=== PATIENT | male | born 1965 | race Caucasian/White ===

== ENCOUNTER → 2022-02-27 | Outpatient (CLI) | payer OTHER, SELFPAY ==
--- NOTE | 2022-02-27 14:25 | ECHOCS_ITS ---
Reason For Study: SOB/Obesity/HTN Procedure This was a 2D Doppler, Color Flow transthoracic echocardiogram. Contrast injection was performed. Exam performed in department. Left Ventricle Normal LV size. Left ventricular systolic function is normal. The estimated ejection fraction is 60 %. No regional wall motion abnormalities noted. Right Ventricle Normal RV size. Normal systolic function. Atria Normal left atrium. Normal right atrium. Mitral Valve Mitral valve not well visualized. Tricuspid Valve Normal tricuspid valve. Aortic Valve Normal aortic valve. Pulmonic Valve Normal pulmonic valve. Great Vessels Normal aortic root. The pulmonary artery is normal size. Normal inferior vena cava. Pericardium/Pleural No pericardial effusion. Medication Diluted definity 2ml given slow IV push to enhance endocardial definition. MMode/2D Measurements & Calculations LVIDd: 4.6 cm IVSd: 1.2 cm Ao root diam: 2.9 cm LVIDs: 2.9 cm LVPWd: 1.2 cm RVDd: 3.0 cm FS: 36.7 % LAV(MOD-bp): 35.4 ml LA A4 area: 14.6 cm2 LA dimension(2D): 3.8 cm LAV(MOD-bp) Indexed: 15.4 ml/m2 LAV(MOD-sp2): 36.5 ml LAV(MOD-sp4): 32.7 ml RA A4 area: 14.5 cm2 Doppler Measurements & Calculations MV E max jamaal: 60.7 cm/sec Lat Peak E' Jamaal: 8.6 cm/sec Med Peak E' Jamaal: 8.2 cm/sec MV A max jamaal: 70.1 cm/sec E/E' lat: 7.0 E/E' med: 7.4 MV E/A: 0.87 Ao V2 max: 160.7 cm/sec LV V1 max: 135.2 cm/sec PA V2 max: 105.6 cm/sec Ao max P.3 mmHg LV V1 max P.3 mmHg Ao V2 mean: 101.8 cm/sec Ao mean P.8 mmHg Ao V2 VTI: 25.9 cm ECHO/Echo Complete W/ Contrast Interpretation Summary Normal LV size. Left ventricular systolic function is normal. The estimated ejection fraction is 60 %. Contrast injection was performed. Ordering Physician: Savana Argueta Referring Physician: Savana Argueta Performed By: Umm Ibrahim, JENCS, RVT
== END | disposition home or self-care (01) ==
LOC: CVS 14:22
PROVIDERS: PCP Nurse Practitioner Family; Referring Provider Nurse Practitioner Family; Visit Provider Nurse Practitioner Family
DX: R06.02 Shortness of breath (principal); I10 Essential (primary) hypertension; E66.9 Obesity, unspecified
CPT/HCPCS: 93306; Q9957; A4216; C8929

== ENCOUNTER → 2022-04-01 | Outpatient (CLI) | payer OTHER, SELFPAY ==
--- NOTE | 2022-04-01 10:38 | RAD_ITS ---
INDICATION: Shortness of breath. EXAMINATION/TECHNIQUE: X-RAY - XR Chest 2 Views COMPARISON: None. FINDINGS: LINES/DEVICES: None. LUNGS: No consolidation, edema or effusion. No pneumothorax. MEDIASTINUM AND CARDIOVASCULAR STRUCTURES: Cardiac silhouette not enlarged. Central airways and mediastinal contour are unremarkable. BONES AND SOFT TISSUES: Unremarkable. RAD/Chest PA and Lateral IMPRESSION: No radiographic evidence of acute cardiopulmonary disease. Electronically Signed: Emmanuel Blanchard DO at 21:47 EDT ,
--- NOTE | 2022-04-02 10:02 | PFT ---
INTRODUCTION: The patient is a 56-year-old male that presents for pulmonary function studies secondary to a diagnosis of dyspnea. Respiratory therapy reported good patient effort. Bronchodilators were used during testing. INTERPRETATION: Forced expiration spirometry demonstrates the presence of a severe large airways obstructive ventilatory defect. There was a significant response to aerosolized bronchodilators. Spirograms are of good quality but do not plateau indicating slow emptying of the lungs. Body plethysmography was performed and demonstrated an elevated RV to 197% of predicted, indicative of underlying air trapping. Diffusing capacity by single breath CO was reduced to 65% of predicted. IMPRESSION: Partially reversible severe large airways obstructive ventilatory defect with associated air trapping and mild reduction in diffusing capacity.
== END | disposition home or self-care (01) ==
PROVIDERS: PCP Nurse Practitioner Family; Referring Provider Internal Medicine Critical Care Medicine; Visit Provider Internal Medicine Critical Care Medicine
DX: R06.02 Shortness of breath (principal)
CPT/HCPCS: 71046; 94060; 94726; 94729

== ENCOUNTER → 2022-04-02 | Outpatient (CLI) | payer OTHER, SELFPAY ==
[2022-04-02 11:55] VITALS: PULSE 101; PULSE 105; PULSE 108; PULSE 75; PULSE 83; PULSE 88; PULSE 90; PULSE 99; O2SAT 89; O2SAT 90; O2SAT 91; O2SAT 92; O2SAT 94; O2SAT 95; O2SAT 97
--- NOTE | 2022-04-02 12:34 | CPS ---
At 4 min into test pt stopped to catch his breath. Pulse ox was 89% but came up to 90-91% in just a few seconds. Pulse ox continued to rise to 97%. Walk was restarted after approximately 1 minute break time total.
--- NOTE | 2022-04-05 10:08 | PCM.PSN.6M ---
PSN 6 Minute Walk Test 6 Minute Walk Test 6 Minute Walk Test: 6 Minute Walk Test PSN:6-Minute Walk Test Start: 04/02/22 12:30 Freq: Status: Active Protocol: RESP.6MINW Document 04/02/22 11:55 [facility] (Rec: 04/02/22 12:39 [facility] [id number]) 6 Minute Walk Test Date Performed 04/02/22 Time Performed 11:55 Height 5 ft 7 in Weight: 275 lb Weight in Pounds 275.[address]: Kervin Pa Assistive device used: None Pre-test Oxygen Delivery Method Room Air Pulse Ox (%) 95 Pulse Rate (60-100 beats/min) 75 Dyspnea Jannette Scale (0-10) 0.5 Exertion Jannette Scale (6-20) 6 1st minute Pulse Ox (%) 92 Pulse Rate (60-100 beats/min) 101 H 2nd minute Oxygen Delivery Method Room Air Pulse Ox (%) 91 Pulse Rate (60-100 beats/min) 108 H 3rd minute Oxygen Delivery Method Bi-pap Pulse Ox (%) 90 Pulse Rate (60-100 beats/min) 105 H 4th minute Oxygen Delivery Method Room Air Pulse Ox (%) 89 Pulse Rate (60-100 beats/min) 99 Number of Rests Taken 1 Reported Symptoms Increased Work of Breathing 5th minute Oxygen Delivery Method Room Air Pulse Ox (%) 94 Pulse Rate (60-100 beats/min) 90 6th minute Oxygen Delivery Method Room Air Pulse Ox (%) 91 Pulse Rate (60-100 beats/min) 83 Post-test Oxygen Delivery Method Room Air Pulse Ox (%) 97 Pulse Rate (60-100 beats/min) 88 Full Laps Walked 16 Partial Lap, Number of Tiles Walked 35 Total Distance Walked (ft) 979 04/02/22 12:34 Cardiopulmonary Services by Kayla Baker At 4 min into test pt stopped to catch his breath. Pulse ox was 89% but came up to 90-91% in just a few seconds. Pulse ox continued to rise to 97%. Walk was restarted after approximately 1 minute break time total. Initialized on 04/02/22 12:34 - END OF NOTE Interpretation Interpretation: The patient ambulated 979 feet over the course of 6 minutes beginning on room air without assistive devices. Pretesting oxygen saturation was noted to be 95% on room air. With ambulation, the caprice oxygen saturation was 89%. This represents a significant exertional oxygen desaturation, consistent with a pulmonary limitation to exercise tolerance. Recommendations Recommendations: There is no indication for the use of supplemental oxygen at this time. However, close interval follow-up is recommended, given the degree of oxygen desaturation noted during this study.
== END | disposition home or self-care (01) ==
LOC: PSN 11:51
PROVIDERS: PCP Nurse Practitioner Family; Referring Provider Internal Medicine Critical Care Medicine; Visit Provider Internal Medicine Critical Care Medicine
DX: R06.00 Dyspnea, unspecified (principal)
CPT/HCPCS: 94618

== ENCOUNTER 2022-08-30 15:00 | Outpatient (RCR) | payer OTHER, SELFPAY ==
[2022-08-22 10:13] VITALS: BP 145/73; PULSE 86; TEMP 36.2; BMI 44.6
--- NOTE | 2022-08-22 11:10 | PCM.WC.HP ---
History of Present Illness Date of Service: 08/22/22 Chief Complaint: Left lower extremity wound x3 History of Wound: Patient is a 57-year-old male with history of COPD, chronic tobacco abuse, obesity, swelling of bilateral lower extremities with recent opening of 3 ulcerations to the left lower extremity. 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 He states that he does not elevate his legs and does not wear compression stockings. Also states that he recently quit smoking. Reports seeing his PCP who prescribed Lasix to aid in fluid reduction of the lower extremities. He also reports being prescribed oral antibiotic, Bactrim DS and is currently taking this. States he was referred to the wound care center for continued care of his left lower extremity ulcerations. [facility] Medical History Bronchitis Environmental allergies Hyperlipidemia Hypoxemia Home Medications albuterol sulfate 90 mcg/actuation aerosol inhaler (ProAir HFA) 2 puff inhalation Q6H PRN 03/27/22 [History Last Taken Unknown] atorvastatin 10 mg tablet 10 mg PO DAILY 03/27/22 [History Last Taken Unknown] losartan 100 mg-hydrochlorothiazide 25 mg tablet 1 tab PO DAILY 03/27/22 [History Last Taken Unknown] fluticasone fur. 200 mcg-umeclid 62.5 mcg-vilant 25 mcg inhalat.powder (Trelegy Ellipta) 1 inh inhalation DAILY #60 ea 05/07/22 [Rx Last Taken Unknown] Allergy/AdvReac Type Severity Reaction Status Date / Time No Known Allergies Allergy Verified 05/07/22 08:55 Surgical History History of repair of rotator cuff Social History Smoking Status: Current some day smoker tobacco type: cigarettes ROS Constitutional Constitutional: Denies chills, fatigue or fever(s) Eyes Eyes: Denies blurry vision, change in vision or double vision ENT HEENT: Denies dysphagia, nasal congestion or sore throat Cardiovascular Cardiovascular: Denies chest pain, claudication or palpitations Respiratory/Chest Respiratory/Chest: Denies cough, productive cough or shortness of breath at rest Gastrointestinal Gastrointestinal: Denies abdominal pain, constipation, diarrhea, hematochezia, nausea or vomiting Genitourinary Genitourinary: Denies dysuria, hematuria, urinary frequency, urinary hesitancy, urinary incontinence or urinary urgency Musculoskeletal Musculoskeletal: Denies joint pain, joint stiffness or joint swelling Integumentary Integumentary: Denies lesions, pruritus or rash Neurologic Neurologic: Denies dizziness, numbness or seizures Endocrine Endocrinology: Denies cold intolerance or heat intolerance Hematologic/Lymphatic Hematologic/Lymphatic: Denies easy bleeding or easy bruising Vital Signs Vital Signs Vital Signs: 08/22/22 10:13 Temperature 97.1 F L Temperature Source Temporal Pulse Rate 86 Blood Pressure 145/73 H Blood Pressure Mean 97 Blood Pressure Source Monitor Weight Weight: 129.274 kg Body Mass Index (BMI) 44.6 Physical Exam Const alert, oriented x3, no apparent distress and well nourished General Appearance: cooperative HEENT normocephalic Eyes General Eye: normal appearance of both eyes Neck General: normal visual inspection Lymph Lymphatic: no lymphadenopathy noted and no lymphedema noted Resp normal respiratory effort Cardio regular rate and regular rhythm Extremity normal capillary refill, no joint enlargement and no calf tenderness Extremity Narrative: DP and PT pulses palpable bilateral. Capillary fill time is brisk to the digits. Normal temperature gradient. Hair growth to the digits is diminished. There is some mild nonpitting lower extremity edema bilateral from mid calf to the distal forefoot. Musculoskeletal: Muscle strength 5 out of 5 and age-appropriate. Negative Homans' sign. Negative Lester sign. Skin no rashes or lesions noted, skin turgor normal and no jaundice Wound Narrative: Left lower extremity: 3 ulcerations noted to the left lower extremity. #1 anterior leg; #2 Superior lateral leg; #3 distal lateral leg. Ulcerative sites demonstrate moist fibrotic tissue in the wound bed with scant serous drainage. No purulent drainage, no erythema, no malodor, no palpable fluctuance/bogginess, no visible abscess, no lymphangitic streaking. Neuro moves all extremities Debridement Note Debridement Note Wound debrided: Left lower extremity x3 Laterality: Left Wound Grade/Stage: Sheth stage I Type of Debridement: Excisional debridement Anesthesia Used: 5% Lidocaine Gel Depth: Down to and including healthy tissue and in the subcutaneous layer Percentage of wound debrided: 100 Instrument Used: 3mm curette Tissue Removed: Fibrous, devitalized subcutaneous, biofilm, slough Severity: Fat Layer Exposed Amount of bleeding with debridement: Mild Bleeding Controlled with: Compression and gauze Patient tolerated procedure: Patient tolerated procedure well Post-Debridement Measurements and Additional Note: Post-Debridement Measurements/Treatment - Nurse 1 - General Ulcer Assessment Start: 08/22/22 10:03 Freq: Status: Active Protocol: XIMENA Activity Type Activity Date Activity User E-sign Co-sign Detail Recorded Client Recorded Date Recorded By Document 08/22/22 10:13 NE [id number] 08/22/22 10:20 NE 08/22/22 10:13 WC - Today's Visit Information Type of service Initial Visit Arrival Mode Ambulatory Patient Identification Verified (Name & Yes ) Patient Requires Transmission-Based No Precautions Safety Precautions NA Height and Weight Height 5 ft 7 in Weight 129.274 kg Weight in Pounds 285.0 lbs Body Mass Index (BMI) 44.6 BMI Classification Obese BSA - Belinda 2.35 Vital Signs Temperature (97.8 F-99.1 F) 97.1 F L Temperature Source Temporal Pulse Rate (60-100) 86 Pulse Location Monitor Blood Pressure (90/60-120/80) 145/73 H Blood Pressure Mean 97 Source Monitor History Since Last Visit- (Skip if this is Patient's initial visit) Have you changed medications since your No last visit? Any new allergies or adverse reactions No Had a fall/change in ADL's that may No increase risk of falls Signs or symptoms of abuse and/or No neglect since last visit Have you been in the hospital since your No last visit? Has dressing in place as prescribed No Has compression in place as prescribed N/A Has offloadiing in place as prescribed N/A Experienced any changes in pain level or No management Left Footwear Regular Shoe Right Footwear Regular Shoe Pain Scale: 0-10 Numeric Is Patient Pain Free? Yes - Nurse 1 - General Ulcer Measurement Start: 08/22/22 10:03 Freq: Status: Active Protocol: Activity Type Activity Date Activity User E-sign Co-sign Detail Recorded Client Recorded Date Recorded By Document 08/22/22 10:13 TORREY [id number] 08/22/22 10:20 TORREY 08/22/22 10:13 Wound Center Nurse 1 #3 L lateral superior -Combined with other wound No -Current Size (cm) - Length 0.4 -Current Size (cm) - Width 1 -Current Size (cm) - Depth 0.1 -Total Square Cm 0.4 -Photo Taken Yes -Tunneling No -Undermining/Tunneling No -Circular Undermining No -Change in Wound Grade/Stage No -Exudate Amt Large -Exudate Type Serosanguineous -Wound Margin Distinct, Outline Attached -Granulation Amt None Present (0 %) -Slough/Fibrin Yes -Necrosis Amt Large (67-100%) -Necrotic Tissue Type Adherent Slough -Structure Exposed N/A -Texture (Myriam-wound Skin Appearance) No Abnormality, Assessed -Moisture (Myriam-wound Skin Appearance) No Abnormality, Assessed -Color (Myriam-wound Skin Appearance) No Abnormality, Assessed -Temperature (Myriam-wound Skin No Abnormality Appearance) (Pt Warm) -Tenderness on Palpation (Myriam-wound No Skin Appearance) -Ulcer Cleansing Soap and Water -Foul Odor after Cleansing No -Anesthetic Used 5% Lidocaine Gel # 2 L lateral -Combined with other wound No -Current Size (cm) - Length 0.5 -Current Size (cm) - Width 0.5 -Current Size (cm) - Depth 0.1 -Total Square Cm 0.25 -Photo Taken Yes -Tunneling No -Undermining/Tunneling No -Circular Undermining No -Change in Wound Grade/Stage No -Exudate Amt Medium -Exudate Type Serosanguineous -Wound Margin Distinct, Outline Attached -Granulation Amt None Present (0 %) -Granulation Quality N/A -Slough/Fibrin Yes -Necrosis Amt Large (67-100%) -Necrotic Tissue Type Adherent Slough -Structure Exposed N/A -Texture (Myriam-wound Skin Appearance) No Abnormality, Assessed -Moisture (Myriam-wound Skin Appearance) No Abnormality, Assessed -Color (Myriam-wound Skin Appearance) No Abnormality, Assessed -Temperature (Myriam-wound Skin No Abnormality Appearance) (Pt Warm) -Tenderness on Palpation (Myriam-wound No Skin Appearance) -Ulcer Cleansing Soap and Water -Foul Odor after Cleansing No -Anesthetic Used 5% Lidocaine Gel #1 L salmeron -Combined with other wound No -Current Size (cm) - Length 1.2 -Current Size (cm) - Width 0.7 -Current Size (cm) - Depth 0.1 -Total Square Cm 0.84 -Photo Taken Yes -Tunneling No -Undermining/Tunneling No -Circular Undermining No -Change in Wound Grade/Stage No -Exudate Amt None Present -Exudate Type Serosanguineous -Wound Margin Distinct, Outline Attached -Granulation Amt None Present (0 %) -Granulation Quality N/A -Slough/Fibrin Yes -Necrosis Amt Large (67-100%) -Necrotic Tissue Type Adherent Slough -Structure Exposed N/A -Texture (Myriam-wound Skin Appearance) No Abnormality, Assessed -Moisture (Myriam-wound Skin Appearance) No Abnormality, Assessed -Color (Myriam-wound Skin Appearance) No Abnormality, Assessed -Temperature (Myriam-wound Skin No Abnormality Appearance) (Pt Warm) -Tenderness on Palpation (Myriam-wound No Skin Appearance) -Ulcer Cleansing Soap and Water -Foul Odor after Cleansing No -Anesthetic Used 5% Lidocaine Gel Lower Limb Edema Present No Right Calf (cm) 48 Right Ankle (cm) 29 Left Calf (cm) 49 Left Ankle (cm) 31 - Nurse 2 - General Ulcer CM Notes Start: 08/22/22 10:03 Freq: Status: Active Protocol: Activity Type Activity Date Activity User E-sign Co-sign Detail Recorded Client Recorded Date Recorded By Document 08/22/22 10:35 MARK [id number] 08/22/22 10:46 MARK 08/22/22 10:35 Wound Center Nurse 2 #3 L lateral superior -Correct Patient Yes -Correct Side, Site, Position Yes -Correct Procedure Yes -Procedure Performed Yes -Type of Procedure Debridement -Clinical Debridement Subcutaneous -Tissue Removed Subcutaneous -Post Debridement (cm) - Length 0.3 -Post Debridement (cm) - Width 1.0 -Post Debridement (cm) - Depth 0.1 -Total Square (Post) (cm) 0.30 -Area of Debridement (cm) - Length 0.3 -Area of Debridement (cm) - Width 1.0 -Total Square (Area) (cm) 0.30 -Tunneling No -Undermining/Tunneling No -Circular Undermining No -Wound/Ulcer Outcome Not Healed -Ulcer Cleansing Rinsed/ Irrigated with Saline -Foul Odor after Cleansing No -Bioengineered Tissue No -Bleeding Controlled with Pressure -Treatment Response Procedure Tolerated Well -Offloading No -Debridement - Subq, 1st 20sq cm Yes # 2 L lateral -Time 10:40 -Correct Patient Yes -Correct Side, Site, Position Yes -Correct Procedure Yes -Procedure Performed Yes -Type of Procedure Debridement -Clinical Debridement Subcutaneous -Tissue Removed Subcutaneous -Post Debridement (cm) - Length 0.5 -Post Debridement (cm) - Width 0.6 -Post Debridement (cm) - Depth 0.1 -Total Square (Post) (cm) 0.30 -Area of Debridement (cm) - Length 0.5 -Area of Debridement (cm) - Width 0.6 -Total Square (Area) (cm) 0.30 -Tunneling No -Undermining/Tunneling No -Circular Undermining No -Wound/Ulcer Outcome Not Healed -Ulcer Cleansing Rinsed/ Irrigated with Saline -Foul Odor after Cleansing No -Bioengineered Tissue No -Bleeding Controlled with Pressure -Treatment Response Procedure Tolerated Well -Offloading No -Debridement - Subq, 20sq cm No #1 L salmeron -Time 10:45 -Correct Patient Yes -Correct Side, Site, Position Yes -Correct Procedure Yes -Procedure Performed No -Type of Procedure Debridement -Clinical Debridement Subcutaneous -Tissue Removed Subcutaneous -Post Debridement (cm) - Length 0.5 -Post Debridement (cm) - Width 0.6 -Post Debridement (cm) - Depth 0.1 -Total Square (Post) (cm) 0.30 -Area of Debridement (cm) - Length 0.5 -Area of Debridement (cm) - Width 0.6 -Total Square (Area) (cm) 0.30 -Tunneling No -Undermining/Tunneling No -Circular Undermining No -Wound/Ulcer Outcome Not Healed -Ulcer Cleansing Rinsed/ Irrigated with Saline -Foul Odor after Cleansing No -Bioengineered Tissue No -Bleeding Controlled with Pressure -Treatment Response Procedure Tolerated Well -Offloading No -Debridement - Subq, 1st 20sq cm No Pain Scale: 0-10 Numeric Is Patient Pain Free? Yes Assessment/Plan Assessment/Plan (1) BMI 40.0-44.9, adult: CODE(S): Z68.41 - Body mass index [BMI] 40.0-44.9, adult (2) Stage 3 severe COPD by GOLD classification: CODE(S): J44.9 - Chronic obstructive pulmonary disease, unspecified (3) Tobacco abuse: CODE(S): Z72.0 - Tobacco use (4) Venous insufficiency (chronic) (peripheral): CODE(S): I87.2 - Venous insufficiency (chronic) (peripheral) (5) Non-pressure chronic ulcer of left calf with fat layer exposed: CODE(S): L97.222 - Non-pressure chronic ulcer of left calf with fat layer exposed (6) Bilateral edema of lower extremity: CODE(S): R60.0 - Localized edema PLAN: Plan Patient seen and evaluated Discussed the swelling in the bilateral lower extremities with his ulcerations secondary to aggressive scratching with a back scratching device. Discouraged continued use of this device as this has likely led to his ulcerations. Encouraged continued elevation of lower extremities for control of edema. Patient is noted to be on Lasix to assist in fluid control. Instructed him to continue use of Lasix. Discussed compression stocking for continued assistance in his control of edema. He voices understanding that he does need to wear the compression stockings. He has stopped smoking recently. I did discuss the risks and detriment smoking has on wound healing and overall health, again smoking was discouraged. Encouraged his continued smoking cessation. Ordered LEAS and venous studies of bilateral lower extremities, awaiting results. Encouraged him to finish out his oral antibiotic, Bactrim DS. Ulcerations to the left lower extremity x3 were debrided as noted in the clinical panel above. Left anterior leg lower extremity measures 1.2 cm x 0.9 cm x 0.1 cm; left superior lateral measures 0.3 cm x 1 cm x 0.1 cm; left distal lateral measures 0.5 cm x 0.6 cm x 0.1 cm. No signs of infection. Following debridement ulcerative sites dressed with Taya and Unna boot applied to bilateral lower extremity. He was instructed to keep the Unna boots clean, dry, and intact. He will return on Friday for change of the Unna boot. Encouraged adequate protein intake to continue to aid in wound healing. The following work up and care recommendations were made: Dressing: Taya and Unna boot to bilateral lower extremity Wash: Keep dressings clean, dry, and intact Tissue growth optimization: Taya Offload: Unna boot compression and elevation of legs Vascular: DP and PT pulses palpable with adequate capillary fill bilateral. Edema: Unna boot compression and elevation of legs Infection: No signs of infection. Patient currently on Bactrim DS, encouraged to finish to completion. Pain: May take [id number] Tylenol for discomfort Host factors: Suspected venous insufficiency, pruritus and self excoriation. I answered all the patient's questions. To return to the wound healing center in 1 week or call sooner if the patient has any questions or concerns.
[2022-08-27 08:16] VITALS: BP 142/84; PULSE 74; BMI 44.6
--- NOTE | 2022-08-29 11:00 | PCM.WC.PN ---
History of Present Illness Date of Service: 08/29/22 Chief Complaint: Left lower extremity wound x3 History of Wound: Patient is a 57-year-old male with history of COPD, chronic tobacco abuse, obesity, swelling of bilateral lower extremities with recent opening of 3 ulcerations to the left lower extremity. 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 He states that he does not elevate his legs and does not wear compression stockings. Also states that he recently quit smoking. Reports seeing his PCP who prescribed Lasix to aid in fluid reduction of the lower extremities. He also reports being prescribed oral antibiotic, Bactrim DS and is currently taking this. States he was referred to the wound care center for continued care of his left lower extremity ulcerations. Subjective Subjective Patient is a 57-year-old male who presents to the wound care center today for follow-up of left lower extremity ulceration x3. He kept his Unna boot compression dressing clean, dry, and intact and did return to the wound center for change of the dressing earlier this week. He denies any constitutional symptoms today. Denies any further complaints today. Objective Data Objective Data Vital Signs: Vital Signs Temp Pulse BP 97.1 F L 74 142/84 H 08/22/22 10:13 08/27/22 08:16 08/27/22 08:16 Weight: 129.274 kg Body Mass Index (BMI) 44.6 Physical Exam Const alert, oriented x3, no apparent distress and well nourished General Appearance: cooperative HEENT normocephalic Eyes General Eye: normal appearance of both eyes Neck General: normal visual inspection Lymph Lymphatic: no lymphadenopathy noted and no lymphedema noted Resp normal respiratory effort Cardio regular rate and regular rhythm Extremity normal capillary refill, no joint enlargement and no calf tenderness Extremity Narrative: DP and PT pulses palpable bilateral. Capillary fill time is brisk to the digits. Normal temperature gradient. Hair growth to the digits is diminished. There is some mild nonpitting lower extremity edema bilateral from mid calf to the distal forefoot. Musculoskeletal: Muscle strength 5 out of 5 and age-appropriate. Negative Homans' sign. Negative Lester sign. Skin no rashes or lesions noted, skin turgor normal and no jaundice Wound Narrative: Left lower extremity: 3 ulcerations noted to the left lower extremity. #1 anterior leg; #2 Superior lateral leg; #3 distal lateral leg. Ulcerative sites demonstrate moist fibrotic tissue in the wound bed with scant serous drainage. No purulent drainage, no erythema, no malodor, no palpable fluctuance/bogginess, no visible abscess, no lymphangitic streaking. Neuro moves all extremities Debridement Note Debridement Note Wound debrided: Left lower extremity x3 Laterality: Left Wound Grade/Stage: Sheth stage I Type of Debridement: Excisional debridement Anesthesia Used: 5% Lidocaine Gel Depth: Down to and including healthy tissue and in the subcutaneous layer Percentage of wound debrided: 100 Instrument Used: 3mm curette and - (1 mm curette) Tissue Removed: Fibrous, devitalized subcutaneous, biofilm, slough Severity: Fat Layer Exposed Amount of bleeding with debridement: Mild Bleeding Controlled with: Compression and gauze Patient tolerated procedure: Patient tolerated procedure well Post-Debridement Measurements and Additional Note: Post-Debridement Measurements/Treatment WC - Nurse 1 - General Ulcer Assessment Start: 08/22/22 10:03 Freq: Status: Active Protocol: XIMENA Activity Type Activity Date Activity User E-sign Co-sign Detail Recorded Client Recorded Date Recorded By Document 08/22/22 10:13 AK [id number] 08/22/22 10:20 AK Document 08/27/22 08:16 DL [id number] 08/27/22 08:31 DL 08/22/22 08/27/22 10:13 08:16 WC - Today's Visit Information Type of service Initial Visit Nurse-only Visit Arrival Mode Ambulatory Ambulatory Patient Identification Verified (Name & Yes Yes ) Patient Requires Transmission-Based No No Precautions Safety Precautions NA NA Height and Weight Height 5 ft 7 in Weight 129.274 kg Weight in Pounds 285.0 lbs Body Mass Index (BMI) 44.6 44.6 BMI Classification Obese Obese BSA - Belinda 2.35 Vital Signs Temperature (97.8 F-99.1 F) 97.1 F L Temperature Source Temporal Pulse Rate (60-100) 86 74 Pulse Location Monitor Monitor Blood Pressure (90/60-120/80) 145/73 H 142/84 H Blood Pressure Mean (mm Hg) 97 103 Source Monitor Monitor History Since Last Visit- (Skip if this is Patient's initial visit) Have you changed medications since your No No last visit? Any new allergies or adverse reactions No No Had a fall/change in ADL's that may No No increase risk of falls Signs or symptoms of abuse and/or No No neglect since last visit Have you been in the hospital since your No No last visit? Has dressing in place as prescribed No Yes Has compression in place as prescribed N/A Yes Has offloadiing in place as prescribed N/A N/A Experienced any changes in pain level or No No management Left Footwear Regular Shoe Regular Shoe Right Footwear Regular Shoe Regular Shoe Pain Scale: 0-10 Numeric Is Patient Pain Free? Yes Yes WC - Nurse 1 - General Ulcer Measurement Start: 08/22/22 10:03 Freq: Status: Active Protocol: Activity Type Activity Date Activity User E-sign Co-sign Detail Recorded Client Recorded Date Recorded By Document 08/22/22 10:13 AK [id number] 08/22/22 10:20 AK Document 08/27/22 08:16 DL [id number] 08/27/22 08:31 DL 08/22/22 08/27/22 10:13 08:16 Wound Center Nurse 1 #3 L lateral superior -Combined with other wound No No -Current Size (cm) - Length 0.4 -Current Size (cm) - Width 1 -Current Size (cm) - Depth 0.1 -Total Square Cm 0.4 -Photo Taken Yes -Tunneling No -Undermining/Tunneling No -Circular Undermining No -Change in Wound Grade/Stage No -Exudate Amt Large -Exudate Type Serosanguineous -Wound Margin Distinct, Outline Attached -Granulation Amt None Present (0 %) -Slough/Fibrin Yes -Necrosis Amt Large (67-100%) -Necrotic Tissue Type Adherent Slough -Structure Exposed N/A -Texture (Myriam-wound Skin Appearance) No Abnormality, Assessed -Moisture (Myriam-wound Skin Appearance) No Abnormality, Assessed -Color (Myriam-wound Skin Appearance) No Abnormality, Assessed -Temperature (Myriam-wound Skin No Abnormality Appearance) (Pt Warm) -Tenderness on Palpation (Myriam-wound No Skin Appearance) -Ulcer Cleansing Soap and Water -Foul Odor after Cleansing No -Anesthetic Used 5% Lidocaine Gel # 2 L lateral -Combined with other wound No -Current Size (cm) - Length 0.5 -Current Size (cm) - Width 0.5 -Current Size (cm) - Depth 0.1 -Total Square Cm 0.25 -Photo Taken Yes -Tunneling No -Undermining/Tunneling No -Circular Undermining No -Change in Wound Grade/Stage No -Exudate Amt Medium -Exudate Type Serosanguineous -Wound Margin Distinct, Outline Attached -Granulation Amt None Present (0 %) -Granulation Quality N/A -Slough/Fibrin Yes -Necrosis Amt Large (67-100%) -Necrotic Tissue Type Adherent Slough -Structure Exposed N/A -Texture (Myriam-wound Skin Appearance) No Abnormality, Assessed -Moisture (Myriam-wound Skin Appearance) No Abnormality, Assessed -Color (Myriam-wound Skin Appearance) No Abnormality, Assessed -Temperature (Myriam-wound Skin No Abnormality Appearance) (Pt Warm) -Tenderness on Palpation (Myriam-wound No Skin Appearance) -Ulcer Cleansing Soap and Water -Foul Odor after Cleansing No -Anesthetic Used 5% Lidocaine Gel #1 L salmeron -Combined with other wound No -Current Size (cm) - Length 1.2 -Current Size (cm) - Width 0.7 -Current Size (cm) - Depth 0.1 -Total Square Cm 0.84 -Photo Taken Yes -Tunneling No -Undermining/Tunneling No -Circular Undermining No -Change in Wound Grade/Stage No -Exudate Amt None Present -Exudate Type Serosanguineous -Wound Margin Distinct, Outline Attached -Granulation Amt None Present (0 %) -Granulation Quality N/A -Slough/Fibrin Yes -Necrosis Amt Large (67-100%) -Necrotic Tissue Type Adherent Slough -Structure Exposed N/A -Texture (Myriam-wound Skin Appearance) No Abnormality, Assessed -Moisture (Myriam-wound Skin Appearance) No Abnormality, Assessed -Color (Myriam-wound Skin Appearance) No Abnormality, Assessed -Temperature (Myriam-wound Skin No Abnormality Appearance) (Pt Warm) -Tenderness on Palpation (Myriam-wound No Skin Appearance) -Ulcer Cleansing Soap and Water -Foul Odor after Cleansing No -Anesthetic Used 5% Lidocaine Gel Lower Limb Edema Present No Right Calf (cm) 48 50 Right Ankle (cm) 29 27.5 Left Calf (cm) 49 47.5 Left Ankle (cm) 31 30.2 WC - Nurse 2 - General Ulcer CM Notes Start: 08/22/22 10:03 Freq: Status: Active Protocol: Activity Type Activity Date Activity User E-sign Co-sign Detail Recorded Client Recorded Date Recorded By Document 08/22/22 10:35 MARK [id number] 08/22/22 10:46 MARK 08/22/22 10:35 Wound Center Nurse 2 #3 L lateral superior -Correct Patient Yes -Correct Side, Site, Position Yes -Correct Procedure Yes -Procedure Performed Yes -Type of Procedure Debridement -Clinical Debridement Subcutaneous -Tissue Removed Subcutaneous -Post Debridement (cm) - Length 0.3 -Post Debridement (cm) - Width 1.0 -Post Debridement (cm) - Depth 0.1 -Total Square (Post) (cm) 0.30 -Area of Debridement (cm) - Length 0.3 -Area of Debridement (cm) - Width 1.0 -Total Square (Area) (cm) 0.30 -Tunneling No -Undermining/Tunneling No -Circular Undermining No -Wound/Ulcer Outcome Not Healed -Ulcer Cleansing Rinsed/ Irrigated with Saline -Foul Odor after Cleansing No -Bioengineered Tissue No -Bleeding Controlled with Pressure -Treatment Response Procedure Tolerated Well -Offloading No -Debridement - Subq, 1st 20sq cm Yes # 2 L lateral -Time 10:40 -Correct Patient Yes -Correct Side, Site, Position Yes -Correct Procedure Yes -Procedure Performed Yes -Type of Procedure Debridement -Clinical Debridement Subcutaneous -Tissue Removed Subcutaneous -Post Debridement (cm) - Length 0.5 -Post Debridement (cm) - Width 0.6 -Post Debridement (cm) - Depth 0.1 -Total Square (Post) (cm) 0.30 -Area of Debridement (cm) - Length 0.5 -Area of Debridement (cm) - Width 0.6 -Total Square (Area) (cm) 0.30 -Tunneling No -Undermining/Tunneling No -Circular Undermining No -Wound/Ulcer Outcome Not Healed -Ulcer Cleansing Rinsed/ Irrigated with Saline -Foul Odor after Cleansing No -Bioengineered Tissue No -Bleeding Controlled with Pressure -Treatment Response Procedure Tolerated Well -Offloading No -Debridement - Subq, 1st 20sq cm No #1 L salmeron -Time 10:45 -Correct Patient Yes -Correct Side, Site, Position Yes -Correct Procedure Yes -Procedure Performed No -Type of Procedure Debridement -Clinical Debridement Subcutaneous -Tissue Removed Subcutaneous -Post Debridement (cm) - Length 0.5 -Post Debridement (cm) - Width 0.6 -Post Debridement (cm) - Depth 0.1 -Total Square (Post) (cm) 0.30 -Area of Debridement (cm) - Length 0.5 -Area of Debridement (cm) - Width 0.6 -Total Square (Area) (cm) 0.30 -Tunneling No -Undermining/Tunneling No -Circular Undermining No -Wound/Ulcer Outcome Not Healed -Ulcer Cleansing Rinsed/ Irrigated with Saline -Foul Odor after Cleansing No -Bioengineered Tissue No -Bleeding Controlled with Pressure -Treatment Response Procedure Tolerated Well -Offloading No -Debridement - Subq, 1st 20sq cm No Pain Scale: 0-10 Numeric Is Patient Pain Free? Yes WC - Nurse 3 - General Ulcer D/C NN Start: 08/22/22 10:03 Freq: Status: Active Protocol: Activity Type Activity Date Activity User E-sign Co-sign Detail Recorded Client Recorded Date Recorded By Document 08/22/22 11:50 AK [id number] 08/22/22 11:51 AK Document 08/27/22 08:16 DL [id number] 08/27/22 08:31 DL Edit Result 08/27/22 08:16 DL (1) [id number] 08/28/22 07:04 PL (1) [place] - Multi-Layered Wrap Application => Unna Boot - => Bilateral ($) - Unna Boots (Bilat) ($) => 2 08/22/22 08/27/22 11:50 08:16 Wound Care Center Nurse 3 #3 L lateral superior -Ulcer Cleansing Rinsed/ Irrigated with Saline -Foul Odor after Cleansing No -Negative Pressure Wound Therapy N/A -Primary Dressing Applied Promogran Thomas Matter -Promogran Thomas Matter 1 # 2 L lateral -Ulcer Cleansing Rinsed/ Irrigated with Saline -Foul Odor after Cleansing No -Negative Pressure Wound Therapy N/A -Other Dressing thomas #1 L salmeron -Ulcer Cleansing Rinsed/ Irrigated with Saline -Foul Odor after Cleansing No -Negative Pressure Wound Therapy N/A -Other Dressing thomas [place] -Multi-Layered Wrap Application Unna Boot - Unna Boot - Bilateral ($) Bilateral ($) -Unna Boots (Bilat) ($) 2 2 Vital Signs Pulse Rate (60-100) 74 Pulse Location Monitor Blood Pressure (90/60-120/80) 142/84 H Blood Pressure Mean (mm Hg) 103 Source Monitor Pain Scale: 0-10 Numeric Is Patient Pain Free? Yes Yes WC - Visit Discharge Discharge Condition Stable Stable Ambulatory Status Ambulatory Ambulatory Transportation Private Auto Private Auto Medication Reconcilliation completed & Yes Yes provided to patient/care provider Clinical Summary of Care Provided Yes Yes Assessment/Plan Assessment/Plan (1) BMI 40.0-44.9, adult: CODE(S): Z68.41 - Body mass index [BMI] 40.0-44.9, adult (2) Stage 3 severe COPD by GOLD classification: CODE(S): J44.9 - Chronic obstructive pulmonary disease, unspecified (3) Tobacco abuse: CODE(S): Z72.0 - Tobacco use (4) Venous insufficiency (chronic) (peripheral): CODE(S): I87.2 - Venous insufficiency (chronic) (peripheral) (5) Non-pressure chronic ulcer of left calf with fat layer exposed: CODE(S): L97.222 - Non-pressure chronic ulcer of left calf with fat layer exposed (6) Bilateral edema of lower extremity: CODE(S): R60.0 - Localized edema PLAN: Plan Patient seen and evaluated Discussed the swelling in the bilateral lower extremities with his ulcerations secondary to aggressive scratching with a back scratching device. Discouraged continued use of this device as this has likely led to his ulcerations. Encouraged continued elevation of lower extremities for control of edema. Patient is noted to be on Lasix to assist in fluid control. Instructed him to continue use of Lasix. Discussed compression stocking for continued assistance in his control of edema. He voices understanding that he does need to wear the compression stockings. He has stopped smoking recently. I did discuss the risks and detriment smoking has on wound healing and overall health, again smoking was discouraged. Encouraged his continued smoking cessation. Ordered LEAS and venous studies of bilateral lower extremities, awaiting results. Encouraged him to finish out his oral antibiotic, Bactrim DS. Ulcerations to the left lower extremity x3 were debrided as noted in the clinical panel above. Left anterior leg lower extremity measures 0.9 cm x 0.7 cm x 0.1 cm; left superior lateral measures 0.3 cm x 0.8 cm x 0.1 cm; left distal lateral measures 0.4 cm x 0.4 cm x 0.1 cm. No signs of infection. Following debridement ulcerative sites dressed with Thomas and Unna boot applied to bilateral lower extremity. He was instructed to keep the Unna boots clean, dry, and intact. He will return on Friday for change of the Unna boot. Ulcerations are decreasing in size versus previous visit. Encouraged adequate protein intake to continue to aid in wound healing. The following work up and care recommendations were made: Dressing: Thomas and Unna boot to bilateral lower extremity Wash: Keep dressings clean, dry, and intact Tissue growth optimization: Thomas Offload: Unna boot compression and elevation of legs Vascular: DP and PT pulses palpable with adequate capillary fill bilateral. Edema: Unna boot compression and elevation of legs Infection: No signs of infection. Patient currently on Bactrim DS, encouraged to finish to completion. Pain: May take [id number] Tylenol for discomfort Host factors: Suspected venous insufficiency, pruritus and self excoriation. I answered all the patient's questions. To return to the wound healing center in 1 week or call sooner if the patient has any questions or concerns.
[2022-08-29 11:26] VITALS: BP 136/74; PULSE 87; RESP 16; TEMP 35.9; BMI 44.6
[2022-08-30 15:04] VITALS: BP 139/76; PULSE 70; RESP 18; TEMP 35.7; BMI 44.6
== END 2022-08-30 23:59 | disposition home or self-care (01) ==
LOC: WC 15:00
PROVIDERS: PCP Nurse Practitioner Family; Referring Provider Nurse Practitioner Family; Visit Provider Student in an Organized Health Care Education/Training Program
DX: I87.2 Venous insufficiency (chronic) (peripheral) (principal); L97.222 Non-pressure chronic ulcer of left calf with fat layer exposed; J44.9 Chronic obstructive pulmonary disease, unspecified; R60.0 Localized edema; E78.5 Hyperlipidemia, unspecified; F17.210 Nicotine dependence, cigarettes, uncomplicated; Z79.899 Other long term (current) drug therapy
CPT/HCPCS: 11042; 29580; 99214; G0463

== ENCOUNTER → 2022-08-30 | Outpatient (CLI) | payer OTHER, SELFPAY ==
--- NOTE | 2022-08-30 13:10 | VDLE_ITS ---
Reason For Study: Edema RIGHT LEFT CFV is compressible, spontaneous, phasic, CFV is compressible, spontaneous, phasic, competent and demonstrates normal competent, and demonstrates normal augmentation. augmentation. FV is compressible, spontaneous, phasic, FV is compressible, spontaneous, phasic, competent and demonstrates normal competent and demonstrates normal augmentation. augmentation. POP V is compressible, spontaneous, phasic, POP V is compressible, spontaneous, phasic, competent and demonstrates normal competent and demonstrates normal augmentation. augmentation. T/P Trunk is compressible. T/P Trunk is compressible. PTV is compressible. PTV is compressible. RT PerV is compressible. LT PerV is compressible. SFJ is competent and measures 0.84 x 0.88 cm. SFJ is competent and measures 0.92 x 0.96 cm. GSV proximal thigh measures 0.50 x 0.51 cm. GSV proximal thigh measures 0.52 x 0.52 cm. GSV above knee is competent. GSV at knee measures 0.44 x 0.49 cm. GSV at knee measures 0.38 x 0.40 cm. GSV is competent throughout. GSV below knee is INCOMPETENT for greater ASV proximal thigh is INCOMPETENT for greater than 0.5 seconds. than 0.5 seconds and measures 0.45 x 0.47 cm. ASV proximal calf is INCOMPETENT for greater ASV proximal calf is INCOMPETENT for greater than 0.5 seconds and measures 0.35 x 0.36 cm. than 0.5 seconds and measures 0.34 x 0.39 cm. INCOMPETENT policy service coordinator noted 17 cm above SSV proximal calf is competent and measures medial malleolus. 0.33 x 0.37 cm. SSV proximal calf is competent and measures 0.27 x 0.28 cm. Procedure This is a venous duplex using B-mode, color flow and spectral Doppler. Exam performed in department. Patient was scanned in reverse Trendelenburg position during reflux assessment. A preliminary report was called and/or faxed to . VL/Venous Duplex US - Mitch Extrem Interpretation Summary Deep veins of the lower extremities are bilaterally patent and compressible seg mentally. There is no evidence of deep vein thrombosis on either side. Valvular competence appears in tact within the proximal deep venous systems bilaterally. The great saphenous veins appear bila terally patent and compressible segmentally. Sapheno-femoral junctions are bilaterally competent . The right great saphenous vein appears competent above the knee. The right great saphenous vein appears incompetent below the knee. The left great saphenous vein appears segmentally competent. Sm all saphenous veins are patent and competent bilaterally. The accessory saphenous vein in the right proximal calf is incompetent. Accessory saphenous veins in the left proximal thigh and proximal calf are incompetent. An incompetent policy service coordinator vein is noted in the right calf, located 17 centimete rs proximal to the right medial malleolus. Ordering Physician: Felipe Whitt Referring Physician: Savana Argueta Performed By: Aliyah Melchor RVT
--- NOTE | 2022-08-30 13:11 | ART_ITS ---
Reason For Study: Ulcers Procedure A bilateral lower extremity continuous wave Doppler with analog waveform analysis,segmental pressures,and ankle brachial indexes without exercise. Left Segmental Pressures Left brachial= 134mmHg. Left posterior tibial artery = 179mmHg. Left dorsalis pedis artery = 169mmHg. Left digit = 97 mmHg. The left dorsalis pedis waveforms are triphasic. The left posterior tibial artery waveforms are triphasic. Right Segmental Pressures Right brachial= 127mmHg. Right posterior tibial artery = 182mmHg. Right dorsalis pedis artery = 174mmHg. Right digit = 132 mmHg. The right dorsalis pedis waveforms are triphasic. The right posterior tibial artery waveforms are triphasic. Indices The right ankle brachial index by the dorsalis pedis is 1.30. The right ankle brachial index by the posterior tibial artery is 1.36. The right digital-brachial index is 0.99. The left ankle brachial index by the dorsalis pedis is 1.26. The left ankle brachial index by the posterior tibial artery is 1.39. The left digital-brachial index is 0.72. VL/Lower Ext Art Exam w/o Exercis Interpretation Summary Triphasic Doppler waveforms are noted at ankle level bilaterally. Pulse-volume recordings appear normal at all levels bilaterally. Resting ankle-brachial indices are normal simon aterally. Digital- brachial indices are normal bilaterally. There is no evidence of significant arterial occlusive disease in the lower ext remities bilaterally. Ordering Physician: Felipe Whitt Referring Physician: Savana Argueta Performed By: Aliyah Melchor RVT
== END | disposition home or self-care (01) ==
PROVIDERS: PCP Nurse Practitioner Family; Referring Provider Student in an Organized Health Care Education/Training Program; Visit Provider Student in an Organized Health Care Education/Training Program
DX: L97.929 Non-pressure chronic ulcer of unspecified part of left lower leg with unspecified severity (principal); M79.89 Other specified soft tissue disorders
CPT/HCPCS: 93923; 93970

== ENCOUNTER 2022-09-24 11:30 | Outpatient (RCR) | payer OTHER, SELFPAY ==
[2022-08-31 02:21] VITALS: BP 139/76; PULSE 70; RESP 18; TEMP 35.7; BMI 44.6
[2022-09-03 13:16] VITALS: BP 175/91; PULSE 85; RESP 20; TEMP 36.2; BMI 44.6
[2022-09-05 10:33] VITALS: BP 150/87; PULSE 66; RESP 18; TEMP 36; BMI 44.6
--- NOTE | 2022-09-05 10:33 | PN.PCM_ITS ---
History of Present Illness Date of Service: 09/05/22 Chief Complaint: Left lower extremity wound x3 History of Wound: Patient is a 57-year-old male with history of COPD, chronic tobacco abuse, obesity, swelling of bilateral lower extremities with recent opening of 3 ulcerations to the left lower extremity. 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 He states that he does not elevate his legs and does not wear compression stockings. Also states that he recently quit smoking. Reports seeing his PCP who prescribed Lasix to aid in fluid reduction of the lower extremities. He also reports being prescribed oral antibiotic, Bactrim DS and is currently taking this. States he was referred to the wound care center for continued care of his left lower extremity ulcerations. Subjective Subjective Patient is a 57-year-old male who presents to the wound care center today for follow-up of left lower extremity ulceration x3.? He kept his Unna boot compression dressing clean, dry, and intact and did return to the wound center for change of the dressing earlier this week.? He states he did get his vascular studies done. He denies any constitutional symptoms today.? Denies any further complaints today. Objective Data Objective Data Vital Signs: Vital Signs Temp Pulse Resp BP 97.1 F L 85 20 H 175/91 H 09/03/22 13:16 09/03/22 13:16 09/03/22 13:16 09/03/22 13:16 Weight: 129.274 kg Body Mass Index (BMI) 44.6 Physical Exam Const alert, oriented x3, no apparent distress and well nourished General Appearance: cooperative HEENT normocephalic Eyes General Eye: normal appearance of both eyes Neck General: normal visual inspection Lymph Lymphatic: no lymphadenopathy noted and no lymphedema noted Resp normal respiratory effort Cardio regular rate and regular rhythm Extremity normal capillary refill, no joint enlargement, no calf tenderness and no pedal edema Extremity Narrative: DP and PT pulses palpable bilateral.? Capillary fill time is brisk to the digits.? Normal temperature gradient.? Hair growth to the digits is diminished.? There is some mild nonpitting lower extremity edema bilateral from mid calf to the distal forefoot. Musculoskeletal: Muscle strength 5 out of 5 and age-appropriate.? Negative Homans' sign.? Negative Lester sign. Skin no rashes or lesions noted, skin turgor normal and no jaundice Wound Narrative: Left lower extremity: 3 ulcerations noted to the left lower extremity.? #1 anterior leg; #2 Superior lateral leg; #3 distal lateral leg.? Ulcerative sites demonstrate moist fibrotic tissue in the wound bed with scant serous drainage.? No purulent drainage, no erythema, no malodor, no palpable fluctuance/bogginess, no visible abscess, no lymphangitic streaking. Neuro moves all extremities Debridement Note Debridement Note Wound debrided: Left lower extremity x3 Laterality: Left Wound Grade/Stage: Sheth stage I Type of Debridement: Excisional debridement Anesthesia Used: 5% Lidocaine Gel Depth: Down to and including healthy tissue and in the subcutaneous layer Percentage of wound debrided: 100 Instrument Used: 3mm curette Tissue Removed: Fibrous, devitalized subcutaneous, biofilm, slough Severity: Fat Layer Exposed Amount of bleeding with debridement: Mild Bleeding Controlled with: Compression and gauze Patient tolerated procedure: Patient tolerated procedure well Post-Debridement Measurements and Additional Note: Post-Debridement Measurements/Treatment - Nurse 1 - General Ulcer Assessment Start: 09/03/22 13:16 Freq: Status: Active Protocol: [email or web address] Activity Type Activity Date Activity User E-sign Co-sign Detail Recorded Client Recorded Date Recorded By Document 09/03/22 13:16 DL [id number] 09/03/22 13:37 DL 09/03/22 13:16 - Today's Visit Information Type of service Follow-up Visit (Physician/BICYCLE RACER ) Arrival Mode Ambulatory Transfer Assistance None Patient Identification Verified (Name & Yes ) Patient Requires Transmission-Based No Precautions Safety Precautions NA Height and Weight Body Mass Index (BMI) 44.6 BMI Classification Obese Vital Signs Temperature (97.8 F-99.1 F) 97.1 F L Temperature Source Temporal Pulse Rate (60-100) 85 Pulse Location Monitor Respiratory Rate (12-18) 20 H Respiratory rate source Observation Blood Pressure (90/60-120/80) 175/91 H Blood Pressure Mean (mm Hg) 119 Source Monitor History Since Last Visit- (Skip if this is Patient's initial visit) Have you changed medications since your No last visit? Any new allergies or adverse reactions No Had a fall/change in ADL's that may No increase risk of falls Signs or symptoms of abuse and/or No neglect since last visit Have you been in the hospital since your No last visit? Has dressing in place as prescribed Yes Has compression in place as prescribed Yes Has offloadiing in place as prescribed N/A Experienced any changes in pain level or No management Pain Scale: 0-10 Numeric Is Patient Pain Free? Yes WC - Nurse 1 - General Ulcer Measurement Start: 09/03/22 13:16 Freq: Status: Active Protocol: Activity Type Activity Date Activity User E-sign Co-sign Detail Recorded Client Recorded Date Recorded By Document 09/03/22 13:16 DL [id number] 09/03/22 13:37 DL 09/03/22 13:16 Wound Center Nurse 1 #3 L lateral superior -Exudate Amt Small -Wound Margin Distinct, Outline Attached -Granulation Amt Medium (34-66%) -Necrosis Amt Medium (34-66%) -Necrotic Tissue Type Adherent Slough -Structure Exposed N/A -Texture (Myriam-wound Skin Appearance) Scarring -Moisture (Myriam-wound Skin Appearance) No Abnormality -Color (Myriam-wound Skin Appearance) Hemosiderin Staining -Temperature (Myriam-wound Skin No Abnormality Appearance) (Pt Warm) -Tenderness on Palpation (Myriam-wound No Skin Appearance) -Ulcer Cleansing Soap and Water -Foul Odor after Cleansing No # 2 L lateral -Exudate Amt Small -Wound Margin Distinct, Outline Attached -Granulation Amt Medium (34-66%) -Granulation Quality [place] -Necrosis Amt Medium (34-66%) -Necrotic Tissue Type Adherent Slough -Structure Exposed N/A -Texture (Myriam-wound Skin Appearance) Localized Edema -Moisture (Myriam-wound Skin Appearance) No Abnormality -Color (Myriam-wound Skin Appearance) Hemosiderin Staining -Temperature (Myriam-wound Skin No Abnormality Appearance) (Pt Warm) -Tenderness on Palpation (Myriam-wound No Skin Appearance) -Ulcer Cleansing Soap and Water -Foul Odor after Cleansing No #1 L salmeron -Exudate Amt Small -Exudate Type Serosanguineous -Wound Margin Distinct, Outline Attached -Granulation Amt Medium (34-66%) -Granulation Quality Red -Necrosis Amt Medium (34-66%) -Necrotic Tissue Type Adherent Slough -Structure Exposed N/A -Texture (Myriam-wound Skin Appearance) Scarring -Moisture (Myriam-wound Skin Appearance) No Abnormality -Color (Myriam-wound Skin Appearance) Hemosiderin Staining -Temperature (Myriam-wound Skin No Abnormality Appearance) (Pt Warm) -Ulcer Cleansing Soap and Water -Foul Odor after Cleansing No Right Calf (cm) 50.4 Right Ankle (cm) 29.3 Left Calf (cm) 48.5 Left Ankle (cm) 31.2 WC - Nurse 3 - General Ulcer D/C NN Start: 09/03/22 13:16 Freq: Status: Active Protocol: Activity Type Activity Date Activity User E-sign Co-sign Detail Recorded Client Recorded Date Recorded By Document 09/03/22 13:37 DL [id number] 09/03/22 13:39 DL Edit Result 09/03/22 13:37 DL (1) [id number] 09/04/22 07:17 PL (1) Bilateral - Multi-Layered Wrap Application => Unna Boot - => Bilateral ($) - Unna Boots (Bilat) ($) => 2 09/03/22 13:37 Wound Care Center Nurse 3 #3 L lateral superior -Ulcer Cleansing Soap and Water -Foul Odor after Cleansing No -Primary Dressing Applied Promogran Thomas Matter -Promogran Thomas Matter 1 # 2 L lateral -Ulcer Cleansing Soap and Water -Foul Odor after Cleansing No -Other Dressing thomas #1 L salmeron -Ulcer Cleansing Soap and Water -Foul Odor after Cleansing No -Other Dressing thomas Bilateral -Multi-Layered Wrap Application Unna Boot - Bilateral ($) -Unna Boots (Bilat) ($) 2 Treatment Response Procedure Tolerated Well Pain Scale: 0-10 Numeric Is Patient Pain Free? Yes WC - Visit Discharge Discharge Condition Stable Ambulatory Status Ambulatory Transportation Private Auto Assessment/Plan Assessment/Plan (1) Bilateral edema of lower extremity: CODE(S): R60.0 - Localized edema (2) Non-pressure chronic ulcer of left calf with fat layer exposed: CODE(S): L97.222 - Non-pressure chronic ulcer of left calf with fat layer exposed (3) Venous insufficiency (chronic) (peripheral): CODE(S): I87.2 - Venous insufficiency (chronic) (peripheral) (4) BMI 40.0-44.9, adult: CODE(S): Z68.41 - Body mass index [BMI] 40.0-44.9, adult (5) Stage 3 severe COPD by GOLD classification: CODE(S): J44.9 - Chronic obstructive pulmonary disease, unspecified (6) Dyspnea: CODE(S): R06.00 - Dyspnea, unspecified (7) Tobacco abuse: CODE(S): Z72.0 - Tobacco use PLAN: Plan Patient seen and evaluated Discussed the swelling in the bilateral lower extremities with his ulcerations secondary to aggressive scratching with a back scratching device.? Discouraged continued use of this device as this has likely led to his ulcerations.? Encouraged continued elevation of lower extremities for control of edema.? Patient is noted to be on Lasix to assist in fluid control.? Instructed him to continue use of Lasix.? Discussed compression stocking for continued assistance in his control of edema.? He voices understanding that he does need to wear the compression stockings. He has stopped smoking recently.? I did discuss the risks and detriment smoking has on wound healing and overall health, again smoking was discouraged.? Encouraged his continued smoking cessation. Ordered LEAS and venous studies of bilateral lower extremities, performed 08/30/2022. Venous studies: No evidence of acute DVT. 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 Accessory saphenous vein in the left proximal thigh and proximal calf are incompetent. LEAS: Triphasic Doppler waveforms noted at the ankle level bilaterally. PVRs appear normal at all levels bilaterally. Indices: Right: QUETA by DP 1.3, QUETA by PT 1.36, digital brachial index 0.99. Left: QUETA by DP 1.26, QUETA by PT 1.39, digital brachial index 0.72. No evidence of significant arterial occlusive disease in the lower extremity bilaterally. Ulcerations to the left lower extremity x3 were debrided as noted in the clinical panel above.? Left anterior leg lower extremity measures 1.0 cm x 0.8 cm x 0.1 cm; left superior lateral measures 0.3 cm x 0.9 cm x 0.1 cm; left distal lateral measures 0.4 cm x 0.3 cm x 0.1 cm.? No signs of infection.? Following debridement ulcerative sites dressed with Thomas and Unna boot applied to bilateral lower extremity.? He was instructed to keep the Unna boots clean, dry, and intact.? He will return on Friday for change of the Unna boot. Ulcerations are decreasing in size versus previous visit. Encouraged adequate protein intake to continue to aid in wound healing. Encouraged to clean up his diet of fast food and lower sodium intake. The following work up and care recommendations were made: Dressing: Thomas and Unna boot to bilateral lower extremity Wash: Keep dressings clean, dry, and intact Tissue growth optimization: Thoams Offload: Unna boot compression and elevation of legs Vascular: DP and PT pulses palpable with adequate capillary fill bilateral. Edema: Unna boot compression and elevation of legs Infection: No signs of infection.? Patient currently on Bactrim DS, encouraged to finish to completion. Pain: May take [id number] Tylenol for discomfort Host factors: Suspected venous insufficiency, pruritus and self excoriation. ? I answered all the patient's questions.? To return to the wound healing center in 1 week or call sooner if the patient has any questions or concerns.
[2022-09-10 13:52] VITALS: BP 132/73; PULSE 85; RESP 20; TEMP 35.3; BMI 44.6
[2022-09-12 11:03] VITALS: BP 163/80; PULSE 81; RESP 18; TEMP 36.1; BMI 44.6
--- NOTE | 2022-09-12 11:10 | PN.PCM_ITS ---
History of Present Illness Date of Service: 09/12/22 Chief Complaint: Left lower extremity wound x3 History of Wound: Patient is a 57-year-old male with history of COPD, chronic tobacco abuse, obesity, swelling of bilateral lower extremities with recent opening of 3 ulcerations to the left lower extremity. 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 He states that he does not elevate his legs and does not wear compression stockings. Also states that he recently quit smoking. Reports seeing his PCP who prescribed Lasix to aid in fluid reduction of the lower extremities. He also reports being prescribed oral antibiotic, Bactrim DS and is currently taking this. States he was referred to the wound care center for continued care of his left lower extremity ulcerations. Subjective Subjective Patient is a 57-year-old male who presents to the wound care center today for follow-up of left lower extremity ulceration x3.? He kept his 3M compression dressing clean, dry, and intact.?He denies any constitutional symptoms today.? Denies any further complaints today. Objective Data Objective Data Vital Signs: Vital Signs Temp Pulse Resp BP 95.5 F L 85 20 H 132/73 H 09/10/22 13:52 09/10/22 13:52 09/10/22 13:52 09/10/22 13:52 Weight: 129.274 kg Body Mass Index (BMI) 44.6 Physical Exam Const alert, oriented x3, no apparent distress and well nourished General Appearance: cooperative HEENT normocephalic Eyes General Eye: normal appearance of both eyes Neck General: normal visual inspection Lymph Lymphatic: no lymphadenopathy noted and no lymphedema noted Resp normal respiratory effort Cardio regular rate and regular rhythm Extremity normal capillary refill, no joint enlargement, no calf tenderness and no pedal edema Extremity Narrative: DP and PT pulses palpable bilateral.? Capillary fill time is brisk to the digits.? Normal temperature gradient.? Hair growth to the digits is diminished.? There is some mild nonpitting lower extremity edema bilateral from mid calf to the distal forefoot. Musculoskeletal: Muscle strength 5 out of 5 and age-appropriate.? Negative Homans' sign.? Negative Lester sign. Skin no rashes or lesions noted, skin turgor normal and no jaundice Wound Narrative: Left lower extremity: 3 ulcerations noted to the left lower extremity.? #1 anterior leg; #2 Superior lateral leg; #3 distal lateral leg.? Ulcerative sites demonstrate moist fibrotic tissue in the wound bed with scant serous drainage.? No purulent drainage, no erythema, no malodor, no palpable fluctuance/bogginess, no visible abscess, no lymphangitic streaking. Neuro moves all extremities Debridement Note Debridement Note Wound debrided: Left lower extremity x3 Laterality: Left Wound Grade/Stage: Sheth stage I Type of Debridement: Excisional debridement Anesthesia Used: 5% Lidocaine Gel Depth: Down to and including healthy tissue and in the subcutaneous layer Percentage of wound debrided: 100 Instrument Used: 3mm curette Tissue Removed: Fibrous, devitalized subcutaneous, biofilm, slough Severity: Fat Layer Exposed Amount of bleeding with debridement: Mild Bleeding Controlled with: Compression and gauze Patient tolerated procedure: Patient tolerated procedure well Post-Debridement Measurements and Additional Note: Post-Debridement Measurements/Treatment - Nurse 1 - General Ulcer Assessment Start: 09/03/22 13:16 Freq: Status: Active Protocol: XIMENA Activity Type Activity Date Activity User E-sign Co-sign Detail Recorded Client Recorded Date Recorded By Document 09/03/22 13:16 DL [id number] 09/03/22 13:37 DL Document 09/05/22 10:33 [id number] 09/05/22 10:36 Document 09/10/22 13:52 DL [id number] 09/10/22 13:59 DL 09/03/22 09/05/22 09/10/22 13:16 10:33 13:52 - Today's Visit Information Type of service Follow-up Visit Follow-up Visit Nurse-only (Physician/ELECTRONIC GLUER (Physician/ELECTRONIC GLUER Visit ) ) Arrival Mode Ambulatory Ambulatory Ambulatory Transfer Assistance None Patient Identification Verified (Name & Yes Yes ) Patient Requires Transmission-Based No No No Precautions Safety Precautions NA Height and Weight Body Mass Index (BMI) 44.6 44.6 44.6 BMI Classification Obese Obese Obese Vital Signs Temperature (97.8 F-99.1 F) 97.1 F L 96.8 F L 95.5 F L Temperature Source Temporal Temporal Temporal Pulse Rate (60-100) 85 66 85 Pulse Location Monitor Monitor Monitor Respiratory Rate (12-18) 20 H 18 20 H Respiratory rate source Observation Observation Observation Blood Pressure (90/60-120/80) 175/91 H 150/87 H 132/73 H Blood Pressure Mean (mm Hg) 119 108 92 Source Monitor Monitor Monitor Position Semi-Fowlers Blood Pressure Location Right Forearm History Since Last Visit- (Skip if this is Patient's initial visit) Have you changed medications since your No No No last visit? Any new allergies or adverse reactions No No No Had a fall/change in ADL's that may No No No increase risk of falls Signs or symptoms of abuse and/or No No No neglect since last visit Have you been in the hospital since your No No No last visit? Has dressing in place as prescribed Yes Yes Yes Has compression in place as prescribed Yes Yes Yes Has offloadiing in place as prescribed N/A N/A N/A Experienced any changes in pain level or No No No management Left Footwear Regular Shoe Right Footwear Regular Shoe Pain Scale: 0-10 Numeric Is Patient Pain Free? Yes Yes Yes - Nurse 1 - General Ulcer Measurement Start: 09/03/22 13:16 Freq: Status: Active Protocol: Activity Type Activity Date Activity User E-sign Co-sign Detail Recorded Client Recorded Date Recorded By Document 09/03/22 13:16 [id number] 09/03/22 13:37 DL Document 09/05/22 10:33 [id number] 09/05/22 10:36 Document 09/10/22 13:52 DL [id number] 09/10/22 13:59 DL 09/03/22 09/05/22 09/10/22 13:16 10:33 13:52 Wound Center Nurse 1 #3 L lateral superior -Combined with other wound No -Current Size (cm) - Length 0.5 -Current Size (cm) - Width 1.2 -Current Size (cm) - Depth 0.2 -Total Square Cm 0.60 -Photo Taken Yes -Epithelialization Small 1-33% -Tunneling No -Undermining/Tunneling No -Circular Undermining No -Exudate Amt Small Small -Exudate Type Serosanguineous -Wound Margin Distinct, Flat & Intact Outline Attached -Granulation Amt Medium (34-66%) Large (67-100%) -Granulation Quality Red -Slough/Fibrin Yes -Necrosis Amt Medium (34-66%) Small (1-33%) -Necrotic Tissue Type Adherent Slough Adherent Slough -Structure Exposed N/A N/A -Texture (Myriam-wound Skin Appearance) Scarring Assessed, Localized Edema -Moisture (Myriam-wound Skin Appearance) No Abnormality Assessed,Dry/ Scaly -Color (Myriam-wound Skin Appearance) Hemosiderin Staining -Temperature (Myriam-wound Skin No Abnormality No Abnormality Appearance) (Pt Warm) (Pt Warm) -Tenderness on Palpation (Myriam-wound No No Skin Appearance) -Ulcer Cleansing Soap and Water Wound Cleanser -Foul Odor after Cleansing No No -Anesthetic Used 5% Lidocaine Gel # 2 L lateral -Combined with other wound No -Current Size (cm) - Length 0.3 -Current Size (cm) - Width 0.3 -Current Size (cm) - Depth 0.1 -Total Square Cm 0.09 -Photo Taken Yes -Epithelialization Small 1-33% -Tunneling No -Undermining/Tunneling No -Circular Undermining No -Exudate Amt Small Small -Exudate Type Serosanguineous -Wound Margin Distinct, Flat & Intact Outline Attached -Granulation Amt Medium (34-66%) Medium (34-66%) -Granulation Quality [place] Red -Slough/Fibrin Yes -Necrosis Amt Medium (34-66%) Small (1-33%) -Necrotic Tissue Type Adherent Slough Adherent Slough -Structure Exposed N/A N/A -Texture (Myriam-wound Skin Appearance) Localized Edema Assessed, Localized Edema -Moisture (Myriam-wound Skin Appearance) No Abnormality Assessed,Dry/ No Abnormality Scaly -Color (Myriam-wound Skin Appearance) Hemosiderin Assessed No Abnormality Staining -Temperature (Myriam-wound Skin No Abnormality No Abnormality No Abnormality Appearance) (Pt Warm) (Pt Warm) (Pt Warm) -Tenderness on Palpation (Myriam-wound No No Skin Appearance) -Ulcer Cleansing Soap and Water Wound Cleanser Soap and Water -Foul Odor after Cleansing No No No -Anesthetic Used 5% Lidocaine Gel #1 L salmeron -Combined with other wound No -Current Size (cm) - Length 1.0 -Current Size (cm) - Width 1.0 -Current Size (cm) - Depth 0.1 -Total Square Cm 1.00 -Photo Taken Yes -Epithelialization Large 67-100% -Tunneling No -Undermining/Tunneling No -Circular Undermining No -Exudate Amt Small Medium -Exudate Type Serosanguineous Serosanguineous -Wound Margin Distinct, Flat & Intact Outline Attached -Granulation Amt Medium (34-66%) Large (67-100%) -Granulation Quality Red Red -Slough/Fibrin Yes -Necrosis Amt Medium (34-66%) Small (1-33%) -Necrotic Tissue Type Adherent Slough Adherent Slough -Structure Exposed N/A N/A -Texture (Myriam-wound Skin Appearance) Scarring Assessed, No Abnormality Localized Edema -Moisture (Myriam-wound Skin Appearance) No Abnormality Assessed,Dry/ No Abnormality Scaly -Color (Myriam-wound Skin Appearance) Hemosiderin Assessed No Abnormality Staining -Temperature (Myriam-wound Skin No Abnormality No Abnormality No Abnormality Appearance) (Pt Warm) (Pt Warm) (Pt Warm) -Tenderness on Palpation (Myriam-wound No No Skin Appearance) -Ulcer Cleansing Soap and Water Wound Cleanser Soap and Water -Foul Odor after Cleansing No No No -Anesthetic Used 5% Lidocaine Gel Lower Limb Edema Present Yes Right Calf (cm) 50.4 48 47 Right Ankle (cm) 29.3 28.5 27.4 Left Calf (cm) 48.5 48 48.5 Left Ankle (cm) 31.2 29.4 28.5 WC - Nurse 2 - General Ulcer CM Notes Start: 09/03/22 13:16 Freq: Status: Active Protocol: Activity Type Activity Date Activity User E-sign Co-sign Detail Recorded Client Recorded Date Recorded By Document 09/05/22 10:53 GERMAINE [id number] 09/05/22 10:59 PL 09/05/22 10:53 Wound Center Nurse 2 #3 L lateral superior -Time 10:50 -Correct Patient Yes -Correct Side, Site, Position Yes -Correct Procedure Yes -Procedure Performed Yes -Type of Procedure Debridement -Clinical Debridement Subcutaneous -Tissue Removed Subcutaneous -Post Debridement (cm) - Length 0.3 -Post Debridement (cm) - Width 0.9 -Post Debridement (cm) - Depth 0.1 -Total Square (Post) (cm) 0.27 -Area of Debridement (cm) - Length 0.3 -Area of Debridement (cm) - Width 0.9 -Total Square (Area) (cm) 0.27 -Tunneling No -Undermining/Tunneling No -Circular Undermining No -Wound/Ulcer Outcome Not Healed -Ulcer Cleansing Rinsed/ Irrigated with Saline -Foul Odor after Cleansing No -Bioengineered Tissue No -Bleeding Controlled with Pressure -Treatment Response Procedure Tolerated Well -Debridement - Subq, 1st 20sq cm No # 2 L lateral -Time 10:50 -Correct Patient Yes -Correct Side, Site, Position Yes -Correct Procedure Yes -Procedure Performed Yes -Type of Procedure Debridement -Clinical Debridement Subcutaneous -Tissue Removed Subcutaneous -Post Debridement (cm) - Length 0.4 -Post Debridement (cm) - Width 0.3 -Post Debridement (cm) - Depth 0.1 -Total Square (Post) (cm) 0.12 -Area of Debridement (cm) - Length 0.4 -Area of Debridement (cm) - Width 0.3 -Total Square (Area) (cm) 0.12 -Tunneling No -Undermining/Tunneling No -Circular Undermining No -Wound/Ulcer Outcome Not Healed -Debridement - Subq, 1st 20sq cm No #1 L salmeron -Time 10:50 -Correct Patient Yes -Correct Side, Site, Position Yes -Correct Procedure Yes -Procedure Performed Yes -Type of Procedure Debridement -Clinical Debridement Subcutaneous -Tissue Removed Subcutaneous -Post Debridement (cm) - Length 1.0 -Post Debridement (cm) - Width 0.8 -Post Debridement (cm) - Depth 0.1 -Total Square (Post) (cm) 0.80 -Area of Debridement (cm) - Length 1.0 -Area of Debridement (cm) - Width 0.8 -Total Square (Area) (cm) 0.80 -Tunneling No -Undermining/Tunneling No -Circular Undermining No -Wound/Ulcer Outcome Not Healed -Ulcer Cleansing Rinsed/ Irrigated with Saline -Foul Odor after Cleansing No -Bioengineered Tissue No -Bleeding Controlled with Pressure -Treatment Response Procedure Tolerated Well -Debridement - Subq, 1st 20sq cm Yes Pain Scale: 0-10 Numeric Is Patient Pain Free? Yes WC - Nurse 3 - General Ulcer D/C NN Start: 09/03/22 13:16 Freq: Status: Active Protocol: Activity Type Activity Date Activity User E-sign Co-sign Detail Recorded Client Recorded Date Recorded By Document 09/03/22 13:37 DL [id number] 09/03/22 13:39 DL Edit Result 09/03/22 13:37 DL (1) [id number] 09/04/22 07:17 PL Document 09/05/22 11:55 JF [id number] 09/05/22 11:56 JF Document 09/10/22 13:52 DL [id number] 09/10/22 13:59 DL (1) Bilateral - Multi-Layered Wrap Application => Unna Boot - => Bilateral ($) - Unna Boots (Bilat) ($) => 2 09/03/22 09/05/22 09/10/22 13:37 11:55 13:52 Wound Care Center Nurse 3 #3 L lateral superior -Ulcer Cleansing Soap and Water Rinsed/ Soap and Water Irrigated with Saline -Foul Odor after Cleansing No No No -Primary Dressing Applied Promogran Promogran Promogran Thomas Matter Thomas Matter Thomas Matter -Primary Dressing Covered/Secured with Dry Gauze Dry Gauze -Promogran Thomas Matter 1 1 1 # 2 L lateral -Ulcer Cleansing Soap and Water Rinsed/ Rinsed/ Irrigated with Irrigated with Saline Saline -Foul Odor after Cleansing No No No -Primary Dressing Applied Promogran Thomas Matter -Other Dressing thomas thomas -Primary Dressing Covered/Secured with Dry Gauze -Promogran Thomas Matter 0 #1 L salmeron -Ulcer Cleansing Soap and Water Rinsed/ Rinsed/ Irrigated with Irrigated with Saline Saline -Foul Odor after Cleansing No No No -Primary Dressing Applied Promogran Thomas Matter -Other Dressing thomas thomas -Primary Dressing Covered/Secured with Dry Gauze -Promogran Thomas Matter 0 Bilateral -Lotion applied to leg before Yes compression wrap -Multi-Layered Wrap Application Unna Boot - Multi-Layer Multi-Layer Bilateral ($) Comp - Bilat ($ Comp - Bilat ($ ) ) -Unna Boots (Bilat) ($) 2 Treatment Response Procedure Procedure Tolerated Well Tolerated Well Vital Signs Temperature (97.8 F-99.1 F) 95.5 F L Temperature Source Temporal Pulse Rate (60-100) 85 Pulse Location Monitor Respiratory Rate (12-18) 20 H Respiratory rate source Observation Blood Pressure (90/60-120/80) 132/73 H Blood Pressure Mean (mm Hg) 92 Source Monitor Pain Scale: 0-10 Numeric Is Patient Pain Free? Yes Yes Yes WC - Visit Discharge Discharge Condition Stable Stable Stable Ambulatory Status Ambulatory Ambulatory Ambulatory Transportation Private Auto Private Auto Private Auto Medication Reconcilliation completed & Yes provided to patient/care provider Clinical Summary of Care Provided Yes Assessment/Plan Assessment/Plan (1) Bilateral edema of lower extremity: CODE(S): R60.0 - Localized edema (2) Non-pressure chronic ulcer of left calf with fat layer exposed: CODE(S): L97.222 - Non-pressure chronic ulcer of left calf with fat layer exposed (3) Venous insufficiency (chronic) (peripheral): CODE(S): I87.2 - Venous insufficiency (chronic) (peripheral) (4) BMI 40.0-44.9, adult: CODE(S): Z68.41 - Body mass index [BMI] 40.0-44.9, adult (5) Stage 3 severe COPD by GOLD classification: CODE(S): J44.9 - Chronic obstructive pulmonary disease, unspecified (6) Dyspnea: CODE(S): R06.00 - Dyspnea, unspecified (7) Tobacco abuse: CODE(S): Z72.0 - Tobacco use PLAN: Plan Patient seen and evaluated Discussed the swelling in the bilateral lower extremities with his ulcerations secondary to aggressive scratching with a back scratching device.? Discouraged continued use of this device as this has likely led to his ulcerations.? En couraged continued elevation of lower extremities for control of edema.? Patient is noted to be on Lasix to assist in fluid control.? Instructed him to continue use of Lasix.? Discussed compression stocking for continued assistance in his control of edema.? He voices understanding that he does need to wear the compression stockings. He has stopped smoking.? I did discuss the risks and detriment smoking has on wound healing and overall health, again smoking was discouraged.? Encouraged his continued smoking cessation. Ordered LEAS and venous studies of bilateral lower extremities, performed . Venous studies: No evidence of acute DVT. 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 Accessory saphenous vein in the left proximal thigh and proximal calf are incompetent. LEAS: Triphasic Doppler waveforms noted at the ankle level bilaterally. PVRs appear normal at all levels bilaterally. Indices: Right: QUETA by DP 1.3, QUTEA by PT 1.36, digital brachial index 0.99. Left: QUETA by DP 1.26, QUETA by PT 1.39, digital brachial index 0.72. No evidence of significant arterial occlusive disease in the lower extremity bilaterally. Ulcerations to the left lower extremity x3 were debrided as noted in the clinical panel above.? Left anterior leg lower extremity measures 1.3 cm x 0.7 cm x 0.1 cm; left superior lateral measures 0.3 cm x 0.3 cm x 0.1 cm; left distal lateral measures 0.4 cm x 0.7 cm x 0.1 cm.? No signs of infection.? Following debridement ulcerative sites dressed with Thomas and 3M compression dressing applied to bilateral lower extremity.? He was instructed to keep the 3M compression dressing clean, dry, and intact.? He will return on Friday for change of the 3M compression dressing. Ulcerations are decreasing in size versus previous visit. Encouraged adequate protein intake to continue to aid in wound healing. Encouraged to clean up his diet of fast food and lower sodium intake. The following work up and care recommendations were made: Dressing: Thomas and Unna boot to bilateral lower extremity Wash: Keep dressings clean, dry, and intact Tissue growth optimization: Thomas Offload: Unna boot compression and elevation of legs Vascular: DP and PT pulses palpable with adequate capillary fill bilateral. Edema: Unna boot compression and elevation of legs Infection: No signs of infection.? Patient currently on Bactrim DS, encouraged to finish to completion. Pain: May take [id number] Tylenol for discomfort Host factors: Suspected venous insufficiency, pruritus and self excoriation. ? I answered all the patient's questions.? To return to the wound healing center in 2 weeks or call sooner if the patient has any questions or concerns.
[2022-09-17 11:28] VITALS: BP 128/83; PULSE 91; RESP 16; TEMP 36.3; BMI 44.6
--- NOTE | 2022-09-17 15:36 | WC ---
09/05/22 L Sup Lat LE
[2022-09-19 10:27] VITALS: RESP 18; BMI 44.6
--- NOTE | 2022-09-19 10:52 | PCM.WC.PN ---
History of Present Illness Date of Service: 09/19/22 Chief Complaint: Left lower extremity wound x3 History of Wound: Patient is a 57-year-old male with history of COPD, chronic tobacco abuse, obesity, swelling of bilateral lower extremities with recent opening of 3 ulcerations to the left lower extremity. 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 He states that he does not elevate his legs and does not wear compression stockings. Also states that he recently quit smoking. Reports seeing his PCP who prescribed Lasix to aid in fluid reduction of the lower extremities. He also reports being prescribed oral antibiotic, Bactrim DS and is currently taking this. States he was referred to the wound care center for continued care of his left lower extremity ulcerations. Subjective Subjective Patient is a 57-year-old male who presents to the wound care center today for follow-up of left lower extremity ulceration x3.? He kept his 3M compression dressing clean, dry, and intact.? He was stated to come back in 2 weeks however during last dressing change was concerned over his compression and wanted to be seen today. He denies any constitutional symptoms today.? Denies any further complaints today. Objective Data Objective Data Vital Signs: Vital Signs Temp Pulse Resp BP O2 Del Method 97.4 F L 91 18 128/83 H Room Air 09/17/22 11:28 09/17/22 11:28 09/19/22 10:27 09/17/22 11:28 09/17/22 11:28 Oxygen Delivery Method Room Air Weight: 129.274 kg Body Mass Index (BMI) 44.6 Physical Exam Const alert, oriented x3, no apparent distress and well nourished General Appearance: cooperative HEENT normocephalic Eyes General Eye: normal appearance of both eyes Neck General: normal visual inspection Lymph Lymphatic: no lymphadenopathy noted and no lymphedema noted Resp normal respiratory effort Cardio regular rate and regular rhythm Extremity normal capillary refill, no joint enlargement, no calf tenderness and no pedal edema Extremity Narrative: DP and PT pulses palpable bilateral.? Capillary fill time is brisk to the digits.? Normal temperature gradient.? Hair growth to the digits is diminished.? There is some mild nonpitting lower extremity edema bilateral from mid calf to the distal forefoot. Musculoskeletal: Muscle strength 5 out of 5 and age-appropriate.? Negative Homans' sign.? Negative Lester sign. Skin no rashes or lesions noted, skin turgor normal and no jaundice Wound Narrative: Left lower extremity: 3 ulcerations noted to the left lower extremity.? #1 anterior leg; #2 Superior lateral leg; #3 distal lateral leg.? Ulcerative sites demonstrate moist fibrotic tissue in the wound bed with scant serous drainage.? No purulent drainage, no erythema, no malodor, no palpable fluctuance/bogginess, no visible abscess, no lymphangitic streaking. Neuro moves all extremities Debridement Note Debridement Note Wound debrided: Left lower extremity x3 Laterality: Left Wound Grade/Stage: Sheth stage I Type of Debridement: Excisional debridement Anesthesia Used: 5% Lidocaine Gel Depth: Down to and including healthy tissue and in the subcutaneous layer Percentage of wound debrided: 100 Instrument Used: 5mm curette Tissue Removed: Fibrous, devitalized subcutaneous, biofilm, slough Severity: Fat Layer Exposed Amount of bleeding with debridement: Mild Bleeding Controlled with: Compression and gauze Patient tolerated procedure: Patient tolerated procedure well Post-Debridement Measurements and Additional Note: Post-Debridement Measurements/Treatment - Nurse 1 - General Ulcer Assessment Start: 09/03/22 13:16 Freq: Status: Active Protocol: XIMENA Activity Type Activity Date Activity User E-sign Co-sign Detail Recorded Client Recorded Date Recorded By Document 09/03/22 13:16 DL [id number] 09/03/22 13:37 DL Document 09/05/22 10:33 [id number] 09/05/22 10:36 Document 09/10/22 13:52 DL [id number] 09/10/22 13:59 DL Document 09/12/22 11:03 RB [id number] 09/12/22 11:13 RB Document 09/17/22 11:28 DL [id number] 09/17/22 11:34 DL Document 09/19/22 10:27 RB Desktop 09/19/22 10:44 RB 09/03/22 09/05/22 09/10/22 13:16 10:33 13:52 - Today's Visit Information Type of service Follow-up Visit Follow-up Visit Nurse-only (Physician/[employer] SALES REPRESENTATIVE (Physician/[employer] SALES REPRESENTATIVE Visit ) ) Arrival Mode Ambulatory Ambulatory Ambulatory Transfer Assistance None Accompanied by Patient Identification Verified (Name & Yes Yes ) Patient Requires Transmission-Based No No No Precautions Safety Precautions NA Height and Weight Body Mass Index (BMI) 44.6 44.6 44.6 BMI Classification Obese Obese Obese Vital Signs Temperature (97.8 F-99.1 F) 97.1 F L 96.8 F L 95.5 F L Temperature Source Temporal Temporal Temporal Pulse Rate (60-100) 85 66 85 Pulse Location Monitor Monitor Monitor Respiratory Rate (12-18) 20 H 18 20 H Respiratory rate source Observation Observation Observation Oxygen Delivery Method Blood Pressure (90/60-120/80) 175/91 H 150/87 H 132/73 H Blood Pressure Mean (mm Hg) 119 108 92 Source Monitor Monitor Monitor Position Semi-Fowlers Blood Pressure Location Right Forearm History Since Last Visit- (Skip if this is Patient's initial visit) Have you changed medications since your No No No last visit? Any new allergies or adverse reactions No No No Had a fall/change in ADL's that may No No No increase risk of falls Signs or symptoms of abuse and/or No No No neglect since last visit Have you been in the hospital since your No No No last visit? Has dressing in place as prescribed Yes Yes Yes Has compression in place as prescribed Yes Yes Yes Has offloadiing in place as prescribed N/A N/A N/A Experienced any changes in pain level or No No No management Left Footwear Regular Shoe Right Footwear Regular Shoe Pain Scale: 0-10 Numeric Is Patient Pain Free? Yes Yes Yes 09/12/22 09/17/22 09/19/22 11:03 11:28 10:27 - Today's Visit Information Type of service Follow-up Visit Nurse-only Follow-up Visit (Physician/[employer] SALES REPRESENTATIVE Visit (Physician/[employer] SALES REPRESENTATIVE ) ) Arrival Mode Ambulatory Ambulatory Ambulatory Transfer Assistance None None None Accompanied by self Patient Identification Verified (Name & Yes Yes Yes ) Patient Requires Transmission-Based No No No Precautions Safety Precautions NA Height and Weight Body Mass Index (BMI) 44.6 44.6 44.6 BMI Classification Obese Obese Obese Vital Signs Temperature (97.8 F-99.1 F) 97 F L 97.4 F L Temperature Source Temporal Temporal Temporal Pulse Rate (60-100) 81 91 Pulse Location Monitor Monitor Monitor Respiratory Rate (12-18) 18 16 18 Respiratory rate source Observation Observation Observation Oxygen Delivery Method Room Air Blood Pressure (90/60-120/80) 163/80 H 128/83 H Blood Pressure Mean (mm Hg) 107 98 Source Monitor Monitor Monitor Position Semi-Fowlers Sitting Semi-Fowlers Blood Pressure Location Left Arm Left Arm Left Arm History Since Last Visit- (Skip if this is Patient's initial visit) Have you changed medications since your No No No last visit? Any new allergies or adverse reactions No No No Had a fall/change in ADL's that may No No No increase risk of falls Signs or symptoms of abuse and/or No No No neglect since last visit Have you been in the hospital since your No No No last visit? Has dressing in place as prescribed Yes No Yes Has compression in place as prescribed Yes No Yes Has offloadiing in place as prescribed No N/A No Experienced any changes in pain level or No No No management Left Footwear Regular Shoe Right Footwear Regular Shoe Pain Scale: 0-10 Numeric Is Patient Pain Free? Yes Yes Yes WC - Nurse 1 - General Ulcer Measurement Start: 09/03/22 13:16 Freq: Status: Active Protocol: Activity Type Activity Date Activity User E-sign Co-sign Detail Recorded Client Recorded Date Recorded By Document 09/03/22 13:16 DL [id number] 09/03/22 13:37 DL Document 09/05/22 10:33 JF [id number] 09/05/22 10:36 JF Document 09/10/22 13:52 DL [id number] 09/10/22 13:59 DL Document 09/12/22 11:03 RB [id number] 09/12/22 11:13 RB Document 09/17/22 11:28 DL [id number] 09/17/22 11:34 DL Document 09/19/22 10:27 RB Desktop 09/19/22 10:44 RB 09/03/22 09/05/22 09/10/22 13:16 10:33 13:52 Wound Center Nurse 1 #3 L lateral superior -Combined with other wound No -Current Size (cm) - Length 0.5 -Current Size (cm) - Width 1.2 -Current Size (cm) - Depth 0.2 -Total Square Cm 0.60 -Photo Taken Yes -Epithelialization Small 1-33% -Tunneling No -Undermining/Tunneling No -Circular Undermining No -Exudate Amt Small Small -Exudate Type Serosanguineous -Wound Margin Distinct, Flat & Intact Outline Attached -Granulation Amt Medium (34-66%) Large (67-100%) -Granulation Quality Red -Slough/Fibrin Yes -Necrosis Amt Medium (34-66%) Small (1-33%) -Necrotic Tissue Type Adherent Slough Adherent Slough -Structure Exposed N/A N/A -Texture (Myriam-wound Skin Appearance) Scarring Assessed, Localized Edema -Moisture (Myriam-wound Skin Appearance) No Abnormality Assessed,Dry/ Scaly -Color (Myriam-wound Skin Appearance) Hemosiderin Staining -Temperature (Myriam-wound Skin No Abnormality No Abnormality Appearance) (Pt Warm) (Pt Warm) -Tenderness on Palpation (Myriam-wound No No Skin Appearance) -Ulcer Cleansing Soap and Water Wound Cleanser -Foul Odor after Cleansing No No -Anesthetic Used 5% Lidocaine Gel # 2 L lateral -Combined with other wound No -Current Size (cm) - Length 0.3 -Current Size (cm) - Width 0.3 -Current Size (cm) - Depth 0.1 -Total Square Cm 0.09 -Photo Taken Yes -Epithelialization Small 1-33% -Tunneling No -Undermining/Tunneling No -Circular Undermining No -Exudate Amt Small Small -Exudate Type Serosanguineous -Wound Margin Distinct, Flat & Intact Outline Attached -Granulation Amt Medium (34-66%) Medium (34-66%) -Granulation Quality [place] Red -Slough/Fibrin Yes -Necrosis Amt Medium (34-66%) Small (1-33%) -Necrotic Tissue Type Adherent Slough Adherent Slough -Structure Exposed N/A N/A -Texture (Myriam-wound Skin Appearance) Localized Edema Assessed, Localized Edema -Moisture (Myriam-wound Skin Appearance) No Abnormality Assessed,Dry/ No Abnormality Scaly -Color (Myriam-wound Skin Appearance) Hemosiderin Assessed No Abnormality Staining -Temperature (Myraim-wound Skin No Abnormality No Abnormality No Abnormality Appearance) (Pt Warm) (Pt Warm) (Pt Warm) -Tenderness on Palpation (Myriam-wound No No Skin Appearance) -Ulcer Cleansing Soap and Water Wound Cleanser Soap and Water -Foul Odor after Cleansing No No No -Anesthetic Used 5% Lidocaine Gel #1 L salmeron -Combined with other wound No -Current Size (cm) - Length 1.0 -Current Size (cm) - Width 1.0 -Current Size (cm) - Depth 0.1 -Total Square Cm 1.00 -Photo Taken Yes -Epithelialization Large 67-100% -Tunneling No -Undermining/Tunneling No -Circular Undermining No -Exudate Amt Small Medium -Exudate Type Serosanguineous Serosanguineous -Wound Margin Distinct, Flat & Intact Outline Attached -Granulation Amt Medium (34-66%) Large (67-100%) -Granulation Quality Red Red -Slough/Fibrin Yes -Necrosis Amt Medium (34-66%) Small (1-33%) -Necrotic Tissue Type Adherent Slough Adherent Slough -Structure Exposed N/A N/A -Texture (Myriam-wound Skin Appearance) Scarring Assessed, No Abnormality Localized Edema -Moisture (Myriam-wound Skin Appearance) No Abnormality Assessed,Dry/ No Abnormality Scaly -Color (Myriam-wound Skin Appearance) Hemosiderin Assessed No Abnormality Staining -Temperature (Myriam-wound Skin No Abnormality No Abnormality No Abnormality Appearance) (Pt Warm) (Pt Warm) (Pt Warm) -Tenderness on Palpation (Myriam-wound No No Skin Appearance) -Ulcer Cleansing Soap and Water Wound Cleanser Soap and Water -Foul Odor after Cleansing No No No -Anesthetic Used 5% Lidocaine Gel Lower Limb Edema Present Yes Right Calf (cm) 50.4 48 47 Right Ankle (cm) 29.3 28.5 27.4 Left Calf (cm) 48.5 48 48.5 Left Ankle (cm) 31.2 29.4 28.5 09/12/22 09/17/22 09/19/22 11:03 11:28 10:27 Wound Center Nurse 1 #3 L lateral superior -Combined with other wound No No -Current Size (cm) - Length 0.6 0.6 -Current Size (cm) - Width 0.9 1.2 -Current Size (cm) - Depth 0.1 0.1 -Total Square Cm 0.54 0.72 -Photo Taken Yes Yes -Epithelialization -Tunneling No No -Undermining/Tunneling No No -Circular Undermining No No -Exudate Amt Medium -Exudate Type Serosanguineous -Wound Margin Distinct, Outline Attached -Granulation Amt Medium (34-66%) Medium (34-66%) -Granulation Quality [place] -Slough/Fibrin Yes Yes -Necrosis Amt Medium (34-66%) Medium (34-66%) -Necrotic Tissue Type Adherent Slough Adherent Slough -Structure Exposed N/A N/A -Texture (Myriam-wound Skin Appearance) Assessed Assessed -Moisture (Myriam-wound Skin Appearance) Assessed Assessed -Color (Myriam-wound Skin Appearance) Hemosiderin Assessed, Staining Hemosiderin Staining -Temperature (Myriam-wound Skin No Abnormality No Abnormality Appearance) (Pt Warm) (Pt Warm) -Tenderness on Palpation (Myriam-wound No No Skin Appearance) -Ulcer Cleansing Rinsed/ Wound Cleanser Irrigated with Saline -Foul Odor after Cleansing No No -Anesthetic Used 5% Lidocaine 5% Lidocaine Gel Gel # 2 L lateral -Combined with other wound No No -Current Size (cm) - Length 0.6 1 -Current Size (cm) - Width 0.6 0.6 -Current Size (cm) - Depth 0.1 0.2 -Total Square Cm 0.36 0.6 -Photo Taken Yes Yes -Epithelialization -Tunneling No No -Undermining/Tunneling No No -Circular Undermining No No -Exudate Amt Medium Medium -Exudate Type Serosanguineous Serosanguineous -Wound Margin Distinct, Distinct, Outline Outline Attached Attached -Granulation Amt Medium (34-66%) Medium (34-66%) -Granulation Quality [place] -Slough/Fibrin Yes Yes -Necrosis Amt Medium (34-66%) Medium (34-66%) -Necrotic Tissue Type Adherent Slough Adherent Slough -Structure Exposed N/A N/A -Texture (Myriam-wound Skin Appearance) Assessed Assessed -Moisture (Myriam-wound Skin Appearance) Assessed -Color (Myriam-wound Skin Appearance) Hemosiderin Hemosiderin Staining Staining -Temperature (Myriam-wound Skin No Abnormality No Abnormality Appearance) (Pt Warm) (Pt Warm) -Tenderness on Palpation (Myriam-wound No No Skin Appearance) -Ulcer Cleansing Wound Cleanser Wound Cleanser -Foul Odor after Cleansing No No -Anesthetic Used 5% Lidocaine 5% Lidocaine Gel Gel #1 L salmeron -Combined with other wound No No -Current Size (cm) - Length 1.2 1.4 -Current Size (cm) - Width 0.7 0.6 -Current Size (cm) - Depth 0.1 0.1 -Total Square Cm 0.84 0.84 -Photo Taken Yes Yes -Epithelialization -Tunneling No No -Undermining/Tunneling No No -Circular Undermining No No -Exudate Amt Medium Medium -Exudate Type Serosanguineous Serosanguineous -Wound Margin Distinct, Distinct, Outline Outline Attached Attached -Granulation Amt Medium (34-66%) Medium (34-66%) -Granulation Quality [place] -Slough/Fibrin Yes Yes -Necrosis Amt Medium (34-66%) Medium (34-66%) -Necrotic Tissue Type Adherent Slough Adherent Slough -Structure Exposed N/A N/A -Texture (Myriam-wound Skin Appearance) Assessed Assessed -Moisture (Myriam-wound Skin Appearance) Assessed Assessed -Color (Myriam-wound Skin Appearance) Assessed, Hemosiderin Hemosiderin Staining Staining -Temperature (Myriam-wound Skin No Abnormality No Abnormality Appearance) (Pt Warm) (Pt Warm) -Tenderness on Palpation (Myriam-wound No No Skin Appearance) -Ulcer Cleansing Wound Cleanser Wound Cleanser -Foul Odor after Cleansing No No -Anesthetic Used 5% Lidocaine 5% Lidocaine Gel Gel Lower Limb Edema Present Yes Yes Right Calf (cm) 46 46.5 45.5 Right Ankle (cm) 27 27.0 27 Left Calf (cm) 45 48.0 45.5 Left Ankle (cm) 29.7 26.4 29.5 WC - Nurse 2 - General Ulcer CM Notes Start: 09/03/22 13:16 Freq: Status: Active Protocol: Activity Type Activity Date Activity User E-sign Co-sign Detail Recorded Client Recorded Date Recorded By Document 09/05/22 10:53 PL [id number] 09/05/22 10:59 PL Document 09/12/22 13:40 PL [id number] 09/12/22 13:42 PL 09/05/22 09/12/22 10:53 13:40 Wound Center Nurse 2 #3 L lateral superior -Time 10:50 11:15 -Correct Patient Yes Yes -Correct Side, Site, Position Yes Yes -Correct Procedure Yes Yes -Procedure Performed Yes Yes -Type of Procedure Debridement Debridement -Clinical Debridement Subcutaneous Subcutaneous -Tissue Removed Subcutaneous Subcutaneous -Post Debridement (cm) - Length 0.3 0.3 -Post Debridement (cm) - Width 0.9 0.8 -Post Debridement (cm) - Depth 0.1 0.1 -Total Square (Post) (cm) 0.27 0.24 -Area of Debridement (cm) - Length 0.3 0.3 -Area of Debridement (cm) - Width 0.9 0.8 -Total Square (Area) (cm) 0.27 0.24 -Tunneling No No -Undermining/Tunneling No No -Circular Undermining No No -Wound/Ulcer Outcome Not Healed Not Healed -Ulcer Cleansing Rinsed/ Rinsed/ Irrigated with Irrigated with Saline Saline -Foul Odor after Cleansing No No -Bioengineered Tissue No No -Bleeding Controlled with Pressure Pressure -Treatment Response Procedure Procedure Tolerated Well Tolerated Well -Debridement - Subq, 1st 20sq cm No No # 2 L lateral -Time 10:50 11:15 -Correct Patient Yes Yes -Correct Side, Site, Position Yes Yes -Correct Procedure Yes Yes -Procedure Performed Yes Yes -Type of Procedure Debridement Debridement -Clinical Debridement Subcutaneous Subcutaneous -Tissue Removed Subcutaneous Subcutaneous -Post Debridement (cm) - Length 0.4 0.4 -Post Debridement (cm) - Width 0.3 0.5 -Post Debridement (cm) - Depth 0.1 0.1 -Total Square (Post) (cm) 0.12 0.20 -Area of Debridement (cm) - Length 0.4 0.4 -Area of Debridement (cm) - Width 0.3 0.5 -Total Square (Area) (cm) 0.12 0.20 -Tunneling No No -Undermining/Tunneling No No -Circular Undermining No No -Wound/Ulcer Outcome Not Healed Not Healed -Ulcer Cleansing Rinsed/ Irrigated with Saline -Foul Odor after Cleansing No -Bioengineered Tissue No -Bleeding Controlled with Pressure -Treatment Response Procedure Tolerated Well -Debridement - Subq, 1st 20sq cm No No #1 L salmeron -Time 10:50 11:15 -Correct Patient Yes Yes -Correct Side, Site, Position Yes Yes -Correct Procedure Yes Yes -Procedure Performed Yes Yes -Type of Procedure Debridement Debridement -Clinical Debridement Subcutaneous Subcutaneous -Tissue Removed Subcutaneous Subcutaneous -Post Debridement (cm) - Length 1.0 1.3 -Post Debridement (cm) - Width 0.8 0.7 -Post Debridement (cm) - Depth 0.1 0.1 -Total Square (Post) (cm) 0.80 0.91 -Area of Debridement (cm) - Length 1.0 1.3 -Area of Debridement (cm) - Width 0.8 0.7 -Total Square (Area) (cm) 0.80 0.91 -Tunneling No No -Undermining/Tunneling No No -Circular Undermining No No -Wound/Ulcer Outcome Not Healed Not Healed -Ulcer Cleansing Rinsed/ Rinsed/ Irrigated with Irrigated with Saline Saline -Foul Odor after Cleansing No No -Bioengineered Tissue No No -Bleeding Controlled with Pressure NA -Treatment Response Procedure Procedure Tolerated Well Tolerated Well -Debridement - Subq, 1st 20sq cm Yes Yes Pain Scale: 0-10 Numeric Is Patient Pain Free? Yes Yes WC - Nurse 3 - General Ulcer D/C NN Start: 09/03/22 13:16 Freq: Status: Active Protocol: Activity Type Activity Date Activity User E-sign Co-sign Detail Recorded Client Recorded Date Recorded By Document 09/03/22 13:37 DL [id number] 09/03/22 13:39 DL Edit Result 09/03/22 13:37 DL (1) [id number] 09/04/22 07:17 PL Document 09/05/22 11:55 [id number] 09/05/22 11:56 Document 09/10/22 13:52 DL [id number] 09/10/22 13:59 DL Document 09/12/22 11:33 [id number] 09/12/22 11:34 Document 09/17/22 11:28 DL [id number] 09/17/22 11:34 DL (1) Bilateral - Multi-Layered Wrap Application => Unna Boot - => Bilateral ($) - Unna Boots (Bilat) ($) => 2 09/03/22 09/05/22 09/10/22 13:37 11:55 13:52 Wound Care Center Nurse 3 #3 L lateral superior -Ulcer Cleansing Soap and Water Rinsed/ Soap and Water Irrigated with Saline -Foul Odor after Cleansing No No No -Primary Dressing Applied Promogran Promogran Promogran Thomas Matter Thomas Matter Thomas Matter -Other Dressing -Primary Dressing Covered/Secured with Dry Gauze Dry Gauze -Other Covering -Promogran Thomas Matter 1 1 1 # 2 L lateral -Ulcer Cleansing Soap and Water Rinsed/ Rinsed/ Irrigated with Irrigated with Saline Saline -Foul Odor after Cleansing No No No -Primary Dressing Applied Promogran Thomas Matter -Other Dressing thomas thomas -Primary Dressing Covered/Secured with Dry Gauze -Promogran Thomas Matter 0 #1 L salmeron -Ulcer Cleansing Soap and Water Rinsed/ Rinsed/ Irrigated with Irrigated with Saline Saline -Foul Odor after Cleansing No No No -Primary Dressing Applied Promogran Thomas Matter -Other Dressing thomas thomas -Primary Dressing Covered/Secured with Dry Gauze -Promogran Thomas Matter 0 Bilateral -Lotion applied to leg before Yes compression wrap -Multi-Layered Wrap Application Unna Boot - Multi-Layer Multi-Layer Bilateral ($) Comp - Bilat ($ Comp - Bilat ($ ) ) -Unna Boots (Bilat) ($) 2 Treatment Response Procedure Procedure Tolerated Well Tolerated Well Vital Signs Temperature (97.8 F-99.1 F) 95.5 F L Temperature Source Temporal Pulse Rate (60-100) 85 Pulse Location Monitor Respiratory Rate (12-18) 20 H Respiratory rate source Observation Oxygen Delivery Method Blood Pressure (90/60-120/80) 132/73 H Blood Pressure Mean (mm Hg) 92 Source Monitor Position Blood Pressure Location Pain Scale: 0-10 Numeric Is Patient Pain Free? Yes Yes Yes WC - Visit Discharge Discharge Condition Stable Stable Stable Ambulatory Status Ambulatory Ambulatory Ambulatory Transportation Private Auto Private Auto Private Auto Accompanied by Medication Reconcilliation completed & Yes provided to patient/care provider Clinical Summary of Care Provided Yes 09/12/22 09/17/22 11:33 11:28 Wound Care Center Nurse 3 #3 L lateral superior -Ulcer Cleansing Rinsed/ Soap and Water Irrigated with Saline -Foul Odor after Cleansing No No -Primary Dressing Applied C Hydrogel ($), Collagen Powder Collagen Powder ($) ($) -Other Dressing foam c.hydrogel -Primary Dressing Covered/Secured with Dry Gauze -Other Covering powder and gel and AMD foam applied to all 3 ulcers -Promogran Thomas Matter # 2 L lateral -Ulcer Cleansing Rinsed/ Soap and Water Irrigated with Saline -Foul Odor after Cleansing No -Primary Dressing Applied -Other Dressing amd foam collagen powder , c.hydrogel -Primary Dressing Covered/Secured with Dry Gauze -Promogran Thomas Matter #1 L salmeron -Ulcer Cleansing Rinsed/ Soap and Water Irrigated with Saline -Foul Odor after Cleansing No -Primary Dressing Applied -Other Dressing amd foam collagen powder , c.hydrogel -Primary Dressing Covered/Secured with Dry Gauze -Promogran Thomas Matter Bilateral -Lotion applied to leg before No compression wrap -Multi-Layered Wrap Application Multi-Layer Multi-Layer Comp - Bilat ($ Comp - Bilat ($ ) ) -Unna Boots (Bilat) ($) Treatment Response Procedure Tolerated Well Vital Signs Temperature (97.8 F-99.1 F) 97.4 F L Temperature Source Temporal Pulse Rate (60-100) 91 Pulse Location Monitor Respiratory Rate (12-18) 16 Respiratory rate source Observation Oxygen Delivery Method Room Air Blood Pressure (90/60-120/80) 128/83 H Blood Pressure Mean (mm Hg) 98 Source Monitor Position Sitting Blood Pressure Location Left Arm Pain Scale: 0-10 Numeric Is Patient Pain Free? Yes Yes WC - Visit Discharge Discharge Condition Stable Stable Ambulatory Status Ambulatory Ambulatory Transportation Private Auto Private Auto Accompanied by self Medication Reconcilliation completed & Yes No provided to patient/care provider Clinical Summary of Care Provided Yes Yes Assessment/Plan Assessment/Plan (1) Bilateral edema of lower extremity: CODE(S): R60.0 - Localized edema (2) Non-pressure chronic ulcer of left calf with fat layer exposed: CODE(S): L97.222 - Non-pressure chronic ulcer of left calf with fat layer exposed (3) Venous insufficiency (chronic) (peripheral): CODE(S): I87.2 - Venous insufficiency (chronic) (peripheral) (4) BMI 40.0-44.9, adult: CODE(S): Z68.41 - Body mass index [BMI] 40.0-44.9, adult (5) Stage 3 severe COPD by GOLD classification: CODE(S): J44.9 - Chronic obstructive pulmonary disease, unspecified (6) Dyspnea: CODE(S): R06.00 - Dyspnea, unspecified (7) Tobacco abuse: CODE(S): Z72.0 - Tobacco use PLAN: Plan Patient seen and evaluated Discussed the swelling in the bilateral lower extremities with his ulcerations secondary to aggressive scratching with a back scratching device.? Discouraged continued use of this device as this has likely led to his ulcerations. Per our discussion he has stopped utilizing this device to aid in scratching. Encouraged continued elevation of lower extremities for control of edema.? Patient is noted to be on Lasix to assist in fluid control.? Instructed him to continue use of Lasix.? Discussed compression stocking for continued assistance in his control of edema.? He voices understanding that he does need to wear the compression stockings. He has stopped smoking.? I did discuss the risks and detriment smoking has on wound healing and overall health, again smoking was discouraged.? Encouraged his continued smoking cessation. Ordered LEAS and venous studies of bilateral lower extremities, performed 08/30/2022. Venous studies: No evidence of acute DVT. 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 Accessory saphenous vein in the left proximal thigh and proximal calf are incompetent. LEAS: Triphasic Doppler waveforms noted at the ankle level bilaterally. PVRs appear normal at all levels bilaterally. Indices: Right: QUETA by DP 1.3, QUETA by PT 1.36, digital brachial index 0.99. Left: QUETA by DP 1.26, QUETA by PT 1.39, digital brachial index 0.72. No evidence of significant arterial occlusive disease in the lower extremity bilaterally. Ulcerations to the left lower extremity x3 were debrided as noted in the clinical panel above.? Left anterior leg lower extremity measures 1.3 cm x 0.7 cm x 0.1 cm; left superior lateral measures 0.3 cm x 0.3 cm x 0.1 cm; left distal lateral measures 0.4 cm x 0.7 cm x 0.1 cm.? No signs of infection.? Following debridement ulcerative sites dressed with Thomas and 3M compression dressing applied to bilateral lower extremity.? He was instructed to keep the 3M compression dressing clean, dry, and intact. Ulcerations demonstrate no change in size versus previous visit. We will consider collagen powder and hydrogel application at next visit. Encouraged adequate protein intake to continue to aid in wound healing. Encouraged to clean up his diet of fast food and lower sodium intake. The following work up and care recommendations were made: Dressing: Thomas and Unna boot to bilateral lower extremity Wash: Keep dressings clean, dry, and intact Tissue growth optimization: Thomas Offload: Unna boot compression and elevation of legs Vascular: DP and PT pulses palpable with adequate capillary fill bilateral. Edema: Unna boot compression and elevation of legs Infection: No signs of infection.? Patient currently on Bactrim DS, encouraged to finish to completion. Pain: May take [id number] Tylenol for discomfort Host factors: Suspected venous insufficiency, pruritus and self excoriation. ? I answered all the patient's questions.? To return to the wound healing center in 2 weeks or call sooner if the patient has any questions or concerns.
== END 2022-09-29 23:59 | disposition home or self-care (01) ==
LOC: WC 11:30
PROVIDERS: PCP Nurse Practitioner Family; Referring Provider Nurse Practitioner Family; Visit Provider Student in an Organized Health Care Education/Training Program
DX: I87.2 Venous insufficiency (chronic) (peripheral) (principal); L97.222 Non-pressure chronic ulcer of left calf with fat layer exposed; J44.9 Chronic obstructive pulmonary disease, unspecified; Z87.891 Personal history of nicotine dependence; R60.0 Localized edema; R06.00 Dyspnea, unspecified
CPT/HCPCS: 11042; 29580; 29581

== ENCOUNTER 2022-10-17 11:15 | Outpatient (RCR) | payer OTHER, SELFPAY ==
[2022-09-30 00:45] VITALS: BP 128/83; PULSE 91; RESP 18; TEMP 36.3; BMI 44.6
[2022-10-03 11:28] VITALS: BP 151/84; PULSE 87; RESP 16; TEMP 35.7; BMI 44.6
--- NOTE | 2022-10-03 12:05 | PCM.WC.PN ---
History of Present Illness Date of Service: 10/03/22 Chief Complaint: Left lower extremity wound x3 History of Wound: Patient is a 57-year-old male with history of COPD, chronic tobacco abuse, obesity, swelling of bilateral lower extremities with recent opening of 3 ulcerations to the left lower extremity. Patient states that when sitting at the computer he sometimes uses a back efficiency manager to aggressively scratch his legs and believes this led to opening of the 3 wounds on the left lower extremity. He states that he does not elevate his legs and does not wear compression stockings. Also states that he recently quit smoking. Reports seeing his PCP who prescribed Lasix to aid in fluid reduction of the lower extremities. He also reports being prescribed oral antibiotic, Bactrim DS and is currently taking this. States he was referred to the wound care center for continued care of his left lower extremity ulcerations. Subjective Subjective Patient is a 57-year-old male who presents to the wound care center today for follow-up of left lower extremity ulceration x3.? He kept his 3M compression dressing clean, dry, and intact.? He was stated to come back in 2 weeks however during last dressing change was concerned over his compression and wanted to be seen today.? He denies any constitutional symptoms today.? Denies any further complaints today. Objective Data Objective Data Vital Signs: Vital Signs Temp Pulse Resp BP 96.2 F L 87 16 151/84 H 10/03/22 11:28 10/03/22 11:28 10/03/22 11:28 10/03/22 11:28 Weight: 129.274 kg Body Mass Index (BMI) 44.6 Physical Exam Const alert, oriented x3, no apparent distress and well nourished General Appearance: cooperative HEENT normocephalic Eyes General Eye: normal appearance of both eyes Neck General: normal visual inspection Lymph Lymphatic: no lymphadenopathy noted and no lymphedema noted Resp normal respiratory effort Cardio regular rate and regular rhythm Extremity normal capillary refill, no joint enlargement, no calf tenderness and no pedal edema Extremity Narrative: DP and PT pulses palpable bilateral.? Capillary fill time is brisk to the digits.? Normal temperature gradient.? Hair growth to the digits is diminished.? There is some mild nonpitting lower extremity edema bilateral from mid calf to the distal forefoot. Musculoskeletal: Muscle strength 5 out of 5 and age-appropriate.? Negative Homans' sign.? Negative Lester sign. Skin no rashes or lesions noted, skin turgor normal and no jaundice Wound Narrative: Left lower extremity: 3 ulcerations noted to the left lower extremity.? #1 anterior leg proximal; #2 Superior lateral leg; #3 distal lateral leg; #4 & #5 anterior leg distal.? Ulcerative sites demonstrate moist fibrotic tissue in the wound bed with scant serous drainage.? No purulent drainage, no erythema, no malodor, no palpable fluctuance/bogginess, no visible abscess, no lymphangitic streaking. Neuro moves all extremities Debridement Note Debridement Note Wound debrided: Left lower extremity x5 Laterality: Left Wound Grade/Stage: Sheth stage I Type of Debridement: Excisional debridement Anesthesia Used: 5% Lidocaine Gel Depth: Down to and including healthy tissue and in the subcutaneous layer Percentage of wound debrided: 100 Instrument Used: 3mm curette Tissue Removed: Fibrous, devitalized subcutaneous, biofilm, slough Severity: Fat Layer Exposed Amount of bleeding with debridement: Mild Bleeding Controlled with: Compression and gauze Patient tolerated procedure: Patient tolerated procedure well Post-Debridement Measurements and Additional Note: Post-Debridement Measurements/Treatment - Nurse 1 - General Ulcer Assessment Start: 10/03/22 11:28 Freq: Status: Active Protocol: XIMENA Activity Type Activity Date Activity User E-sign Co-sign Detail Recorded Client Recorded Date Recorded By Document 10/03/22 11:28 MARK [id number] 10/03/22 11:30 MARK 10/03/22 11:28 - Today's Visit Information Type of service Follow-up Visit (Physician/PROFESSOR OF LITERACY ) Arrival Mode Ambulatory Height and Weight Body Mass Index (BMI) 44.6 BMI Classification Obese Vital Signs Temperature (97.8 F-99.1 F) 96.2 F L Temperature Source Temporal Pulse Rate (60-100) 87 Pulse Location Monitor Respiratory Rate (12-18) 16 Respiratory rate source Observation Blood Pressure (90/60-120/80) 151/84 H Blood Pressure Mean (mm Hg) 106 Source Monitor Position Semi-Fowlers Blood Pressure Location Left Forearm History Since Last Visit- (Skip if this is Patient's initial visit) Have you changed medications since your No last visit? Any new allergies or adverse reactions No Had a fall/change in ADL's that may No increase risk of falls Signs or symptoms of abuse and/or No neglect since last visit Have you been in the hospital since your No last visit? Has dressing in place as prescribed Yes Has compression in place as prescribed Yes Has offloadiing in place as prescribed N/A Experienced any changes in pain level or No management Left Footwear Regular Shoe Right Footwear Regular Shoe Pain Scale: 0-10 Numeric Is Patient Pain Free? Yes LEONIDES - Nurse 1 - General Ulcer Measurement Start: 10/03/22 11:28 Freq: Status: Active Protocol: Activity Type Activity Date Activity User E-sign Co-sign Detail Recorded Client Recorded Date Recorded By Document 10/03/22 11:28 MARK [id number] 10/03/22 11:30 MARK 10/03/22 11:28 Wound Center Nurse 1 #1 L salmeron -Combined with other wound No -Current Size (cm) - Length 6.0 -Current Size (cm) - Width 4.8 -Current Size (cm) - Depth 0.1 -Total Square Cm 28.80 -Photo Taken No -Epithelialization Medium 34-66% -Tunneling No -Undermining/Tunneling No -Circular Undermining No -Exudate Amt Small -Exudate Type Serosanguineous -Wound Margin Flat & Intact -Granulation Amt Large (67-100%) -Granulation Quality Red -Slough/Fibrin Yes -Necrosis Amt Small (1-33%) -Necrotic Tissue Type Adherent Slough -Structure Exposed N/A -Texture (Myriam-wound Skin Appearance) Assessed, Localized Edema -Moisture (Myriam-wound Skin Appearance) Assessed,Dry/ Scaly -Color (Myriam-wound Skin Appearance) Assessed -Temperature (Myriam-wound Skin No Abnormality Appearance) (Pt Warm) -Tenderness on Palpation (Myriam-wound No Skin Appearance) -Ulcer Cleansing Rinsed/ Irrigated with Saline -Foul Odor after Cleansing No -Anesthetic Used 5% Lidocaine Gel Lower Limb Edema Present Yes Left Calf (cm) 47.3 Left Ankle (cm) 29.2 WC - Nurse 2 - General Ulcer CM Notes Start: 10/03/22 11:28 Freq: Status: Active Protocol: Activity Type Activity Date Activity User E-sign Co-sign Detail Recorded Client Recorded Date Recorded By Document 10/03/22 11:42 JF [id number] 10/03/22 11:44 MARK 10/03/22 11:42 Wound Center Nurse 2 #3 L lateral superior -Correct Patient No -Correct Side, Site, Position No -Correct Procedure No -Procedure Performed No -Wound/Ulcer Outcome Not Healed # 2 L lateral -Correct Patient No -Correct Side, Site, Position No -Correct Procedure No -Procedure Performed No -Wound/Ulcer Outcome Not Healed #1 L salmeron -Correct Patient No -Correct Side, Site, Position No -Correct Procedure No -Procedure Performed No -Wound/Ulcer Outcome Not Healed Pain Scale: 0-10 Numeric Is Patient Pain Free? Yes Assessment/Plan Assessment/Plan (1) Bilateral edema of lower extremity: CODE(S): R60.0 - Localized edema (2) Non-pressure chronic ulcer of left calf with fat layer exposed: CODE(S): L97.222 - Non-pressure chronic ulcer of left calf with fat layer exposed (3) Venous insufficiency (chronic) (peripheral): CODE(S): I87.2 - Venous insufficiency (chronic) (peripheral) (4) BMI 40.0-44.9, adult: CODE(S): Z68.41 - Body mass index [BMI] 40.0-44.9, adult (5) Stage 3 severe COPD by GOLD classification: CODE(S): J44.9 - Chronic obstructive pulmonary disease, unspecified (6) Dyspnea: CODE(S): R06.00 - Dyspnea, unspecified (7) Tobacco abuse: CODE(S): Z72.0 - Tobacco use PLAN: Plan Patient seen and evaluated Discussed the swelling in the bilateral lower extremities with his ulcerations secondary to aggressive scratching with a back scratching device.? Discouraged continued use of this device as this has likely led to his ulcerations.? Per our discussion he has stopped utilizing this device to aid in scratching.? Encouraged continued elevation of lower extremities for control of edema.? Patient is noted to be on Lasix to assist in fluid control.? Instructed him to continue use of Lasix.? Discussed compression stocking for continued assistance in his control of edema.? He voices understanding that he does need to wear the compression stockings. He has stopped smoking.? I did discuss the risks and detriment smoking has on wound healing and overall health, again smoking was discouraged.? Encouraged his continued smoking cessation. Ordered LEAS and venous studies of bilateral lower extremities, performed 08/30/2022.? Venous studies: No evidence of acute DVT.? 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 Accessory saphenous vein in the left proximal thigh and proximal calf are incompetent. LEAS: Triphasic Doppler waveforms noted at the ankle level bilaterally.? PVRs appear normal at all levels bilaterally.? Indices: Right: QUETA by DP 1.3, QUETA by PT 1.36, digital brachial index 0.99.? Left: QUETA by DP 1.26, QUETA by PT 1.39, digital brachial index 0.72.? No evidence of significant arterial occlusive disease in the lower extremity bilaterally. Ulcerations to the left lower extremity x5 were debrided as noted in the clinical panel above.? Wounds are related in close proximity and cluster measures 6.0 cm by 4.8 cm x 0.1 cm. No signs of infection.? Following debridement ulcerative sites dressed with Adaptic, Taya and double Tubigrip applied to bilateral lower extremity. He was instructed to change dressings daily. Encouraged adequate protein intake to continue to aid in wound healing.? Encouraged to clean up his diet of fast food and lower sodium intake. The following work up and care recommendations were made: Dressing: Adaptic, Taya and double Tubigrip to bilateral lower extremity Wash: Keep dressings clean, dry, and intact Tissue growth optimization: Taya Offload: Double Tubigrip and elevation of legs Vascular: DP and PT pulses palpable with adequate capillary fill bilateral. Edema: Double Tubigrip and elevation of legs Infection: No signs of infection.? Pain: May take [id number] Tylenol for discomfort Host factors: Suspected venous insufficiency, pruritus and self excoriation. ? I answered all the patient's questions.? To return to the wound healing center in 2 weeks or call sooner if the patient has any questions or concerns.
--- NOTE | 2022-10-17 10:30 | PCM.WC.PN ---
History of Present Illness Date of Service: 10/17/22 Chief Complaint: Left lower extremity wound x3 History of Wound: Patient is a 57-year-old male with history of COPD, chronic tobacco abuse, obesity, swelling of bilateral lower extremities with recent opening of 3 ulcerations to the left lower extremity. Patient states that when sitting at the computer he sometimes uses a back office services specialist to aggressively scratch his legs and believes this led to opening of the 3 wounds on the left lower extremity. He states that he does not elevate his legs and does not wear compression stockings. Also states that he recently quit smoking. Reports seeing his PCP who prescribed Lasix to aid in fluid reduction of the lower extremities. He also reports being prescribed oral antibiotic, Bactrim DS and is currently taking this. States he was referred to the wound care center for continued care of his left lower extremity ulcerations. Subjective Subjective Patient is a 57-year-old male who presents to the wound care center today for follow-up of left lower extremity ulceration x3.? He is continuing to wear his Tubigrip compression. ?He denies any constitutional symptoms today.? Denies any further complaints today. Objective Data Objective Data Vital Signs: Vital Signs Temp Pulse Resp BP 96.2 F L 87 16 151/84 H 10/03/22 11:28 10/03/22 11:28 10/03/22 11:28 10/03/22 11:28 Weight: 129.274 kg Body Mass Index (BMI) 44.6 Physical Exam Const alert, oriented x3, no apparent distress and well nourished General Appearance: cooperative HEENT normocephalic Eyes General Eye: normal appearance of both eyes Neck General: normal visual inspection Lymph Lymphatic: no lymphadenopathy noted and no lymphedema noted Resp normal respiratory effort Cardio regular rate and regular rhythm Extremity normal capillary refill, no joint enlargement, no calf tenderness and no pedal edema Extremity Narrative: DP and PT pulses palpable bilateral.? Capillary fill time is brisk to the digits.? Normal temperature gradient.? Hair growth to the digits is diminished.? There is some mild nonpitting lower extremity edema bilateral from mid calf to the distal forefoot. Musculoskeletal: Muscle strength 5 out of 5 and age-appropriate.? Negative Homans' sign.? Negative Lester sign. Skin no rashes or lesions noted, skin turgor normal and no jaundice Wound Narrative: Left lower extremity: 3 ulcerations noted to the left lower extremity.? #1 anterior leg proximal; #2 Superior lateral leg -healed; #3 distal lateral leg -healed; #4 & #5 anterior leg distal-healed.? Ulcerative sites demonstrate moist fibrotic tissue in the wound bed with scant serous drainage.? No purulent drainage, no erythema, no malodor, no palpable fluctuance/bogginess, no visible abscess, no lymphangitic streaking. Neuro moves all extremities Debridement Note Debridement Note Wound debrided: Left anterior leg Laterality: Left Wound Grade/Stage: Sheth stage I Type of Debridement: Excisional debridement Anesthesia Used: 5% Lidocaine Gel Depth: Down to and including healthy tissue and in the subcutaneous layer Percentage of wound debrided: 100 Instrument Used: 3mm curette Tissue Removed: Fibrous, devitalized subcutaneous, biofilm, slough Severity: Fat Layer Exposed Amount of bleeding with debridement: Mild Bleeding Controlled with: Compression and gauze Patient tolerated procedure: Patient tolerated procedure well Post-Debridement Measurements and Additional Note: Post-Debridement Measurements/Treatment - Nurse 1 - General Ulcer Assessment Start: 10/03/22 11:28 Freq: Status: Active Protocol: [email or web address].MANDY Activity Type Activity Date Activity User E-sign Co-sign Detail Recorded Client Recorded Date Recorded By Document 10/03/22 11:28 MARK [id number] 10/03/22 11:30 MARK 10/03/22 11:28 - Today's Visit Information Type of service Follow-up Visit (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 Any new allergies or adverse reactions No Had a fall/change in ADL's that may No increase risk of falls Signs or symptoms of abuse and/or No neglect since last visit Have you been in the hospital since your No last visit? Has dressing in place as prescribed Yes Has compression in place as prescribed Yes Has offloadiing in place as prescribed N/A Experienced any changes in pain level or No management Left Footwear Regular Shoe Right Footwear Regular Shoe Pain Scale: 0-10 Numeric Is Patient Pain Free? Yes WC - Nurse 1 - General Ulcer Measurement Start: 10/03/22 11:28 Freq: Status: Active Protocol: Activity Type Activity Date Activity User E-sign Co-sign Detail Recorded Client Recorded Date Recorded By Document 10/03/22 11:28 MARK [id number] 10/03/22 11:30 10/03/22 11:28 Wound Center Nurse 1 #1 L salmeron -Combined with other wound No -Current Size (cm) - Length 6.0 -Current Size (cm) - Width 4.8 -Current Size (cm) - Depth 0.1 -Total Square Cm 28.80 -Photo Taken No -Epithelialization Medium 34-66% -Tunneling No -Undermining/Tunneling No -Circular Undermining No -Exudate Amt Small -Exudate Type Serosanguineous -Wound Margin Flat & Intact -Granulation Amt Large (67-100%) -Granulation Quality Red -Slough/Fibrin Yes -Necrosis Amt Small (1-33%) -Necrotic Tissue Type Adherent Slough -Structure Exposed N/A -Texture (Myriam-wound Skin Appearance) Assessed, Localized Edema -Moisture (Myriam-wound Skin Appearance) Assessed,Dry/ Scaly -Color (Myriam-wound Skin Appearance) Assessed -Temperature (Myriam-wound Skin No Abnormality Appearance) (Pt Warm) -Tenderness on Palpation (Myriam-wound No Skin Appearance) -Ulcer Cleansing Rinsed/ Irrigated with Saline -Foul Odor after Cleansing No -Anesthetic Used 5% Lidocaine Gel Lower Limb Edema Present Yes Left Calf (cm) 47.3 Left Ankle (cm) 29.2 WC - Nurse 2 - General Ulcer CM Notes Start: 10/03/22 11:28 Freq: Status: Active Protocol: Activity Type Activity Date Activity User E-sign Co-sign Detail Recorded Client Recorded Date Recorded By Document 10/03/22 11:42 MARK [id number] 10/03/22 11:44 Document 10/03/22 11:44 MARK [id number] 10/04/22 08:46 JF 10/03/22 10/03/22 11:42 11:44 Wound Center Nurse 2 #3 L lateral superior -Time 08:44 -Correct Patient No No -Correct Side, Site, Position No No -Correct Procedure No No -Procedure Performed No No -Wound/Ulcer Outcome Not Healed Converted # 2 L lateral -Correct Patient No No -Correct Side, Site, Position No No -Correct Procedure No No -Procedure Performed No No -Wound/Ulcer Outcome Not Healed Converted #1 L salmeron -Time 08:45 -Correct Patient No Yes -Correct Side, Site, Position No Yes -Correct Procedure No Yes -Procedure Performed No Yes -Type of Procedure Debridement -Clinical Debridement Subcutaneous -Tissue Removed Subcutaneous -Post Debridement (cm) - Length 6.0 -Post Debridement (cm) - Width 4.9 -Post Debridement (cm) - Depth 0.1 -Total Square (Post) (cm) 29.40 -Area of Debridement (cm) - Length 6.0 -Area of Debridement (cm) - Width 4.9 -Total Square (Area) (cm) 29.40 -Tunneling No -Undermining/Tunneling No -Circular Undermining No -Wound/Ulcer Outcome Not Healed Not Healed -Ulcer Cleansing Rinsed/ Irrigated with Saline -Foul Odor after Cleansing No -Bioengineered Tissue No -Bleeding Controlled with Pressure -Treatment Response Procedure Tolerated Well -Offloading No -Debridement - Subq, 1st 20sq cm Yes -Debridement, SubQ, ea addt'l 20sq cm 1 or part thereof Pain Scale: 0-10 Numeric Is Patient Pain Free? Yes Yes WC - Nurse 3 - General Ulcer D/C NN Start: 10/03/22 11:28 Freq: Status: Active Protocol: Activity Type Activity Date Activity User E-sign Co-sign Detail Recorded Client Recorded Date Recorded By Document 10/03/22 06:47 PL [id number] 10/04/22 06:49 PL 10/03/22 06:47 Wound Care Center Nurse 3 #3 L lateral superior -Ulcer Cleansing Rinsed/ Irrigated with Saline -Primary Dressing Applied Collagen Powder ($) -Primary Dressing Covered/Secured with Dry Gauze & Roll Gauze, Secured with Tape # 2 L lateral -Other Dressing Collagen powder -Primary Dressing Covered/Secured with Dry Gauze & Roll Gauze, Secured with Tape #1 L salmeron -Other Dressing collagen powder -Primary Dressing Covered/Secured with Dry Gauze & Roll Gauze, Secured with Tape Bilateral -Tubular Bandage Double Layer -Size of Tubigrip Used Size E -Size E ($) 8 Pain Scale: 0-10 Numeric Is Patient Pain Free? Yes WC - Visit Discharge Discharge Condition Stable Ambulatory Status Ambulatory Assessment/Plan Assessment/Plan (1) Bilateral edema of lower extremity: CODE(S): R60.0 - Localized edema (2) Non-pressure chronic ulcer of left calf with fat layer exposed: CODE(S): L97.222 - Non-pressure chronic ulcer of left calf with fat layer exposed (3) Venous insufficiency (chronic) (peripheral): CODE(S): I87.2 - Venous insufficiency (chronic) (peripheral) (4) BMI 40.0-44.9, adult: CODE(S): Z68.41 - Body mass index [BMI] 40.0-44.9, adult (5) Stage 3 severe COPD by GOLD classification: CODE(S): J44.9 - Chronic obstructive pulmonary disease, unspecified (6) Dyspnea: CODE(S): R06.00 - Dyspnea, unspecified (7) Tobacco abuse: CODE(S): Z72.0 - Tobacco use PLAN: Plan Patient seen and evaluated Discussed the swelling in the bilateral lower extremities with his ulcerations secondary to aggressive scratching with a back scratching device.? Discouraged continued use of this device as this has likely led to his ulcerations.? Per our discussion he has stopped utilizing this device to aid in scratching.? Encouraged continued elevation of lower extremities for control of edema.? Patient is noted to be on Lasix to assist in fluid control.? Instructed him to continue use of Lasix.? Discussed compression stocking for continued assistance in his control of edema.? He voices understanding that he does need to wear the compression stockings. He has stopped smoking.? I did discuss the risks and detriment smoking has on wound healing and overall health, again smoking was discouraged.? Encouraged his continued smoking cessation. Ordered LEAS and venous studies of bilateral lower extremities, performed 08/30/2022.? Venous studies: No evidence of acute DVT.? 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 Accessory saphenous vein in the left proximal thigh and proximal calf are incompetent. LEAS: Triphasic Doppler waveforms noted at the ankle level bilaterally.? PVRs appear normal at all levels bilaterally.? Indices: Right: QUETA by DP 1.3, QUETA by PT 1.36, digital brachial index 0.99.? Left: QUETA by DP 1.26, QUETA by PT 1.39, digital brachial index 0.72.? No evidence of significant arterial occlusive disease in the lower extremity bilaterally. Ulceration to the left lower extremity were debrided as noted in the clinical panel above.? He is healed for of these wounds today. Left anterior leg ulceration remains measuring 1.1 cm x 0.7 cm x 0.2 cm. No signs of infection.? Following debridement ulcerative sites dressed with Adaptic, Taya and double Tubigrip applied to bilateral lower extremity. He was instructed to change dressings daily. Encouraged adequate protein intake to continue to aid in wound healing.? Encouraged to continue clean up his diet of fast food and lower sodium intake. The following work up and care recommendations were made: Dressing: Adaptic, Taya and double Tubigrip to bilateral lower extremity Wash: Keep dressings clean, dry, and intact Tissue growth optimization: Taya Offload: Double Tubigrip and elevation of legs Vascular: DP and PT pulses palpable with adequate capillary fill bilateral. Edema: Double Tubigrip and elevation of legs Infection: No signs of infection.? Pain: May take [id number] Tylenol for discomfort Host factors: Suspected venous insufficiency, pruritus and self excoriation. ? I answered all the patient's questions.? To return to the wound healing center in 2 weeks or call sooner if the patient has any questions or concerns.
[2022-10-17 10:35] VITALS: BP 140/63; PULSE 78; RESP 20; TEMP 35.8; BMI 44.6
== END 2022-10-30 23:59 | disposition home or self-care (01) ==
LOC: WC 11:15
PROVIDERS: PCP Nurse Practitioner Family; Referring Provider Nurse Practitioner Family; Visit Provider Student in an Organized Health Care Education/Training Program
DX: I87.2 Venous insufficiency (chronic) (peripheral) (principal); L97.222 Non-pressure chronic ulcer of left calf with fat layer exposed; J44.9 Chronic obstructive pulmonary disease, unspecified; R60.0 Localized edema; Z72.0 Tobacco use; R06.00 Dyspnea, unspecified
CPT/HCPCS: 11042; 11045

== ENCOUNTER 2022-11-28 11:00 | Outpatient (RCR) | payer OTHER, SELFPAY ==
[2022-10-31 00:37] VITALS: BP 140/63; PULSE 78; RESP 20; TEMP 35.8; BMI 44.6
[2022-10-31 10:27] VITALS: BP 149/79; PULSE 80; RESP 16; TEMP 35.9; BMI 44.6
--- NOTE | 2022-10-31 10:54 | PCM.WC.PN ---
History of Present Illness Date of Service: 10/31/22 Chief Complaint: Left lower extremity wound x3 History of Wound: Patient is a 57-year-old male with history of COPD, chronic tobacco abuse, obesity, swelling of bilateral lower extremities with recent opening of 3 ulcerations to the left lower extremity. Patient states that when sitting at the computer he sometimes uses a back calker to aggressively scratch his legs and believes this led to opening of the 3 wounds on the left lower extremity. He states that he does not elevate his legs and does not wear compression stockings. Also states that he recently quit smoking. Reports seeing his PCP who prescribed Lasix to aid in fluid reduction of the lower extremities. He also reports being prescribed oral antibiotic, Bactrim DS and is currently taking this. States he was referred to the wound care center for continued care of his left lower extremity ulcerations. Subjective Subjective Patient is a 57-year-old male who presents to the wound care center today for follow-up of left lower extremity ulceration x3.? He is continuing to wear his Tubigrip compression. ?He denies any constitutional symptoms today.? Denies any further complaints today. Objective Data Objective Data Vital Signs: Vital Signs Temp Pulse Resp BP 96.6 F L 80 16 149/79 H 10/31/22 10:27 10/31/22 10:27 10/31/22 10:27 10/31/22 10:27 Weight: 129.274 kg Body Mass Index (BMI) 44.6 Physical Exam Const alert, oriented x3 and no apparent distress General Appearance: cooperative HEENT normocephalic Eyes General Eye: normal appearance of both eyes Neck General: normal visual inspection Lymph Lymphatic: no lymphadenopathy noted and no lymphedema noted Resp normal respiratory effort Cardio regular rate and regular rhythm Extremity normal capillary refill, no joint enlargement, no calf tenderness and no pedal edema Extremity Narrative: DP and PT pulses palpable bilateral.? Capillary fill time is brisk to the digits.? Normal temperature gradient.? Hair growth to the digits is diminished.? There is some mild nonpitting lower extremity edema bilateral from mid calf to the distal forefoot. Musculoskeletal: Muscle strength 5 out of 5 and age-appropriate.? Negative Homans' sign.? Negative Lester sign. Skin no rashes or lesions noted, skin turgor normal and no jaundice Wound Narrative: Left lower extremity: 3 ulcerations noted to the left lower extremity.? #1 anterior leg proximal; #2 Superior lateral leg -healed; #3 distal lateral leg -healed; #4 & #5 anterior leg distal-healed.? Ulcerative sites demonstrate moist fibrotic tissue in the wound bed with scant serous drainage.? No purulent drainage, no erythema, no malodor, no palpable fluctuance/bogginess, no visible abscess, no lymphangitic streaking. Neuro moves all extremities Debridement Note Debridement Note Wound debrided: Left lower extremity x2 Laterality: Left Wound Grade/Stage: Sheth stage I Type of Debridement: Excisional debridement Anesthesia Used: 5% Lidocaine Gel Depth: Down to and including healthy tissue and in the subcutaneous layer Percentage of wound debrided: 100 Instrument Used: 5mm curette Tissue Removed: Fibrous, devitalized subcutaneous, biofilm, slough Severity: Fat Layer Exposed Amount of bleeding with debridement: Mild Bleeding Controlled with: Compression and gauze Patient tolerated procedure: Patient tolerated procedure well Post-Debridement Measurements and Additional Note: Post-Debridement Measurements/Treatment - Nurse 1 - General Ulcer Assessment Start: 10/31/22 10:26 Freq: Status: Active Protocol: XIMENA Activity Type Activity Date Activity User E-sign Co-sign Detail Recorded Client Recorded Date Recorded By Document 10/31/22 10:27 [id number] 10/31/22 10:33 MARK 10/31/22 10:27 - Today's Visit Information Type of service Follow-up Visit (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/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 ) Arrival Mode Ambulatory Patient Identification Verified (Name & Yes ) Patient Requires Transmission-Based No Precautions Height and Weight Body Mass Index (BMI) 44.6 BMI Classification Obese Vital Signs Temperature (97.8 F-99.1 F) 96.6 F L Temperature Source Temporal Pulse Rate (60-100) 80 Pulse Location Monitor Respiratory Rate (12-18) 16 Respiratory rate source Observation Blood Pressure (90/60-120/80) 149/79 H Blood Pressure Mean (mm Hg) 102 Source Monitor Position Sitting Blood Pressure Location Left Arm History Since Last Visit- (Skip if this is Patient's initial visit) Have you changed medications since your No last visit? Any new allergies or adverse reactions No Had a fall/change in ADL's that may No increase risk of falls Signs or symptoms of abuse and/or No neglect since last visit Have you been in the hospital since your No last visit? Has dressing in place as prescribed Yes Has compression in place as prescribed No Has offloadiing in place as prescribed N/A Left Footwear Regular Shoe Right Footwear Regular Shoe Pain Scale: 0-10 Numeric Is Patient Pain Free? Yes - Nurse 1 - General Ulcer Measurement Start: 10/31/22 10:26 Freq: Status: Active Protocol: Activity Type Activity Date Activity User E-sign Co-sign Detail Recorded Client Recorded Date Recorded By Document 10/31/22 10:27 [id number] 10/31/22 10:33 10/31/22 10:27 Wound Center Nurse 1 #1 L salmeron -Combined with other wound No -Current Size (cm) - Length 5.5 -Current Size (cm) - Width 1.4 -Current Size (cm) - Depth 0.1 -Total Square Cm 7.70 -Photo Taken Yes -Epithelialization Small 1-33% -Tunneling No -Undermining/Tunneling No -Circular Undermining No -Exudate Amt Small -Exudate Type Serosanguineous -Wound Margin Flat & Intact -Granulation Amt Large (67-100%) -Granulation Quality Red -Slough/Fibrin Yes -Necrosis Amt Small (1-33%) -Necrotic Tissue Type Adherent Slough -Structure Exposed N/A -Texture (Myriam-wound Skin Appearance) Assessed, Localized Edema -Moisture (Myriam-wound Skin Appearance) Assessed,Dry/ Scaly -Color (Myriam-wound Skin Appearance) Assessed -Temperature (Myriam-wound Skin No Abnormality Appearance) (Pt Warm) -Tenderness on Palpation (Myriam-wound No Skin Appearance) -Ulcer Cleansing Wound Cleanser -Foul Odor after Cleansing No -Anesthetic Used 5% Lidocaine Gel Lower Limb Edema Present Yes Left Calf (cm) 45.6 Left Ankle (cm) 30.0 Assessment/Plan Assessment/Plan (1) Bilateral edema of lower extremity: CODE(S): R60.0 - Localized edema (2) Non-pressure chronic ulcer of left calf with fat layer exposed: CODE(S): L97.222 - Non-pressure chronic ulcer of left calf with fat layer exposed (3) Venous insufficiency (chronic) (peripheral): CODE(S): I87.2 - Venous insufficiency (chronic) (peripheral) (4) BMI 40.0-44.9, adult: CODE(S): Z68.41 - Body mass index [BMI] 40.0-44.9, adult (5) Stage 3 severe COPD by GOLD classification: CODE(S): J44.9 - Chronic obstructive pulmonary disease, unspecified (6) Tobacco abuse: CODE(S): Z72.0 - Tobacco use PLAN: Plan Patient seen and evaluated Discussed the swelling in the bilateral lower extremities with his ulcerations secondary to aggressive scratching with a back scratching device.? Discouraged continued use of this device as this has likely led to his ulcerations.? Per our discussion he has stopped utilizing this device to aid in scratching.? Encouraged continued elevation of lower extremities for control of edema.? Patient is noted to be on Lasix to assist in fluid control.? Instructed him to continue use of Lasix.? Discussed compression stocking for continued assistance in his control of edema.? He voices understanding that he does need to wear the compression stockings. He has stopped smoking.? I did discuss the risks and detriment smoking has on wound healing and overall health, again smoking was discouraged.? Encouraged his continued smoking cessation. Ordered LEAS and venous studies of bilateral lower extremities, performed 08/30/2022.? Venous studies: No evidence of acute DVT.? 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 Accessory saphenous vein in the left proximal thigh and proximal calf are incompetent. LEAS: Triphasic Doppler waveforms noted at the ankle level bilaterally.? PVRs appear normal at all levels bilaterally.? Indices: Right: QUETA by DP 1.3, QUETA by PT 1.36, digital brachial index 0.99.? Left: QUETA by DP 1.26, QUETA by PT 1.39, digital brachial index 0.72.? No evidence of significant arterial occlusive disease in the lower extremity bilaterally. Ulceration to the left lower extremity were debrided as noted in the clinical panel above.? He is healed four of these wounds as of 10/17/22.? Left anterior leg ulceration measures 3.3 cm x 1.1 cm x 0.1 cm and left distal anterior ulceration measures 0.7cm x 0.5cm x 0.1cm.?No signs of infection.? Following debridement ulcerative sites dressed with Adaptic, Taya and double Tubigrip applied to bilateral lower extremity.? He was instructed to change dressings daily. We will look to apply for advanced wound care product for application at next visit. Encouraged adequate protein intake to continue to aid in wound healing.? Encouraged to continue clean up his diet of fast food and lower sodium intake. The following work up and care recommendations were made: Dressing: Adaptic, Taya and double Tubigrip to bilateral lower extremity Wash: Keep dressings clean, dry, and intact Tissue growth optimization: Taya Offload: Double Tubigrip and elevation of legs Vascular: DP and PT pulses palpable with adequate capillary fill bilateral. Edema: Double Tubigrip and elevation of legs Infection: No signs of infection.? Pain: May take [id number] Tylenol for discomfort Host factors: Suspected venous insufficiency, pruritus and self excoriation. ? I answered all the patient's questions.? To return to the wound healing center in 2 weeks or call sooner if the patient has any questions or concerns.
[2022-11-07 11:21] VITALS: BP 156/95; TEMP 36.3; BMI 44.6
--- NOTE | 2022-11-07 11:28 | PN.PCM_ITS ---
History of Present Illness Date of Service: 11/07/22 Chief Complaint: Left lower extremity wound x3 History of Wound: Patient is a 57-year-old male with history of COPD, chronic tobacco abuse, obesity, swelling of bilateral lower extremities with recent opening of 3 ulcerations to the left lower extremity. Patient states that when sitting at the computer he sometimes uses a back tennis court attendant to aggressively scratch his legs and believes this led to opening of the 3 wounds on the left lower extremity. He states that he does not elevate his legs and does not wear compression stockings. Also states that he recently quit smoking. Reports seeing his PCP who prescribed Lasix to aid in fluid reduction of the lower extremities. He also reports being prescribed oral antibiotic, Bactrim DS and is currently taking this. States he was referred to the wound care center for continued care of his left lower extremity ulcerations. Subjective Subjective Patient is a 57-year-old male who presents to the wound care center today for follow-up of left lower extremity ulceration.? He is continuing to wear his Tubigrip compression. He has been changing dressings daily with collagen powder.?He denies any constitutional symptoms today.? Denies any further complaints today. Objective Data Objective Data Vital Signs: Vital Signs Temp Pulse Resp BP 97.3 F L 80 16 156/95 H 11/07/22 11:21 10/31/22 10:27 10/31/22 10:27 11/07/22 11:21 Weight: 129.274 kg Body Mass Index (BMI) 44.6 Physical Exam Const alert, oriented x3 and no apparent distress General Appearance: cooperative HEENT normocephalic Eyes General Eye: normal appearance of both eyes Neck General: normal visual inspection Lymph Lymphatic: no lymphadenopathy noted and no lymphedema noted Resp normal respiratory effort Cardio regular rate and regular rhythm Extremity normal capillary refill, no joint enlargement, no calf tenderness and no pedal edema Extremity Narrative: DP and PT pulses palpable bilateral.? Capillary fill time is brisk to the digits.? Normal temperature gradient.? Hair growth to the digits is diminished.? There is some mild nonpitting lower extremity edema bilateral from mid calf to the distal forefoot. Musculoskeletal: Muscle strength 5 out of 5 and age-appropriate.? Negative Homans' sign.? Negative Lester sign. Skin no rashes or lesions noted, skin turgor normal and no jaundice Wound Narrative: Left lower extremity: 3 ulcerations noted to the left lower extremity.? #1 anterior leg proximal; #2 Superior lateral leg -healed; #3 distal lateral leg - healed; #4 & #5 anterior leg distal-healed.? Ulcerative sites demonstrate moist fibrotic tissue in the wound bed with scant serous drainage.? No purulent drainage, no erythema, no malodor, no palpable fluctuance/bogginess, no visible abscess, no lymphangitic streaking. Neuro moves all extremities Debridement Note Debridement Note Wound debrided: Left lower extremity Laterality: Left Wound Grade/Stage: Sheth stage I Type of Debridement: Excisional debridement Anesthesia Used: 5% Lidocaine Gel Depth: Down to and including healthy tissue and in the subcutaneous layer Percentage of wound debrided: 100 Instrument Used: 3mm curette Tissue Removed: Fibrous, devitalized subcutaneous, biofilm, slough Severity: Fat Layer Exposed Amount of bleeding with debridement: Mild Bleeding Controlled with: Compression and gauze Patient tolerated procedure: Patient tolerated procedure well Post-Debridement Measurements and Additional Note: Post-Debridement Measurements/Treatment - Nurse 1 - General Ulcer Assessment Start: 10/31/22 10:26 Freq: Status: Active Protocol: .MANDY Activity Type Activity Date Activity User E-sign Co-sign Detail Recorded Client Recorded Date Recorded By Document 10/31/22 10:27 [id number] 10/31/22 10:33 Document 11/07/22 11:21 [id number] 11/07/22 11:25 10/31/22 11/07/22 10:27 11:21 - Today's Visit Information Type of service Follow-up Visit Follow-up Visit (Physician/TRANSACTION ADVISORY SERVICES MANAGER (Physician/TRANSACTION ADVISORY SERVICES MANAGER ) ) Arrival Mode Ambulatory Ambulatory Patient Identification Verified (Name & Yes Yes ) Patient Requires Transmission-Based No No Precautions Height and Weight Body Mass Index (BMI) 44.6 44.6 BMI Classification Obese Obese Vital Signs Temperature (97.8 F-99.1 F) 96.6 F L 97.3 F L Temperature Source Temporal Temporal Pulse Rate (60-100) 80 Pulse Location Monitor Respiratory Rate (12-18) 16 Respiratory rate source Observation Blood Pressure (90/60-120/80) 149/79 H 156/95 H Blood Pressure Mean (mm Hg) 102 115 Source Monitor Monitor Position Sitting Blood Pressure Location Left Arm History Since Last Visit- (Skip if this is Patient's initial visit) Have you changed medications since your No No last visit? Any new allergies or adverse reactions No No Had a fall/change in ADL's that may No No increase risk of falls Signs or symptoms of abuse and/or No No neglect since last visit Have you been in the hospital since your No No last visit? Has dressing in place as prescribed Yes Yes Has compression in place as prescribed No Yes Has offloadiing in place as prescribed N/A N/A Experienced any changes in pain level or No management Left Footwear Regular Shoe Regular Shoe Right Footwear Regular Shoe Regular Shoe Pain Scale: 0-10 Numeric Is Patient Pain Free? Yes Yes - Nurse 1 - General Ulcer Measurement Start: 10/31/22 10:26 Freq: Status: Active Protocol: Activity Type Activity Date Activity User E-sign Co-sign Detail Recorded Client Recorded Date Recorded By Document 10/31/22 10:27 [id number] 10/31/22 10:33 Document 11/07/22 11:21 [id number] 11/07/22 11:25 10/31/22 11/07/22 10:27 11:21 Wound Center Nurse 1 #1 L salmeron -Combined with other wound No No -Current Size (cm) - Length 5.5 2.1 -Current Size (cm) - Width 1.4 1.2 -Current Size (cm) - Depth 0.1 0.1 -Total Square Cm 7.70 2.52 -Photo Taken Yes Yes -Epithelialization Small 1-33% None Present -Tunneling No No -Undermining/Tunneling No No -Circular Undermining No No -Change in Wound Grade/Stage No -Exudate Amt Small Medium -Exudate Type Serosanguineous Serosanguineous -Wound Margin Flat & Intact Distinct, Outline Attached -Granulation Amt Large (67-100%) Large (67-100%) -Granulation Quality Red Blue Ball -Slough/Fibrin Yes -Necrosis Amt Small (1-33%) Small (1-33%) -Necrotic Tissue Type Adherent Slough Adherent Slough -Structure Exposed N/A N/A -Texture (Myriam-wound Skin Appearance) Assessed, Assessed, Localized Edema Scarring -Moisture (Myriam-wound Skin Appearance) Assessed,Dry/ No Abnormality, Scaly Assessed -Color (Myriam-wound Skin Appearance) Assessed No Abnormality, Assessed -Temperature (Myriam-wound Skin No Abnormality No Abnormality Appearance) (Pt Warm) (Pt Warm) -Tenderness on Palpation (Myriam-wound No No Skin Appearance) -Ulcer Cleansing Wound Cleanser Rinsed/ Irrigated with Saline -Foul Odor after Cleansing No No -Anesthetic Used 5% Lidocaine 5% Lidocaine Gel Gel Lower Limb Edema Present Yes Left Calf (cm) 45.6 47 Left Ankle (cm) 30.0 28.8 WC - Nurse 2 - General Ulcer CM Notes Start: 10/31/22 10:26 Freq: Status: Active Protocol: Activity Type Activity Date Activity User E-sign Co-sign Detail Recorded Client Recorded Date Recorded By Document 10/31/22 12:24 GERMAINE [id number] 10/31/22 12:25 PL 10/31/22 12:24 Wound Center Nurse 2 #1 L salmeron -Time 10:38 -Correct Patient Yes -Correct Side, Site, Position Yes -Correct Procedure Yes -Procedure Performed Yes -Type of Procedure Debridement -Clinical Debridement Subcutaneous -Tissue Removed Subcutaneous -Post Debridement (cm) - Length 3.3 -Post Debridement (cm) - Width 1.1 -Post Debridement (cm) - Depth 0.1 -Total Square (Post) (cm) 3.63 -Area of Debridement (cm) - Length 3.3 -Area of Debridement (cm) - Width 1.1 -Total Square (Area) (cm) 3.63 -Tunneling No -Undermining/Tunneling No -Circular Undermining No -Wound/Ulcer Outcome Not Healed -Ulcer Cleansing Rinsed/ Irrigated with Saline -Foul Odor after Cleansing No -Bioengineered Tissue No -Bleeding Controlled with Pressure -Treatment Response Procedure Tolerated Well -Debridement - Subq, 1st 20sq cm Yes Pain Scale: 0-10 Numeric Is Patient Pain Free? Yes LEONIDES - Nurse 3 - General Ulcer D/C NN Start: 10/31/22 10:26 Freq: Status: Active Protocol: Activity Type Activity Date Activity User E-sign Co-sign Detail Recorded Client Recorded Date Recorded By Document 10/31/22 11:18 MARK [id number] 10/31/22 11:18 MARK 10/31/22 11:18 Wound Care Center Nurse 3 #1 L salmeron -Ulcer Cleansing Rinsed/ Irrigated with Saline -Foul Odor after Cleansing No -Primary Dressing Applied Promogran Taya Matter -Primary Dressing Covered/Secured with Dry Gauze -Promogran Taya Matter 1 Left -Compression Wrap [place] Wrap Pain Scale: 0-10 Numeric Is Patient Pain Free? Yes WC - Visit Discharge Discharge Condition Stable Ambulatory Status Ambulatory Transportation Private Auto Medication Reconcilliation completed & Yes provided to patient/care provider Clinical Summary of Care Provided Yes Assessment/Plan Assessment/Plan (1) Bilateral edema of lower extremity: CODE(S): R60.0 - Localized edema (2) Non-pressure chronic ulcer of left calf with fat layer exposed: CODE(S): L97.222 - Non-pressure chronic ulcer of left calf with fat layer exposed (3) Venous insufficiency (chronic) (peripheral): CODE(S): I87.2 - Venous insufficiency (chronic) (peripheral) (4) BMI 40.0-44.9, adult: CODE(S): Z68.41 - Body mass index [BMI] 40.0-44.9, adult (5) Stage 3 severe COPD by GOLD classification: CODE(S): J44.9 - Chronic obstructive pulmonary disease, unspecified (6) Tobacco abuse: CODE(S): Z72.0 - Tobacco use PLAN: Plan Patient seen and evaluated Discussed the swelling in the bilateral lower extremities with his ulcerations secondary to aggressive scratching with a back scratching device.? Discouraged continued use of this device as this has likely led to his ulcerations.? Per our discussion he has stopped utilizing this device to aid in scratching.? Encouraged continued elevation of lower extremities for control of edema.? Patient is noted to be on Lasix to assist in fluid control.? Instructed him to continue use of Lasix.? Discussed compression stocking for continued assistance in his control of edema.? He voices understanding that he does need to wear the compression stockings. He has stopped smoking.? I did discuss the risks and detriment smoking has on wound healing and overall health, again smoking was discouraged.? Encouraged his continued smoking cessation. Ordered LEAS and venous studies of bilateral lower extremities, performed 08/30/2022.? Venous studies: No evidence of acute DVT.? 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 Accessory saphenous vein in the left proximal thigh and proximal calf are incompetent. LEAS: Triphasic Doppler waveforms noted at the ankle level bilaterally.? PVRs appear normal at all levels bilaterally.? Indices: Right: QEUTA by DP 1.3, QUETA by PT 1.36, digital brachial index 0.99.? Left: QUETA by DP 1.26, QUETA by PT 1.39, digital brachial index 0.72.? No evidence of significant arterial occlusive disease in the lower extremity bilaterally. Ulceration to the left lower extremity were debrided as noted in the clinical panel above.? He is healed four of these wounds as of 10/17/22.? Left anterior leg ulceration measures 1.0 cm x 1.0 cm x 0.1 cm and left distal anterior ulceration is healed.?No signs of infection.? Following debridement ulcerative sites dressed with collagen powder, dry sterile dressing, and double Tubigrip applied to bilateral lower extremity.? He was instructed to change dressings daily. Ulcer site demonstrates decrease in size from previous visit. His insurance has denied advanced wound care product. Encouraged adequate protein intake to continue to aid in wound healing.? Encouraged to continue clean up his diet of fast food and lower sodium intake. The following work up and care recommendations were made: Dressing: Collagen powder, DSD, and double Tubigrip to bilateral lower extremity Wash: Keep dressings clean, dry, and intact Tissue growth optimization: Collagen powder Offload: Double Tubigrip and elevation of legs Vascular: DP and PT pulses palpable with adequate capillary fill bilateral. Edema: Double Tubigrip and elevation of legs Infection: No signs of infection.? Pain: May take [id number] Tylenol for discomfort Host factors: Suspected venous insufficiency, pruritus and self excoriation. ? I answered all the patient's questions.? To return to the wound healing center in 2 weeks or call sooner if the patient has any questions or concerns.
[2022-11-14 10:32] VITALS: BP 127/67; PULSE 78; RESP 16; TEMP 36.1; BMI 44.6
--- NOTE | 2022-11-14 10:33 | PN.PCM_ITS ---
History of Present Illness Date of Service: 11/14/22 Chief Complaint: Left lower extremity wound x3 History of Wound: Patient is a 57-year-old male with history of COPD, chronic tobacco abuse, obesity, swelling of bilateral lower extremities with recent opening of 3 ulcerations to the left lower extremity. Patient states that when sitting at the computer he sometimes uses a back clinical research management associate to aggressively scratch his legs and believes this led to opening of the 3 wounds on the left lower extremity. He states that he does not elevate his legs and does not wear compression stockings. Also states that he recently quit smoking. Reports seeing his PCP who prescribed Lasix to aid in fluid reduction of the lower extremities. He also reports being prescribed oral antibiotic, Bactrim DS and is currently taking this. States he was referred to the wound care center for continued care of his left lower extremity ulcerations. Subjective Subjective Patient is a 57-year-old male who presents to the wound care center today for follow-up of left lower extremity ulceration.? He is continuing to wear his Tubigrip compression. He has been changing dressings daily with collagen powder.?He states he feels he is making more progress with the wound closing up. He denies any constitutional symptoms today.? Denies any further complaints today. Objective Data Objective Data Vital Signs: Vital Signs Temp Pulse Resp BP 97.3 F L 80 16 156/95 H 11/07/22 11:21 10/31/22 10:27 10/31/22 10:27 11/07/22 11:21 Weight: 129.274 kg Body Mass Index (BMI) 44.6 Physical Exam Const alert, oriented x3 and no apparent distress General Appearance: cooperative HEENT normocephalic Eyes General Eye: normal appearance of both eyes Neck General: normal visual inspection Lymph Lymphatic: no lymphadenopathy noted and no lymphedema noted Resp normal respiratory effort Cardio regular rate and regular rhythm Extremity normal capillary refill, no joint enlargement, no calf tenderness and no pedal edema Extremity Narrative: DP and PT pulses palpable bilateral.? Capillary fill time is brisk to the digits.? Normal temperature gradient.? Hair growth to the digits is diminished.? There is some mild nonpitting lower extremity edema bilateral from mid calf to the distal forefoot. Musculoskeletal: Muscle strength 5 out of 5 and age-appropriate.? Negative Homans' sign.? Negative Lester sign. Skin no rashes or lesions noted, skin turgor normal and no jaundice Wound Narrative: Left lower extremity: 3 ulcerations noted to the left lower extremity.? #1 anterior leg proximal; #2 Superior lateral leg -healed; #3 distal lateral leg - healed; #4 & #5 anterior leg distal-healed.? Ulcerative sites demonstrate moist fibrotic tissue in the wound bed with scant serous drainage.? No purulent drainage, no erythema, no malodor, no palpable fluctuance/bogginess, no visible abscess, no lymphangitic streaking. Neuro moves all extremities Debridement Note Debridement Note Wound debrided: Left anterior lower extremity Laterality: Left Wound Grade/Stage: Sheth stage I Type of Debridement: Excisional debridement Anesthesia Used: 5% Lidocaine Gel Depth: Down to and including healthy tissue and in the subcutaneous layer Percentage of wound debrided: 100 Instrument Used: 3mm curette Tissue Removed: Fibrous, devitalized subcutaneous, biofilm, slough Severity: Fat Layer Exposed Amount of bleeding with debridement: Mild Bleeding Controlled with: Compression and gauze Patient tolerated procedure: Patient tolerated procedure well Post-Debridement Measurements and Additional Note: Post-Debridement Measurements/Treatment - Nurse 1 - General Ulcer Assessment Start: 10/31/22 10:26 Freq: Status: Active Protocol: LEONIDES.MANDY Activity Type Activity Date Activity User E-sign Co-sign Detail Recorded Client Recorded Date Recorded By Document 10/31/22 10:27 [id number] 10/31/22 10:33 Document 11/07/22 11:21 [id number] 11/07/22 11:25 10/31/22 11/07/22 10:27 11:21 - Today's Visit Information Type of service Follow-up Visit Follow-up Visit (Physician/MOLDER PUNCH (Physician/MOLDER PUNCH ) ) Arrival Mode Ambulatory Ambulatory Patient Identification Verified (Name & Yes Yes ) Patient Requires Transmission-Based No No Precautions Height and Weight Body Mass Index (BMI) 44.6 44.6 BMI Classification Obese Obese Vital Signs Temperature (97.8 F-99.1 F) 96.6 F L 97.3 F L Temperature Source Temporal Temporal Pulse Rate (60-100) 80 Pulse Location Monitor Respiratory Rate (12-18) 16 Respiratory rate source Observation Blood Pressure (90/60-120/80) 149/79 H 156/95 H Blood Pressure Mean (mm Hg) 102 115 Source Monitor Monitor Position Sitting Blood Pressure Location Left Arm History Since Last Visit- (Skip if this is Patient's initial visit) Have you changed medications since your No No last visit? Any new allergies or adverse reactions No No Had a fall/change in ADL's that may No No increase risk of falls Signs or symptoms of abuse and/or No No neglect since last visit Have you been in the hospital since your No No last visit? Has dressing in place as prescribed Yes Yes Has compression in place as prescribed No Yes Has offloadiing in place as prescribed N/A N/A Experienced any changes in pain level or No management Left Footwear Regular Shoe Regular Shoe Right Footwear Regular Shoe Regular Shoe Pain Scale: 0-10 Numeric Is Patient Pain Free? Yes Yes - Nurse 1 - General Ulcer Measurement Start: 10/31/22 10:26 Freq: Status: Active Protocol: Activity Type Activity Date Activity User E-sign Co-sign Detail Recorded Client Recorded Date Recorded By Document 10/31/22 10:27 [id number] 10/31/22 10:33 Document 11/07/22 11:21 [id number] 11/07/22 11:25 10/31/22 11/07/22 10:27 11:21 Wound Center Nurse 1 #1 L salmeron -Combined with other wound No No -Current Size (cm) - Length 5.5 2.1 -Current Size (cm) - Width 1.4 1.2 -Current Size (cm) - Depth 0.1 0.1 -Total Square Cm 7.70 2.52 -Photo Taken Yes Yes -Epithelialization Small 1-33% None Present -Tunneling No No -Undermining/Tunneling No No -Circular Undermining No No -Change in Wound Grade/Stage No -Exudate Amt Small Medium -Exudate Type Serosanguineous Serosanguineous -Wound Margin Flat & Intact Distinct, Outline Attached -Granulation Amt Large (67-100%) Large (67-100%) -Granulation Quality [place] -Slough/Fibrin Yes -Necrosis Amt Small (1-33%) Small (1-33%) -Necrotic Tissue Type Adherent Slough Adherent Slough -Structure Exposed N/A N/A -Texture (Myriam-wound Skin Appearance) Assessed, Assessed, Localized Edema Scarring -Moisture (Myriam-wound Skin Appearance) Assessed,Dry/ No Abnormality, Scaly Assessed -Color (Myriam-wound Skin Appearance) Assessed No Abnormality, Assessed -Temperature (Myriam-wound Skin No Abnormality No Abnormality Appearance) (Pt Warm) (Pt Warm) -Tenderness on Palpation (Myriam-wound No No Skin Appearance) -Ulcer Cleansing Wound Cleanser Rinsed/ Irrigated with Saline -Foul Odor after Cleansing No No -Anesthetic Used 5% Lidocaine 5% Lidocaine Gel Gel Lower Limb Edema Present Yes Left Calf (cm) 45.6 47 Left Ankle (cm) 30.0 28.8 WC - Nurse 2 - General Ulcer CM Notes Start: 10/31/22 10:26 Freq: Status: Active Protocol: Activity Type Activity Date Activity User E-sign Co-sign Detail Recorded Client Recorded Date Recorded By Document 10/31/22 12:24 PL [id number] 10/31/22 12:25 PL Document 11/07/22 12:47 PL [id number] 11/07/22 12:48 PL 10/31/22 11/07/22 12:24 12:47 Wound Center Nurse 2 #1 L salmeron -Time 10:38 11:36 -Correct Patient Yes Yes -Correct Side, Site, Position Yes Yes -Correct Procedure Yes Yes -Procedure Performed Yes Yes -Type of Procedure Debridement Debridement -Clinical Debridement Subcutaneous Subcutaneous -Tissue Removed Subcutaneous Subcutaneous -Post Debridement (cm) - Length 3.3 1.0 -Post Debridement (cm) - Width 1.1 1.0 -Post Debridement (cm) - Depth 0.1 0.1 -Total Square (Post) (cm) 3.63 1.00 -Area of Debridement (cm) - Length 3.3 1.0 -Area of Debridement (cm) - Width 1.1 1.0 -Total Square (Area) (cm) 3.63 1.00 -Tunneling No No -Undermining/Tunneling No No -Circular Undermining No No -Wound/Ulcer Outcome Not Healed Not Healed -Ulcer Cleansing Rinsed/ Rinsed/ Irrigated with Irrigated with Saline Saline -Foul Odor after Cleansing No No -Bioengineered Tissue No No -Bleeding Controlled with Pressure Pressure -Treatment Response Procedure Procedure Tolerated Well Tolerated Well -Debridement - Subq, 1st 20sq cm Yes Yes Pain Scale: 0-10 Numeric Is Patient Pain Free? Yes Yes WC - Nurse 3 - General Ulcer D/C NN Start: 10/31/22 10:26 Freq: Status: Active Protocol: Activity Type Activity Date Activity User E-sign Co-sign Detail Recorded Client Recorded Date Recorded By Document 10/31/22 11:18 MARK [id number] 10/31/22 11:18 Document 11/07/22 12:00 AK [id number] 11/07/22 12:01 AK 10/31/22 11/07/22 11:18 12:00 Wound Care Center Nurse 3 #1 L salmeron -Ulcer Cleansing Rinsed/ Rinsed/ Irrigated with Irrigated with Saline Saline -Foul Odor after Cleansing No No -Negative Pressure Wound Therapy N/A -Primary Dressing Applied Promogran C Hydrogel ($), Taya Matter Collagen Powder ($) -Primary Dressing Covered/Secured with Dry Gauze Dry Gauze & Roll Gauze, Secured with Tape -Promogran Taya Matter 1 Left -Lotion applied to leg before No compression wrap -Compression Wrap [place] Wrap -Other own Pain Scale: 0-10 Numeric Is Patient Pain Free? Yes Yes WC - Visit Discharge Discharge Condition Stable Stable Ambulatory Status Ambulatory Ambulatory Transportation Private Auto Private Auto Medication Reconcilliation completed & Yes Yes provided to patient/care provider Clinical Summary of Care Provided Yes Yes Assessment/Plan Assessment/Plan (1) Bilateral edema of lower extremity: CODE(S): R60.0 - Localized edema (2) Non-pressure chronic ulcer of left calf with fat layer exposed: CODE(S): L97.222 - Non-pressure chronic ulcer of left calf with fat layer exposed (3) Venous insufficiency (chronic) (peripheral): CODE(S): I87.2 - Venous insufficiency (chronic) (peripheral) (4) BMI 40.0-44.9, adult: CODE(S): Z68.41 - Body mass index [BMI] 40.0-44.9, adult (5) Stage 3 severe COPD by GOLD classification: CODE(S): J44.9 - Chronic obstructive pulmonary disease, unspecified (6) Tobacco abuse: CODE(S): Z72.0 - Tobacco use PLAN: Plan Patient seen and evaluated Discussed the swelling in the bilateral lower extremities with his ulcerations secondary to aggressive scratching with a back scratching device.? Discouraged continued use of this device as this has likely led to his ulcerations.? Per our discussion he has stopped utilizing this device to aid in scratching.? Encouraged continued elevation of lower extremities for control of edema.? Patient is noted to be on Lasix to assist in fluid control.? Instructed him to continue use of Lasix.? Discussed compression stocking for continued assistance in his control of edema.? He voices understanding that he does need to wear the compression stockings. He has stopped smoking.? I did discuss the risks and detriment smoking has on wound healing and overall health, again smoking was discouraged.? Encouraged his continued smoking cessation. Ordered LEAS and venous studies of bilateral lower extremities, performed 08/30/2022.? Venous studies: No evidence of acute DVT.? 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 Accessory saphenous vein in the left proximal thigh and proximal calf are incompetent. LEAS: Triphasic Doppler waveforms noted at the ankle level bilaterally.? PVRs appear normal at all levels bilaterally.? Indices: Right: QUETA by DP 1.3, QUETA by PT 1.36, digital brachial index 0.99.? Left: QUETA by DP 1.26, QUETA by PT 1.39, digital brachial index 0.72.? No evidence of significant arterial occlusive disease in the lower extremity bilaterally. Ulceration to the left lower extremity were debrided as noted in the clinical panel above.? He is healed four of these wounds as of 10/17/22.? Left anterior leg ulceration measures 0.6 cm x 0.3 cm x 0.1 cm and left distal anterior ulceration is healed.?No signs of infection.? Following debridement ulcerative sites dressed with collagen powder, dry sterile dressing, and double Tubigrip applied to bilateral lower extremity.? He was instructed to change dressings daily. Ulcer site demonstrates continued decrease in size from previous visit. His insurance has denied advanced wound care product. Encouraged adequate protein intake to continue to aid in wound healing.? Encouraged to continue clean up his diet of fast food and lower sodium intake. The following work up and care recommendations were made: Dressing: Collagen powder, DSD, and double Tubigrip to bilateral lower extremity Wash: Keep dressings clean, dry, and intact Tissue growth optimization: Collagen powder Offload: Double Tubigrip and elevation of legs Vascular: DP and PT pulses palpable with adequate capillary fill bilateral. Edema: Double Tubigrip and elevation of legs Infection: No signs of infection.? Pain: May take [id number] Tylenol for discomfort Host factors: Suspected venous insufficiency, pruritus and self excoriation. ? I answered all the patient's questions.? To return to the wound healing center in 2 weeks or call sooner if the patient has any questions or concerns.
[2022-11-28 10:36] VITALS: BP 149/88; PULSE 87; RESP 20; TEMP 36.3; BMI 44.6
--- NOTE | 2022-11-28 11:55 | PCM.WC.PN ---
History of Present Illness Date of Service: 11/28/22 Chief Complaint: Left lower extremity wound x3 History of Wound: Patient is a 57-year-old male with history of COPD, chronic tobacco abuse, obesity, swelling of bilateral lower extremities with recent opening of 3 ulcerations to the left lower extremity. Patient states that when sitting at the computer he sometimes uses a back cissp to aggressively scratch his legs and believes this led to opening of the 3 wounds on the left lower extremity. He states that he does not elevate his legs and does not wear compression stockings. Also states that he recently quit smoking. Reports seeing his PCP who prescribed Lasix to aid in fluid reduction of the lower extremities. He also reports being prescribed oral antibiotic, Bactrim DS and is currently taking this. States he was referred to the wound care center for continued care of his left lower extremity ulcerations. Subjective Subjective Patient is a 57-year-old male who presents to the wound care center today for follow-up of left lower extremity ulceration.? He is continuing to wear his Tubigrip compression. He has been changing dressings daily with collagen powder.?He states the site is a bit raw today. He denies any constitutional symptoms today.? Denies any further complaints today. Objective Data Objective Data Vital Signs: Vital Signs Temp Pulse Resp BP O2 Del Method 97.3 F L 87 20 H 149/88 H Room Air 11/28/22 10:36 11/28/22 10:36 11/28/22 10:36 11/28/22 10:36 11/14/22 10:32 Oxygen Delivery Method Room Air Weight: 129.274 kg Body Mass Index (BMI) 44.6 Physical Exam Const alert, oriented x3 and no apparent distress General Appearance: cooperative HEENT normocephalic Eyes General Eye: normal appearance of both eyes Neck General: normal visual inspection Lymph Lymphatic: no lymphadenopathy noted and no lymphedema noted Resp normal respiratory effort Cardio regular rate and regular rhythm Extremity normal capillary refill, no joint enlargement, no calf tenderness and no pedal edema Extremity Narrative: DP and PT pulses palpable bilateral.? Capillary fill time is brisk to the digits.? Normal temperature gradient.? Hair growth to the digits is diminished.? There is some mild nonpitting lower extremity edema bilateral from mid calf to the distal forefoot. Musculoskeletal: Muscle strength 5 out of 5 and age-appropriate.? Negative Homans' sign.? Negative Lester sign. Skin no rashes or lesions noted, skin turgor normal and no jaundice Wound Narrative: Left lower extremity: 3 ulcerations noted to the left lower extremity.? #1 anterior leg proximal; #2 Superior lateral leg -healed; #3 distal lateral leg -healed; #4 & #5 anterior leg distal-healed.? Ulcerative sites demonstrate moist fibrotic tissue in the wound bed with scant serous drainage.? No purulent drainage, no erythema, no malodor, no palpable fluctuance/bogginess, no visible abscess, no lymphangitic streaking. Neuro moves all extremities Debridement Note Debridement Note Wound debrided: Left lower extremity Laterality: Left Wound Grade/Stage: Sheth stage I Type of Debridement: Excisional debridement Anesthesia Used: 5% Lidocaine Gel Depth: Down to and including healthy tissue and in the subcutaneous layer Percentage of wound debrided: 100 Instrument Used: 3mm curette Tissue Removed: Fibrous, devitalized subcutaneous, biofilm, slough Severity: Fat Layer Exposed Amount of bleeding with debridement: Mild Bleeding Controlled with: Compression and gauze Patient tolerated procedure: Patient tolerated procedure well Post-Debridement Measurements and Additional Note: Post-Debridement Measurements/Treatment - Nurse 1 - General Ulcer Assessment Start: 10/31/22 10:26 Freq: Status: Active Protocol: XIMENA Activity Type Activity Date Activity User E-sign Co-sign Detail Recorded Client Recorded Date Recorded By Document 10/31/22 10:27 [id number] 10/31/22 10:33 Document 11/07/22 11:21 JF [id number] 11/07/22 11:25 Document 11/14/22 10:32 KW [id number] 11/14/22 10:41 KW Document 11/28/22 10:36 DL [id number] 11/28/22 10:41 DL 10/31/22 11/07/22 11/14/22 10:27 11:21 10:32 - Today's Visit Information Type of service Follow-up Visit Follow-up Visit Follow-up Visit (Physician/DISPATCHER [employer] (Physician/DISPATCHER [employer] (Physician/DISPATCH[employer] ) ) ) Arrival Mode Ambulatory Ambulatory Ambulatory Transfer Assistance Patient Identification Verified (Name & Yes Yes Yes ) Patient Requires Transmission-Based No No Precautions Height and Weight Body Mass Index (BMI) 44.6 44.6 44.6 BMI Classification Obese Obese Obese Vital Signs Temperature (97.8 F-99.1 F) 96.6 F L 97.3 F L 96.9 F L Temperature Source Temporal Temporal Temporal Pulse Rate (60-100) 80 78 Pulse Location Monitor Monitor Respiratory Rate (12-18) 16 16 Respiratory rate source Observation Observation Oxygen Delivery Method Room Air Blood Pressure (90/60-120/80) 149/79 H 156/95 H 127/67 H Blood Pressure Mean (mm Hg) 102 115 87 Source Monitor Monitor Monitor Position Sitting Semi-Fowlers Blood Pressure Location Left Arm Right Arm History Since Last Visit- (Skip if this is Patient's initial visit) Have you changed medications since your No No No last visit? Any new allergies or adverse reactions No No No Had a fall/change in ADL's that may No No No increase risk of falls Signs or symptoms of abuse and/or No No No neglect since last visit Have you been in the hospital since your No No No last visit? Has dressing in place as prescribed Yes Yes Has compression in place as prescribed No Yes Has offloadiing in place as prescribed N/A N/A Experienced any changes in pain level or No management Left Footwear Regular Shoe Regular Shoe Regular Shoe Right Footwear Regular Shoe Regular Shoe Regular Shoe Pain Scale: 0-10 Numeric Is Patient Pain Free? Yes Yes Yes 11/28/22 10:36 WC - Today's Visit Information Type of service Follow-up Visit (Physician/DISPATCH[facility] [employer] ) Arrival Mode Ambulatory Transfer Assistance None Patient Identification Verified (Name & Yes ) Patient Requires Transmission-Based No Precautions Height and Weight Body Mass Index (BMI) 44.6 BMI Classification Obese Vital Signs Temperature (97.8 F-99.1 F) 97.3 F L Temperature Source Temporal Pulse Rate (60-100) 87 Pulse Location Monitor Respiratory Rate (12-18) 20 H Respiratory rate source Observation Oxygen Delivery Method Blood Pressure (90/60-120/80) 149/88 H Blood Pressure Mean (mm Hg) 108 Source Monitor Position Blood Pressure Location History Since Last Visit- (Skip if this is Patient's initial visit) Have you changed medications since your No last visit? Any new allergies or adverse reactions No Had a fall/change in ADL's that may No increase risk of falls Signs or symptoms of abuse and/or No neglect since last visit Have you been in the hospital since your No last visit? Has dressing in place as prescribed No Has compression in place as prescribed No Has offloadiing in place as prescribed N/A Experienced any changes in pain level or No management Left Footwear Right Footwear Pain Scale: 0-10 Numeric Is Patient Pain Free? Yes WC - Nurse 1 - General Ulcer Measurement Start: 10/31/22 10:26 Freq: Status: Active Protocol: Activity Type Activity Date Activity User E-sign Co-sign Detail Recorded Client Recorded Date Recorded By Document 10/31/22 10:27 JF [id number] 10/31/22 10:33 JF Document 11/07/22 11:21 JF [id number] 11/07/22 11:25 JF Document 11/14/22 10:32 KW [id number] 11/14/22 10:41 KW Document 11/28/22 10:36 DL [id number] 11/28/22 10:41 DL 10/31/22 11/07/22 11/14/22 10:27 11:21 10:32 Wound Center Nurse 1 #1 L salmeron -Combined with other wound No No -Current Size (cm) - Length 5.5 2.1 -Current Size (cm) - Width 1.4 1.2 -Current Size (cm) - Depth 0.1 0.1 -Total Square Cm 7.70 2.52 -Photo Taken Yes Yes No -Epithelialization Small 1-33% None Present Small 1-33% -Tunneling No No -Undermining/Tunneling No No -Circular Undermining No No -Change in Wound Grade/Stage No -Exudate Amt Small Medium -Exudate Type Serosanguineous Serosanguineous -Wound Margin Flat & Intact Distinct, Distinct, Outline Outline Attached Attached -Granulation Amt Large (67-100%) Large (67-100%) Large (67-100%) -Granulation Quality Red [place] Red -Slough/Fibrin Yes Yes -Necrosis Amt Small (1-33%) Small (1-33%) Small (1-33%) -Necrotic Tissue Type Adherent Slough Adherent Slough Adherent Slough -Structure Exposed N/A N/A -Texture (Myriam-wound Skin Appearance) Assessed, Assessed, Not Assessed, Localized Edema Scarring Localized Edema -Moisture (Myriam-wound Skin Appearance) Assessed,Dry/ No Abnormality, Assessed Scaly Assessed -Color (Myriam-wound Skin Appearance) Assessed No Abnormality, Assessed, Assessed Erythema -Temperature (Myriam-wound Skin No Abnormality No Abnormality No Abnormality Appearance) (Pt Warm) (Pt Warm) (Pt Warm) -Tenderness on Palpation (Myriam-wound No No No Skin Appearance) -Ulcer Cleansing Wound Cleanser Rinsed/ Rinsed/ Irrigated with Irrigated with Saline Saline -Foul Odor after Cleansing No No No -Anesthetic Used 5% Lidocaine 5% Lidocaine 5% Lidocaine Gel Gel Gel Lower Limb Edema Present Yes Left Calf (cm) 45.6 47 Left Ankle (cm) 30.0 28.8 11/28/22 10:36 Wound Center Nurse 1 #1 L salmeron -Combined with other wound -Current Size (cm) - Length 3 -Current Size (cm) - Width 0.6 -Current Size (cm) - Depth 0.1 -Total Square Cm 1.8 -Photo Taken -Epithelialization -Tunneling -Undermining/Tunneling -Circular Undermining -Change in Wound Grade/Stage -Exudate Amt None Present -Exudate Type -Wound Margin Indistinct, Non -Visible -Granulation Amt Large (67-100%) -Granulation Quality [place] -Slough/Fibrin -Necrosis Amt None Present (0 %) -Necrotic Tissue Type -Structure Exposed N/A -Texture (Myriam-wound Skin Appearance) Scarring -Moisture (Myriam-wound Skin Appearance) Weeping -Color (Myriam-wound Skin Appearance) Hemosiderin Staining -Temperature (Myriam-wound Skin No Abnormality Appearance) (Pt Warm) -Tenderness on Palpation (Myriam-wound No Skin Appearance) -Ulcer Cleansing Rinsed/ Irrigated with Saline -Foul Odor after Cleansing No -Anesthetic Used 5% Lidocaine Gel Lower Limb Edema Present Left Calf (cm) 49 Left Ankle (cm) 31 WC - Nurse 2 - General Ulcer CM Notes Start: 10/31/22 10:26 Freq: Status: Active Protocol: Activity Type Activity Date Activity User E-sign Co-sign Detail Recorded Client Recorded Date Recorded By Document 10/31/22 12:24 PL [id number] 10/31/22 12:25 PL Document 11/07/22 12:47 PL [id number] 11/07/22 12:48 PL Document 11/14/22 12:20 PL [id number] 11/14/22 12:22 PL 10/31/22 11/07/22 11/14/22 12:24 12:47 12:20 Wound Center Nurse 2 #1 L salmeron -Time 10:38 11:36 11:05 -Correct Patient Yes Yes Yes -Correct Side, Site, Position Yes Yes Yes -Correct Procedure Yes Yes Yes -Procedure Performed Yes Yes Yes -Type of Procedure Debridement Debridement Debridement -Clinical Debridement Subcutaneous Subcutaneous Subcutaneous -Tissue Removed Subcutaneous Subcutaneous Subcutaneous -Post Debridement (cm) - Length 3.3 1.0 0.6 -Post Debridement (cm) - Width 1.1 1.0 0.3 -Post Debridement (cm) - Depth 0.1 0.1 0.1 -Total Square (Post) (cm) 3.63 1.00 0.18 -Area of Debridement (cm) - Length 3.3 1.0 0.6 -Area of Debridement (cm) - Width 1.1 1.0 0.3 -Total Square (Area) (cm) 3.63 1.00 0.18 -Tunneling No No No -Undermining/Tunneling No No No -Circular Undermining No No No -Wound/Ulcer Outcome Not Healed Not Healed Not Healed -Ulcer Cleansing Rinsed/ Rinsed/ Rinsed/ Irrigated with Irrigated with Irrigated with Saline Saline Saline -Foul Odor after Cleansing No No No -Bioengineered Tissue No No No -Bleeding Controlled with Pressure Pressure Pressure -Treatment Response Procedure Procedure Procedure Tolerated Well Tolerated Well Tolerated Well -Debridement - Subq, 1st 20sq cm Yes Yes Yes Pain Scale: 0-10 Numeric Is Patient Pain Free? Yes Yes Yes - Nurse 3 - General Ulcer D/C NN Start: 10/31/22 10:26 Freq: Status: Active Protocol: Activity Type Activity Date Activity User E-sign Co-sign Detail Recorded Client Recorded Date Recorded By Document 10/31/22 11:18 MARK [id number] 10/31/22 11:18 MARK Document 11/07/22 12:00 AK [id number] 11/07/22 12:01 AK Document 11/14/22 11:40 KW [id number] 11/14/22 11:41 KW 10/31/22 11/07/2223 11:18 12:00 11:40 Wound Care Center Nurse 3 #1 L salmeron -Ulcer Cleansing Rinsed/ Rinsed/ Rinsed/ Irrigated with Irrigated with Irrigated with Saline Saline Saline -Foul Odor after Cleansing No No -Negative Pressure Wound Therapy N/A -Primary Dressing Applied Promogran C Hydrogel ($), Collagen Powder Taya Matter Collagen Powder ($) ($) -Primary Dressing Covered/Secured with Dry Gauze Dry Gauze & Dry Gauze & Roll Gauze, Roll Gauze, Secured with Secured with Tape Tape -Promogran Taya Matter 1 Left -Lotion applied to leg before No compression wrap -Compression Wrap [place] Wrap -Other own Pain Scale: 0-10 Numeric Is Patient Pain Free? Yes Yes Yes WC - Visit Discharge Discharge Condition Stable Stable Stable Ambulatory Status Ambulatory Ambulatory Ambulatory Transportation Private Auto Private Auto Private Auto Medication Reconcilliation completed & Yes Yes No provided to patient/care provider Clinical Summary of Care Provided Yes Yes No Assessment/Plan Assessment/Plan (1) Bilateral edema of lower extremity: CODE(S): R60.0 - Localized edema (2) Non-pressure chronic ulcer of left calf with fat layer exposed: CODE(S): L97.222 - Non-pressure chronic ulcer of left calf with fat layer exposed (3) Venous insufficiency (chronic) (peripheral): CODE(S): I87.2 - Venous insufficiency (chronic) (peripheral) (4) BMI 40.0-44.9, adult: CODE(S): Z68.41 - Body mass index [BMI] 40.0-44.9, adult (5) Stage 3 severe COPD by GOLD classification: CODE(S): J44.9 - Chronic obstructive pulmonary disease, unspecified (6) Tobacco abuse: CODE(S): Z72.0 - Tobacco use PLAN: Plan Patient seen and evaluated Discussed the swelling in the bilateral lower extremities with his ulcerations secondary to aggressive scratching with a back scratching device.? Discouraged continued use of this device as this has likely led to his ulcerations.? Per our discussion he has stopped utilizing this device to aid in scratching.? Encouraged continued elevation of lower extremities for control of edema.? Patient is noted to be on Lasix to assist in fluid control.? Instructed him to continue use of Lasix.? Discussed compression stocking for continued assistance in his control of edema.? He voices understanding that he does need to wear the compression stockings. He has stopped smoking.? I did discuss the risks and detriment smoking has on wound healing and overall health, again smoking was discouraged.? Encouraged his continued smoking cessation. Ordered LEAS and venous studies of bilateral lower extremities, performed 08/30/2022.? Venous studies: No evidence of acute DVT.? 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 Accessory saphenous vein in the left proximal thigh and proximal calf are incompetent. LEAS: Triphasic Doppler waveforms noted at the ankle level bilaterally.? PVRs appear normal at all levels bilaterally.? Indices: Right: QUETA by DP 1.3, QUETA by PT 1.36, digital brachial index 0.99.? Left: QUETA by DP 1.26, QUETA by PT 1.39, digital brachial index 0.72.? No evidence of significant arterial occlusive disease in the lower extremity bilaterally. Ulceration to the left lower extremity were debrided as noted in the clinical panel above.? He is healed four of these wounds as of 10/17/22.? Left anterior leg ulceration measures 0.3 cm x 0.4 cm x 0.1 cm and left distal anterior ulceration is healed.?No signs of infection.? Following debridement ulcerative sites dressed with collagen powder, dry sterile dressing, and double Tubigrip applied to bilateral lower extremity.? He was instructed to change dressings daily. Ulcer site demonstrates continued decrease in size from previous visit. His insurance has denied advanced wound care product. Encouraged adequate protein intake to continue to aid in wound healing.? Encouraged to continue clean up his diet of fast food and lower sodium intake. The following work up and care recommendations were made: Dressing: Collagen powder, DSD, and double Tubigrip to bilateral lower extremity Wash: Keep dressings clean, dry, and intact Tissue growth optimization: Collagen powder Offload: Double Tubigrip and elevation of legs Vascular: DP and PT pulses palpable with adequate capillary fill bilateral. Edema: Double Tubigrip and elevation of legs Infection: No signs of infection.? Pain: May take [id number] Tylenol for discomfort Host factors: Suspected venous insufficiency, pruritus and self excoriation. ? I answered all the patient's questions.? To return to the wound healing center in 3 weeks or call sooner if the patient has any questions or concerns.
== END 2022-11-29 23:59 | disposition home or self-care (01) ==
LOC: WC 11:00
PROVIDERS: PCP Nurse Practitioner Family; Referring Provider Nurse Practitioner Family; Visit Provider Student in an Organized Health Care Education/Training Program
DX: I87.2 Venous insufficiency (chronic) (peripheral) (principal); L97.222 Non-pressure chronic ulcer of left calf with fat layer exposed; J44.9 Chronic obstructive pulmonary disease, unspecified; R60.0 Localized edema; Z72.0 Tobacco use; R06.00 Dyspnea, unspecified; M79.89 Other specified soft tissue disorders
CPT/HCPCS: 11042

== ENCOUNTER 2022-12-26 11:00 | Outpatient (RCR) | payer OTHER, SELFPAY ==
[2022-11-30 01:22] VITALS: BP 149/88; PULSE 87; RESP 20; TEMP 36.3; BMI 44.6
[2022-12-05 11:02] VITALS: BP 138/81; PULSE 78; TEMP 35.8; BMI 44.6
--- NOTE | 2022-12-05 13:14 | PN.PCM_ITS ---
History of Present Illness Date of Service: 12/05/22 Chief Complaint: Left lower extremity wound x3 History of Wound: Patient is a 57-year-old male with history of COPD, chronic tobacco abuse, obesity, swelling of bilateral lower extremities with recent opening of 3 ulcerations to the left lower extremity. 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 He states that he does not elevate his legs and does not wear compression stockings. Also states that he recently quit smoking. Reports seeing his PCP who prescribed Lasix to aid in fluid reduction of the lower extremities. He also reports being prescribed oral antibiotic, Bactrim DS and is currently taking this. States he was referred to the wound care center for continued care of his left lower extremity ulcerations. Subjective Subjective Patient is a 57-year-old male who presents to the wound care center today for follow-up of left lower extremity ulceration.? He is continuing to wear his Tubigrip compression. He has been changing dressings daily with collagen powder and bandaid.?He denies any constitutional symptoms today.? Denies any further complaints today. Objective Data Objective Data Vital Signs: Vital Signs Temp Pulse Resp BP 96.5 F L 78 20 H 138/81 H 12/05/22 11:02 12/05/22 11:02 11/30/22 01:22 12/05/22 11:02 Weight: 129.274 kg Body Mass Index (BMI) 44.6 Physical Exam Const alert, oriented x3, no apparent distress and well nourished General Appearance: cooperative HEENT normocephalic Eyes General Eye: normal appearance of both eyes Neck General: normal visual inspection Lymph Lymphatic: no lymphadenopathy noted and no lymphedema noted Resp normal respiratory effort Cardio regular rate and regular rhythm Extremity normal capillary refill, no joint enlargement, no calf tenderness and no pedal edema Extremity Narrative: DP and PT pulses palpable bilateral.? Capillary fill time is brisk to the digits.? Normal temperature gradient.? Hair growth to the digits is diminished.? There is some mild nonpitting lower extremity edema bilateral from mid calf to the distal forefoot. Musculoskeletal: Muscle strength 5 out of 5 and age-appropriate.? Negative Homans' sign.? Negative Lester sign. Skin no rashes or lesions noted, skin turgor normal and no jaundice Wound Narrative: Left lower extremity: ulceration noted to the left lower extremity.? #1 anterior leg proximal; #2 Superior lateral leg -healed; #3 distal lateral leg -healed; #4 & #5 anterior leg distal-healed.? Ulcerative sites demonstrate moist fibrotic tissue in the wound bed with scant serous drainage.? No purulent drainage, no erythema, no malodor, no palpable fluctuance/bogginess, no visible abscess, no lymphangitic streaking. Neuro moves all extremities Debridement Note Debridement Note Wound debrided: Left anterior lower extremity Laterality: Left Wound Grade/Stage: Sheth stage I Type of Debridement: Excisional debridement Anesthesia Used: 5% Lidocaine Gel Depth: Down to and including healthy tissue and in the subcutaneous layer Percentage of wound debrided: 100 Instrument Used: 3mm curette Tissue Removed: Fibrous, devitalized subcutaneous, biofilm, slough Severity: Fat Layer Exposed Amount of bleeding with debridement: Mild Bleeding Controlled with: Compression and gauze Patient tolerated procedure: Patient tolerated procedure well Post-Debridement Measurements and Additional Note: Post-Debridement Measurements/Treatment - Nurse 1 - General Ulcer Assessment Start: 12/05/22 10:56 Freq: Status: Active Protocol: XIMENA Activity Type Activity Date Activity User E-sign Co-sign Detail Recorded Client Recorded Date Recorded By Document 12/05/22 11:02 TORREY [id number] 12/05/22 11:04 TROREY 12/05/22 11:02 - Today's Visit Information Type of service Follow-up Visit (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 Any new allergies or adverse reactions No Had a fall/change in ADL's that may No increase risk of falls Signs or symptoms of abuse and/or No neglect since last visit Have you been in the hospital since your No last visit? Has dressing in place as prescribed Yes Has compression in place as prescribed Yes Has offloadiing in place as prescribed N/A Experienced any changes in pain level or No management Left Footwear Regular Shoe Right Footwear Regular Shoe Pain Scale: 0-10 Numeric Is Patient Pain Free? Yes - Nurse 1 - General Ulcer Measurement Start: 12/05/22 10:56 Freq: Status: Active Protocol: Activity Type Activity Date Activity User E-sign Co-sign Detail Recorded Client Recorded Date Recorded By Document 12/05/22 11:02 [place] [id number] 12/05/22 11:04 [place] 12/05/22 11:02 Wound Center Nurse 1 #1 L salmeron -Combined with other wound No -Current Size (cm) - Length 6 -Current Size (cm) - Width 8 -Current Size (cm) - Depth 1 -Total Square Cm 48 -Date of Last Picture (Recall this 12/05/22 field) -Photo Taken Yes -Tunneling No -Undermining/Tunneling No -Circular Undermining No -Change in Wound Grade/Stage No -Exudate Amt Large -Exudate Type Serosanguineous -Wound Margin Distinct, Outline Attached -Granulation Amt Medium (34-66%) -Granulation Quality Gandy -Slough/Fibrin Yes -Necrosis Amt Medium (34-66%) -Necrotic Tissue Type Adherent Slough -Structure Exposed N/A -Texture (Myriam-wound Skin Appearance) No Abnormality, Assessed, Friable -Moisture (Myriam-wound Skin Appearance) Assessed, Maceration -Color (Myriam-wound Skin Appearance) No Abnormality, Assessed, Erythema,Palor -Temperature (Myriam-wound Skin No Abnormality Appearance) (Pt Warm) -Tenderness on Palpation (Myriam-wound No Skin Appearance) -Ulcer Cleansing Soap and Water -Foul Odor after Cleansing No -Anesthetic Used 5% Lidocaine Gel Left Calf (cm) 42 Left Ankle (cm) 30 - Nurse 2 - General Ulcer CM Notes Start: 12/05/22 10:56 Freq: Status: Active Protocol: Activity Type Activity Date Activity User E-sign Co-sign Detail Recorded Client Recorded Date Recorded By Document 12/05/22 12:12 PL [id number] 12/05/22 12:13 PL 12/05/22 12:12 Wound Center Nurse 2 #1 L salmeron -Time 11:36 -Correct Patient Yes -Correct Side, Site, Position Yes -Correct Procedure Yes -Procedure Performed Yes -Type of Procedure Debridement -Clinical Debridement Subcutaneous -Tissue Removed Subcutaneous -Post Debridement (cm) - Length 3.0 -Post Debridement (cm) - Width 1.5 -Post Debridement (cm) - Depth 0.1 -Total Square (Post) (cm) 4.50 -Area of Debridement (cm) - Length 3.0 -Area of Debridement (cm) - Width 1.5 -Total Square (Area) (cm) 4.50 -Tunneling No -Undermining/Tunneling No -Circular Undermining No -Wound/Ulcer Outcome Not Healed -Ulcer Cleansing Rinsed/ Irrigated with Saline -Foul Odor after Cleansing No -Bioengineered Tissue No -Bleeding Controlled with Pressure -Treatment Response Procedure Tolerated Well -Debridement - Subq, 1st 20sq cm Yes Pain Scale: 0-10 Numeric Is Patient Pain Free? Yes - Nurse 3 - General Ulcer D/C NN Start: 12/05/22 10:56 Freq: Status: Active Protocol: Activity Type Activity Date Activity User E-sign Co-sign Detail Recorded Client Recorded Date Recorded By Document 12/05/22 11:47 KW [id number] 12/05/22 11:48 KW 12/05/22 11:47 Wound Care Center Nurse 3 #1 L salmeron -Ulcer Cleansing Rinsed/ Irrigated with Saline -Primary Dressing Applied Aquacel Extra -Primary Dressing Covered/Secured with Dry Gauze & Roll Gauze, Secured with Tape -Aquacel Extra 1 LLE -Tubular Bandage Double Layer -Size of Tubigrip Used Size E -Size E ($) 2 Pain Scale: 0-10 Numeric Is Patient Pain Free? Yes - Visit Discharge Discharge Condition Stable Ambulatory Status Ambulatory Transportation Private Auto Medication Reconcilliation completed & No provided to patient/care provider Clinical Summary of Care Provided Yes Assessment/Plan Assessment/Plan (1) Bilateral edema of lower extremity: CODE(S): R60.0 - Localized edema (2) Non-pressure chronic ulcer of left calf with fat layer exposed: CODE(S): L97.222 - Non-pressure chronic ulcer of left calf with fat layer exposed (3) Venous insufficiency (chronic) (peripheral): CODE(S): I87.2 - Venous insufficiency (chronic) (peripheral) (4) BMI 40.0-44.9, adult: CODE(S): Z68.41 - Body mass index [BMI] 40.0-44.9, adult (5) Dyspnea: CODE(S): R06.00 - Dyspnea, unspecified (6) Tobacco abuse: CODE(S): Z72.0 - Tobacco use (7) Stage 3 severe COPD by GOLD classification: CODE(S): J44.9 - Chronic obstructive pulmonary disease, unspecified PLAN: Plan Patient seen and evaluated Discussed the swelling in the bilateral lower extremities with his ulcerations secondary to aggressive scratching with a back scratching device.? Discouraged continued use of this device as this has likely led to his ulcerations.? Per our discussion he has stopped utilizing this device to aid in scratching.? Encouraged continued elevation of lower extremities for control of edema.? Patient is noted to be on Lasix to assist in fluid control.? Instructed him to continue use of Lasix.? Discussed compression stocking for continued assistance in his control of edema.? He voices understanding that he does need to wear the compression stockings. He has stopped smoking.? I did discuss the risks and detriment smoking has on wound healing and overall health, again smoking was discouraged.? Encouraged his continued smoking cessation. Ordered LEAS and venous studies of bilateral lower extremities, performed 08/30/2022.? Venous studies: No evidence of acute DVT.? 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 Accessory saphenous vein in the left proximal thigh and proximal calf are incompetent. LEAS: Triphasic Doppler waveforms noted at the ankle level bilaterally.? PVRs appear normal at all levels bilaterally.? Indices: Right: QUETA by DP 1.3, QUETA by PT 1.36, digital brachial index 0.99.? Left: QUETA by DP 1.26, QUETA by PT 1.39, digital brachial index 0.72.? No evidence of significant arterial occlusive disease in the lower extremity bilaterally. Ulceration to the left lower extremity were debrided as noted in the clinical panel above.? He is healed four of these wounds as of 10/17/22.? Left anterior leg ulceration has healed today.?No signs of infection.? He does demonstrate irritation secondary to Band-Aid adhesive. Discussed dressing with dry gauze to the site daily and Tubigrip compression. Discussed returning for a final check in the next few weeks. His insurance has denied advanced wound care product. Encouraged adequate protein intake to continue to aid in wound healing.? Encouraged to continue clean up his diet of fast food and lower sodium intake. The following work up and care recommendations were made: Dressing: Dry gauze for the next 10 to 12 days Wash: Soap and water Tissue growth optimization: None Offload: Double Tubigrip and elevation of legs Vascular: DP and PT pulses palpable with adequate capillary fill bilateral. Edema: Double Tubigrip and elevation of legs Infection: No signs of infection.? Pain: May take [id number] Tylenol for discomfort Host factors: Suspected venous insufficiency, pruritus and self excoriation. ? I answered all the patient's questions.? To return to the wound healing center in 3 weeks or call sooner if the patient has any questions or concerns.
[2022-12-26 10:33] VITALS: BP 136/85; PULSE 76; RESP 16; TEMP 36; BMI 44.6
--- NOTE | 2022-12-26 10:48 | PCM.WC.PN ---
History of Present Illness Date of Service: 12/26/22 Chief Complaint: Left lower extremity wound x3 History of Wound: Patient is a 57-year-old male with history of COPD, chronic tobacco abuse, obesity, swelling of bilateral lower extremities with recent opening of 3 ulcerations to the left lower extremity. 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 He states that he does not elevate his legs and does not wear compression stockings. Also states that he recently quit smoking. Reports seeing his PCP who prescribed Lasix to aid in fluid reduction of the lower extremities. He also reports being prescribed oral antibiotic, Bactrim DS and is currently taking this. States he was referred to the wound care center for continued care of his left lower extremity ulcerations. Subjective Subjective Patient is a 57-year-old male who presents to the wound care center today for follow-up of left lower extremity ulceration.? He is continuing to wear his Tubigrip compression. He states he recently returned from vacation in [place] and was not wearing a dressing or covering over the site of the time. He reports the wound has healed and he denies any drainage from the left leg.?He denies any constitutional symptoms today.? Denies any further complaints today. Objective Data Objective Data Vital Signs: Vital Signs Temp Pulse Resp BP O2 Del Method 96.8 F L 76 16 136/85 H Room Air 12/26/22 10:33 12/26/22 10:33 12/26/22 10:33 12/26/22 10:33 12/26/22 10:33 Oxygen Delivery Method Room Air Weight: 129.274 kg Body Mass Index (BMI) 44.6 Physical Exam Const alert, oriented x3, no apparent distress and well nourished General Appearance: cooperative HEENT normocephalic Eyes General Eye: normal appearance of both eyes Neck General: normal visual inspection Lymph Lymphatic: no lymphadenopathy noted and no lymphedema noted Resp normal respiratory effort Cardio regular rate and regular rhythm Extremity normal capillary refill, no joint enlargement, no calf tenderness and no pedal edema Extremity Narrative: DP and PT pulses palpable bilateral.? Capillary fill time is brisk to the digits.? Normal temperature gradient.? Hair growth to the digits is diminished.? There is some mild nonpitting lower extremity edema bilateral from mid calf to the distal forefoot. Musculoskeletal: Muscle strength 5 out of 5 and age-appropriate.? Negative Homans' sign.? Negative Lester sign. Skin no rashes or lesions noted, skin turgor normal and no jaundice Wound Narrative: Left lower extremity: Ulceration left lower extremity has healed. There is darkened discoloration of the skin consistent with hemosiderin deposition. No signs of infection. Neuro moves all extremities Debridement Note Debridement Note No debridement was completed: No debridement was completed today Post-Debridement Measurements and Additional Note: Post-Debridement Measurements/Treatment - Nurse 1 - General Ulcer Assessment Start: 12/05/22 10:56 Freq: Status: Active Protocol: .Medxnote Activity Type Activity Date Activity User E-sign Co-sign Detail Recorded Client Recorded Date Recorded By Document 12/05/22 11:02 TORREY [id number] 12/05/22 11:04 [place] Document 12/26/22 10:33 KW Desktop 12/26/22 10:39 KW 12/05/22 12/26/22 11:02 10:33 - Today's Visit Information Type of service Follow-up Visit Follow-up Visit (Physician/SENIOR SECURITY ENGINEER (Physician/SENIOR SECURITY ENGINEER ) ) Arrival Mode Ambulatory Ambulatory Patient Identification Verified (Name & Yes ) Patient Requires Transmission-Based No Precautions Safety Precautions NA Height and Weight Body Mass Index (BMI) 44.6 44.6 BMI Classification Obese Obese Vital Signs Temperature (97.8 F-99.1 F) 96.5 F L 96.8 F L Temperature Source Temporal Temporal Pulse Rate (60-100) 78 76 Pulse Location Monitor Monitor Respiratory Rate (12-18) 16 Respiratory rate source Observation Oxygen Delivery Method Room Air Blood Pressure (90/60-120/80) 138/81 H 136/85 H Blood Pressure Mean (mm Hg) 100 102 Source Monitor Monitor Position Semi-Fowlers Blood Pressure Location Left Forearm History Since Last Visit- (Skip if this is Patient's initial visit) Have you changed medications since your No No last visit? Any new allergies or adverse reactions No No Had a fall/change in ADL's that may No No increase risk of falls Signs or symptoms of abuse and/or No No neglect since last visit Have you been in the hospital since your No Yes last visit? Has dressing in place as prescribed Yes No Has compression in place as prescribed Yes No Has offloadiing in place as prescribed N/A No Experienced any changes in pain level or No No management Left Footwear Regular Shoe Regular Shoe Right Footwear Regular Shoe Regular Shoe Pain Scale: 0-10 Numeric Is Patient Pain Free? Yes Yes WC - Nurse 1 - General Ulcer Measurement Start: 12/05/22 10:56 Freq: Status: Active Protocol: Activity Type Activity Date Activity User E-sign Co-sign Detail Recorded Client Recorded Date Recorded By Document 12/05/22 11:02 [place] [id number] 12/05/22 11:04 AK Document 12/26/22 10:33 KW Desktop 12/26/22 10:39 KW 12/05/22 12/26/22 11:02 10:33 Wound Center Nurse 1 #1 L salmeron -Combined with other wound No -Current Size (cm) - Length 6 0.1 -Current Size (cm) - Width 8 0.1 -Current Size (cm) - Depth 1 0.1 -Total Square Cm 48 0.01 -Date of Last Picture (Recall this 12/05/22 field) -Photo Taken Yes No -Tunneling No No -Undermining/Tunneling No No -Circular Undermining No No -Change in Wound Grade/Stage No -Exudate Amt Large Small -Exudate Type Serosanguineous Serous -Wound Margin Distinct, Distinct, Outline Outline Attached Attached -Granulation Amt Medium (34-66%) -Granulation Quality Canones -Slough/Fibrin Yes -Necrosis Amt Medium (34-66%) -Necrotic Tissue Type Adherent Slough -Structure Exposed N/A -Texture (Myriam-wound Skin Appearance) No Abnormality, Assessed Assessed, Friable -Moisture (Myriam-wound Skin Appearance) Assessed, Assessed Maceration -Color (Myriam-wound Skin Appearance) No Abnormality, Assessed Assessed, Erythema,Palor -Temperature (Myriam-wound Skin No Abnormality No Abnormality Appearance) (Pt Warm) (Pt Warm) -Tenderness on Palpation (Myriam-wound No Skin Appearance) -Ulcer Cleansing Soap and Water Rinsed/ Irrigated with Saline -Foul Odor after Cleansing No No -Anesthetic Used 5% Lidocaine 5% Lidocaine Gel Gel Left Calf (cm) 42 48.7 Left Ankle (cm) 30 38.5 WC - Nurse 2 - General Ulcer CM Notes Start: 12/05/22 10:56 Freq: Status: Active Protocol: Activity Type Activity Date Activity User E-sign Co-sign Detail Recorded Client Recorded Date Recorded By Document 12/05/22 12:12 PL [id number] 12/05/22 12:13 PL 12/05/22 12:12 Wound Center Nurse 2 #1 L salmeron -Time 11:36 -Correct Patient Yes -Correct Side, Site, Position Yes -Correct Procedure Yes -Procedure Performed Yes -Type of Procedure Debridement -Clinical Debridement Subcutaneous -Tissue Removed Subcutaneous -Post Debridement (cm) - Length 3.0 -Post Debridement (cm) - Width 1.5 -Post Debridement (cm) - Depth 0.1 -Total Square (Post) (cm) 4.50 -Area of Debridement (cm) - Length 3.0 -Area of Debridement (cm) - Width 1.5 -Total Square (Area) (cm) 4.50 -Tunneling No -Undermining/Tunneling No -Circular Undermining No -Wound/Ulcer Outcome Not Healed -Ulcer Cleansing Rinsed/ Irrigated with Saline -Foul Odor after Cleansing No -Bioengineered Tissue No -Bleeding Controlled with Pressure -Treatment Response Procedure Tolerated Well -Debridement - Subq, 1st 20sq cm Yes Pain Scale: 0-10 Numeric Is Patient Pain Free? Yes - Nurse 3 - General Ulcer D/C NN Start: 12/05/22 10:56 Freq: Status: Active Protocol: Activity Type Activity Date Activity User E-sign Co-sign Detail Recorded Client Recorded Date Recorded By Document 12/05/22 11:47 [id number] 12/05/22 11:48 12/05/22 11:47 Wound Care Center Nurse 3 #1 L salmeron -Ulcer Cleansing Rinsed/ Irrigated with Saline -Primary Dressing Applied Aquacel Extra -Primary Dressing Covered/Secured with Dry Gauze & Roll Gauze, Secured with Tape -Aquacel Extra 1 LLE -Tubular Bandage Double Layer -Size of Tubigrip Used Size E -Size E ($) 2 Pain Scale: 0-10 Numeric Is Patient Pain Free? Yes WC - Visit Discharge Discharge Condition Stable Ambulatory Status Ambulatory Transportation Private Auto Medication Reconcilliation completed & No provided to patient/care provider Clinical Summary of Care Provided Yes Assessment/Plan Assessment/Plan (1) Bilateral edema of lower extremity: CODE(S): R60.0 - Localized edema (2) Non-pressure chronic ulcer of left calf with fat layer exposed: CODE(S): L97.222 - Non-pressure chronic ulcer of left calf with fat layer exposed (3) Venous insufficiency (chronic) (peripheral): CODE(S): I87.2 - Venous insufficiency (chronic) (peripheral) (4) BMI 40.0-44.9, adult: CODE(S): Z68.41 - Body mass index [BMI] 40.0-44.9, adult (5) Dyspnea: CODE(S): R06.00 - Dyspnea, unspecified (6) Tobacco abuse: CODE(S): Z72.0 - Tobacco use (7) Stage 3 severe COPD by GOLD classification: CODE(S): J44.9 - Chronic obstructive pulmonary disease, unspecified PLAN: Plan Patient seen and evaluated Discussed the swelling in the bilateral lower extremities with his ulcerations secondary to aggressive scratching with a back scratching device.? Discouraged continued use of this device as this has likely led to his ulcerations.? Per our discussion he has stopped utilizing this device to aid in scratching.? Encouraged continued elevation of lower extremities for control of edema.? Patient is noted to be on Lasix to assist in fluid control.? Instructed him to continue use of Lasix.? Discussed compression stocking for continued assistance in his control of edema.? He voices understanding that he does need to wear the compression stockings. He has stopped smoking.? I did discuss the risks and detriment smoking has on wound healing and overall health, again smoking was discouraged.? Encouraged his continued smoking cessation. Ordered LEAS and venous studies of bilateral lower extremities, performed 08/30/2022.? Venous studies: No evidence of acute DVT.? 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 Accessory saphenous vein in the left proximal thigh and proximal calf are incompetent. LEAS: Triphasic Doppler waveforms noted at the ankle level bilaterally.? PVRs appear normal at all levels bilaterally.? Indices: Right: QUETA by DP 1.3, QUETA by PT 1.36, digital brachial index 0.99.? Left: QUETA by DP 1.26, QUETA by PT 1.39, digital brachial index 0.72.? No evidence of significant arterial occlusive disease in the lower extremity bilaterally. Ulceration to the left lower extremity remains healed. ?No signs of infection.? Discussed dressing with dry gauze to the site daily for next 7 to 10 days and Tubigrip compression. Encouraged to continue clean up his diet of fast food and lower sodium intake to aid in edema control. Recommended continued use of compression stockings. The following work up and care recommendations were made: Dressing: None Wash: Soap and water Tissue growth optimization: None Offload: Double Tubigrip and elevation of legs Vascular: DP and PT pulses palpable with adequate capillary fill bilateral. Edema: Double Tubigrip and elevation of legs Infection: No signs of infection.? Pain: May take [id number] Tylenol for discomfort Host factors: Suspected venous insufficiency, pruritus and self excoriation. Due to healed status he is being discharged from the wound care center today. ? I answered all the patient's questions.? To return to the wound healing center as needed or call sooner if the patient has any questions or concerns.
== END 2022-12-30 23:59 | disposition home or self-care (01) ==
LOC: WC 11:00
PROVIDERS: PCP Nurse Practitioner Family; Referring Provider Nurse Practitioner Family; Visit Provider Student in an Organized Health Care Education/Training Program
DX: Z09 Encounter for follow-up examination after completed treatment for conditions other than malignant neoplasm (principal); J44.9 Chronic obstructive pulmonary disease, unspecified; Z87.891 Personal history of nicotine dependence; I87.2 Venous insufficiency (chronic) (peripheral); R06.00 Dyspnea, unspecified; R60.0 Localized edema
CPT/HCPCS: 11042; 99213; G0463

== ENCOUNTER → 2022-12-27 | Outpatient (CLI) | payer OTHER, SELFPAY ==
--- NOTE | 2022-12-27 11:11 | PFT ---
INTRODUCTION: The patient is a 57-year-old male who presents for pulmonary function studies secondary to a diagnosis of COPD. Respiratory therapy reported good patient effort. Bronchodilators were used during testing. INTERPRETATION: Forced expiration spirometry demonstrates the presence of a moderately severe large airways obstructive ventilatory defect. There was no significant response to aerosolized bronchodilators. Spirograms are of good quality and plateau gradually indicating slow emptying of the lungs. Body plethysmography was performed and revealed lung volumes to be within normal limits. Diffusing capacity by single breath CO was reduced at 62% of predicted. IMPRESSION: Irreversible moderately severe large airways obstructive ventilatory defect with preserved lung volumes and symmetric reduction in diffusing capacity.
== END | disposition home or self-care (01) ==
LOC: PSN 06:40
PROVIDERS: PCP Nurse Practitioner Family; Referring Provider Internal Medicine Critical Care Medicine; Visit Provider Internal Medicine Critical Care Medicine
DX: J44.9 Chronic obstructive pulmonary disease, unspecified (principal)
CPT/HCPCS: 94060; 94726; 94729

== ENCOUNTER → 2023-01-10 | Outpatient (CLI) | payer OTHER, SELFPAY ==
--- NOTE | 2023-01-10 13:47 | CT_ITS ---
STUDY: LOW DOSE CT LUNG CANCER SCREENING REASON FOR EXAM: Male, 57 years old. smoking RADIATION DOSAGE (If Supplied By Facility): CTDIvol = ( 3.18 ) mGy, DLP = ( 114.37 ) mGycm TECHNIQUE: No contrast was administered. Low dose technique was utilized (average mAS-38 and kVp 120). 1.25 mm axial source images with a slice interval of 1.25-mm were reconstructed in lung windows. 2.5 mm coronal and sagittal reformats. COMPARISON: Chest radiograph April 01, 2022 NODULES: No suspicious pulmonary nodules. Parenchyma: No consolidation, effusion, or pneumothorax. Endobronchial lesion: No endobronchial lesion. Minimal bilateral peribronchial thickening. Aorta: Mild aortic atherosclerosis without ectasia. CORONARY ARTERIES: Minimal calcified coronary atherosclerosis. Heart: No cardiomegaly or pericardial effusion. Pulmonary artery: No main pulmonary arterial enlargement relative to aorta. Mediastinal nodes: No mediastinal adenopathy by size criteria. No bulky hilar adenopathy. Other chest and abdominal findings: Unremarkable thyroid. Unremarkable esophagus. CT/Low Dose CT Lung Screening IMPRESSION: No suspicious pulmonary nodules. Minimal peribronchial thickening which can be seen with mild acute or chronic bronchitis/bronchiolitis. Lung-RADS category 1 - Continue annual screening with LDCT in 12 months. IMPORTANT NOTES FOR USE: ACR Lung-RADS Version 1.1 Assessment Categories Release Date: 2018 Category: Coded 0-4 bases on nodule(s) with highest degree of suspicion. Negative screen is defined as categories 1 and 2; a positive screen is defined as categories 3 and 4. Category 3 and 4A nodules that are unchanged on interval CT should be coded as category 2, and individuals returned to screening in 12 months. Category 4X: Category 3 or 4 nodules with additional imaging findings that increase the suspicion of lung cancer, such as spiculation, GGN that doubles in size in 1 year, enlarged lymph notes, etc. Category Modifiers: S (significant finding unrelated to lung cancer) Electronically Signed: Chavo Glez MD at 8:37 EDT ,
== END | disposition home or self-care (01) ==
LOC: CT 13:47
PROVIDERS: PCP Nurse Practitioner Family; Referring Provider Nurse Practitioner Acute Care; Visit Provider Nurse Practitioner Acute Care
DX: Z12.2 Encounter for screening for malignant neoplasm of respiratory organs (principal); F17.210 Nicotine dependence, cigarettes, uncomplicated
CPT/HCPCS: 71271

== ENCOUNTER 2023-04-05 17:17 | Emergency (ER) | payer OTHER, SELFPAY ==
[2023-04-05 17:23] VITALS: BP 154/85; PULSE 87; RESP 18; TEMP 36.2; O2SAT 96; BMI 46.3
--- NOTE | 2023-04-05 17:31 | ED.RN ---
Consulted with Dr. Sharif while triage'ing pt d/t loss of vision in one eye that lasted approx 5 minutes at 16:15 today. This RN asked for guidance on need for stroke alert. Stroke alert declined by Dr. Sharif d/t pt now being asymptomatic.
--- NOTE | 2023-04-05 17:52 | EKG12_ITS ---
Test Reason : VISION CHANGE Blood Pressure : / mmHG Vent. Rate : 078 BPM Atrial Rate : 078 BPM P-R Int : 182 ms QRS Dur : 096 ms QT Int : 368 ms P-R-T Axes : -02 022 024 degrees QTc Int : 419 ms Normal sinus rhythm Normal ECG Confirmed by YVETTE BAKER, HUMBERTO ([id number]), manuscript editor ANJEL ROCHA ([id number]) on 04/14/2023 7:01:31 AM Referred By: AR Confirmed By:CLAUDIO CRAWFORD MD
--- NOTE | 2023-04-05 17:52 | CT_ITS ---
STUDY: CTA HEAD AND NECK WITH CONTRAST REASON FOR EXAM: Male, 57 years old. Vision loss RADIATION DOSAGE (If Supplied By Facility): CTDIvol = ( 25.44 ) mGy, DLP = ( 1577.71 ) mGycm TECHNIQUE: CT angiography was performed with a multi-detector CT scanner. Data acquisition was obtained from the skull base through the vertex following intravenous administration of ISOVUE 370 100 ML. MIP images were reconstructed from the axial data set. Post-processing of the angiographic images was performed, with multiplanar reformation and 3D reconstruction. Individualized dose optimization techniques were used for this CT. COMPARISON: No relevant priors. FINDINGS: Normal bilateral petrous carotid arteries. There is calcified plaque formation of the right cavernous carotid artery, without a cross-sectional luminal stenosis. Normal left cavernous carotid artery with a normal supraclinoid bifurcation. Normal right A1 segments of the anterior cerebral artery. There is hypoplastic development of the left A1 segment of the anterior cerebral arteries with an atretic but intact artery. Normal intact anterior communicating artery (ACOM). Normal bilateral A2 segments of the anterior cerebral arteries. Normal right M1 and M2 segments of the middle cerebral arteries, with a normal M1 bifurcation. Normal left M1 and M2 segments of the middle cerebral arteries, with a normal M1 bifurcation. Normal right posterior communicating artery (PCOM). Normal left posterior communicating artery (PCOM). Normal bilateral vertebral arteries. Normal basilar artery with a normal basilar bifurcation. The visualized bilateral superior cerebellar (SCA) arteries are normal. Normal bilateral P1, P2 and visualized P3 segments of the posterior cerebral arteries. There is no demonstrated aneurysm of the [place]. There is no demonstrated abnormality of the visualized brain. AORTIC ARCH: Normal visualized aortic arch. Normal origins of the brachiocephalic, left common carotid, and left subclavian arteries. RIGHT CAROTID ARTERIES: Normal right common carotid artery (CCA). There is mild atherosclerotic plaque formation with minimal narrowing of the right carotid bulb. Normal origin of the right internal carotid (ICA) artery without a hemodynamically significant stenosis. Normal visualized cervical portion of the right internal carotid artery. Normal origin of the right external carotid artery (ECA). LEFT CAROTID ARTERIES: Normal left common carotid artery (CCA). There is mild atherosclerotic plaque formation with minimal narrowing of the left carotid bulb. Normal origin of the left internal carotid (ICA) artery without a hemodynamically significant stenosis. Normal visualized cervical portion of the left internal carotid artery. Normal origin of the left external carotid artery (ECA). VERTEBRAL ARTERIES: Normal bilateral vertebral arteries. CT/CTA Head AND Neck W/ Contrast IMPRESSION: Normal CTA Head and neck with contrast. Electronically Signed: Kiran Keyes MD at 19:23 EDT ,
--- NOTE | 2023-04-05 18:08 | EX.ED.DYSGE1 ---
HPI <NEDRA Stark - Last Filed: 04/05/23 19:44> History of Present Illness Chief Complaint: Vision Prob Narrative Narrative: Patient is a 57-year-old male with history of hypertension, hyperlipidemia, obesity, COPD with no smoking history of 1 pack/day. Patient presents to the emergency department for a 5-minute episode of decreased vision to the right eye. Patient stated started as it was glossy over like he was tearing however there were no tears. He then lost certain vision hanna. Patient denies any upper or lower extremity weakness. He denies any facial droop. Denies any confusion. He spoke with his about it and he is here for evaluation. Patient states the symptoms lasted 5 minutes and have completely resolved. He is asymptomatic at this time PFS <NEDRA Stark - Last Filed: 04/05/23 19:44> [facility] Medical History (Reviewed 01/06/23 @ 14:07 by Fela Sterling BEVEL GEAR GENERATOR OPERATOR, BEVEL GEAR GENERATOR OPERATOR-C) Bronchitis Environmental allergies Hyperlipidemia Hypoxemia Home Medications albuterol sulfate 90 mcg/actuation aerosol inhaler (ProAir HFA) 2 puff inhalation Q6H PRN 03/27/22 [History Last Taken Unknown] atorvastatin 10 mg tablet 10 mg PO DAILY 03/27/22 [History Last Taken Unknown] losartan 100 mg-hydrochlorothiazide 25 mg tablet 1 tab PO DAILY 03/27/22 [History Last Taken Unknown] fluticasone fur. 200 mcg-umeclid 62.5 mcg-vilant 25 mcg inhalat.powder (Trelegy Ellipta) 1 inh inhalation DAILY #3 ea 01/06/23 [Rx Last Taken Unknown] Allergy/AdvReac Type Severity Reaction Status Date / Time No Known Allergies Allergy Verified 04/05/23 17:23 Surgical History (Reviewed 01/06/23 @ 14:07 by Fela Sterling BEVEL GEAR GENERATOR OPERATOR, BEVEL GEAR GENERATOR OPERATOR-C) History of repair of rotator cuff Social History (Reviewed 01/06/23 @ 14:07 by Fela Sterling BEVEL GEAR GENERATOR OPERATOR, BEVEL GEAR GENERATOR OPERATOR-C) Smoking Status: Current some day smoker tobacco type: cigarettes second hand exposure: Yes ROS <NEDRA Stark - Last Filed: 04/05/23 19:44> ROS ED ROS Narrative Constitutional: Negative for fever, chills, weight loss, weakness Eyes: Negative for vision change, double vision. Positive for right eye vision loss ENT: Negative for any sore throat, ear pain, congestion Cardiovascular: Negative for any chest pain, tightness, palpitations Respiratory: Negative for any cough, sputum production, hemoptysis, dyspnea, dyspnea on exertion, orthopnea Gastrointestinal: Negative for any abdominal pain, nausea, vomiting, diarrhea, constipation, blood in stool, blood in vomit : Negative for any urinary frequency, dysuria, retention, blood in urine Muscle skeletal: Negative for any muscle joint pain, stiffness, myalgias, arthralgias, neck pain, back pain Neurological: Negative for any headache, syncope, numbness or tingling, dizziness Skin: Negative for any rashes, lumps, itching, abrasions, lacerations Psychiatric: Negative for any depression, anxiety, stress, suicidal ideation, homicidal ideation Hematologic: Negative for any easy bruising, excessive bruising, easy bleeding Allergies: Negative for any eczema, hives, rash EXAM <NEDRA Stark - Last Filed: 04/05/23 19:44> Physical Exam Narrative Exam Narrative: Vital signs reviewed. HEET: Head normocephalic atraumatic, TMs clear bilaterally. Posterior pharynx is clear, moist mucous membranes. Nares clear bilaterally. Pupils are equal round reactive to light. EOMs are intact. Patient is asymptomatic, no vision field loss. There is no redness. Patient has no pain. Neck: Supple with no lymphadenopathy or tenderness. No signs of meningismus, negative jolt sign. Cardiac: Regular rate and rhythm no murmurs gallops or rubs, equal peripheral pulses bilaterally. Respiratory: Lungs clear to auscultation bilaterally. No chest tenderness. Abdomen: Soft, nontender, nondistended. No abdominal bruit or pulsatile masses. No hepatosplenomegaly Extremities: No peripheral edema, no signs of gross trauma or deformity. Active full range of motion of all extremities. Neuro: Cranial nerves II through XII intact, no focal neurological deficits. NIH stroke scale 0 Skin: Clean dry and intact with no rash, purpura, petechiae, vesicles or pustules. Backs/flank: No CVA tenderness, no midline spinal tenderness, no deformity. Psych: Normal mood and affect. No SI, HI or acute psychosis. Const Vital Signs: 04/05/23 17:23 04/05/23 19:48 Temperature 97.1 F L Temperature Source Temporal Pulse Rate 87 79 Respiratory Rate 18 18 Blood Pressure 154/85 H 148/74 H Blood Pressure Mean 108 98 Pulse Ox 96 99 Oxygen Delivery Method Room Air Positive well nourished, well developed and obese General Appearance ED: well developed Nutritional Appearance: obese <Hardik Sharif MD - Last Filed: 04/05/23 19:52> Physical Exam Const Vital Signs: 04/05/23 17:23 04/05/23 19:48 Temperature 97.1 F L Temperature Source Temporal Pulse Rate 87 79 Respiratory Rate 18 18 Blood Pressure 154/85 H 148/74 H Blood Pressure Mean 108 98 Pulse Ox 96 99 Oxygen Delivery Method Room Air MDM <NEDRA Stark - Last Filed: 04/05/23 19:44> MDM Lab Data Labs: Laboratory Results - last 24 hr 04/05/23 18:17 WBC 6.8 RBC 4.32 L Hgb 14.2 Hct 43.6 MCV 100.9 H MCH 32.9 H MCHC 32.6 RDW Std Deviation 52.4 H RDW Coeff of Lindsay 14.0 Plt Count 269 MPV 9.6 Immature Gran % (Auto) 0.300 Neut % (Auto) 55.9 Lymph % (Auto) 31.7 Cameron % (Auto) 9.0 Eos % (Auto) 2.5 Baso % (Auto) 0.6 Absolute Neuts (auto) 3.8 Absolute Lymphs (auto) 2.14 Nucleated RBC % 0 Sodium 142 Potassium 3.3 L Chloride 104 Carbon Dioxide 34.0 H Anion Gap 4 L BUN 13 Creatinine 1.28 Estim Creat Clear Calc 60.25 Est GFR (MDRD) Af Amer 75 Est GFR (MDRD) Non-Af 62 BUN/Creatinine Ratio 10.2 Glucose 150 H Calcium 9.2 Radiography Diagnostic Testing: Clinical Impression(s) from Imaging Studies Head/Neck CTA 04/05/23 17:52 IMPRESSION: Normal CTA Head and neck with contrast. Electronically Signed: Kiran Keyes MD at 19:23 EDT , Treatment and Re-Evaluation :: Patient appears to be in no obvious distress, vital signs are stable. Presenting to the emergency department with right eye vision loss, vision change for 5 minutes, patient is asymptomatic. Differential diagnosis includes retinal injury, TIA, CVA. Patient is currently asymptomatic, will receive basic laboratory values concerning for any electrolyte abnormality. CTA of the head and neck concern for any LVO or other intracranial process. Patient's laboratory values showed normal CBC, patient's chemistries were unremarkable calcium slight low at 3.3, CO2 is 34. Patient's blood glucose 150, patient did receive a CTA of the head and neck, this showed a normal CTA of the head and neck, no acute process. Patient remains asymptomatic. Patient is baseline. I did speak to ophthalmology Dr. Maya, he recommended the patient be seen this week at his eye clinic. He will be started on 81 mg aspirin. The patient as well as the patient's were instructed return for any worsening symptoms. I believe this is vascular, do not believe the patient is having an acute stroke. He is instructed return for any worsening symptoms <Hardik Sharif MD - Last Filed: 04/05/23 19:52> [facility] MDM Narrative Medical decision making narrative: EKG was obtained and interpreted by myself independently, Dr. Sharif, as normal sinus rhythm at 78 bpm without ectopy or acute ST changes. No STEMI. Dr. Sharif: I have personally performed a face to face assessment of the patient and have reviewed the ZEB Note. I performed a substantive portion of the visit including all aspects of the following. My rangel findings include: History is visual disturbance out of right eye only lasting 5 minutes. Patient saw dark spots after blurred/cloudy vision. Symptoms resolved spontaneously. Currently patient is asymptomatic. Exam is afebrile. Vital signs noted. Regular rate and rhythm. Lungs clear to auscultation bilaterally. Abdomen soft and nontender. PERRL, EOMI. Neurological examination nonfocal and nonlateralizing. Ambulatory to bathroom in the ED. Medical Decision Making: Suspicion is high for vascular disease of the retina. I have low suspicion for amaurosis fugax as his symptoms have completely resolved and was not curtainlike loss of vision. Check labs. Check CTA. Smoking cessation discussed. Discussed with ophthalmology. Start aspirin 81 mg daily and follow-up ophthalmology. Discharge. Other additions or changes: [None] History & Record Review Discussion w/independent historian: Patient Additional record(s) reviewed:: Prior ED visit Lab Data Attestation: I reviewed the patient's lab results. Labs: Laboratory Results - last 24 hr 04/05/23 18:17 WBC 6.8 RBC 4.32 L Hgb 14.2 Hct 43.6 MCV 100.9 H MCH 32.9 H MCHC 32.6 RDW Std Deviation 52.4 H RDW Coeff of Lindsay 14.0 Plt Count 269 MPV 9.6 Immature Gran % (Auto) 0.300 Neut % (Auto) 55.9 Lymph % (Auto) 31.7 Cameron % (Auto) 9.0 Eos % (Auto) 2.5 Baso % (Auto) 0.6 Absolute Neuts (auto) 3.8 Absolute Lymphs (auto) 2.14 Nucleated RBC % 0 Sodium 142 Potassium 3.3 L Chloride 104 Carbon Dioxide 34.0 H Anion Gap 4 L BUN 13 Creatinine 1.28 Estim Creat Clear Calc 60.25 Est GFR (MDRD) Af Amer 75 Est GFR (MDRD) Non-Af 62 BUN/Creatinine Ratio 10.2 Glucose 150 H Calcium 9.2 Radiography Diagnostic Testing: Clinical Impression(s) from Imaging Studies Head/Neck CTA 04/05/23 17:52 IMPRESSION: Normal CTA Head and neck with contrast. Electronically Signed: Kiran eKyes MD at 19:23 EDT , Discharge Plan Triage Chief Complaint: Vision Prob ED Midlevel Provider: Jordon Bui ED Provider: Hardik Sharif Dx/Rx/DC Orders Clinical Impression: Loss of vision, History of chronic hypertension, Tobacco use Instructions: Understanding Vision Problems, How the Eye Works Prescriptions: No Action atorvastatin 10 mg tablet 10 mg PO DAILY losartan-hydrochlorothiazide 100-25 mg tablet 1 tab PO DAILY albuterol sulfate [ProAir HFA] 90 mcg/actuation HFA aerosol inhaler 2 puff inhalation Q6H PRN Trelegy Ellipta 200-62.5-25 mcg blister with device 1 inh inhalation DAILY Qty: 3 3RF Primary Care Provider: Savana Argueta BEVEL GEAR GENERATOR OPERATOR Referrals: Sriram Maya MD [Med Staff - Active Staff] - Savana Argueta BEVEL GEAR GENERATOR OPERATOR, BEVEL GEAR GENERATOR OPERATOR-C [Primary Care Provider] - Activity Restrictions/Additional Instructions: You are to start an 81 mg aspirin. You need to follow-up with the eye clinic, you are provided the number. Call Friday to get a an appointment this week. Return for any worsening symptoms. Disposition Disposition: Home, Self Care Discharge Date/Time: 04/05/23 19:49
[2023-04-05 18:27] LABS: Absolute Lymphocyte Count 2.14 X10^3/uL (0.83-4.51); Absolute Neutrophil Count 3.8 X10^3/uL (2.0-7.7); Basophil# 0.04 X10^3/uL; Basophil% 0.6 % (0-1); Eosinophil# 0.17 X10^3/uL; Eosinophils% 2.5 % (0-5); Hematocrit 43.6 % (40-54); Hemoglobin 14.2 g/dL (13.0-16.5); Lymphocyte # 2.14 X10^3/ul (0.83-4.51); Lymphocyte % 31.7 % (19-41); Mean Corp Hgb Conc 32.6 g/dL (32-36); Mean Corpuscular Hgb 32.9 pg (27.0-32.0); Mean Corpuscular Volume 100.9 fL (80-94); Mean Platelet Vol. 9.6 fl (6.2-12.0); Monocyte# 0.61 X10^3/uL; NRBC Flagged by Analyzer 0 % (0-5); Neutrophil # 3.78 X10^3/uL (2.7-7.7); Neutrophil % 55.9 % (47-70); Platelet Count 269 K/mm3 (150-450); RBC Distribution Width SD 52.4 fl (35.1-43.9); Red Blood Count 4.32 M/mm3 (4.6-6.2); White Blood Count 6.8 K/mm3 (4.4-11.0)
[2023-04-05 18:46] LABS: Anion Gap 4 (5-15); BUN 13 mg/dL (7-18); BUN/Creat Ratio 10.2 RATIO (10-20); Calcium,Total 9.2 mg/dL (8.5-10.1); Chloride 104 mmol/L (98-107); Creatinine, Serum 1.28 mg/dL (0.70-1.30); EST Glomerular Filtration Rate 62 mL/min (>60); Est Glom Filt Rate - Afr Amer 75 mL/min (>60); Estimated Creatinine Clearance 60.25 ml/min; Glucose 150 mg/dL (74-106); Potassium 3.3 mmol/L (3.5-5.1); Sodium Level 142 mmol/L (136-145)
[2023-04-05] MEDS: Potassium Chloride Oral Tablet 20 MEQ 40 MEQ PO (19:21)
[2023-04-05 19:48] VITALS: BP 148/74; PULSE 79; RESP 18; O2SAT 99
== END 2023-04-05 19:49 | disposition home or self-care (01) ==
PROVIDERS: Nurse Practitioner; Emergency Provider Emergency Medicine; PCP Nurse Practitioner Family; Visit Provider Emergency Medicine
DX: H54.7 Unspecified visual loss (principal); I10 Essential (primary) hypertension; F17.210 Nicotine dependence, cigarettes, uncomplicated; E66.9 Obesity, unspecified
CPT/HCPCS: 70496; 70498; 80048; 85025; 93005; 99285; Q9967

== ENCOUNTER → 2023-04-11 | Outpatient (CLI) | payer OTHER, SELFPAY ==
--- NOTE | 2023-04-11 13:45 | CDU_ITS ---
Reason For Study: Amaurosis Fugax Rt. Velocities/BP Lt. Velocities/BP Prox CCA 100.1/23.3 cm/sec. Prox CCA 132.6/32.1 cm/sec. Mid CCA 124.2/29.9 cm/sec. Mid CCA 125.3/26.7 cm/sec. Dist CCA 134.6/35.8 cm/sec. Dist CCA 114.3/26.7 cm/sec. Prox ICA 109.7/33.5 cm/sec. Prox ICA 119.8/28.5 cm/sec. Mid ICA 64.1/23.4 cm/sec. Mid ICA 123.5/32.1 cm/sec. Dist ICA 60.8/27.9 cm/sec. Dist ICA 61.4/26.7 cm/sec. Rt. ICA/CCA = 0.9. Lt. ICA/CCA = 1.0. Prox ECA 135.7/20.6 cm/sec. Prox ECA 127.1/15.7 cm/sec. Rt. Vert. 39.3/9.1 cm/sec. Lt. Vert. 55.9/15.7 cm/sec. Right Extracranial There is intimal thickening but no significant atherosclerotic plaque noted in the right common carotid artery. There is heterogeneous, irregular atherosclerotic plaque noted in the right internal carotid artery. There is intimal thickening but no significant atherosclerotic plaque noted in the right external carotid artery. Antegrade flow is noted in the right vertebral artery. Left Extracranial There is homogeneous, smooth atherosclerotic plaque noted in the left common carotid artery. There is heterogeneous, irregular atherosclerotic plaque noted in the left internal carotid artery. There is intimal thickening but no significant atherosclerotic plaque noted in the left external carotid artery. Antegrade flow is noted in the left vertebral artery. Procedure Carotid Duplex [id number]. This is a Carotid Duplex examination using B-mode, color flow and specral Doppler. The study was technically difficult. Exam performed in department. VL/Carotid Duplex Ultrasound Interpretation Summary Mild (<50%) stenosis right extracranial internal carotid. Mild (<50%) stenosis left extracranial internal carotid. Patent and antegrade vertebrals bilaterally. Ordering Physician: Josue Hurt Referring Physician: Savana Argueta Performed By: Ambrocio Ayala RVT
== END | disposition home or self-care (01) ==
LOC: CVS 13:43
PROVIDERS: PCP Nurse Practitioner Family; Referring Provider Ophthalmology; Visit Provider Ophthalmology
DX: G45.3 Amaurosis fugax (principal)
CPT/HCPCS: 93880

== ENCOUNTER → 2024-01-15 | Outpatient (CLI) | payer OTHER, SELFPAY ==
--- NOTE | 2024-01-15 17:35 | CT_ITS ---
STUDY: LOW DOSE CT LUNG CANCER SCREENING REASON FOR EXAM: Male, 58 years old. Patient smoked 1 pack per day for 40 years. RADIATION DOSAGE (If Supplied By Facility): CTDIvol = ( 4.02 ) mGy, DLP = ( 144.46 ) mGycm TECHNIQUE: No contrast was administered. Low dose technique was utilized (average mAS-38 and kVp 120). 1.25 mm axial source images with a slice interval of 1.25-mm were reconstructed in lung windows. 2.5 mm axial source images with a slice interval of 2.5-mm were reconstructed in lung windows. 5.0 mm axial source images with a slice interval of 5.0-mm were reconstructed in soft tissue windows. COMPARISON: Comparison is made with prior study dated January 10, 2023. NODULES: No suspicious nodules are seen. Emphysema: Minimal hyperinflation and emphysematous changes. Endobronchial lesion: None Aorta: Minimal atherosclerotic calcific plaques. CORONARY ARTERIES: Coronary artery calcification minimal calcified coronary arteries. Heart: Unremarkable Pulmonary artery: Unremarkable Mediastinal nodes: Unremarkable Other chest and abdominal findings: CT/Low Dose CT Lung Screening IMPRESSION: Lung-RADS category 2 - Continue annual screening with LDCT in 12 months. IMPORTANT NOTES FOR USE: ACR Lung-RADS Version 1.1 Assessment Categories Release Date: 2018 Category: Coded 0-4 bases on nodule(s) with highest degree of suspicion. Negative screen is defined as categories 1 and 2; a positive screen is defined as categories 3 and 4. Category 3 and 4A nodules that are unchanged on interval CT should be coded as category 2, and individuals returned to screening in 12 months. Category 4X: Category 3 or 4 nodules with additional imaging findings that increase the suspicion of lung cancer, such as spiculation, GGN that doubles in size in 1 year, enlarged lymph notes, etc. Category Modifiers: S (significant finding unrelated to lung cancer) Electronically Signed: Cachorro Santoro MD at 12:55 EDT ,
== END | disposition home or self-care (01) ==
LOC: CT 17:33
PROVIDERS: PCP Nurse Practitioner Family; Referring Provider Nurse Practitioner Acute Care; Visit Provider Nurse Practitioner Acute Care
DX: Z12.2 Encounter for screening for malignant neoplasm of respiratory organs (principal); F17.210 Nicotine dependence, cigarettes, uncomplicated
CPT/HCPCS: 71271

== ENCOUNTER 2024-07-28 19:20 | Emergency (ER) | payer OTHER, SELFPAY ==
[2024-07-28] VITALS (8 sets, daily range): BP systolic 117–174; BP diastolic 74–90; PULSE 70–95; RESP 19–24; TEMP 36.3–36.6; O2SAT 92–94; BMI 45.3
--- NOTE | 2024-07-28 21:21 | RAD_ITS ---
PROCEDURE: CHEST PA AND LATERAL REASON FOR EXAM: Shortness of breath TECHNIQUE: Frontal and lateral views of the chest. COMPARISON: 04/01/2022. FINDINGS: The heart size is normal. The mediastinal contour is unremarkable. The lungs are clear. The bones are unremarkable. RAD/Chest PA and Lateral IMPRESSION: No radiographic evidence of acute cardiopulmonary disease Reading Location: [facility]
--- NOTE | 2024-07-28 21:21 | EKG12_ITS ---
Test Reason : DYSRHYTHMIA Blood Pressure : */* mmHG Vent. Rate : 98 BPM Atrial Rate : 98 BPM P-R Int : 158 ms QRS Dur : 82 ms QT Int : 332 ms P-R-T Axes : 33 6 39 degrees QTcB Int : 423 ms Normal sinus rhythm Normal ECG Confirmed by Felipe Ratliff ([id number]), book or script editor LOUISA LUIS ([id number]) on 07/29/2024 9:33:13 AM Referred By: Confirmed By: Felipe Ratliff
[2024-07-28] MEDS: Ipratropium/Albuterol Sulfate 3 ML AMPUL.NEB 9 ML INHALATION (21:45)
[2024-07-28] MEDS: MethylPREDNISolone 125 MG/2 ML Vial IV (21:56)
[2024-07-28 22:03] LABS: Absolute Lymphocyte Count 0.86 X10^3/uL (0.83-4.51); Absolute Neutrophil Count 5.6 X10^3/uL (2.0-7.7); Basophil# 0.05 X10^3/uL; Basophil% 0.7 % (0-1); Eosinophil# 0.08 X10^3/uL; Eosinophils% 1.1 % (0-5); Hematocrit 46.1 % (40-54); Hemoglobin 15.5 g/dL (13.0-16.5); Lymphocyte # 0.86 X10^3/ul (0.83-4.51); Lymphocyte % 11.3 % (19-41); Mean Corp Hgb Conc 33.6 g/dL (32-36); Mean Corpuscular Hgb 33.3 pg (27.0-32.0); Mean Corpuscular Volume 98.9 fL (80-94); Mean Platelet Vol. 9.4 fl (6.2-12.0); Monocyte# 1.02 X10^3/uL; Monocyte% 13.5 % (0-10); NRBC Flagged by Analyzer 0 % (0-5); Neutrophil # 5.55 X10^3/uL (2.7-7.7); Neutrophil % 73.1 % (47-70); Platelet Count 284 K/mm3 (150-450); RBC Distribution Width CV 13.4 % (11.6-14.6); RBC Distribution Width SD 49.1 fl (35.1-43.9); Red Blood Count 4.66 M/mm3 (4.6-6.2); White Blood Count 7.6 K/mm3 (4.4-11.0)
[2024-07-28 22:06] LABS: Blood Gas Specimen Type VEN; O2 Delivery Device Room Air; SITE Not entered; VBG BASE EXCESS 9 mmol/L (-1.0-3.5); VBG Bicarbonate 32 mmol/L (22-26); VBG PO2 33 mmHg (25-40); VBG SO2 69 % (50-70); VBG TCO2 33 mmol/L (23-33); VBG pCO2 41.7 mmHg (41-51); VBG pH 7.49 (7.32-7.42)
--- NOTE | 2024-07-28 22:23 | ED.VIS.DYS ---
HPI History of Present Illness Chief Complaint: Shortness of Breath Narrative Narrative: Chief complaint and HPI: Shortness of breath. 58-year-old male with past medical history of HTN, HLD, COPD on Trelegy presents for evaluation of cough, congestion, and shortness of breath. Onset of symptoms Friday night. Patient denies any fever, chills, chest pain, abdominal pain, nausea, vomiting, diarrhea. States that he had a telehealth visit today and they told him to present to the ED for further evaluation. Patient has been using his Trelegy and albuterol inhaler as needed. He has albuterol nebulizers but states he has not used these. Review of systems: See HPI Medications: As listed on the chart Allergies: As listed on the chart PFSH: Per chart Vital signs: As listed on the chart. Reviewed. Physical exam: Gen: A&O x3, NAD Head: Normocephalic, atraumatic Eyes: No sclera icterus, conjunctiva clear ENT: Moist mucous membranes, nasal congestion+ Neck: Trachea midline, No JVD CV: RRR, no murmurs, no peripheral edema Resp: Diffuse expiratory wheeze, dry cough GI: Abd soft, non-distended, non-tender, no r/r/g Musc: Full ROM, no deformity Skin: Warm, dry Neuro: Alert, oriented, grossly intact, sensation intact Psych: Cooperative, appropriate mood and affect [facility] Medical History Hypoxemia Hyperlipidemia Bronchitis Environmental allergies Home Medications ?Medication ?Instructions ?Recorded ?Last Taken ?Type atorvastatin 10 mg tablet 10 mg PO DAILY 03/27/22 Unknown History losartan 100 1 tab PO DAILY 03/27/22 Unknown History mg-hydrochlorothiazide 25 mg tablet albuterol sulfate 90 mcg/actuation 2 puff inhalation Q6H PRN 12/17/23 Unknown Rx aerosol inhaler shortness of breath or wheezing #8.5 grams fluticasone fur. 200 mcg-umeclid 1 inh inhalation DAILY #3 ea 12/17/23 Unknown Rx 62.5 mcg-vilant 25 mcg inhalat.powder (Trelegy Ellipta) aspirin 81 mg capsule 81 mg PO DAILY 07/28/24 Unknown History bupropion HCl 150 mg tablet,12 hr 150 mg PO BID 07/28/24 Unknown History sustained-release levofloxacin 500 mg tablet 500 mg PO DAILY 5 days #5 tabs 07/28/24 Unknown Rx prednisone 20 mg tablet 60 mg (3 x 20 mg) PO DAILY #15 07/28/24 Unknown Rx TABLETS Allergy/AdvReac Type Severity Reaction Status Date / Time No Known Allergies Allergy Verified 07/28/24 19:22 Surgical History History of repair of rotator cuff Social History Smoking Status: Current some day smoker tobacco type: cigarettes second hand exposure: Yes EXAM Physical Exam Const Vital Signs: 07/28/24 19:22 07/28/24 19:23 07/28/24 20:12 Temperature 97.4 F L 97.4 F L Temperature Source Temporal Temporal Pulse Rate 95 95 Respiratory Rate 22 H 22 H Respiratory Effort Short of Breath Respiratory Depth Shallow Respiratory Pattern Tachypnea Blood Pressure 174/82 H 174/82 H Blood Pressure Mean 112 112 Pulse Ox 94 94 Oxygen Delivery Method Room Air Room Air Room Air 07/28/24 20:27 07/28/24 21:00 07/28/24 21:23 Temperature 98 F 98 F Temperature Source Temporal Oral Pulse Rate 93 82 Respiratory Rate 19 H 24 H Respiratory Effort Respiratory Depth Respiratory Pattern Blood Pressure 157/78 H 135/90 H Blood Pressure Mean 104 105 Pulse Ox 92 92 92 Oxygen Delivery Method Room Air Room Air Room Air 07/28/24 21:45 07/28/24 23:13 Temperature 98 F Temperature Source Pulse Rate 86 70 Respiratory Rate 22 H 20 H Respiratory Effort Respiratory Depth Respiratory Pattern Tachypnea Blood Pressure 117/74 Blood Pressure Mean 88 Pulse Ox 92 Oxygen Delivery Method MDM MDM MDM Narrative Medical decision making narrative: 58-year-old male with past medical history of HTN, HLD, COPD on Trelegy presents for evaluation of cough, congestion, and shortness of breath. Differential diagnosis includes but is not limited to CHF exacerbation, viral illness, COVID-19, influenza, pneumonia. Solu-Medrol and DuoNebs x 3 ordered for symptoms. Respiratory workup ordered. CBC without leukocytosis or anemia. BMP relatively unremarkable. VBG without hypercapnia. Chest x-ray was personally reviewed and interpreted by me, ED physician. No pneumonia, effusion, cardiomegaly, pneumothorax. Patient positive for COVID-19. On reevaluation, patient's wheezing has improved. His shortness of breath has improved. Patient is not hypoxic on room air at rest or with ambulation. Patient was updated of all his results. Patient is comfortable with discharging home. He was educated that he needs to use his albuterol nebulizers. He confirmed understanding. Patient will be discharged on a 5-day course of prednisone as well as Levaquin to prevent conservative treatment failure. He confirmed understanding. Return precautions given. Work note ordered. Patient stable to discharge home. Impression: 1. COPD exacerbation 2. COVID-19 infection Lab Data Labs: Laboratory Results - last 24 hr 07/28/24 21:54 WBC 7.6 RBC 4.66 Hgb 15.5 Hct 46.1 MCV 98.9 H MCH 33.3 H MCHC 33.6 RDW Std Deviation 49.1 H RDW Coeff of Lindsay 13.4 Plt Count 284 MPV 9.4 Immature Gran % (Auto) 0.300 Neut % (Auto) 73.1 H Lymph % (Auto) 11.3 L Hettinger % (Auto) 13.5 H Eos % (Auto) 1.1 Baso % (Auto) 0.7 Absolute Neuts (auto) 5.6 Absolute Lymphs (auto) 0.86 Nucleated RBC % 0 Sodium 137 Potassium 3.9 Chloride Direct 100 Carbon Dioxide 28.4 Anion Gap 9 BUN 10 Creatinine 1.1 Estim Creat Clear Calc 96.64 Est GFR (MDRD) Non-Af 78 BUN/Creatinine Ratio 8.8 L Glucose 112 H Calcium 9.3 ABG Data ABG results: ABG 07/28/24 22:03 Specimen Type DORIE Sample Site Not entered VBG pH 7.49 H VBG pO2 33 VBG HCO3 32 H VBG Total CO2 33 VBG O2 Sat (Calc) 69 VBG Base Excess 9 H POC Mix VBG pCO2 Pt Tmp 41.7 O2 Delivery Device Room Air Radiography Diagnostic Testing: Clinical Impression(s) from Imaging Studies Chest X-Ray 07/28/24 21:21 IMPRESSION: No radiographic evidence of acute cardiopulmonary disease [facility] Triage Chief Complaint: Shortness of Breath ED Provider: Isaiah Wiseman Dx/Rx/DC Orders Clinical Impression: Acute exacerbation of chronic obstructive pulmonary disease Instructions: ED COPD Flare Prescriptions: New prednisone 20 mg tablet 60 mg PO DAILY Qty: 15 0RF levofloxacin 500 mg tablet 500 mg PO DAILY 5 Days Qty: 5 0RF No Action atorvastatin 10 mg tablet 10 mg PO DAILY losartan-hydrochlorothiazide 100-25 mg tablet 1 tab PO DAILY Trelegy Ellipta 200-62.5-25 mcg blister with device 1 inh inhalation DAILY Qty: 3 3RF albuterol sulfate 90 mcg/actuation HFA aerosol inhaler 2 puff inhalation Q6H PRN (Reason: shortness of breath or wheezing) Qty: 8.5 1RF aspirin 81 mg capsule 81 mg PO DAILY bupropion HCl 150 mg tablet sustained-release 12 hr 150 mg PO BID Stand Alone Forms: ED Work / School Excuse Primary Care Provider: Savana Argueta NP Referrals: Savana Argueta NP, EMERGENCY ROOM DOCTOR-C [Primary Care Provider] - Activity Restrictions/Additional Instructions: Continue your inhalers at home. Use your nebulizers. Return back to the ED if symptoms change or worsen. Follow-up with your primary care physician. Start your prednisone tomorrow as you received your first dose here in the emergency department Print Language: Montenegrin Disposition Disposition: Home, Self Care Discharge Date/Time: 07/28/24 23:14
[2024-07-28 22:25] LABS: Potassium 3.9 mmol/L (3.3-5.1); Sodium Level 137 mmol/L (133-145)
[2024-07-28 22:26] LABS: Anion Gap 9 (5-15); BUN 10 mg/dL (4-19); BUN/Creat Ratio 8.8 RATIO (10-20); Calcium 9.3 mg/dL (7.6-11.0); Carbon Dioxide 28.4 mmol/L (22.0-29.0); Chloride 100 mmol/L (96-108); Creatinine, Serum 1.1 mg/dL (0.8-1.3); EST Glomerular Filtration Rate 78 (>60); Estimated Creatinine Clearance 96.64 ml/min; Glucose 112 mg/dL (70-99)
--- NOTE | 2024-07-28 22:40 | CPS ---
[2145] x3 Raissa tx.'s given to pt. in ER
== END 2024-07-28 23:14 | disposition home or self-care (01) ==
PROVIDERS: Emergency Provider Surgery; PCP Nurse Practitioner Family; Visit Provider Surgery
DX: J44.1 Chronic obstructive pulmonary disease with (acute) exacerbation (principal); I11.0 Hypertensive heart disease with heart failure; I50.9 Heart failure, unspecified; U07.1 COVID-19; E78.5 Hyperlipidemia, unspecified; F17.210 Nicotine dependence, cigarettes, uncomplicated; Z79.82 Long term (current) use of aspirin; Z79.899 Other long term (current) drug therapy
CPT/HCPCS: 71046; 80048; 82803; 85025; 87631; 93005; 94640; 96374; 99284; A4216

== ENCOUNTER → 2025-01-14 | Outpatient (CLI) | payer OTHER, SELFPAY ==
--- NOTE | 2025-01-14 16:07 | CT_ITS ---
PROCEDURE: LOW DOSE CT LUNG SCREENING 01/14/2025 REASON FOR EXAM: SMOKING Long-time smoker. TECHNIQUE: LOW DOSE CT LUNG SCREENING Coronal and Sagittal reconstruction series were provided. One or more dose reduction techniques were used (e.g., Automated exposure control, adjustment of the mA and/or kV according to patient size, use of iterative reconstruction technique). REFERENCE LINK: [facility] Lung-RADS RADIATION DOSE SUMMARY: CTDlvol: 4.02 mGy DLP: 142.45 mGycm COMPARISON: Prior study dated January 15, 2024. FINDINGS: PULMONARY NODULES: (Only nodules >3mm are reported) Nodules described below are on series 1 unless otherwise specified. Pulmonary Nodules: No suspicious nodules are seen. Hardware:None Lymph Nodes:Small mediastinal and axillary lymph nodes. Heart and Vasculature:The heart is nonenlarged.Atherosclerotic calcification of the aortic arch. Coronary Artery Calcifications: Present Lungs and Airways: Mild emphysematous changes are present. No suspicious nodules are seen. Pleura:Unremarkable Upper Abdomen:Unremarkable Bones:Degenerative changes of the thoracic spine. CT/Low Dose CT Lung Screening IMPRESSION: No suspicious pulmonary nodule seen. Coronary artery calcification (CAC) is is present Lung-RADS Category: 2 BENIGN (BASED ON IMAGING FEATURES OR INDOLENT BEHAVIOR). RECOMMEND 12-MONTH SCREENING LDCT. Other Significant Findings: Reading Location: [id number]
== END | disposition home or self-care (01) ==
LOC: CT 16:06
PROVIDERS: PCP Nurse Practitioner Family; Referring Provider Nurse Practitioner Acute Care; Visit Provider Nurse Practitioner Acute Care
DX: Z12.2 Encounter for screening for malignant neoplasm of respiratory organs (principal); F17.210 Nicotine dependence, cigarettes, uncomplicated
CPT/HCPCS: 71271

== ENCOUNTER → 2025-02-25 | Outpatient (CLI) | payer OTHER, SELFPAY ==
--- OUTSIDE RECORDS SUMMARY | 2025-02-25 12:32 | XMS RPT_ITS | CCD ---
Author Organization [facility] Care Team Providers Care [employer] Name Role Phone Kendall DISTRIBUTION ESTIMATOR, DISTRIBUTION ESTIMATOR-C Yogesh Primary Care Provider Dr. Berhane Le Attending Provider Kendall DISTRIBUTION ESTIMATOR, DISTRIBUTION ESTIMATOR-C Yogesh Referring Provider Dr. Kervin Pa Attending Provider Kendall DISTRIBUTION ESTIMATOR, DISTRIBUTION ESTIMATOR-C Yogesh Other Provider Dr. Kervin Pa Referring Provider Dr. Kervin Pa Other Provider Dr. Boyd Hall Attending Provider Kendall DISTRIBUTION ESTIMATOR, DISTRIBUTION ESTIMATOR-C Yogesh Primary Care Provider Kendall DISTRIBUTION ESTIMATOR, DISTRIBUTION ESTIMATOR-C Yogesh Referring Provider Asher ALMARAZ, DISTRIBUTION ESTIMATOR-C Fela Attending Provider [phone] Kendall DISTRIBUTION ESTIMATOR, DISTRIBUTION ESTIMATOR-C Yogesh Primary Care Provider Kendall ALMARAZ, DISTRIBUTION ESTIMATOR-C Yogesh Referring Provider Dr. Kervin Pa Attending Provider Dr. Kervin Pa Referring Provider Dr. Kervin Pa Other Provider Dr. Boyd Hall Attending Provider Asher ALMARAZ, DISTRIBUTION ESTIMATOR-C Fela Attending Provider [phone] Kendall STAVE LOG RIPSAW OPERATOR, Yogesh K Primary Care Provider KENDALL, YOGESH K Primary Care [facility] ANGELICA, [phone] KAI Attending Unav ailable Kendall DISTRIBUTION ESTIMATOR, DISTRIBUTION ESTIMATOR-C Yogesh Primary Care Provider Kendall DISTRIBUTION ESTIMATOR, DISTRIBUTION ESTIMATOR-C Yogesh Referring Provider Unavailable Primary Care Provider Unavailsergey e Kendall DISTRIBUTION ESTIMATOR, DISTRIBUTION ESTIMATOR-C Yogesh Primary Care Provider Dr. Kervin Pa Referring Provider Dr. Kervin Pa Other Provider Dr. Boyd Hall Attending Provider [phone] Kendall DISTRIBUTION ESTIMATOR, DISTRIBUTION ESTIMATOR-C Yogesh Referring Provider Sterling DISTRIBUTION ESTIMATOR, DISTRIBUTION ESTIMATOR-C Fela Attending Provider Dr. Smuit Nation Attending Provider KENDALL, YOGESH Consulting Unavailable KENDALL, YOGESH Attending Unavailable KENDALL, YOGESH Admitting Unavailable KENDALL, YOGESH Primary Care Unavailable PROVIDER, UNKNOWN Consulting Unavailable KENDALL, YOGESH Consulting Unavailable KENDALL, YOGESH Attending Unavailable KENDALL, YOGESH Admitting Unavailable KENDALL, YOGESH Primary Care Unavailable PROVIDER, UNKNOWN Consulting Unavailable KENDALL, YOGESH Attending Unavailable KENDALL, YOGESH Admitting Unavailable KENDALL, YOGESH Primary Care Unavailable KENDALL, YOGESH Consulting Unavailable PROVIDER, UNKNOWN Consulting Unavailable Kendall DISTRIBUTION ESTIMATOR-C, Yogesh Primary Care Provider [phone] Sterling DISTRIBUTION ESTIMATOR-C, Fela Attending Provider Sterling DISTRIBUTION ESTIMATOR-C, Fela Referring Provider Kendall DISTRIBUTION ESTIMATOR-C, Yogesh Primary Care Physician [phone] Sterling DISTRIBUTION ESTIMATOR-C, Fela Attending Physician Kendall DISTRIBUTION ESTIMATOR-C, Yogesh Referring Provider Kendall DISTRIBUTION ESTIMATOR, Yogesh Primary Care Unavailable Isaiah Wiseman Attending Unavailabl e Asher DISTRIBUTION ESTIMATOR, Fela Attending Unavailable Kendall DISTRIBUTION ESTIMATOR, Yogesh Primary Care Unavailable Sterling DISTRIBUTION ESTIMATOR, Fela Referring Unavailable Sterling DISTRIBUTION ESTIMATOR, Fela Attending Unavailable Kendall DISTRIBUTION ESTIMATOR, Yogesh Primary Care Unavailable Sterling DISTRIBUTION ESTIMATOR, Fela Referring Unavailable Kendall DISTRIBUTION ESTIMATOR, Yogesh Referring Unavailable Kendall DISTRIBUTION ESTIMATOR, Yogesh Primary Care Unavailable Sterling DISTRIBUTION ESTIMATOR, Fela Attending Unavailable Kendall DISTRIBUTION ESTIMATOR, Yogesh Primary Care Unavailable Sterling DISTRIBUTION ESTIMATOR, Fela Referring Unavailable Sterling DISTRIBUTION ESTIMATOR, Fela Attending Unavailable Medications Current Medications Medication Drug Class(es) Dates Sig (Normalized) Sig (Original) [id number] 200 actuat albuterol 0.09 mg/actuat metered dose inhaler (19 sources) beta2-Adrenergic Agonist Start: 02-08-2023 End: 02-08-2023 Albuterol sulfate (PROVENTIL) inhalation solution 2.5 mg Start: 03-27-2022 End: 12-17-2023 Albuterol Sulfate 90 mcg/act uation HFA aerosol inhaler Active 2 NMA INHALATION EVERY 6 HOURS as needed for shortness of breath or wheezing 8.5 1 December 17, 2023 3:19pm Cough Cough, unspecified Complies with drug therapy Start: 03-27-2022 take 1 puff(s) by in halation every six hours Albuterol Sulfate (Proair Hfa) 90 mcg/actuation HFA aerosol inhaler Active 2 PUFF INHALATION EVERY 6 HOURS March 26, 2022 11:00pm Start: 04-17-2015 albuterol HFA (PROVENTIL HFA, VENTOLIN HFA) 90 mcg/actuation inhaler Indications: Acute bronchitis, unspecified organism Inhale 2 Puffs as instructed every 6 hours as needed for Wheezing/Shortness of Breath (may use every 4 to 6 hours). 1 Inhaler 2 04/17/2015 Active Comment on above: Inhale 2 Puffs as in structed every 6 hours as needed for Wheezing/Shortness of Breath (may use every 4 to 6 hours). aspirin 81 mg oral tablet (2 sources) Platelet Aggregation Inhibitor, Nonsteroidal Anti-inflammatory Drug Start: 025 take 1 capsule by mouth once daily Aspirin 81 mg capsule Active 81 mg PO DAILY July 28, 2024 1:00am Complies with drug therapy atorvastatin 10 mg oral tablet (15 sources) HMG-CoA Reductase Inhibitor Start: 022 take 1 tablet by mouth once daily Atorvastatin 10 mg tablet Active 10 mg PO DAILY March 27, 2022 12:00am Complies with drug therapy azithromycin 250 mg oral tablet (2 sources) Macrolide Antimicrobial Start: 023 End: 023 Azithromycin 250 MG tablet Take 1 tablet (250 mg) daily on Days 2-5 4 tablet 0 02/08/2023 02/11/2023 Active Start: 02-08-2023 End: 02-08-2023 Azithromycin (ZITHROMAX) tab let 500 mg Lrzzkamsply-Dhpipyolx-Zqxgsr er (20 sources) Start: 02-16-2025 Ancnwpfhioi-Zchayxbts-Abfrnh er (Trelegy Ellipta) 200-62.5-25 mcg blister with device Active 1 NMA INHALATION DAILY 3 3 February 16, 2025 2:50pm Cough Cough, unspecified Complies with drug therapy Start: 12-17-2023 End: 02-16-2025 Tirpwymsnik-Kovivngin-Ojssmq er (Trelegy Ellipta) 200-62.5-25 mcg blister with device Discontinued 1 NMA INHALATION DAILY 3 December 17, 2023 3:13pm February 16, 2025 2:51pm Cough Cough, unspecified Start: 12-17-2023 Fluticasone-Um eclidin-Vilanter (Trelegy Ellipta) 200-62.5-25 mcg blister with device Active 1 NMA INHALATION DAILY 3 December 17, 2023 3:13pm Cough Cough, unspecified Start: 01-06-2023 End: 12-17-2023 Urubjoznhks-Tvwlzmdyn-Rkrqhj er (Trelegy Ellipta) 200-62.5-25 mcg blister with device Discontinued 1 NMA INHALATION DAILY 3 January 06, 2023 2:18pm December 17, 2023 3:14pm Start: 01-06-2023 Fluticasone-Um eclidin-Vilanter (Trelegy Ellipta) 200-62.5-25 mcg blister with device Active 1 INH INHALATION DAILY January 06, 2023 1:18pm Start: 01-06-2023 Fluticasone-Um eclidin-Vilanter (Trelegy Ellipta) 200-62.5-25 mcg blister with device Active 1 INH INHALATION DAILY January 06, 2023 2:18pm Start: 05-07-2022 End: 01-06-2023 Yxexfrmmgbl-Rkhgkzkrw-Cidrkq er (Trelegy Ellipta) 200-62.5-25 mcg blister with device Discontinued 1 NMA INHALATION DAILY 60 May 07, 2022 1:00am January 06, 2023 2:18pm Start: 05-07-2022 End: 01-06-2023 Pxrdyaudtqu-Dnbuivuvf-Wpvtsx er (Trelegy Ellipta) 200-62.5-25 mcg blister with device Discontinued 1 INH INHALATION DAILY May 07, 2022 12:00am January 06, 2023 1:18pm Start: 05-07-2022 End: 01-06-2023 Kpofphemnoi-Lfedsfmfr-Agenwj er (Trelegy Ellipta) 200-62.5-25 mcg blister with device Discontinued 1 INH INHALATION DAILY May 07, 2022 1:00am January 06, 2023 2:18pm Start: 05-07-2022 Fluticasone-Um eclidin-Vilanter (Trelegy Ellipta) 200-62.5-25 mcg blister with device Active 1 INH INHALATION DAILY May 07, 2022 1:00am furosemide 20 mg oral tablet (2 sources) Loop Diuretic Start: 02-16-2025 take 1 tablet by mouth once daily in the morning Furosemide 20 mg tablet Active 20 mg PO EVERY MORNING February 16, 2025 12:00am Complies with drug therapy Start: 12-07-2022 take 1 tablet by boone th once daily in the morning furOSEmide 20 MG tablet Take 1 tablet by mouth daily every morning. 0 12/07/2022 Active hydroCHLOROthiazide 25 mg / losartan potassium 100 mg oral tablet (15 sources) Thiazide Diuretic, Angiotensin 2 Receptor Asaf Start: 03-27-2022 Losartan-Hydrochlorothiazide 100-25 mg tablet Active 1 {tbl} PO DAILY March 27, 2022 12:00am Complies with drug therapy Start: 03-27-2022 take 1 tablet by boone th once daily Losartan-Hydrochlorothiazide Active 1 TA BLET PO DAILY March 26, 2022 11:00pm levoFLOXacin 500 mg oral tablet (2 sources) Quinolone Antimicrobial Start: 07-28-2024 take 1 tablet by mouth once daily Levofloxacin 500 mg tablet Active 500 mg PO DAILY 5 5 0 July 28, 2024 1:00am Complies with drug therapy Trelegy Ellipta 200-62.5-25 MCG/ACT Aerosol Powder, breath activated (1 source) Start: 01-07-2023 take 1 puff(s) by inhalation once daily Trelegy Ellipta 200-62.5-25 MCG/ACT Aerosol Powder, breath activated Inhale 1 puff daily. 0 01/07/2023 Active Completed/Discontinued Medications Medication Drug Class(es) Dates Sig (Normalized) Sig (Original) amoxicillin 875 mg / clavulanate 125 mg oral tablet (15 sources) Penicillin-class Antibacterial Start: 06-22-2017 End: 03-27-2022 Amoxicillin/Potass ium Clav (Amox-Clav 875-125 Mg Tablet) 1 EACH tablet Discontinued 1 NMA PO TWICE A DAY June 22, 2017 1:00am March 27, 2022 12:01pm benzonatate 100 mg oral capsule (16 sources) Non-narcotic Antitussive Start: 06-19-2017 End: 03-27-2022 take 1 capsule by mouth three times daily as needed for cough Benzonatate (Tessalon Perle) 100 MG capsule Discontinued 100 mg PO THREE TIMES A DAY as needed for Cough June 22, 2017 1:00am March 27, 2022 12:01pm Comment on above: Take 1-2 capsules by mouth three times daily as needed. 12 hr buPROPion hydrochloride 150 mg extended release oral tablet (3 sources) Aminoketone Start: 07-28-2024 End: 02-16-2025 take 1 tablet by mouth twice daily Bupropion Hcl 150 mg tablet sustained-release 12 hr Discontinued 150 mg PO TWICE A DAY July 28, 2024 1:00am February 16, 2025 2:44pm Start: 12-04-2022 take 1 tablet by boone th twice daily buPROPion 150 MG tablet SR Take 1 tablet by mouth 2 times daily. 0 12/04/2022 Active codeine phosphate 2 mg/ml / guaiFENesin 20 mg/ml oral solution (1 source) Opioid Agonist Start: 04-17-2015 take 5-10 mL by mouth four times daily as needed for cough codeine-guaiFENesin (ROBITUSSIN AC) 10-100 mg/5 mL syrup Indications: Acute bronchitis, unspecified organism Take 5-10 mL by mouth four times daily as needed for Cough. May cause drowsiness. 120 mL 0 04/17/2015 Active Comment on above: Take 5-10 mL by mout h four times daily as needed for Cough. May cause drowsiness. 12 hr guaiFENesin 600 mg extended release oral tablet (15 sources) Start: 06-22-2017 End: 03-27-2022 take 1 tablet by mouth twice daily Guaifenesin (Mucinex) 600 MG tablet Discontinued 600 mg PO TWICE A DAY June 22, 2017 1:00am March 27, 2022 12:01pm hydroCHLOROthiazide 12.5 mg / lisinopril 20 mg oral tablet (15 sources) Thiazide Diuretic, Angiotensin Converting Enzyme Inhibitor Start: 06-22-2017 End: 03-27-2022 Lisinopril-Hydrochloro thiazide (Zestoretic 20-12.5 Mg Tablet) 1 EACH tablet Discontinued 1 NMA PO TWICE A DAY June 22, 2017 1:00am March 27, 2022 10:37am ipratropium bromide 0.2 mg/ml inhalation solution (1 source) Anticholinergic Start: 02-08-2023 End: 02-08-2023 Ipratropium (ATROVENT) 0.02 % inhalation solution 0.5 mg Lisinopril (1 source) Angiotensin Converting Enzyme Inhibitor LISINOPRIL ORAL Take by mouth. 0 Active Comment on above: Take by mouth. metoprolol tartrate 50 mg oral tablet (16 sources) beta-Adrenergic Asaf Start: 06-22-2017 End: 03-27-2022 take 1 tablet by mouth twice daily Metoprolol Tartrate 50 MG tablet Discontinued 50 mg PO TWICE A DAY June 22, 2017 1:00am March 27, 2022 12:01pm METOPROLOL SUCCI JASON ORAL Take by mouth. 0 Active Comment on above: Take by mouth. oseltamivir 75 mg oral capsule (15 sources) Neuraminidase Inhibitor Start: 06-22-19 End: 03-27-20 take 1 capsule by mouth twice daily Oseltamivir 75 MG capsule Discontinued 75 mg PO TWICE A DAY June 22, 2017 1:00am March 27, 2022 12:01pm predniSONE 20 mg oral tablet (19 sources) Start: 07-28-19 End: 02-17-20 take 3 tablets by mouth once daily Prednisone 20 mg tablet Discontinued 60 mg PO DAILY 15 July 28, 2024 1:00am February 16, 2025 2:45pm Start: 02-08-2023 End: 02-12-2023 take 3 tablets by mouth once daily predniSONE 20 MG tablet Take 3 tablets by mouth daily for 4 days. 12 tablet 0 02/08/2023 02/12/2023 Active Start: 02-08-2023 End: 02-08-2023 predniSONE (DELTASONE) table t 60 mg Start: 06-22-2017 End: 03-27-2022 take 1 tablet by mouth once daily Prednisone 20 MG tablet Discontinued 20 mg PO DAILY June 22, 2017 1:00am March 27, 2022 12:01pm 7 actuat umeclidinium 0.0625 mg/actuat / vilanterol 0.025 mg/actuat dry powder inhaler (12 sources) Anticholinergic, beta2-Adrenergic Agonist Start: 05-07-2022 End: 05-07-2022 Umeclidinium-Vilanterol (Anoro Ellipta) 62.5-25 mcg/actuation blister with device Discontinued 1 NMA INHALATION daily 60 3 May 07, 2022 1:00am May 07, 2022 10:29am Start: 05-07-2022 End: 05-07-2022 Umeclidinium-Vilanterol (Ano ro Ellipta) 62.5-25 mcg/actuation blister with device Discontinued 1 INH INHALATION daily 60 May 07, 2022 12:00am May 07, 2022 9:29am Problems Active Problems Problem Classification Problem Date Documented Date Episodic/Chronic Blindness and vision defects (4 sources) Visual impairment; Translations: [Unspecified visual loss] 04-05-2023 Chronic Chronic obstructive pulmonary disease and bronchiectasis (20 sources) Severe chronic obstructive pulmonary disease; Translations: [Chronic obstructive pulmonary disease, unspecified] Onset: 02-08-2023 05-07-2022 Chronic Chronic ulcer of skin (20 sources) Chronic non-pressure ulcer of calf extending to fat level; Translations: [Non-pressure chronic ulcer of left calf with fat layer exposed] 08-22-2022 Chronic Disorders of lipid metabolism (1 source) Hyperlipidemia, unspecified; Translations: [Hyperlipidemia, unspecified] Onset: 02-28-2024 Chronic Essential hypertension (4 sources) Essential (primary) hypertension; Translations: [Essential (primary) hypertension] Onset: 02-28-2024 Chronic Other circulatory disease (4 sources) H/O: hypertension; Translations: [Personal history of other diseases of the circulatory system] 04-05-2023 Episodic Other diseases of veins and lymphatics (12 sources) Peripheral venous insufficiency; Translations: [Venous insufficiency (chronic) (peripheral)] 08-22-2022 Episodic Other diseases of veins and lymphatics (20 sources) Venous insufficiency (chronic) (peripheral); Translations: [Venous (peripheral) insufficiency, unspecified] 08-30-2022 Episodic Other lower respiratory disease (14 sources) Dyspnea; Translations: [Dyspnea, unspecified] 03-27-2022 Episodic Other lower respiratory disease (19 sources) Dyspnea, unspecified; Translations: [Other respiratory abnormalities] Episodic Other lower respiratory disease (2 sources) Cough; Translations: [Cough] 12-17-2023 Episodic Other nutritional; endocrine; and metabolic disorders (12 sources) Body mass index 40+ - severely obese; Translations: [Body mass index (BMI) 40.0-44.9, adult] 05-07-2022 Chronic Other nutritional; endocrine; and metabolic disorders (20 sources) Body mass index (BMI) 40.0-44.9, adult; Translations: [Body Mass Index 40.0-44.9, adult] 05-07-2022 Chronic Other nutritional; endocrine; and metabolic disorders (1 source) Morbid (severe) obesity due to excess calories; Translations: [Morbid (severe) obesity due to excess calories] Onset: 02-28-2024 Chronic Other screening for suspected conditions (not mental disorders or infectious disease) (2 sources) Encounter for screening for malignant neoplasm of prostate; Translations: [Encounter for screening for malignant neoplasm of respiratory organs] Onset: 02-28-2024 Episodic Residual codes; unclassified (14 sources) Tobacco user; Translations: [Tobacco use] 03-27-2022 Episodic Residual codes; unclassified (20 sources) Tobacco use; Translations: [Tobacco use disorder] Episodic Residual codes; unclassified (12 sources) Bilateral lower limb edema; Translations: [Localized edema] 08-22-2022 Episodic Residual codes; unclassified (20 sources) Localized edema; Translations: [Edema] Onset: 08-28-2024 08-30-2022 Episodic Residual codes; unclassified (4 sources) Tobacco use and exposure - finding; Translations: [Tobacco use] 04-05-2023 Episodic Substance-related disorders (9 sources) Cigarette smoker ; Translations: [Nicotine dependence, cigarettes, uncomplicated] 01-06-2023 Chronic Unclassified (1 source) Cough, unspecified; Translations: [Cough, unspecified] Onset: 02-16-2025 Past or Other Problems Problem Classification Problem Date Documented Da te Episodic/Chronic Other liver diseases (1 source) Abnormal levels of other serum enzymes; Translations: [Abnormal levels of other serum enzymes] Onset: 02-28-2024 Episodic Other lower respiratory disease (1 source) Shortness of breath; Translations: [Shortness of breath] Onset: 08-12-2024 Episodic Results Test Name Value Interpretation Reference Range Facility Pulmonary Visit Reporton Pulmonary Visit Report [facility] [address] [place] [address] OFFICE VISIT Date of Service: 02/16/25 MR#: [id number] Acct: [id number] Name: YAQUELIN HENSON Rep #: [id number] : 1965 Provider: NEDRA Sterling Age/Sex: 59/M [place] [facility] [place] [facility] Status: Signed Assessment and Plan Assessment and Plan (1) Stage 3 severe COPD by GOLD classification: Status: Chronic Plan: He does not appear to be an exacerbation of COPD today. No need for prednisone or antibiotic. Continue current maintenance medication, symptomatically controlled on triple therapy with use of Trelegy. Repeating baseline PFT and pulmonary stress test due to patient's ongoing smoking. It has been 2 years since last test, I suspect decline. Contact the office for any new or worsening symptoms. An acute visit and typically be arranged within 1-2 days. Follow-up in 3 months. He declined a flu vaccination. (2) Smoking greater than 40 pack years: Status: Chronic Plan: Continue to encourage complete smoking cessation. Continue screening with LDCT in 12 months. Ordered accordingly for December 2025. Return to the office in 1 year to discuss test results. Orders: Orders Low Dose CT Lung Screening 12/31/25 F17.210 - Nicotine dependence, cigarettes, uncomplicated PFT Complete - DLCO, Spirometry b/a bronchodilators, lung volumes Today J44.9 - Chronic obstructive pulmonary disease, unspecified Simple Pulmonary Exercise Test Today J44.9 - Chronic obstructive pulmonary disease, unspecified Medications: Refilled zhlnfunzckj-dislewhkc-bn lanter 200-62.5-25 mcg (Trelegy Ellipta) 1 inh inhalation DAILY 3 ea 3RF R05.9 - Cough, unspecified Plan Details Additional Comments: This note was generated with [employer] dictation software. It may contain incorrect words, spelling, and punctuation that were not noted in checking the note before signing. Follow Up: 3 Months HPI 14 m fu Chief Complaint: Test results HPI Comments Details: This patient presents to the office today for follow-up of his COPD and to discuss test results. He is ambulatory and on room air. He is accompanied today by his . He has not recently been seen in the ED or urgent care for any respiratory illness. He has not required any antibiotics or prednisone for any breathing problems. He is compliant with use of Trelegy 1 puff daily. He does report some his mouth out after each use. He denies any medication side effect such as sore throat or thrush. He has not recently needed to use his albuterol rescue inhaler. He does have shortness of breath on exertion. He has a cough that is productive of white-colored sputum. He denies any hemoptysis. He denies any wheezing, chest tightness, chest pain or palpitations. He has not had any fever, chills or body aches. He continues to smoke cigarettes. He is currently smoking 1/4 pack/day. He was successful at complete smoking cessation for 4 months. He admits that stress got to him and he started again. Test results personally reviewed with patient: Low-dose CT lung screening completed on January 14, 2025. No suspicious nodules are seen. Recommendation is to continue screening with LDCT in 12 months. Intake Vital Signs 12/17/23 09:20 02/16/25 08:43 Height 5 ft 7 in 5 ft 7 in Weight: 295 lb BMI 46.2 BP 128/78 H Blood Pressure Location Lt brachial Position Sitting Respiration 18 Pulse 83 Pulse Source Monitor Temp 97.3 F L Temperature Source Temporal Artery Pulse Oximetry (%) 92 Oxygen Delivery Method room air Intake Visit Reasons: 14 m fu Envelope Machine Operator Required: No DME Vendor: N/a Accompanied by: Significant Other Allergies No Known Allergies Allergy (Verified 02/16/25 14:43) Medications ???Medication ???Instructions ???Recorded ???Confirmed ???Type atorvastatin 10 mg tablet 10 mg PO DAILY 03/27/22 02/16/25 H istory losartan 100 1 tab PO DAILY 03/27/22 02/16/25 H istory mg-hydrochlorothiazide 25 mg tablet albuterol sulfate 90 mcg/actuation 2 puff inhalation Q6H PRN 02/16/25 Rx aerosol inhaler shortness of breath or wheezing #8.5 grams aspirin 81 mg capsule 81 mg PO DAILY 07/28/24 02/16/25 H istory levofloxacin 500 mg tablet 500 mg PO DAILY 5 days #5 tabs 02/16/25 Rx fluticasone fur. 200 mcg-umeclid 1 inh inhalation DAILY #3 ea 02/1602/16/25 Rx 62.5 mcg-vilant 25 mcg inhalat.powder (Trelegy Ellipta) furosemide 20 mg tablet 20 mg PO QAM 02/16/25 02/16/25 His tory Have you fallen in the past year?: No PFSH Medical History (Reviewed 02/16/25 @ 14:50 by Fela Sterling DISTRIBUTION ESTIMATOR, DISTRIBUTION ESTIMATOR-C) Hypoxemia Hyperlipidemia Bronchitis Environmental allergies Surgical History (Reviewed 02/16/25 @ 14:50 by Fela Sterling DISTRIBUTION ESTIMATOR, (more content not included)... Normal [facility] Low Dose CT Lung Screeningon 01-14-[address] Lung Screening [facility] Imaging Services [address] [place] [id number] Lung Screening MR#: [id number] Acct: [id number] Name: YAQUELIN HENSON Rep #: [id number] : 1965 M 59 From: Cachorro loera MD PCP: Yogesh Mai NP-C Status: [facility] Study: Low Dose CT Lung Screening Date of Exam: 01/14 Exam# [id number] Ordering Dr: Fela Sterling NP DISTRIBUTION ESTIMATOR-C PROCEDURE: LOW DOSE CT LUNG SCREENING 01/14/2025 REASON FOR EXAM: SMOKING Long-time smoker. TECHNIQUE: LOW DOSE CT LUNG SCREENING Coronal and Sagittal reconstruction series were provided. One or more dose reduction techniques were used (e.g., Automated exposure control, adjustment of the mA and/or kV according to patient size, use of iterative reconstruction technique). REFERENCE LINK: [facility] Lung-RADS RADIATION DOSE SUMMARY: CTDlvol: 4.02 mGy DLP: 142.45 mGycm COMPARISON: Prior study dated January 15, 2024. FINDINGS: PULMONARY NODULES: (Only nodules >3mm are reported) Nodules described below are on series 1 unless otherwise specified. Pulmonary Nodules: No suspicious nodules are seen. Hardware:None Lymph Nodes:Small mediastinal and axillary lymph nodes. Heart and Vasculature:The heart is nonenlarged.Atherosclero tic calcification of the aortic arch. Coronary Artery Calcifications: Present Lungs and Airways: Mild emphysematous changes are present. No suspicious nodules are seen. Pleura:Unremarkable Upper Abdomen:Unremarkable Bones:Degenerative changes of the thoracic spine. CT/Low Dose CT Lung Screening IMPRESSION: No suspicious pulmonary nodule seen. Coronary artery calcification (CAC) is is present Lung-RADS Category: 2 BENIGN (BASED ON IMAGING FEATURES OR INDOLENT BEHAVIOR). RECOMMEND 12-MONTH SCREENING LDCT. Other Significant Findings: Reading Location: [id number] CC: NEDRA Sterling; NEDRA Mai Automatic Hemmer: Signed Normal [facility] POTASSIUMon 09-25-2024 Potassium [Moles/Vol] 3.5 mmol/L Normal 3.5 - 5.1 [facility] Comment on above: Performed By: #### [id number] #### [facility],[address] [place], [place] [id number] BMP with eGFRon 08-28-2024 AGE 59 years Normal [facility] Comment on above: Performed By: #### 2 [id number] #### [facility],[address] [place] [address] 05908 Anion gap [Moles/Vol] 9 mmol/L Low 10 - 20 [facility] Comment on above: Performed By: #### 2 [id number] #### [facility],[address] [place] [address] 97322 BMP with eGFR Normal [facility] Comment on above: Result Comment: BASI C METABOLIC PANEL Performed By: #### 2 57936 #### [facility],[address] [place] [address] 00062 Calcium [Mass/Vol] 9.2 mg/dL Normal 8.5 - 10.1 [facility] Comment on above: Performed By: #### 2 23279 #### [facility],[address] [place] [address] 08496 Chloride [Moles/Vol] 106 mmol/L Normal 98 - 107 [facility] Comment on above: Performed By: #### 2 66160 #### [facility],[address] [place] [address] 54650 CO2 [Moles/Vol] 30.5 mmol/L Normal 21.0 - 32.0 [facility] Comment on above: Performed By: #### 2 89287 #### [facility],[address] [place] [address] 71742 Creatinine [Mass/Vol] 1.09 mg/dL Normal 0.70 - 1.30 [facility] Comment on above: Performed By: #### 2 81249 #### [facility],[address] [place] [address] 82672 GFR/1.73 sq M.predicted among non-blacks MDRD (S/P/Bld) [Vol rate/Area] mL/min/{1.73_m2} Normal 60 - 999 [facility] Comment on above: Performed By: #### 2 99701 #### [facility],[address] [place] [address] 99203 Result Comment: ACCO RDING TO THE NATIONAL KIDNEY DISEASE EDUCATION PROGRAM(NKDE), A NORMAL eGFR IS A VALUE GREATER THAN OR EQUAL TO 60 ML/MIN/1.73 SQ METERS. CHRONIC KIDNEY DISEASE: <60mL/MIN/1.73 SQ METERS KIDNEY FAILURE: <15mL/MIN/1.73 SQ METERS THIS TEST SHOULD ONLY BE USED FOR PATIENTS 18 YEARS OF AGE AND OLDER. Glucose [Mass/Vol] 109 mg/dL High 74 - 106 [facility] Comment on above: Performed By: #### 2 55468 #### [facility],[address] [place] [address] 38566 Potassium [Moles/Vol] 3.6 mmol/L Normal 3.5 - 5.1 [facility] Comment on above: Performed By: #### 2 93792 #### [facility],[address] [place] [address] 97547 Sodium [Moles/Vol] 142 mmol/L Normal 136 - 145 [facility] Comment on above: Performed By: #### 2 94523 #### [facility],[address] [place] [address] 76062 Urea nitrogen [Mass/Vol] 16 mg/dL Normal 7 - 18 [facility] Comment on above: Performed By: #### 2 53880 #### [facility],[address] [place], [place] [address] 12 Lead EKGon 07-28-2024 12 Lead EKG [facility] Cardiovascular Services [address] [place] [address] 12 Lead EKG 07/28/24 2134 MR#: [id number] Acct: [id number] Name: YAQUELIN HENSON Rep #: [id number] : 1965 58 From: Felipe Ratliff MD Attending Dr: Status: DEP ER Ordering Dr: Isaiah Wiseman DO Date: 5 Location: ED Sex: M C Admitted: Test Reason : DYSRHYTHMIA Blood Pressure : */* mmHG Vent. Rate : 98 BPM Atrial Rate : 98 BPM P-R Int : 158 ms QRS Dur : 82 ms QT Int : 332 ms P-R-T Axes : 33 6 39 degrees QTcB Int : 423 ms Normal sinus rhythm Normal ECG Confirmed by Felipe Ratliff ([id number]), editorial cartoonist LOUISA LUIS ([id number]) on 07/29/2024 9:33:13 AM Referred By: Confirmed By: Felipe Ratliff 07/29/24 0933 Date Felipe Ratliff MD CC: NEDRA Mai; Dr. Isaiah Wiseman DO Signed Normal [facility] Basic Metabolic Profile (BMP )on 07-28-2024 Anion gap [Moles/Vol] 9 mmol/L Normal 5-15 [facility] Comment on above: Performed By: #### L 100.0100, L500.2500 #### [facility] Laboratory [address] [place], [address] BUN/CRE 8.8 RATIO Low 10-20 [facility] Comment on above: Performed By: #### L 100.0100, L500.2500 #### [facility] Laboratory [address] [place], [address] Calcium [Mass/Vol] 9.3 mg/dL Normal 7.6-11.0 [facility] Comment on above: Performed By: #### L 100.0100, L500.2500 #### [facility] Laboratory [address] [place], [address] Chloride [Moles/Vol] 100 mmol/L Normal 96-108 [facility] Comment on above: Performed By: #### L 100.0100, L500.2500 #### [facility] Laboratory [address] [place], [address] CO2 [Moles/Vol] 28.4 mmol/L Normal 22.0-29.0 [facility] Comment on above: Performed By: #### L 100.0100, L500.2500 #### [facility] Laboratory [address] [place], [address] Creatinine [Mass/Vol] 1.1 mg/dL Normal 0.8-1.3 [facility] Comment on above: Performed By: #### L 100.0100, L500.2500 #### [facility] Laboratory [address] [place], [address] ECRCL 96.64 ml/min Normal [facility] Comment on above: Performed By: #### L 100.0100, L500.2500 #### [facility] Laboratory [address] [place], [address] GFR/1.73 sq M.predicted among non-blacks MDRD (S/P/Bld) [Vol rate/Area] 78 mL/min/{1.73_m2} Normal >60 [facility] Comment on above: Result Comment: mL/m in/1.73m2 CKD-EPI Creatinine Equation (2020) Performed By: #### L 100.0100, L500.2500 #### [facility] Laboratory [address] [place], [address] Glucose [Mass/Vol] 112 mg/dL High 70-99 [facility] Comment on above: Performed By: #### L 100.0100, L500.2500 #### [facility] Laboratory [address] [place], [address] Urea nitrogen [Mass/Vol] 10 mg/dL Normal 4-19 [facility] Comment on above: Performed By: #### L 100.0100, L500.2500 #### [facility] Laboratory [address] [place], [address] Potassium [Moles/Vol] 3.9 mmol/L Normal 3.3-5.1 [facility] Comment on above: Result Comment: Hemo lysis present, Results??could be affected. ?? Performed By: #### L 100.0100, L500.2500 #### [facility] Laboratory [address] [place], [address] Sodium [Moles/Vol] 137 mmol/L Normal 133-145 [facility] Comment on above: Performed By: #### L 100.0100, L500.2500 #### [facility] Laboratory [address], [address] CBC W/Diff, Automatedon 07-04 Absolute Lymph 0.86 X10 3/uL Normal 0.83-4.51 [facility] Comment on above: Performed By: #### L 100.0100, L500.2500 #### [facility] Laboratory [address] [place], [address] Absolute Neut 5.6 X10 3/uL Normal 2.0-7.7 [facility] Comment on above: Performed By: #### L 100.0100, L500.2500 #### [facility] Laboratory [address] [place], [address] Basophils/100 WBC (Bld) 0.7 % Normal 0-1 [facility] Comment on above: Performed By: #### L 100.0100, L500.2500 #### [facility] Laboratory [address] [place], [address] Eosinophils/100 WBC (Bld) 1.1 % Normal 0-5 [facility] Comment on above: Performed By: #### L 100.0100, L500.2500 #### [facility] Laboratory [address] [place], [address] Erythrocyte distribution width (RBC) [Ratio] 13.4 % Normal 11.6-14.6 [facility] Comment on above: Performed By: #### L 100.0100, L500.2500 #### [facility] Laboratory [address] [place], [address] Hematocrit (Bld) [Volume fraction] 46.1 % Normal 40-54 [facility] Comment on above: Performed By: #### L 100.0100, L500.2500 #### [facility] Laboratory [address] [place], [address] Hemoglobin (Bld) [Mass/Vol] 15.5 g/dL Normal 13.0-16.5 [facility] Comment on above: Performed By: #### L 100.0100, L500.2500 #### [facility] Laboratory [address] [place], [address] IG% 0.300 Normal 0.0-0.9 [facility] Comment on above: Result Comment: IG% - Immature Granulocytes (promyelocytes, myelocytes and metamyelocytes) > 1% indicates that a LEFT SHIFT is Present. Performed By: #### L 100.0100, L500.2500 #### [facility] Laboratory [address] [place], [address] Lymphocytes/100 WBC (Bld) 11.3 % Low 19-41 [facility] Comment on above: Performed By: #### L 100.0100, L500.2500 #### [facility] Laboratory [address] [place], [address] MCH (RBC) [Entitic mass] 33.3 pg High 27.0-32.0 [facility] Comment on above: Performed By: #### L 100.0100, L500.2500 #### [facility] Laboratory [address] [place], [address] MCHC (RBC) [Mass/Vol] 33.6 g/dL Normal 32-36 [facility] Comment on above: Performed By: #### L 100.0100, L500.2500 #### [facility] Laboratory [address] [place], [address] MCV (RBC) [Entitic vol] 98.9 fL High 80-94 [facility] Comment on above: Performed By: #### L 100.0100, L500.2500 #### [facility] Laboratory [address] [place], [address] Monocytes/100 WBC (Bld) 13.5 % High 0-10 [facility] Comment on above: Performed By: #### L 100.0100, L500.2500 #### [facility] Laboratory [address] [place], [address] Neutrophils/100 WBC (Bld) 73.1 % High 47-70 [facility] Comment on above: Performed By: #### L 100.0100, L500.2500 #### [facility] Laboratory [address] [place], [address] Nucleated RBC (Bld) [#/Vol] 0 10*3/uL Normal 0-5 [facility] Comment on above: Performed By: #### L 100.0100, L500.2500 #### [facility] Laboratory [address] [place], [address] Platelet mean volume (Bld) [Entitic vol] 9.4 fL Normal 6.2-12.0 [facility] Comment on above: Performed By: #### L 100.0100, L500.2500 #### [facility] Laboratory [address] [place], [address] Platelets (Bld) [#/Vol] 284 10*3/uL Normal 150-450 [facility] Comment on above: Performed By: #### L 100.0100, L500.2500 #### [facility] Laboratory [address] [place], [address] RBC (Bld) [#/Vol] 4.66 10*6/uL Normal 4.6-6.2 [facility] Comment on above: Performed By: #### L 100.0100, L500.2500 #### [facility] Laboratory [address] [place], [address] RDW SD 49.1 fl High 35.1-43.9 [facility] Comment on above: Performed By: #### L 100.0100, L500.2500 #### [facility] Laboratory [address] [place], [address] WBC (Bld) [#/Vol] 7.6 10*3/uL Normal 4.4-11.0 [facility] Comment on above: Performed By: #### L 100.0100, L500.2500 #### [facility] Laboratory [address] [place], [address] Chest PA and Lateralon 07-28 Chest PA and Lateral [facility] Imaging Services [address] [place] [address] Chest PA and Lateral MR#: [id number] Acct: [id number] Name: YAQUELIN HENSON Rep #: [id number] : 1965 M 58 From: Jordon Zhou MD PCP: NEDRA Johnston Status: [facility] ER Study: Chest PA and Lateral Date of Exam: 07/28/24 Exam# [id number] Ordering Dr: Isaiah Wiseman DO PROCEDURE: CHEST PA AND LATERAL REASON FOR EXAM: Shortness of breath TECHNIQUE: Frontal and lateral views of the chest. COMPARISON: 04/01/2022. FINDINGS: The heart size is normal. The mediastinal contour is unremarkable. The lungs are clear. The bones are unremarkable. RAD/Chest PA and Lateral IMPRESSION: No radiographic evidence of acute cardiopulmonary disease Reading Location: [facility] CC: DISTRIBUTION ESTIMATOR-C Yogesh Mai; Dr. Isaiah Wiseman DO Automatic Hemmer: Signed Normal [facility] Emergency Department Summary on 07-28-2024 Emergency Department Summary [facility] Medical Records Department [address] [place] [address] Emergency Department Summary 07/28/24 MR#: [id number] Acct: [id number] Name: YAQUELIN HENSON Rep #: [id number] : 1965 58 From: Isaiah Wiseman DO PCP: NEDRA Johnston Status:DEP ER Location: ED HPI History of Present Illness Chief Complaint: Shortness of Breath Narrative Narrative: Chief complaint and HPI: Shortness of breath. 58-year-old male with past medical history of HTN, HLD, COPD on Trelegy presents for evaluation of cough, congestion, and shortness of breath. Onset of symptoms Friday night. Patient denies any fever, chills, chest pain, abdominal pain, nausea, vomiting, diarrhea. States that he had a telehealth visit today and they told him to present to the ED for further evaluation. Patient has been using his Trelegy and albuterol inhaler as needed. He has albuterol nebulizers but states he has not used these. Review of systems: See HPI Medications: As listed on the chart Allergies: As listed on the chart PFSH: Per chart Vital signs: As listed on the chart. Reviewed. Physical exam: Gen: A O x3, NAD Head: Normocephalic, atraumatic Eyes: No sclera icterus, conjunctiva clear ENT: Moist mucous membranes, nasal congestion+ Neck: Trachea midline, No JVD CV: RRR, no murmurs, no peripheral edema Resp: Diffuse expiratory wheeze, dry cough GI: Abd soft, non-distended, non-tender, no r/r/g Musc: Full ROM, no deformity Skin: Warm, dry Neuro: Alert, oriented, grossly intact, sensation intact Psych: Cooperative, appropriate mood and affect [facility] Medical History (Reviewed 12/17/23 @ 14:54 by Fela Sterling DISTRIBUTION ESTIMATOR, DISTRIBUTION ESTIMATOR-C) Hypoxemia Hyperlipidemia Bronchitis Environmental allergies Home Medications ???Medication ???Instructions ???Recorded ???Last Taken ???Type atorvastatin 10 mg tablet 10 mg PO DAILY 03/27/22 Unknown Hi story losartan 100 1 tab PO DAILY 03/27/22 Unknown Hi story mg-hydrochlorothiazide 25 mg tablet albuterol sulfate 90 mcg/actuation 2 puff inhalation Q6H PRN Unknown Rx aerosol inhaler shortness of breath or wheezing #8.5 grams fluticasone fur. 200 mcg-umeclid 1 inh inhalation DAILY #3 ea 12/16 Unknown Rx 62.5 mcg-vilant 25 mcg inhalat.powder (Trelegy Ellipta) aspirin 81 mg capsule 81 mg PO DAILY 07/28/24 Unknown Hi story bupropion HCl 150 mg tablet,12 hr 150 mg PO BID 07/28/24 Unknown Hi story sustained-release levofloxacin 500 mg tablet 500 mg PO DAILY 5 days #5 tabs Unknown Rx prednisone 20 mg tablet 60 mg (3 x 20 mg) PO DAILY #15 Unknown Rx TABLETS Allergy/AdvReac Type Severity Reaction Status Date / Time No Known Allergies Allergy Verified 07/28/24 19:22 Surgical History (Reviewed 12/17/23 @ 14:54 by Fela Sterling DISTRIBUTION ESTIMATOR, DISTRIBUTION ESTIMATOR-C) History of repair of rotator cuff Social History (Reviewed 12/17/23 @ 14:54 by Fela Sterling DISTRIBUTION ESTIMATOR, DISTRIBUTION ESTIMATOR-C) Smoking Status: Current some day smoker tobacco type: cigarettes second hand exposure: Yes EXAM Physical Exam Const Vital Signs: 07/28/24 19:22 07/28/24 19:23 07/28/24 20:12 Temperature 97.4 F L 97.4 F L Temperature Source Temporal Temporal Pulse Rate 95 95 Respiratory Rate 22 H 22 H Respiratory Effort Short of Breath Respiratory Depth Shallow Respiratory Pattern Tachypnea Blood Pressure 174/82 H 174/82 H Blood Pressure Mean 112 112 Pulse Ox 94 94 Oxygen Delivery Method Room Air Room Air Room Air 07/28/24 20:27 07/28/24 21:00 07/28/24 21:23 Temperature 98 F 98 F Temperature Source Temporal Oral Pulse Rate 93 82 Respiratory Rate 19 H 24 H Respiratory Effort Respiratory Depth Respiratory Pattern Blood Pressure 157/78 H 135/90 H Blood Pressure Mean 104 105 Pulse Ox 92 92 92 Oxygen Delivery Method Room Air Room Air Room Air 07/28/24 21:45 07/28/24 23:13 Temperature 98 F Temperature Source Pulse Rate 86 70 Respiratory Rate 22 H 20 H Respiratory Effort Respiratory Depth Respiratory Pattern Tachypnea Blood Pressure 117/74 Blood Pressure Mean 88 Pulse Ox 92 Oxygen Delivery Method MDM MDM MDM Narrative Medical decision making narrative: 58-year-old male with past medical history of HTN, HLD, COPD on Trelegy presents for evaluation of cough, congestion, and shortness of breath. Differential diagnosis includes but is not limited to CHF exacerbation, viral illness, COVID-19, influenza, pneumonia. Solu-Medrol and DuoNebs x 3 ordered for symptoms. Respiratory workup ordered. CBC without leukocytosis or anemia. BMP relatively unremarkable. VBG without hypercapnia. Chest x-ray was personally reviewed and interpreted by me, ED physician. No pneumonia, effusion, card (more content not included)... Normal [facility] M100.678on 07-28-2024 M100.678 SARS-CoV-2 (COVID 19 ) A Positive A INFLUENZA A Negative INFLUENZA B Negative RSV PCR Negative SARS-CoV-2 (COVID 19 PCR) Normal [facility] Comment on above: Performed By: #### M 100.678 #### [facility] Laboratory [address] [place], [address] Venous Blood Gason 5 Blood Gas Type DORIE Normal [facility] Comment on above: Performed By: #### L 9000.0810 #### [facility] Laboratory [address] [place], [address] CO2 [Moles/Vol] 33 mmol/L Normal 23-33 [facility] Comment on above: Performed By: #### L 9000.0810 #### [facility] Laboratory [address] [place], [address] HCO3 (Bld) [Moles/Vol] 32 mmol/L High 22-26 [facility] Comment on above: Performed By: #### L 9000.0810 #### [facility] Laboratory [address], [address] O2 Delivery Dev Room Air Normal [facility] Comment on above: Performed By: #### L 9000.0810 #### [facility] Laboratory [address] [place], [address] SITE Not entered Normal [facility] Comment on above: Performed By: #### L 9000.0810 #### [facility] Laboratory [address] [place], [address] VBG BE 9 mmol/L High -1.0-3.5 [facility] Comment on above: Performed By: #### L 9000.0810 #### [facility] Laboratory [address] [place], [address] VBG pCO2 41.7 mmHg Normal 41-51 [facility] Comment on above: Performed By: #### L 9000.0810 #### [facility] Laboratory [address] [place], [place], [address] VBG pH 7.49 High 7.32-7.42 [facility] Comment on above: Performed By: #### L 9000.0810 #### [facility] Laboratory [address] [place], [address] VBG PO2 33 mmHg Normal 25-40 [facility] Comment on above: Performed By: #### L 9000.0810 #### [facility] Laboratory [address] [place], [address] VBG SO2 69 Normal 50-70 [facility] Comment on above: Performed By: #### L 9000.0810 #### [facility] Laboratory [address] [place], [place], [address] CBC + DIFFon 02-28-2024 Baso # 0.03 x10EE3/UL Normal 0.00 - 0.10 [facility] Comment on above: Performed By: #### 2 13465 #### [facility],[address] [place] [address] Basophils/100 WBC (Bld) 0.4 % Normal 0.0 - 2.0 [facility] Comment on above: Performed By: #### 2 44978 #### [facility],[address] [place] [address]17[address] CBC + DIFF Normal [facility] Comment on above: Result Comment: CBC- COMPLETE BLOOD COUNT Performed By: #### 2 14906 #### [facility],[address] [place] [address]26[address] EO # 0.12 x10EE3/UL Normal 0.00 - 0.50 [facility] Comment on above: Performed By: #### 2 [id number] #### [facility],[address] [place] [address] Eosinophils/100 WBC (Bld) 1.7 % Normal 0.0 - 7.0 [facility] Comment on above: Performed By: #### 2 60631 #### [facility],[address] [place] [address] Erythrocyte distribution width (RBC) [Ratio] 13.2 % Normal 12.0 - 15.6 [facility] Comment on above: Performed By: #### 2 81994 #### [facility],[address] [place], [place] [address] Hematocrit (Bld) [Volume fraction] 48.6 % Normal 40.0 - 52.0 [facility] Comment on above: Performed By: #### 2 82600 #### [facility],58 [place] [address] Hemoglobin (Bld) [Mass/Vol] 16.3 g/dL Normal 13.0 - 17.5 [facility] Comment on above: Performed By: #### 2 61440 #### [place] [address] Lymph # 2.40 x10EE3/UL Normal 0.80 - 2.80 [facility] Comment on above: Performed By: #### 2 67249 #### [facility],[address] [place], [place] [address] Lymphocytes/100 WBC (Bld) 33.2 % Normal 20.0 - 45.0 [facility] Comment on above: Performed By: #### 2 61594 #### [facility],[address] [place] [address] 21562 MANUAL DIFF N/A Normal [facility] Comment on above: Performed By: #### 2 37123 #### [facility],[address] [place] [address] 67733 MCH (RBC) [Entitic mass] 34 pg High 27 - 33 [facility] Comment on above: Performed By: #### 2 55620 #### [facility],[address] [place] [address] 41879 MCHC 34 X10 3 Normal 32 - 36 [facility] Comment on above: Performed By: #### 2 66097 #### [facility],[address] [place] [address] 62421 MCV (RBC) [Entitic vol] 101 fL High 81 - 98 [facility] Comment on above: Performed By: #### 2 06115 #### [facility],[address] [place] [address] 22620 Crisp # 0.56 x10EE3/UL Normal 0.20 - 1.00 [facility] Comment on above: Performed By: #### 2 71659 #### [facility],[address] [place] [address] 47852 MONOS % 7.8 % Normal 0.0 - 10.0 [facility] Comment on above: Performed By: #### 2 98256 #### [facility],[address] [place] [address] 60295 Morphology Leopoldo (Bld) [Interp] N/A Normal [facility] Comment on above: Performed By: #### 2 07231 #### [facility],[address] [place] [address] 10959 Neut # 4.13 x10EE3/UL Normal 1.50 - 7.10 [facility] Comment on above: Performed By: #### 2 75409 #### [facility],[address] [place] [address] 76625 Neutrophils/100 WBC (Bld) 57.0 % Normal 46.0 - 76.0 [facility] Comment on above: Performed By: #### 2 64087 #### [facility],[address] [place] [address] 53228 PLATELET 312 x10EE3/UL Normal 150 - 450 [facility] Comment on above: Performed By: #### 2 07110 #### [facility],[address] [place] [address] 80758 Platelet mean volume (Bld) [Entitic vol] 7.5 fL Normal 6.4 - 10.5 [facility] Comment on above: Result Comment: AUTO MATED DIFFERENTIAL Performed By: #### 2 25384 #### [facility],[address] [place] [address] 74540 RBC 4.82 x 10EE6/UL Normal 4.50 - 6.00 [facility] Comment on above: Performed By: #### 2 92351 #### [facility],[address] [place] [address] 62318 WBC 7.3 x 10EE3/UL Normal 4.5 - 10.8 [facility] Comment on above: Performed By: #### 2 77919 #### [facility],[address] [place] [address] 64368 CMP with eGFRon 02-28-2024 AGE 58 years Normal [facility] Comment on above: Performed By: #### 2 88127 #### [facility],[address] [place] [address] 14333 Albumin [Mass/Vol] 3.5 g/dL Normal 3.4 - 5.0 [facility] Comment on above: Performed By: #### 2 87466 #### [facility],[address] [place] [address] 51786 Albumin/Globulin [Mass ratio] 1.0 {ratio} Normal 0.9 - 1.6 [facility] Comment on above: Performed By: #### 2 81154 #### [facility],[address] [place] [address] 90057 ALK PHOS 80 U/L Normal 46 - 116 [facility] Comment on above: Performed By: #### 2 13697 #### [facility],[address] [place] [address] 61244 ALT [Catalytic activity/Vol] 38 U/L Normal 16 - 63 [facility] Comment on above: Performed By: #### 2 96040 #### [facility],[address] [place] [address] 83940 Anion gap [Moles/Vol] 10 mmol/L Normal 10 - 20 [facility] Comment on above: Performed By: #### 2 63479 #### [facility],[address] [place] [address] 59078 AST [Catalytic activity/Vol] 23 U/L Normal 15 - 37 [facility] Comment on above: Performed By: #### 2 97601 #### [facility],[address] [place] [address] 14518 B/C RATIO 11 ratio Normal 0 - 30 [facility] Comment on above: Performed By: #### 2 89906 #### [facility],[address] [place] [address] 91107 Bilirubin [Mass/Vol] 0.4 mg/dL Normal 0.2 - 1.0 [facility] Comment on above: Performed By: #### 2 96703 #### [facility],[address] [place] [address] 21185 Calcium [Mass/Vol] 8.9 mg/dL Normal 8.5 - 10.1 [facility] Comment on above: Performed By: #### 2 12907 #### [facility],[address] [place] [address] 59360 Chloride [Moles/Vol] 104 mmol/L Normal 98 - 107 [facility] Comment on above: Performed By: #### 2 80021 #### [facility],[address] [place] [address] 07076 CMP with eGFR Normal [facility] Comment on above: Result Comment: COMP REHENSIVE METABOLIC PANEL Performed By: #### 2 16592 #### [facility],[address] [place] [address] 31482 CO2 [Moles/Vol] 31.1 mmol/L Normal 21.0 - 32.0 [facility] Comment on above: Performed By: #### 2 02633 #### [facility],[address] [place] [address] 16440 Creatinine [Mass/Vol] 1.29 mg/dL Normal 0.70 - 1.30 [facility] Comment on above: Performed By: #### 2 57650 #### [facility],[address] [place] [address] 64138 eGFR 57 ML/MINUTE Low 60 - 999 [facility] Comment on above: Performed By: #### 2 80715 #### [facility],[address] [place] [address] 23208 GFR/1.73 sq M.predicted among non-blacks MDRD (S/P/Bld) [Vol rate/Area] mL/min/{1.73_m2} Normal 60 - 999 [facility] Comment on above: Result Comment: ACCO RDING TO THE NATIONAL KIDNEY DISEASE EDUCATION PROGRAM(NKDE), A NORMAL eGFR IS A VALUE GREATER THAN OR EQUAL TO 60 ML/MIN/1.73 SQ METERS. CHRONIC KIDNEY DISEASE: <60mL/MIN/1.73 SQ METERS KIDNEY FAILURE: <15mL/MIN/1.73 SQ METERS THIS TEST SHOULD ONLY BE USED FOR PATIENTS 18 YEARS OF AGE AND OLDER. Performed By: #### 2 35842 #### [address] [address] Globulin (S) [Mass/Vol] 3.4 g/dL Normal 1.5 - 3.8 [facility] Comment on above: Performed By: #### 2 50188 #### [address] [address] Glucose [Mass/Vol] 92 mg/dL Normal 74 - 106 [facility] Comment on above: Performed By: #### 2 15553 #### [address] [address] Potassium [Moles/Vol] 3.6 mmol/L Normal 3.5 - 5.1 [facility] Comment on above: Performed By: #### 2 63171 #### [address] [address] Protein [Mass/Vol] 6.9 g/dL Normal 6.4 - 8.2 [facility] Comment on above: Performed By: #### 2 02369 #### [facility],[address] [place] [address] 52519 Sodium [Moles/Vol] 141 mmol/L Normal 136 - 145 [facility] Comment on above: Performed By: #### 2 78353 #### [facility],[address] [place] [address] 78204 Urea nitrogen [Mass/Vol] 14 mg/dL Normal 7 - 18 [facility] Comment on above: Performed By: #### 2 03974 #### [facility],[address] [place] [address] 67837 LIPID PROFILEon 02-28-2024 Cholesterol [Mass/Vol] 115 mg/dL Normal 0 - 240 [facility] Comment on above: Performed By: #### 2 82103 #### [facility],[address] [place] [address] 55384 Cholesterol in HDL [Mass/Vol] 40 mg/dL Normal 40 - 60 [facility] Comment on above: Performed By: #### 2 92781 #### [facility],[address] [place] [address] 05649 Cholesterol in LDL [Mass/Vol] 53 mg/dL Normal 0 - 129 [facility] Comment on above: Performed By: #### 2 64137 #### [facility],[address] [place] [address] 19685 Cholesterol.total/Chol esterol in HDL [Mass ratio] 2.9 {ratio} Normal 0.0 - 5.0 [facility] Comment on above: Performed By: #### 2 40377 #### [facility],[address] [place] [address] 55480 Lipid 1996 panel Normal [facility] Comment on above: Result Comment: LIPI D PROFILE Performed By: #### 2 85994 #### [facility],[address] [place] [address] Triglyceride [Mass/Vol] 110 mg/dL Normal 0 - 150 [facility] Comment on above: Performed By: #### 2 95674 #### [facility],[address] [place] [address] Absolute lymphocyte countOrd ered By: Jordon Bui on 04-05-2023 Lymphocytes Auto (Unsp spec) [#/Vol] 2.14 10*3/uL 0.83-4.51 [facility] Basophil percentageOrdered B y: Jordon Bui on 04-05-2023 Basophils/100 WBC (Bld) 0.6 % 0-1 [facility] Chloride [Moles/Vol] 104 mmol/L 98-107 [facility] Eosinophils/100 WBC (Bld) 2.5 % 0-5 [facility] Glucose [Mass/Vol] 150 mg/dL 74-106 [facility] Comment on above: Fasting Glucose resu lt greater than or equal to 126 mg/dL suggests DIABETES MELLITUS per A.D.A. criteria. Neutrophils (Bld) [#/Vol] 3.8 10*3/uL 2.0-7.7 [facility] Neutrophils/100 WBC (Bld) 55.9 % 47-70 [facility] Potassium [Moles/Vol] 3.3 mmol/L 3.5-5.1 [facility] Sodium [Moles/Vol] 142 mmol/L 136-145 [facility] WBC (Bld) [#/Vol] 6.8 10*3/uL 4.4-11.0 [facility] Blood erythrocytes count (nu mber/volume)Ordered By: Jordon Bui on 04-05-2023 RBC (Bld) [#/Vol] 4.32 10*6/uL 4.6-6.2 [facility] Blood hemoglobin measurement (mass/volume)Ordered By: Jordon Bui on 04-05-2023 Hemoglobin (Bld) [Mass/Vol] 14.2 g/dL 13.0-16.5 [facility] Blood lymphocytes/100 leukoc ytesOrdered By: Jordon Bui on 04-05-2023 Lymphocytes/100 WBC (Bld) 31.7 % 19-41 [facility] Blood monocytes/100 leukocyt esOrdered By: Jordon Bui on 04-05-2023 Monocytes/100 WBC (Bld) 9.0 % 0-10 [facility] Blood platelet mean volumeOr dered By: Jordon Bui on 04-05-2023 Platelet mean volume (Bld) [Entitic vol] 9.6 fL 6.2-12.0 [facility] Determination of erythrocyte mean corpuscular volume (MCV)Ordered By: Jordon Bui on 04-05-2023 MCV (RBC) [Entitic vol] 100.9 fL 80-94 [facility] Hematocrit Auto (Bld) [Volum e fraction]Ordered By: Jordon Bui on 04-05-2023 Hematocrit (Bld) [Volume fraction] 43.6 % 40-54 [facility] Laboratory - Chemistry and C hemistry - challengeOrdered By: Jordon Bui on 04-05-2023 CO2 [Moles/Vol] 34.0 mmol/L 21.0-32.0 [facility] Urea nitrogen/Creatinine [Mass ratio] 10.2 mg/mg 10-20 [facility] Laboratory - Hematology and Cell countsOrdered By: Jordon Bui on 04-05-2023 Erythrocyte distribution width (RBC) [Entitic vol] 52.4 fL 35.1-43.9 [facility] Erythrocyte distribution width (RBC) [Ratio] 14.0 % 11.6-14.6 [facility] Immature granulocytes/100 WBC (Bld) 0.300 % 0.0-0.9 [facility] Comment on above: IG% - Immature Granu locytes (promyelocytes, myelocytes and metamyelocytes) > 1% indicates that a LEFT SHIFT is Present. MCH (RBC) [Entitic mass] 32.9 pg 27.0-32.0 [facility] Nucleated RBC/100 WBC (Bld) [Ratio] 0 % 0-5 [facility] MCHC Auto (RBC) [Mass/Vol]Or dered By: Jordon Bui on 04-05-2023 MCHC (RBC) [Mass/Vol] 32.6 g/dL 32-36 [facility] No Panel InformationOrdered By: Jordon Bui on 04-05-2023 Estimated Creatinine Clearance Calc 60.25 ml/min [facility] Estimated GFR (MDRD) Amer 75 mL/min >60 [facility] Comment on above: GFR Calc Estimated GFR (MDRD) Non-Af Amer 62 mL/min >60 [facility] Comment on above: Non- GFR Calc Platelets bldOrdered By: Marivel Bui on 04-05-2023 Platelets (Bld) [#/Vol] 269 10*3/uL 150-450 [facility] Serum or plasma calcium phill urement (mass/volume)Ordered By: Jordon Bui on 04-05-2023 Calcium [Mass/Vol] 9.2 mg/dL 8.5-10.1 [facility] Serum or plasma creatinine m easurement (mass/volume)Ordered By: Jordon Bui on 04-05-2023 Creatinine [Mass/Vol] 1.28 mg/dL 0.70-1.30 [facility] Comment on above: The validity of the calculated GFR & GFRAA in patients over 70 years has not been determined. Clinical correlation is essential. Serum or plasma urea nitroge n measurement (mass/volume)Ordered By: Jordon Bui on 04-05-2023 Urea nitrogen [Mass/Vol] 13 mg/dL 7-18 [facility] Thin prep Papanicolaou smear with manual screeningOrdered By: Jordon Bui on 04-05-2023 Thin prep Papanicolaou smear with manual screening 4 5-15 [facility] FLUAV and FLUBV Ag IA.rapid Nom (Unsp spec)on 02-08-2023 Influenza A, molecular Negative Negative [facility] Influenza B, molecular Negative Negative [facility] Influenza A AND B Molecularo n 02-08-2023 Influenza A Negative Normal Negative [facility] ([place]) Comment on above: Performed By: #### M FLUAB #### [facility] [address], [place] [address] Noe Yu MD, PhD [phone] Influenza B Negative Normal Negative [facility] ([place] Comment on above: Performed By: #### M FLUAB #### [facility] [address] [place] [address] Noe Yu MD, PhD [phone] SARS CoV 2 Molecular, Rapido n 02-08-2023 SARS-CoV-2 (COVID-19) RNA EDWIN+probe Ql (Unsp spec) Negative Normal Negative [facility] ([place] Comment on above: Result Comment: Your COVID test is NEGATIVE/NOT DETECTED. Contact your physician/provider if you have further concerns about symptoms that you may be having. Refer to updated CDC guidelines for quarantine/ isolation recommendations Contact your employer/school regarding return to work/school instructions if necessary [email or web address] [email or web address] [email or web address] memorial hospitalTripwire/[email or web address]-szmjovhmsnu-information https://www.cdc.govCorrelation study-DO NOT report this isolate. -ncov/en-dvi-enj-sick/quarantine.html?fbclid=IwAR3 [id number] Negative results should be treated as presumptive and, if inconsistent with clinical signs and symptoms or necessary for patient management, should be tested with an alternative molecular assay. This test has been authorized by the FDA under an Emergency Use Authorization (EUA). This test is only authorized for the duration of the time of declaration that circumstances exist justifying the authorization of the emergency use of in vitro diagnostic testing for detection of the SARS-CoV-2 virus and/or diagnosis of COVID-19 infection under section 564 (b)(1) of the Act, 21 U.S.C. 360nnn-3 (b)(1), unless the authorization is terminated or revoked sooner. https://www.fda.gov/media/553272/download Providers https://www.fda.gov/media/243443/download Patients Testing performed at [facility], [address] [place] [address] Performed By: #### S ARSCOV2 #### [facility] [address] [place] [address] Noe Yu MD, PhD [phone] SARS-COV-2 RAPIDon 3 SARS-CoV-2 (COVID-19) RdRp gene EDWIN+probe Ql (Resp) Negative Negative [facility] Comment on above: Your COVID test is N EGATIVE/NOT DETECTED. Contact your physician/provider if you have further concerns about symptoms that you may be having. Refer to updated CDC guidelines for quarantine/ isolation recommendations Contact your employer/school regarding return to work/school instructions if necessary [email or web address]-[email or web address]-information https://www.cdc.govCorrelation study-DO NOT report this isolate. -ncov/bl-fdj-grk-sick/quarantine.html?fbclid=IwAR3 [email or web address] [id number] Negative results should be treated as presumptive and, if inconsistent with clinical signs and symptoms or necessary for patient management, should be tested with an alternative molecular assay. This test has been authorized by the FDA under an Emergency Use Authorization (EUA). This test is only authorized for the duration of the time of declaration that circumstances exist justifying the authorization of the emergency use of in vitro diagnostic testing for detection of the SARS-CoV-2 virus and/or diagnosis of COVID-19 infection under section 564 (b)(1) of the Act, 21 U.S.C. 360nnn-3 (b)(1), unless the authorization is terminated or revoked sooner. https://www.fda.gov/media/099753/download Providers https://www.fda.gov/media/172029/download Patients Testing performed at [address] [address] [facility] XR CHEST PA AND LATERALon XR CHEST PA AND LATERAL EXAMINATION: TWO XRAY VIEWS OF THE CHEST 02/08/2023 4:35 am COMPARISON: None. HISTORY: HISTORY: Cough and sob x 2 days, hx of copd; FINDINGS: Cardiac and mediastinal silhouettes appear within normal limits for size. Pulmonary vascularity is normal. No consolidation or pleural effusion. No acute osseous abnormality. Multilevel degenerative changes are seen in the spine. Mild COPD. IMPRESSION: COPD though no acute focal infiltrate. Normal [facility] ([place]) XR Chest PA and Lateralon IMPRESSION: COPD though no acute focal infiltrate. RADIOLOGY EXAMINATION: TWO XRAY VIEWS OF THE CHEST 02/08/2023 4:35 am COMPARISON: None. HISTORY: HISTORY: Cough and sob x 2 days, hx of copd; FINDINGS: Cardiac and mediastinal silhouettes appear within normal limits for size. Pulmonary vascularity is normal. No consolidation or pleural effusion. No acute osseous abnormality. Multilevel degenerative changes are seen in the spine. Mild COPD. RADIOLOGY Sebastián Jeter MD - 02/08/2023 EXAMINATION: TWO XRAY VIEWS OF THE CHEST 02/08/2023 4:35 am COMPARISON: None. HISTORY: HISTORY: Cough and sob x 2 days, hx of copd; FINDINGS: Cardiac and mediastinal silhouettes appear within normal limits for size. Pulmonary vascularity is normal. No consolidation or pleural effusion. No acute osseous abnormality. Multilevel degenerative changes are seen in the spine. Mild COPD. IMPRESSION IMPRESSION: COPD though no acute focal infiltrate. [facility] Radiology Study observation (narrative) [facility] XR Chest PA and LateralOrder ed By: Sebastián Jeter on 02-08-2023 [facility] CNCOon 06-19-2017 CNCO Letter TextWoosterDepartment of Urgent CareLouie Naik CNP[address] [place], [place] [address]Bwlub: [phone] WHOM IT MAY CONCERN:This is to confirm that [facility] an [facility] Louie Naik CNP on 06/19/2017 and may return to school on 06/20/2017.Sincerely yours,Louie Naik CNP Normal [facility] CNOVon 06-19-2017 CNOV Office Visit ([facility]) [facility] ([id number]) 1965 MDate Time Provider Department06/19/17 7:30 PM MICHAEL PALMA (ELI) [facility] During your visit today, we recorded the following information about you: Temperature Pulse Respiration Blood pressure 98.2 degrees 86/minute 20/minute 114/62 Weight 111.6 kgMichael Palma CNP 06/20/2017 4:43 PM SignedHPI Patient is a 51 year old male here today with a sudden onset cough, fever,and chills. States fever 101.5 but better with Tylenol. No other medicationshave been taken . Nothing makes it better or worse. + Smoker. Denies fluvaccine this season.Review of SystemsConstitutional: Positive for chills and fever. Negative for malaise/fatigue.HENT: Positive for congestion. Negative for ear pain and sore throat.Respiratory: Positive for cough. Negative for sputum production, shortness ofbreath and wheezing.Cardiovascular: Negative.Gastrointestina l: Negative for diarrhea, nausea and vomiting.Musculoskeletal : Positive for myalgias.Neurological: Negative for headaches.All other systems reviewed and are negative.No past medical history on file.No past surgical history on file.ALLERGIES Review of patient's allergies indicates no known allergies.MEDICATIONSLIS INOPRIL ORAL Take by mouth.METOPROLOL SUCCINATE ORAL Take by mouth.oseltamivir (TAMIFLU) 75 mg capsule Take 1 capsule by mouth twice daily for 5days.predniSONE (DELTASONE) 20 mg tablet Take 1 tablet by mouth once daily for 5days.benzonatate (TESSALON PERLE) 100 mg capsule Take 1-2 capsules by mouth threetimes daily as needed.albuterol HFA (PROVENTIL HFA, VENTOLIN HFA) 90 mcg/actuation inhaler Inhale 2Puffs as instructed every 6 hours as needed for Wheezing/Shortness of Breath(may use every 4 to 6 hours).codeine-guaiFENes in (ROBITUSSIN AC) 10-100 mg/5 mL syrup Take 5-10 mL by mouthfour times daily as needed for Cough. May cause drowsiness.No family history on file.Social HistorySubstance Use Topics- Smoking status: Current Every Day Smoker Packs/day: 1.50 Years: 25.00 Types: Cigarettes- Smokeless tobacco: Never Used- Alcohol use Not on fileBP 114/62 Pulse 86 Temp 36.8 ?C (98.2 ?F) (Tympanic) Resp 20 Wt 111.6kg (246 lb) SpO2 94% BMI 38.53 kg/s3Lomtqews ExamConstitutional: He is oriented to person, place, and time and well-developed,well-nour ished, and in no distress. Vital signs are normal. He appears notlethargic and not dehydrated. He appears unhealthy. He has a sickly appearance.HENT:Head: Normocephalic and atraumatic.Right Ear: Tympanic membrane, external ear and ear canal normal.Left Ear: Tympanic membrane, external ear and ear canal normal.Nose: Mucosal edema present.Mouth/Throat: Uvula is midline, oropharynx is clear and moist and mucousmembranes are normal.Neck: Neck supple.Cardiovascular: Normal rate, regular rhythm and normal heart sounds.Pulmonary/Chest: Effort normal. He has wheezes. He has no rales.Harsh coughLymphadenopathy: Head (right side): No submental, no submandibular and no tonsillaradenopathy present. Head (left side): No submental, no submandibular and no tonsillaradenopathy present. He has no cervical adenopathy.Submandibular fullness.Neurological: He is oriented to person, place, and time. He appears notlethargic.Skin: Skin is warm. He is diaphoretic.Nursing note and vitals reviewed.ASSESSMENT/PLAN :1. Flu-like symptoms - ICD9: 780.99, ICD10: R68.89ANDlt; 48 hours- Based on general health status and patient is a smoker willstart Tamiflu- Steroid burst- Tessalon Perle- Rest and fluids- Vicks vapo rubs and humidity- Stay home avoid public places- Red flag symptoms and s/s secondary infection discussed.- Side effects of Influenza discussed- OSELTAMIVIR 75 MG CAPSULE- PREDNISONE 20 MG TABLET- BENZONATATE 100 MG CAPSULEPrescription instructions reviewed with patient as applicable. Patient advisedif symptoms do not improve or if symptoms worsen sooner, to contact theirpratrium health stanlyry care physician. Potential red flag symptoms discussed with thepatient. Reviewed appropriate action plan to take if red flag symptoms occur.Patient agreeable to treatment plan.Michael Palma CNPReferring Provider: SELF [[id number]]Allergies As of Date: 06/19/2017(No Known Allergies)Date Reviewed: 06/19/2017Reviewed by: Michael Corbin) Louie - Fully AssessedReason for Visit: Cough [28] Cmt: x 1 day Headache [52] Cmt: x 1 day Nausea AND Vomiting [237] Cmt: x 1 day bodyaches [Other] Cmt: x 1 day Shortness of Breath [227] Cmt: x todayReason For Visit History RecordedPrimary Visit Diagnosis:Flu-like symptoms [R68.89]Order(s):oseltam ivir (TAMIFLU) 75 mg capsuleTake 1 capsule by mouth twice daily for 5 days.Disp: 10 capsuleRfl: 0 predniSONE (DELTASONE) 20 mg tabletTake 1 tablet by mouth once daily for 5 days.Disp: 5 tabletRfl: 0 benzonatate (TESSALON PERLE) 100 mg capsuleTake 1-2 capsules by mouth three times daily as needed.Disp: 30 capsuleRfl: 0Prescriptions as of 06/19/2017 Sig: LISINOPRIL ORAL Take by mouth. METOPROLOL SUCCINATE ORAL Take by mouth. OSELTAMIVIR 75 MG CAPSULE Take 1 capsule by mouth twice* PREDNISONE 20 MG TABLET Take 1 tablet by mouth once d* BENZONATATE 100 MG CAPSULE Take 1-2 capsules by mouth th* ALBUTEROL SULFATE HFA 90 MCG/* Inhale 2 Puffs as instructed * CODEINE 10 MG-GUAIFENESIN 100* Take 5-10 mL by mouth four ti*Medication notes this encounter ALBUTEROL SULFATE HFA 90 MCG/ACTUATION AEROSOL INHALER >> Cecily Hou Cma 06/19/2017 7:42 PM >> CECILY HOU CMA Jun 19, 2017 7:42 PM Finished CODEINE 10 MG-GUAIFENESIN 100 MG/5 ML ORAL LIQUID >> Cecily Hou Cma 06/19/2017 7:42 PM >> CECILY HOU CMA Jun 19, 2017 7:42 PM FinishedProblem List As Of Date: 06/19/2017(None)Prescrip tions ordered this encounter Disp Refills Start End OSELTAMIVIR 75 MG CAPSULE 10 c* 0 06/19/2017 06/24/2017 Route: ORAL Sig: Take 1 capsule by mouth twice daily for 5 days. PREDNISONE 20 MG TABLET 5 ta* 0 06/19/2017 06/24/2017 Route: ORAL Sig: Take 1 tablet by mouth once daily for 5 days. BENZONATATE 100 MG CAPSULE 30 c* 0 06/19/2017 Route: ORAL Sig: Take 1-2 capsules by mouth three times daily as needed. Status:Closed by MICHAEL PALMA CNP on 06/20/17 [facility] PROGRESSon 06-19-2017 PROGRESS HNO ID: [id number]: Michael (Eli) Jorge LutService: (none)Author Type: Nurse PractitionerType: Progress NotesFiled: 06/20/2017 4:43 PMNote Text:HPI Patient is a 51 year old male here today with a sudden onset cough,fever, and chills. States fever 101.5 but better with Tylenol. No othermedications have been taken . Nothing makes it better or worse. + Smoker.Denies flu vaccine this season.Review of SystemsConstitutional: Positive for chills and fever. Negative formalaise/fatigue.HENT: Positive for congestion. Negative for ear pain and sore throat.Respiratory: Positive for cough. Negative for sputum production, shortnessof breath and wheezing.Cardiovascular: Negative.Gastrointestina l: Negative for diarrhea, nausea and vomiting.Musculoskeletal : Positive for myalgias.Neurological: Negative for headaches.All other systems reviewed and are negative.No past medical history on file.No past surgical history on file.ALLERGIES Review of patient's allergies indicates no known allergies.MEDICATIONSLIS INOPRIL ORAL Take by mouth.METOPROLOL SUCCINATE ORAL Take by mouth.oseltamivir (TAMIFLU) 75 mg capsule Take 1 capsule by mouth twice dailyfor 5 days.predniSONE (DELTASONE) 20 mg tablet Take 1 tablet by mouth once daily for5 days.benzonatate (TESSALON PERLE) 100 mg capsule Take 1-2 capsules by mouththree times daily as needed.albuterol HFA (PROVENTIL HFA, VENTOLIN HFA) 90 mcg/actuation inhalerInhale 2 Puffs as instructed every 6 hours as needed forWheezing/Shortness of Breath (may use every 4 to 6 hours).codeine-guaiFENes in (ROBITUSSIN AC) 10-100 mg/5 mL syrup Take 5-10 mL bymouth four times daily as needed for Cough. May cause drowsiness.No family history on file.Social HistorySubstance Use Topics- Smoking status: Current Every Day Smoker Packs/day: 1.50 Years: 25.00 Types: Cigarettes- Smokeless tobacco: Never Used- Alcohol use Not on fileBP 114/62 Pulse 86 Temp 36.8 ?C (98.2 ?F) (Tympanic) Resp 20 Wt111.6 kg (246 lb) SpO2 94% BMI 38.53 kg/m7Dzjfvsli ExamConstitutional: He is oriented to person, place, and time andwell-developed, well-nourished, and in no distress. Vital signs arenormal. He appears not lethargic and not dehydrated. He appears unhealthy.He has a sickly appearance.HENT:Head: Normocephalic and atraumatic.Right Ear: Tympanic membrane, external ear and ear canal normal.Left Ear: Tympanic membrane, external ear and ear canal normal.Nose: Mucosal edema present.Mouth/Throat: Uvula is midline, oropharynx is clear and moist and mucousmembranes are normal.Neck: Neck supple.Cardiovascular: Normal rate, regular rhythm and normal heart sounds.Pulmonary/Chest: Effort normal. He has wheezes. He has no rales.Harsh coughLymphadenopathy: Head (right side): No submental, no submandibular and no tonsillaradenopathy present. Head (left side): No submental, no submandibular and no tonsillaradenopathy present. He has no cervical adenopathy.Submandibular fullness.Neurological: He is oriented to person, place, and time. He appears notlethargic.Skin: Skin is warm. He is diaphoretic.Nursing note and vitals reviewed.ASSESSMENT/PLAN :1. Flu-like symptoms - ICD9: 780.99, ICD10: R68.89< 48 hours- Based on general health status and patient is a smoker willstart Tamiflu- Steroid burst- Tessalon Perle- Rest and fluids- Vicks vapo rubs and humidity- Stay home avoid public places- Red flag symptoms and s/s secondary infection discussed.- Side effects of Influenza discussed- OSELTAMIVIR 75 MG CAPSULE- PREDNISONE 20 MG TABLET- BENZONATATE 100 MG CAPSULEPrescription instructions reviewed with patient as applicable. Patientadvised if symptoms do not improve or if symptoms worsen sooner, tocontact their primary care physician. Potential red flag symptomsdiscussed with the patient. Reviewed appropriate action plan to take ifred flag symptoms occur. Patient agreeable to treatment plan.Michael Palma CNP Normal [facility] Vital Signs Date Time Vital Sign Value Performing Clinician Debbi lees 02-16-2025 08:43-0400 Body mass index (BMI) [Ratio] 46.2 kg/m2 Yogesh Mai DISTRIBUTION ESTIMATOR-C Work Phone: [facility] [place] 02-16-2025 08:43-0400 Body temperature 97.3 [degF] Yogesh Mai DISTRIBUTION ESTIMATOR-C Work Phone: [facility] [place] 02-16-2025 08:43-0400 Body weight 133.8 kg Yogesh Mai DISTRIBUTION ESTIMATOR-C Work Phone: [facility] [place] 02-16-2025 08:43-0400 Diastolic blood pressure 78 mm[Hg] Yogesh Mai DISTRIBUTION ESTIMATOR-C Work Phone: [facility] [place] 02-16-2025 08:43-0400 Heart rate 83 /min Yogesh Mai DISTRIBUTION ESTIMATOR-C Work Phone: [facility] [place] 02-16-2025 08:43-0400 Respiratory rate 18 /min Yogesh Mai DISTRIBUTION ESTIMATOR-C Work Phone: [facility] [place] 02-16-2025 08:43-0400 SaO2% (BldA) [Mass fraction] 92 % Yogesh Mai DISTRIBUTION ESTIMATOR-C Work Phone: [facility] [place] 02-16-2025 08:43-0400 Systolic blood pressure 128 mm[Hg] Yogesh Mai DISTRIBUTION ESTIMATOR-C Work Phone: [facility] [place] 04-05-2023 19:48-0400 Diastolic blood pressure 74 mm[Hg] DISTRIBUTION ESTIMATOR-C Yogesh Mai DISTRIBUTION ESTIMATOR Work Phone: [facility] [place] 04-05-2023 19:48-0400 Heart rate 79 /min DISTRIBUTION ESTIMATOR-C Yogesh Mai DISTRIBUTION ESTIMATOR Work Phone: [facility] [place] 04-05-2023 19:48-0400 Respiratory rate 18 /min DISTRIBUTION ESTIMATOR-C Yogesh Mai DISTRIBUTION ESTIMATOR Work Phone: [facility] [place] 04-05-2023 19:48-0400 SaO2% (BldA) [Mass fraction] 99 % DISTRIBUTION ESTIMATOR-C Yogesh Mai DISTRIBUTION ESTIMATOR Work Phone: [facility] [place] 04-05-2023 19:48-0400 Systolic blood pressure 148 mm[Hg] DISTRIBUTION ESTIMATOR-C Yogesh Mai DISTRIBUTION ESTIMATOR Work Phone: [facility] [place] 04-05-2023 17:23-0400 Body height 170.18 cm DISTRIBUTION ESTIMATOR-C Yogesh Mai DISTRIBUTION ESTIMATOR Work Phone: [facility] [place] 04-05-2023 17:23-0400 Body mass index (BMI) [Ratio] 46.3 kg/m2 DISTRIBUTION ESTIMATOR-C Yogesh Mai DISTRIBUTION ESTIMATOR Work Phone: [facility] [place] 04-05-2023 17:23-0400 Body temperature 97.1 [degF] DISTRIBUTION ESTIMATOR-C Yogesh Mai DISTRIBUTION ESTIMATOR Work Phone: [facility] [place] 04-05-2023 17:23-0400 Body weight 134.08 kg DISTRIBUTION ESTIMATOR-C Yogesh Mai DISTRIBUTION ESTIMATOR Work Phone: [facility] [place] 02-08-2023 06:17-0400 Diastolic blood pressure 70 mm[Hg] Kai Ha DO Work Phone: [facility] 02-08-2023 06:17-0400 Heart rate 70 /min Kai Taverason DO Work Phone: [facility] 02-08-2023 06:17-0400 Respiratory rate 16 /min Kai Ha DO Work Phone: [facility] 02-08-2023 06:17-0400 Systolic blood pressure 133 mm[Hg] Kai Ha DO Work Phone: [facility] 09-09-2023 05:37-0400 SaO2% (BldA) [Mass fraction] 95 % Kai Ha DO Work Phone: [facility] 02-08-2023 03:41-0400 Body height 172.7 cm Kai Ha DO Work Phone: [facility] 02-08-2023 03:41-0400 Body mass index (BMI) [Ratio] 42.57 kg/m2 Kai Ha DO Work Phone: [facility] 02-08-2023 03:41-0400 Body temperature 98.2 [degF] Kai Ha DO Work Phone: [facility] 02-08-2023 03:41-0400 Body weight 127.01 kg Kai Ha DO Work Phone: [facility] 01-06-2023 07:59-0400 Body height 170.18 cm DISTRIBUTION ESTIMATOR-C Yogesh Mai DISTRIBUTION ESTIMATOR Work Phone: [facility] [place] 01-06-2023 07:59-0400 Body mass index (BMI) [Ratio] 46.5 kg/m2 DISTRIBUTION ESTIMATOR-C Yogesh Mai DISTRIBUTION ESTIMATOR Work Phone: [facility] [place] 01-06-2023 07:59-0400 Body temperature 97.2 [degF] DISTRIBUTION ESTIMATOR-C Yogesh Mai DISTRIBUTION ESTIMATOR Work Phone: [facility] [place] 01-06-2023 07:59-0400 Body weight 134.71 kg DISTRIBUTION ESTIMATOR-C Yogesh Mai DISTRIBUTION ESTIMATOR Work Phone: [facility] [place] 01-06-2023 07:59-0400 Diastolic blood pressure 73 mm[Hg] DISTRIBUTION ESTIMATOR-C Yogesh Mai DISTRIBUTION ESTIMATOR Work Phone: [facility] [place] 01-06-2023 07:59-0400 Heart rate 84 /min DISTRIBUTION ESTIMATOR-C Yogesh Mai DISTRIBUTION ESTIMATOR Work Phone: [facility] [place] 01-06-2023 07:59-0400 Respiratory rate 20 /min DISTRIBUTION ESTIMATOR-C Yogesh Mai DISTRIBUTION ESTIMATOR Work Phone: [facility] [place] 01-06-2023 07:59-0400 SaO2% (BldA) [Mass fraction] 95 % DISTRIBUTION ESTIMATOR-C Yogesh Mai DISTRIBUTION ESTIMATOR Work Phone: [facility] [place] 01-06-2023 07:59-0400 Systolic blood pressure 130 mm[Hg] DISTRIBUTION ESTIMATOR-C Yogesh Mai DISTRIBUTION ESTIMATOR Work Phone: [facility] [place] 12-26-2022 10:33-0400 Body mass index (BMI) [Ratio] 44.6 kg/m2 DISTRIBUTION ESTIMATOR-C Yogesh Mai DISTRIBUTION ESTIMATOR Work Phone: [facility] [place] 12-26-2022 10:33-0400 Body temperature 96.8 [degF] DISTRIBUTION ESTIMATOR-C Yogesh Mai DISTRIBUTION ESTIMATOR Work Phone: [facility] [place] 12-26-2022 10:33-0400 Diastolic blood pressure 85 mm[Hg] DISTRIBUTION ESTIMATOR-C Yogesh Mai DISTRIBUTION ESTIMATOR Work Phone: [facility] [place] 12-26-2022 10:33-0400 Heart rate 76 /min DISTRIBUTION ESTIMATOR-C Yogesh Mai DISTRIBUTION ESTIMATOR Work Phone: [facility] [place] 12-26-2022 10:33-0400 Respiratory rate 16 /min DISTRIBUTION ESTIMATOR-C Yogesh Mai DISTRIBUTION ESTIMATOR Work Phone: [facility] [place] 12-26-2022 10:33-0400 Systolic blood pressure 136 mm[Hg] DISTRIBUTION ESTIMATOR-C Yogesh Mai DISTRIBUTION ESTIMATOR Work Phone: [facility] [place] 11-30-2022 01:22-0400 Body weight 129.27 kg DISTRIBUTION ESTIMATOR-C Yogesh Mai DISTRIBUTION ESTIMATOR Work Phone: [facility] [place] 11-28-2022 10:36-0400 Body mass index (BMI) [Ratio] 44.6 kg/m2 DISTRIBUTION ESTIMATOR-C Yogesh Mai DISTRIBUTION ESTIMATOR Work Phone: [facility] [place] 11-28-2022 10:36-0400 Body temperature 97.3 [degF] DISTRIBUTION ESTIMATOR-C Yogesh Mai DISTRIBUTION ESTIMATOR Work Phone: [facility] [place] 11-28-2022 10:36-0400 Diastolic blood pressure 88 mm[Hg] DISTRIBUTION ESTIMATOR-C Yogesh Kendall DISTRIBUTION ESTIMATOR Work Phone: [facility] [place] 11-28-2022 10:36-0400 Heart rate 87 /min DISTRIBUTION ESTIMATOR-C Yogesh Kendall DISTRIBUTION ESTIMATOR Work Phone: [facility] [place] 11-28-2022 10:36-0400 Respiratory rate 20 /min DISTRIBUTION ESTIMATOR-C Yogesh Kendall DISTRIBUTION ESTIMATOR Work Phone: [facility] [place] 11-28-2022 10:36-0400 Systolic blood pressure 149 mm[Hg] DISTRIBUTION ESTIMATOR-C Yogesh Kendall DISTRIBUTION ESTIMATOR Work Phone: [facility] [place] 10-31-2022 00:37-0400 Body weight 129.27 kg DISTRIBUTION ESTIMATOR-C Yogesh Kendall DISTRIBUTION ESTIMATOR Work Phone: [facility] [place] 10-17-2022 10:35-0400 Body mass index (BMI) [Ratio] 44.6 kg/m2 DISTRIBUTION ESTIMATOR-C Yogesh Mai DISTRIBUTION ESTIMATOR Work Phone: [facility] [place] 10-17-2022 10:35-0400 Body temperature 96.5 [degF] DISTRIBUTION ESTIMATOR-C Yogesh Kendall DISTRIBUTION ESTIMATOR Work Phone: [facility] [place] 10-17-2022 10:35-0400 Diastolic blood pressure 63 mm[Hg] DISTRIBUTION ESTIMATOR-C Yogesh Kendall DISTRIBUTION ESTIMATOR Work Phone: [facility] [place] 10-17-2022 10:35-0400 Heart rate 78 /min DISTRIBUTION ESTIMATOR-C Yogesh Kendall DISTRIBUTION ESTIMATOR Work Phone: [facility] [place] 10-17-2022 10:35-0400 Respiratory rate 20 /min DISTRIBUTION ESTIMATOR-C Yogesh Kendall DISTRIBUTION ESTIMATOR Work Phone: [facility] [place] 10-17-2022 10:35-0400 Systolic blood pressure 140 mm[Hg] DISTRIBUTION ESTIMATOR-C Yogesh Kendall DISTRIBUTION ESTIMATOR Work Phone: [facility] [place] 09-30-2022 00:45-0400 Body weight 129.27 kg DISTRIBUTION ESTIMATOR-C Yogesh Kendall DISTRIBUTION ESTIMATOR Work Phone: [facility] [place] 09-19-2022 10:27-0400 Body mass index (BMI) [Ratio] 44.6 kg/m2 DISTRIBUTION ESTIMATOR-C Yogesh Mai DISTRIBUTION ESTIMATOR Work Phone: [facility] [place] 09-19-2022 10:27-0400 Respiratory rate 18 /min DISTRIBUTION ESTIMATOR-C Yogesh Mai DISTRIBUTION ESTIMATOR Work Phone: [facility] [place] 09-18-2022 10:39-0400 Body height 170.18 cm DISTRIBUTION ESTIMATOR-C Yogesh Mai DISTRIBUTION ESTIMATOR Work Phone: [facility] [place] 09-18-2022 10:31-0400 Body mass index (BMI) [Ratio] 45.4 kg/m2 DISTRIBUTION ESTIMATOR-C Yogesh Mai DISTRIBUTION ESTIMATOR Work Phone: [facility] [place] 09-18-2022 10:31-0400 Body temperature 97.6 [degF] DISTRIBUTION ESTIMATOR-C Yogesh Mai DISTRIBUTION ESTIMATOR Work Phone: [facility] [place] 09-18-2022 10:31-0400 Body weight 131.54 kg DISTRIBUTION ESTIMATOR-C Yogesh Mai DISTRIBUTION ESTIMATOR Work Phone: [facility] [place] 09-18-2022 10:31-0400 Diastolic blood pressure 80 mm[Hg] DISTRIBUTION ESTIMATOR-C Yogesh Mai DISTRIBUTION ESTIMATOR Work Phone: [facility] [place] 09-18-2022 10:31-0400 Heart rate 88 /min DISTRIBUTION ESTIMATOR-C Yogesh Mai DISTRIBUTION ESTIMATOR Work Phone: [facility] [place] 09-18-2022 10:31-0400 Respiratory rate 18 /min DISTRIBUTION ESTIMATOR-C Yogesh Mai DISTRIBUTION ESTIMATOR Work Phone: [facility] [place] 09-18-2022 10:31-0400 SaO2% (BldA) [Mass fraction] 95 % DISTRIBUTION ESTIMATOR-C Yogesh Mai DISTRIBUTION ESTIMATOR Work Phone: [facility] [place] 09-18-2022 10:31-0400 Systolic blood pressure 123 mm[Hg] DISTRIBUTION ESTIMATOR-C Yogesh Mai DISTRIBUTION ESTIMATOR Work Phone: [facility] [place] 09-17-2022 11:28-0400 Body temperature 97.4 [degF] DISTRIBUTION ESTIMATOR-C Yogesh Mai DISTRIBUTION ESTIMATOR Work Phone: [facility] [place] 09-17-2022 11:28-0400 Diastolic blood pressure 83 mm[Hg] DISTRIBUTION ESTIMATOR-C Yogesh Mai DISTRIBUTION ESTIMATOR Work Phone: [facility] [place] 09-17-2022 11:28-0400 Heart rate 91 /min DISTRIBUTION ESTIMATOR-C Yogesh Mai DISTRIBUTION ESTIMATOR Work Phone: [facility] [place] 09-17-2022 11:28-0400 Systolic blood pressure 128 mm[Hg] DISTRIBUTION ESTIMATOR-C Yogesh Mai DISTRIBUTION ESTIMATOR Work Phone: [facility] [place] 09-05-2022 10:33-0400 Body mass index (BMI) [Ratio] 44.6 kg/m2 [facility] [place] 09-05-2022 10:33-0400 Body temperature 96.8 [degF] [facility] 09-05-2022 10:33-0400 Diastolic blood pressure 87 mm[Hg] [facility] [place] 09-05-2022 10:33-0400 Heart rate 66 /min [facility] 09-05-2022 10:33-0400 Respiratory rate 18 /min [facility] 09-05-2022 10:33-0400 Systolic blood pressure 150 mm[Hg] [facility] [place] 08-31-2022 02:21-0400 Body weight 129.27 kg [facility] 08-30-2022 15:04-0400 Body mass index (BMI) [Ratio] 44.6 kg/m2 DISTRIBUTION ESTIMATOR-C Yogesh Mai DISTRIBUTION ESTIMATOR Work Phone: [facility] [place] 08-30-2022 15:04-0400 Body temperature 96.3 [degF] DISTRIBUTION ESTIMATOR-C Yogesh Mai DISTRIBUTION ESTIMATOR Work Phone: [facility] [place] 08-30-2022 15:04-0400 Diastolic blood pressure 76 mm[Hg] DISTRIBUTION ESTIMATOR-C Yogesh Mai DISTRIBUTION ESTIMATOR Work Phone: [facility] [place] 08-30-2022 15:04-0400 Heart rate 70 /min DISTRIBUTION ESTIMATOR-C Yogesh Mai DISTRIBUTION ESTIMATOR Work Phone: [facility] [place] 08-30-2022 15:04-0400 Respiratory rate 18 /min DISTRIBUTION ESTIMATOR-C Yogesh Mai DISTRIBUTION ESTIMATOR Work Phone: [facility] [place] 08-30-2022 15:04-0400 Systolic blood pressure 139 mm[Hg] DISTRIBUTION ESTIMATOR-C Yogesh Mai DISTRIBUTION ESTIMATOR Work Phone: [facility] [place] 08-22-2022 10:13-0400 Body height 170.18 cm DISTRIBUTION ESTIMATOR-C Yogesh Mai DISTRIBUTION ESTIMATOR Work Phone: [facility] [place] 08-22-2022 10:13-0400 Body weight 129.27 kg DISTRIBUTION ESTIMATOR-C Yogesh Mai DISTRIBUTION ESTIMATOR Work Phone: [facility] [place] 05-07-2022 08:51-0500 Body mass index (BMI) [Ratio] 44.3 kg/m2 DISTRIBUTION ESTIMATOR-C Yogesh Mai DISTRIBUTION ESTIMATOR Work Phone: [facility] [place] 05-07-2022 08:51-0500 Body temperature 97.3 [degF] DISTRIBUTION ESTIMATOR-C Yogesh Mai DISTRIBUTION ESTIMATOR Work Phone: [facility] [place] 05-07-2022 08:51-0500 Body weight 128.36 kg DISTRIBUTION ESTIMATOR-C Yogesh Mai DISTRIBUTION ESTIMATOR Work Phone: [facility] [place] 05-07-2022 08:51-0500 Diastolic blood pressure 80 mm[Hg] DISTRIBUTION ESTIMATOR-C Yogesh Mai DISTRIBUTION ESTIMATOR Work Phone: [facility] [place] 05-07-2022 08:51-0500 Heart rate 67 /min DISTRIBUTION ESTIMATOR-C Yogesh Mai DISTRIBUTION ESTIMATOR Work Phone: [facility] [place] 05-07-2022 08:51-0500 Respiratory rate 18 /min DISTRIBUTION ESTIMATOR-C Yogesh Mai DISTRIBUTION ESTIMATOR Work Phone: [facility] [place] 05-07-2022 08:51-0500 SaO2% (BldA) [Mass fraction] 94 % DISTRIBUTION ESTIMATOR-C Yogesh Mai DISTRIBUTION ESTIMATOR Work Phone: [facility] [place] 05-07-2022 08:51-0500 Systolic blood pressure 122 mm[Hg] DISTRIBUTION ESTIMATOR-C Yogesh Mai DISTRIBUTION ESTIMATOR Work Phone: [facility] [place] 04-02-2022 11:55-0400 Body height 170.18 cm DISTRIBUTION ESTIMATOR-C Yogesh Mai DISTRIBUTION ESTIMATOR Work Phone: [facility] [place] Work Phone: 04-02-2022 11:55-0400 Body weight 124.73 kg DISTRIBUTION ESTIMATOR-C Yogesh Mai DISTRIBUTION ESTIMATOR Work Phone: [facility] [place] Work Phone: 04-02-2022 11:55-0400 Heart rate 75 /min DISTRIBUTION ESTIMATOR-C Yogesh Mai DISTRIBUTION ESTIMATOR Work Phone: [facility] [place] Work Phone: 04-02-2022 11:55-0400 SaO2% (BldA) [Mass fraction] 95 % DISTRIBUTION ESTIMATOR-C Yogesh Mai DISTRIBUTION ESTIMATOR Work Phone: [facility] [place] Work Phone: 03-27-2022 10:35-0400 Body mass index (BMI) [Ratio] 43.5 kg/m2 DISTRIBUTION ESTIMATOR-C Yogesh Mai DISTRIBUTION ESTIMATOR Work Phone: [facility] [place] Work Phone: 03-27-2022 10:35-0400 Body temperature 98.6 [degF] DISTRIBUTION ESTIMATOR-C Yogesh Mai DISTRIBUTION ESTIMATOR Work Phone: [facility] [place] Work Phone: 03-27-2022 10:35-0400 Body weight 126.09 kg DISTRIBUTION ESTIMATOR-C Yogesh Mai DISTRIBUTION ESTIMATOR Work Phone: [facility] [place] Work Phone: 03-27-2022 10:35-0400 Diastolic blood pressure 81 mm[Hg] DISTRIBUTION ESTIMATOR-C Yogesh Mai DISTRIBUTION ESTIMATOR Work Phone: [facility] [place] Work Phone: 03-27-2022 10:35-0400 Heart rate 93 /min DISTRIBUTION ESTIMATOR-C Yogesh Mai DISTRIBUTION ESTIMATOR Work Phone: [facility] [place] Work Phone: 03-27-2022 10:35-0400 Respiratory rate 16 /min DISTRIBUTION ESTIMATOR-C Yogesh Mai DISTRIBUTION ESTIMATOR Work Phone: [facility] [place] Work Phone: 03-27-2022 10:35-0400 SaO2% (BldA) [Mass fraction] 95 % DISTRIBUTION ESTIMATOR-C Yogesh Mai DISTRIBUTION ESTIMATOR Work Phone: [facility] [place] Work Phone: 03-27-2022 10:35-0400 Systolic blood pressure 135 mm[Hg] DISTRIBUTION ESTIMATOR-C Yogesh Mai DISTRIBUTION ESTIMATOR Work Phone: [facility] [place] Work Phone: Encounters Encounter Date Encounter Type Care Provider Facility Start: 03-03-2025 ambulatory Fela Sterling DISTRIBUTION ESTIMATOR Fac ility:[facility] [place] Start: 02-25-2025 ambulatory Fela Sterling DISTRIBUTION ESTIMATOR Fac ility:[facility] [place] Start: 02-16-2025 End: 02-16-2025 Patient encounter procedure Fela Sterling DISTRIBUTION ESTIMATOR-C -[facility] Work Phone: Start: 02-16-2025 End: 02-16-2025 ambulatory Yogesh Mai DISTRIBUTION ESTIMATOR-C Work Phone: -[facility] Start: 01-14-2025 End: 01-14-2025 ambulatory Yogesh Mai DISTRIBUTION ESTIMATOR-C Work Phone: -[facility] Start: 01-14-2025 End: 01-14-2025 Patient encounter procedure Fela Sterling DISTRIBUTION ESTIMATOR-C -[facility] Work Phone: Start: 01-14-2025 End: 01-14-2025 ambulatory Yogesh Mai DISTRIBUTION ESTIMATOR Facility:[facility] [place] Start: 09-25-2024 End: 09-25-2024 ambulatory YOGESH MAI [facility] Start: 08-28-2024 End: 08-28-2024 ambulatory YOGESH MAI [facility] Start: 07-28-2024 End: 07-28-2024 Emergency department patient visit Yogesh Mia DISTRIBUTION ESTIMATOR Facility:[facility] [place] Start: 02-28-2024 End: 02-28-2024 ambulatory YOGESH MAI [facility] Start: 02-28-2024 Encounter for genera l adult medical examination without abnormal findings YOGESH MAI [facility] Start: 04-11-2023 Non-patient / Non-visit DISTRIBUTION ESTIMATOR-C Iram Mai DISTRIBUTION ESTIMATOR Work Phone: [facility] Start: 04-11-2023 End: 04-11-2023 ambulatory DISTRIBUTION ESTIMATOR-C Yogesh Mai DISTRIBUTION ESTIMATOR Work Phone: [facility] [place] Work Phone: Start: 04-11-2023 End: 04-11-2023 Patient encounter procedure DISTRIBUTION ESTIMATOR-C Yogesh Mai DISTRIBUTION ESTIMATOR Work Phone: [facility] [place]-Cardiovascular Services Work Phone: Start: 04-05-2023 End: 04-05-2023 Emergency department patient visit DISTRIBUTION ESTIMATOR-C Yogesh Mai DISTRIBUTION ESTIMATOR Work Phone: [facility] [place]-Emergency Department Work Phone: Start: 04-05-2023 ambulatory Mel Connelly RN NURSE MANAGER PERFORMANCE IMPROVEMENT Comment on above: Sudden Vision Loss R ight Eye Start: 02-08-2023 End: 02-08-2023 Emergency department patient visit YOGESH MAI [facility] Start: 02-08-2023 End: 02-08-2023 Emergency department patient visit Kai Ha DO Work Phone: [facility] Start: 01-10-2023 End: 01-10-2023 ambulatory DISTRIBUTION ESTIMATOR-C Yogesh Mai DISTRIBUTION ESTIMATOR Work Phone: [facility] [place] Work Phone: Start: 01-10-2023 End: 01-10-2023 Patient encounter procedure DISTRIBUTION ESTIMATOR-C Yogesh Mai DISTRIBUTION ESTIMATOR Work Phone: [facility] [place]-Cat Scan, [facility] Work Phone: Start: 01-06-2023 End: 01-06-2023 Patient encounter procedure DISTRIBUTION ESTIMATOR-C Yogesh Mai DISTRIBUTION ESTIMATOR Work Phone: [facility] [place] Work Phone: Start: 12-27-2022 Non-patient / Non-visit DISTRIBUTION ESTIMATOR-C Iram Mai DISTRIBUTION ESTIMATOR Work Phone: [facility] Start: 12-27-2022 End: 12-27-2022 ambulatory DISTRIBUTION ESTIMATOR-C Yogesh Mai DISTRIBUTION ESTIMATOR Work Phone: [facility] [place] Work Phone: Start: 12-27-2022 End: 12-27-2022 Patient encounter procedure DISTRIBUTION ESTIMATOR-C Yogesh Mai DISTRIBUTION ESTIMATOR Work Phone: [facility] [place]-Pulmonary Services/Neurology Work Phone: Start: 12-26-2022 End: 12-30-2022 ambulatory DISTRIBUTION ESTIMATOR-C Yogesh Mai DISTRIBUTION ESTIMATOR Work Phone: [facility] [place] Work Phone: Start: 12-26-2022 End: 12-30-2022 Discharged Recurring DISTRIBUTION ESTIMATOR-C Yogesh Mai DISTRIBUTION ESTIMATOR Work Phone: [facility] Work Phone: Start: 11-28-2022 End: 11-29-2022 ambulatory DISTRIBUTION ESTIMATOR-C Yogesh Mai DISTRIBUTION ESTIMATOR Work Phone: [facility] [place] Work Phone: Start: 11-28-2022 End: 11-29-2022 Discharged Recurring DISTRIBUTION ESTIMATOR-C Yogesh Mai DISTRIBUTION ESTIMATOR Work Phone: [facility] Work Phone: Start: 10-17-2022 End: 10-30-2022 ambulatory DISTRIBUTION ESTIMATOR-C Yogesh Mai DISTRIBUTION ESTIMATOR Work Phone: [facility] [place] Work Phone: Start: 10-17-2022 End: 10-30-2022 Discharged Recurring DISTRIBUTION ESTIMATOR-C Yogesh Mai DISTRIBUTION ESTIMATOR Work Phone: [facility] Start: 09-24-2022 End: 09-29-2022 ambulatory DISTRIBUTION ESTIMATOR-C Yogesh Mai DISTRIBUTION ESTIMATOR Work Phone: [facility] [place] Work Phone: Start: 09-24-2022 End: 09-29-2022 Discharged Recurring DISTRIBUTION ESTIMATOR-C Yogesh Mai DISTRIBUTION ESTIMATOR Work Phone: [facility] Start: 09-18-2022 End: 09-18-2022 Patient encounter procedure DISTRIBUTION ESTIMATOR-C Yogesh Mai DISTRIBUTION ESTIMATOR [facility] Start: 09-05-2022 Registered Recurring [facility] Start: 08-30-2022 End: 08-30-2022 Discharged Recurring DISTRIBUTION ESTIMATOR-C Yogesh Mai DISTRIBUTION ESTIMATOR Work Phone: [facility] Start: 08-30-2022 End: 08-30-2022 ambulatory DISTRIBUTION ESTIMATOR-C Yogesh Mai DISTRIBUTION ESTIMATOR Work Phone: [facility] [place] Work Phone: Start: 08-30-2022 End: 08-30-2022 Patient encounter procedure DISTRIBUTION ESTIMATOR-C Yogesh Mai DISTRIBUTION ESTIMATOR [facility] Phone: [facility] Start: 05-07-2022 End: 05-07-2022 Patient encounter procedure DISTRIBUTION ESTIMATOR-Eliceo Mai DISTRIBUTION ESTIMATOR [facility] Phone: [facility] Start: 04-05-2022 Non-patient / Non-visit DISTRIBUTION ESTIMATOR-C Iram Mai DISTRIBUTION ESTIMATOR Work Phone: [facility] [place] Start: 04-02-2022 End: 04-02-2022 ambulatory DISTRIBUTION ESTIMATOR-C Yogesh Mai DISTRIBUTION ESTIMATOR Work Phone: [facility] [place] Work Phone: Start: 04-02-2022 End: 04-02-2022 Patient encounter procedure DISTRIBUTION ESTIMATOR-Eliceo Mai DISTRIBUTION ESTIMATOR Work Phone: [facility] [place]-Pulmonary Services/Neurology Start: 04-02-2022 Non-patient / Non-visit DISTRIBUTION ESTIMATOR-C Iram Mai DISTRIBUTION ESTIMATOR Work Phone: [facility] Start: 04-01-2022 End: 04-01-2022 ambulatory DISTRIBUTION ESTIMATOR-C Yogesh Mai DISTRIBUTION ESTIMATOR Work Phone: [facility] [place] Work Phone: Start: 04-01-2022 End: 04-01-2022 Patient encounter procedure DISTRIBUTION ESTIMATOR-C Yogesh Mai DISTRIBUTION ESTIMATOR Work Phone: [facility] [place]-Pulmonary Services/Neurology Start: 03-27-2022 End: 03-27-2022 Patient encounter procedure DISTRIBUTION ESTIMATOR-C Yogesh Mai DISTRIBUTION ESTIMATOR Work Phone: [facility] [place]-[facility] Start: 02-27-2022 Non-patient / Non-visit DISTRIBUTION ESTIMATOR-C Iram Mai DISTRIBUTION ESTIMATOR Work Phone: [facility] Start: 02-27-2022 End: 02-27-2022 ambulatory DISTRIBUTION ESTIMATOR-C Yogesh Mai DISTRIBUTION ESTIMATOR Work Phone: [facility] [place] Work Phone: Start: 02-27-2022 End: 02-27-2022 Patient encounter procedure DISTRIBUTION ESTIMATOR-C Yogesh Mai DISTRIBUTION ESTIMATOR Work Phone: [facility] [place]-Cardiovascular Services Start: 06-19-2017 End: 10-10-2017 Ambulatory [facility] Procedures Date Procedure Procedure Detail Performing Clinician Start: 01-14-2025 CT of chest Yogesh perez DISTRIBUTION ESTIMATOR-C Work Phone: Start: 02-29-2024 PSA screening YOGESH MAS IS Comment on above: Performed By: #### [id number] #### [place] [address] Start: 02-28-2024 PSA screening YOGESH MAS IS Comment on above: Performed By: #### [id number] #### [place] [address] Start: 11-04-2023 CT angiography of he ad and neck DISTRIBUTION ESTIMATOR-C Yogesh Kendall DISTRIBUTION ESTIMATOR Work Phone: Start: 02-08-2023 Radiologic exam ches t 2 views Kai Ha DO Work Phone: Start: 02-08-2023 Ecg routine ecg w/le ast 12 lds w/i&r Kai Ha DO Work Phone: Start: 02-08-2023 Infectious agent dna /rna influenza 1st 2 types Kai Ha DO Work Phone: Start: 02-08-2023 SARS-COV-2 RAPID Kai Ha DO Work Phone: Start: 01-10-2023 CT of chest DISTRIBUTION ESTIMATOR-C Yogesh Mai DISTRIBUTION ESTIMATOR Work Phone: Start: 04-01-2022 Plain chest X-ray DISTRIBUTION ESTIMATOR-C Yogesh Mai DISTRIBUTION ESTIMATOR Work Phone: Plan of Treatment Date Care Activity Detail Author Start: 01-31-2023 Influenza vaccination INFLUENZA VACCINE (#1) [facility] Start: 06-02-2022 Depression Assessment Depression Assessment [facility] Start: 2021 Prostate Cancer Screening Discussion Prostate Cancer Screening Discussion [facility] Start: 03-18-2018 Tetanus vaccination TETANUS [facility] Start: 03-18-2018 Urine microalbumin profile DTaP,Tdap,Td Vaccine (2 - Td or Tdap) [facility] Start: 2016 Prostate specific antigen measurement PROSTATE CANCER SCREENING DISCUSSION [facility] Start: 2016 Shingrix Vaccine (1 of 2) Shingrix Vaccine (1 of 2) [facility] Start: 2016 Zoster vaccine hzv live for subcutaneous use ZOSTER (SHINGLES) VACCINE (1 of 2) [facility] Start: 08-17-2011 Cologuard (FIT-DNA) Cologuard (FIT-DNA) [facility] Start: 08-17-2011 Colonoscopy Colonoscopy [facility] Start: 08-17-2011 Colorectal Cancer Screening Colorectal Cancer Screening [facility] Start: 08-17-[address] Colonography [facility] Start: 08-17-2011 Diabetes Screening Diabetes Screening [facility] Start: 08-17-2011 Fecal Occult Blood Fecal Occult Blood [facility] Start: 08-17-2011 Screening for malignant neoplasm of colon COLORECTAL CANCER SCREENING DISCUSSION [facility] Start: 08-17-2011 Sigmoidoscopy Sigmoidoscopy [facility] Start: 2006 Lipid panel LIPID SCREENING [facility] Start: 2001 Lipid 1996 panel - Serum or Plasma Lipid Screening [facility] Start: 1984 Hepatitis C Screening Hepatitis C Screening [facility] Start: 1984 HIV Screening HIV Screening [facility] Start: 1981 HIV screening HIV SCREENING DISCUSSION [facility] Start: 02-16-1967 COVID-19 VACCINE (#1) COVID-19 VACCINE (#1) [facility] Start: 1966 Hepatitis B Vaccine (1 of 3 - 3-dose series) Hepatitis B Vaccine (1 of 3 - 3-dose series) [facility] Start: 1966 Hepatitis C screening HEPATITIS C VIRUS SCREENING [facility] Bilirubin measuremen t, urine [facility] [place] CT Chest [facility] Hemoglobin [Presence ] in Urine [facility] [place] Measurement of keton es in urine using dipstick [facility] [place] Measurement of respiratory function [facility] [place] Microscopic urinalysis [facility] Patient Education Understanding Vision Problems How the Eye Works [facility] [place] Work Phone: Patient referral [facility] Work Phone: pH of Urine [facility] Specific gravity of Urine [facility] Standard ECG ECG ECG STAT 01/2023 4:07 AM EDT [facility] Urinalysis, blood, qualitative [facility] [place] Urine dipstick for glucose [facility] [place] Urine dipstick for leukocyte esterase [facility] [place] Urine dipstick for nitrite [facility] [place] Urine dipstick for protein [facility] [place] Urine examination [facility] Urine microscopy: epithelial cells [facility] [place] Urine Microscopy: wh ite cells [facility] [place] Urobilinogen [Presen ce] in Urine [facility] [place] Immunizations Immunization Date Immunization Notes Care Provider David das 03-18-2008 tetanus toxoid, redu kenny diphtheria toxoid, and acellular pertussis vaccine, adsorbed Mel Connelly RN [facility] Payers Date Payer Category Payer Self-pay [id number] 2023 Unknown [id number] 2021 Private Health Insurance [id number] 2015 Private Health Insurance [id number] 2009 Unknown [employer] TPA [id number] 1965 Unknown [id number] 1966 Unknown [id number] 1966 Unknown [id number] 1966 Unknown [id number] Unknown [employer] [id number] Unknown SELF INSURED [facility] OTHER [id number] Unknown [facility] SHARED SERVI LAY [id number] Unknown [id number] Unknown [id number] Unknown [id number] Unknown [id number] Unknown [id number] Unknown [id number] Social History Date Type Detail Facility Start: 06-22-2017 End: 04-05-2023 Tobacco smoking status NHIS Unknown if ever smoked [facility] [place] Start: 1965 Sex Assigned At Male W [facility] Start: 06-19-2017 End: 02-08-2023 Tobacco smoking status NHIS Smokes tobacco daily [facility] History of tobacco use Cigarette Smoker M [facility] Start: 05-09-2020 End: 02-08-2023 Cigarettes smoked current (pack per day) - Reported 0.5 [facility] Start: 06-19-2017 End: 02-08-2023 Tobacco use and exposure Smokeless tobacco non-user [facility] Start: 02-08-2023 Alcohol intake Current drinke r of alcohol (finding) [facility] Start: 05-09-2020 End: 02-08-2023 Tobacco use panel [facility] [place] Start: 02-08-2023 Alcohol Comment socially [facility] Start: 1965 Sex Assigned At Not on file M [facility] Start: 01-29-2023 End: 02-08-2023 Exposure to SARS-CoV-2 (event) Not sure [facility] Start: 06-19-2017 Alcohol intake Not Asked [facility] National Score (1-10 0), lower number is lower risk Not on file [facility] Start: 07-28-2024 Tobacco smoking stat us NHIS Current some day smoker [facility] [place] Mental Status Date Assessment Result Facility 04-05-2023 Cognitive function Voice/Name [facility] Work Phone: Clinical Notes 08-22-2022 to 01-17-2025 Telephone Encounter - Mel Connelly RN - 04/05/2023 4:32 PM Vika Pearson RN - 02/08/2023 6:18 AM Vika Pearson RN - 02/08/2023 6:18 AM Elisa Ha DO - 02/08/2023 3:45 AM EDT Note Date & Type Note Facility 01-17-2025 Radiology Diagnostic study note [facility] Imaging Services [address] [place], [place] [address] Low Dose CT Lung Screening MR#: [id number] Acct: [id number] Name: YAQUELIN HENSON Rep #: [id number] : 1965 M 59 From: Salvatore Santoro MD PCP: NEDRA Johnston Status: REG CL Study:Low Dose CT Lung Screening Date of Exam : 01/14/25 Exam# [id number] Ordering Dr: Eliceo Sterling NP PROCEDURE: LOW DOSE CT LUNG SCREENING 01/14/2025 REASON FOR EXAM: SMOKING Long-time smoker. TECHNIQUE: LOW DOSE CT LUNG SCREENING Coronal and Sagittal reconstruction series were provided. One or more dose reduction techniques were used (e.g., Automated exposure control, adjustment of the mA and/or kV according to patient size, use of iterative reconstruction technique). REFERENCE LINK: [employer] Lung-RADS RADIATION DOSE SUMMARY: CTDlvol: 4.02 mGy DLP: 142.45 mGycm COMPARISON: Prior study dated January 15, 2024. FINDINGS: PULMONARY NODULES: (Only nodules >3mm are reported) Nodules described below are on series 1 unless otherwise specified. Pulmonary Nodules: No suspicious nodules are seen. Hardware:None Lymph Nodes:Small mediastinal and axillary lymph nodes. Heart and Vasculature:The heart is nonenlarged.Atherosclerotic calcification of the aortic arch. Coronary Artery Calcifications: Present Lungs and Airways: Mild emphysematous changes are present. No suspicious nodules are seen. Pleura:Unremarkable Upper Abdomen:Unremarkable Bones:Degenerative changes of the thoracic spine. CT/Low Dose CT Lung Screening IMPRESSION: No suspicious pulmonary nodule seen. Coronary artery calcification (CAC) is is present Lung-RADS Category: 2 BENIGN (BASED ON IMAGING FEATURES OR INDOLENT BEHAVIOR). RECOMMEND 12-MONTH SCREENING LDCT. Other Significant Findings: Reading Location: [id number] CC: NEDRA Sterling; NEDRA Mai ~ Automatic Hemmer: Signed [facility] [place] 04-05-2023 Miscellaneous Notes Reason for Call: About 15-20 minutes before call, patient suddenly lost vision to the right eye. Episode lasted for 5 minutes. Pt states that he was seeing black dots where parts of his vision was no longer present. Pt states that the vision to the right eye is almost back to baseline. Pt is experiencing some blurry vision to the right eye. No other symptoms with vision loss. Outcome: Go to the ER now. Advised patient's spouse to drive patient to the ER for evaluation. Advised patient and patient's spouse if new symptoms occur, symptoms worsen, 911 can be called. Patient and patient spouse verbalize understanding. Reason for Disposition Complete loss of vision in one or both eyes Protocols used: Vision Loss or [id number] documented in this encounter [facility] 03-30-2023 Hospital Discharg e instructions Additional Instructions You are to start an 81 mg aspirin. You need to follow-up with the eye clinic, you are provided the number. Call Friday to get a an appointment this week. Return for any worsening symptoms. [facility] [place] Work Phone: 02-08-2023 Emergency department Note Discharge instructions to patient and . Understanding verbalized. Discharged to home ambulatory with steady gait with all his belongings accompanied by . No questions offered regarding discharge instructions or follow up [facility] 02-08-2023 Emergency department Note Discharge instructions to patient and . Understanding verbalized. Discharged to home ambulatory with steady gait with all his belongings accompanied by . No questions offered regarding discharge instructions or follow up [facility] Emergency Department [address] [place] [address] Chief Complaint Chief Complaint Patient presents with Cough History of Present Illness Yaquelin Henson is a pleasant 57 y.o. male with cough since yesterday. And history of flu and pneumonia last year and wanted to get checked out before it became more severe. He also has some watery eyes and runny nose and is concerned he may have allergies. He denies any chest pain, sore throat, nausea, vomiting, or diarrhea. Review of Systems Review of systems has been obtained and pertinent positives are noted above. See HPI for further details. Review of systems otherwise negative. Past Medical History Past Medical History: Diagnosis Date Asthma COPD (chronic obstructive pulmonary disease) Essential hypertension, benign Hyperlipidemia Family History History reviewed. No pertinent family history. Social History Social History Socioeconomic History Marital status: Tobacco Use Smoking status: Every Day Packs/day: 0.50 Types: Cigarettes Smokeless tobacco: Never Substance and Sexual Activity Alcohol use: Yes Comment: socially Drug use: Never Surgical History Past Surgical History: Procedure Laterality Date SHOULDER SURGERY Right Current Medications Current Outpatient Medications Medication Sig Albuterol 108 (90 Base) MCG/ACT Aero Soln inhaler Inhale 2 puffs every 6 hours as needed for Shortness of Breath. Atorvastatin 10 MG tablet Take 1 tablet by mouth daily. buPROPion 150 MG tablet SR Take 1 tablet by mouth 2 times daily. furOSEmide 20 MG tablet Take 1 tablet by mouth daily every morning. losartan-hydrochlorothiazide 100-25 MG tablet Take 1 tablet by mouth daily. Trelegy Ellipta 200-62.5-25 MCG/ACT Aerosol Powder, breath activated Inhale 1 puff daily. Azithromycin 250 MG tablet Take 1 tablet (250 mg) daily on Days 2-5 predniSONE 20 MG tablet Take 3 tablets by mouth daily for 4 days. Allergies No Known Allergies Physical Exam VITAL SIGNS: BP 138/83 Pulse 72 Temp 98.2 F (36.8 C) (Oral) Resp 20 Ht 1.727 m (5' 8) Wt 127 kg (280 lb) SpO2 95% BMI 42.57 kg/m Smoking Status Every Day Constitutional: Well developed, Non-toxic appearance. HENT: Normocephalic, Bilateral external ears normal, Oropharynx moist without erythema, No oral exudates, Nose normal. Airway intact. No palpable neck mass. Eyes: PERRLA, EOMI, Conjunctiva normal, No discharge. Neck: Normal range of motion. No meningismus. No JVD. Supple. Lymphatic: No lymphadenopathy noted. Cardiovascular: Regular, normal heart rate, Normal rhythm, No murmur. Thorax & Lungs: Equal breath sounds bilateral, No respiratory distress, No rhonchi, rales or wheezing. Abdomen: Bowel sounds normal, Soft, nondistended. No tenderness, No masses, No pulsatile masses. No abdominal bruit. Skin: Warm, Dry, No erythema, No rash. Back: No spinal tenderness, No CVA tenderness. Extremities: Intact distal pulses, No edema, No cyanosis, No tenderness. No deformity. Musculoskeletal: No major deformities noted. Neurologic: Alert & oriented x 4, Normal motor function, Normal sensory function, No focal deficits noted. EKG Interpreted my myself: Normal sinus rhythm, no ST or T-wave abnormalities concerning for acute ischemia, no arrhythmia. Labs/Radiology/Procedures Medications Albuterol sulfate (PROVENTIL) inhalation solution 2.5 mg (2.5 mg Nebulization Given 02/08/23 0410) Ipratropium (ATROVENT) 0.02 % inhalation solution 0.5 mg (0.5 mg Nebulization Given 02/08/23 0410) predniSONE (DELTASONE) tablet 60 mg (60 mg Oral Given 02/08/23 0600) Azithromycin (ZITHROMAX) tablet 500 mg (500 mg Oral Given 02/08/23 0603) Results for orders placed or performed during the hospital encounter of 02/08/23 SARS-COV-2 RAPID Specimen: Fluid/Swab Result Value Ref Range SARS-CoV-2 RNA Negative Negative INFLUENZA A/B RAPID MOLECULAR Result Value Ref Range Influenza A, molecular Negative Negative Influenza B, molecular Negative Negative XR CHEST PA AND LATERAL Final Result IMPRESSION: COPD though no acute focal infiltrate. ED Course & Medical Decision Making Yaquelin Henson is a pleasant 57 y.o. malewho present Pertinent Labs & Imaging studies reviewed and interpreted by myself. (See chart for details) I have reviewed the nursing triage summary. Chest x-ray was negative. Flu is negative. Patient's symptoms appear consistent with a COPD exacerbation that may have been started secondary to some environmental allergies versus viral versus early bacterial response though no evidence of pneumonia. Discussed treatment with prednisone and attempted a DuoNeb here in the emergency department that he did not feel relieves his symptoms very much. He is satting well on room air. He has a rescue inhaler for home. He did receive a dose of prednisone and azithromycin while in the emergency department. He would like to complete a course of antibiotics considering his history including a bacterial pneumonia in the past. I believe this is appropriate. He was discharged with those 2 medications and in stable condition. Patient expressed understanding and comfort with that plan prior to discharge as well as understanding he is to follow up with his primary care provider back home. I have discussed the potential need for return to the emergency department for reevaluation if symptoms change. Final Impression 1. COPD with acute exacerbation Acute Electronically Signed By: Kai Ha DO 02/08/2023 Kai Ha DO 02/08/23 0616 Cough since yesterday. Is visiting at [place]. He had flu and pneumonia last year and he wants to get checked before it gets too bad. He thinks it might be allergies as he has had watery eyes and runny nose. No sore throat. No chest pain. No n/v/d. Here with his . documented in this encounter [facility] 02-08-2023 Physician Emergency department Note [facility] Emergency Department [address] [place] [address] Chief Complaint Chief Complaint Patient presents with Cough History of Present Illness Yaquelin Henson is a pleasant 57 y.o. male with cough since yesterday. And history of flu and pneumonia last year and wanted to get checked out before it became more severe. He also has some watery eyes and runny nose and is concerned he may have allergies. He denies any chest pain, sore throat, nausea, vomiting, or diarrhea. Review of Systems Review of systems has been obtained and pertinent positives are noted above. See HPI for further details. Review of systems otherwise negative. Past Medical History Past Medical History: Diagnosis Date Asthma COPD (chronic obstructive pulmonary disease) Essential hypertension, benign Hyperlipidemia Family History History reviewed. No pertinent family history. Social History Social History Socioeconomic History Marital status: Tobacco Use Smoking status: Every Day Packs/day: 0.50 Types: Cigarettes Smokeless tobacco: Never Substance and Sexual Activity Alcohol use: Yes Comment: socially Drug use: Never Surgical History Past Surgical History: Procedure Laterality Date SHOULDER SURGERY Right Current Medications Current Outpatient Medications Medication Sig Albuterol 108 (90 Base) MCG/ACT Aero Soln inhaler Inhale 2 puffs every 6 hours as needed for Shortness of Breath. Atorvastatin 10 MG tablet Take 1 tablet by mouth daily. buPROPion 150 MG tablet SR Take 1 tablet by mouth 2 times daily. furOSEmide 20 MG tablet Take 1 tablet by mouth daily every morning. losartan-hydrochlorothiazide 100-25 MG tablet Take 1 tablet by mouth daily. Trelegy Ellipta 200-62.5-25 MCG/ACT Aerosol Powder, breath activated Inhale 1 puff daily. Azithromycin 250 MG tablet Take 1 tablet (250 mg) daily on Days 2-5 predniSONE 20 MG tablet Take 3 tablets by mouth daily for 4 days. Allergies No Known Allergies Physical Exam VITAL SIGNS: BP 138/83 Pulse 72 Temp 98.2 F (36.8 C) (Oral) Resp 20 Ht 1.727 m (5' 8) Wt 127 kg (280 lb) SpO2 95% BMI 42.57 kg/m Smoking Status Every Day Constitutional: Well developed, Non-toxic appearance. HENT: Normocephalic, Bilateral external ears normal, Oropharynx moist without erythema, No oral exudates, Nose normal. Airway intact. No palpable neck mass. Eyes: PERRLA, EOMI, Conjunctiva normal, No discharge. Neck: Normal range of motion. No meningismus. No JVD. Supple. Lymphatic: No lymphadenopathy noted. Cardiovascular: Regular, normal heart rate, Normal rhythm, No murmur. Thorax & Lungs: Equal breath sounds bilateral, No respiratory distress, No rhonchi, rales or wheezing. Abdomen: Bowel sounds normal, Soft, nondistended. No tenderness, No masses, No pulsatile masses. No abdominal bruit. Skin: Warm, Dry, No erythema, No rash. Back: No spinal tenderness, No CVA tenderness. Extremities: Intact distal pulses, No edema, No cyanosis, No tenderness. No deformity. Musculoskeletal: No major deformities noted. Neurologic: Alert & oriented x 4, Normal motor function, Normal sensory function, No focal deficits noted. EKG Interpreted my myself: Normal sinus rhythm, no ST or T-wave abnormalities concerning for acute ischemia, no arrhythmia. Labs/Radiology/Procedures Medications Albuterol sulfate (PROVENTIL) inhalation solution 2.5 mg (2.5 mg Nebulization Given 02/08/23 0410) Ipratropium (ATROVENT) 0.02 % inhalation solution 0.5 mg (0.5 mg Nebulization Given 02/08/23 0410) predniSONE (DELTASONE) tablet 60 mg (60 mg Oral Given 02/08/23 0600) Azithromycin (ZITHROMAX) tablet 500 mg (500 mg Oral Given 02/08/23 0603) Results for orders placed or performed during the hospital encounter of 02/08/23 SARS-COV-2 RAPID Specimen: Fluid/Swab Result Value Ref Range SARS-CoV-2 RNA Negative Negative INFLUENZA A/B RAPID MOLECULAR Result Value Ref Range Influenza A, molecular Negative Negative Influenza B, molecular Negative Negative XR CHEST PA AND LATERAL Final Result IMPRESSION: COPD though no acute focal infiltrate. ED Course & Medical Decision Making Yaquelin Henson is a pleasant 57 y.o. malewho present Pertinent Labs & Imaging studies reviewed and interpreted by myself. (See chart for details) I have reviewed the nursing triage summary. Chest x-ray was negative. Flu is negative. Patient's symptoms appear consistent with a COPD exacerbation that may have been started secondary to some environmental allergies versus viral versus early bacterial response though no evidence of pneumonia. Discussed treatment with prednisone and attempted a DuoNeb here in the emergency department that he did not feel relieves his symptoms very much. He is satting well on room air. He has a rescue inhaler for home. He did receive a dose of prednisone and azithromycin while in the emergency department. He would like to complete a course of antibiotics considering his history including a bacterial pneumonia in the past. I believe this is appropriate. He was discharged with those 2 medications and in stable condition. Patient expressed understanding and comfort with that plan prior to discharge as well as understanding he is to follow up with his primary care provider back home. I have discussed the potential need for return to the emergency department for reevaluation if symptoms change. Final Impression 1. COPD with acute exacerbation Acute Electronically Signed By: Kai Ha DO 02/08/2023 Kai Ha DO 02/08/2316 [facility] 02-08-2023 Emergency department Note Cough since yesterday. Is visiting at [place]. He had flu and pneumonia last year and he wants to get checked before it gets too bad. He thinks it might be allergies as he has had watery eyes and runny nose. No sore throat. No chest pain. No n/v/d. Here with his . [facility] 12-27-2022 Procedure note [facility] 12-26-2022 Progress note Note Date/Time December 26, 2022 10:49am [facility] [address] [place] [address] Progress Note - Wound Care 12/26/22 1048 MR#: [id number] Acct: [id number] Name: YAQUELIN HENSON Rep #:[id number] : 1965 57 From: Felipe jessica DPM PCP: NEDRA Johnston Status:REG RCR Location: History of Present Illness Date of Service: 12/26/22 Chief Complaint: Left lower extremity wound x3 History of Wound: Patient is a 57-year-old male with history of COPD, chronic tobacco abuse, obesity, swelling of bilateral lower extremities with recent opening of 3 ulcerations to the left lower extremity. Patient states that when sitting at the computer he sometimes uses a back j2ee application developer to aggressively scratch his legs and believes this led to opening of the 3 wounds on the left lower extremity. He states that he does not elevate his legs and does not wear compression stockings. Also states that he recently quit smoking. Reports seeing his PCP who prescribed Lasix to aid in fluid reduction of the lower extremities. He also reports being prescribed oral antibiotic, Bactrim DS and is currently taking this. States he was referred to the wound care center for continued care of his left lower extremity ulcerations. Subjective Subjective Patient is a 57-year-old male who presents to the wound care center today for follow-up of left lower extremity ulceration.? He is continuing to wear his Tubigrip compression. He states he recently returned from vacation in [place] and was not wearing a dressing or covering over the site of the time. He reports the wound has healed and he denies any drainage from the left leg.?Hedenies any constitutional symptoms today.? Denies any further complaints today. Objective Data Objective Data Vital Signs: Vital Signs Temp Pulse Resp BP O2 Del Method 96.8 F L 76 16 136/85 H Room Air 12/26/22 10:33 12/26/22 10:33 12/26/22 10:33 12/26/22 10:33 12/26/22 10:33 Oxygen Delivery Method Room Air Weight: 129.274 kg Body Mass Index (BMI) 44.6 Physical Exam Const alert, oriented x3, no apparent distress and well nourished General Appearance: cooperative HEENT normocephalic Eyes General Eye: normal appearance of both eyes Neck General: normal visual inspection Lymph Lymphatic: no lymphadenopathy noted and no lymphedema noted Resp normal respiratory effort Cardio regular rate and regular rhythm Extremity normal capillary refill, no joint enlargement, no calf tenderness and no pedal edema Extremity Narrative: DP and PT pulses palpable bilateral.? Capillary fill time is brisk to the digits.? Normal temperature gradient.? Hair growth to the digits is diminished.?There is some mild nonpitting lower extremity edema bilateral from mid calf to the distal forefoot. Musculoskeletal: Muscle strength 5 out of 5 and age-appropriate.? Negative Homans' sign.? Negative Lester sign. Skin no rashes or lesions noted, skin turgor normal and no jaundice Wound Narrative: Left lower extremity: Ulceration left lower extremity has healed. There is darkened discoloration of the skin consistent with hemosiderin deposition. No signs of infection. Neuro moves all extremities Debridement Note Debridement Note No debridement was completed: No debridement was completed today Post-Debridement Measurements and Additional Note: Post-Debridement Measurements/Treatment - Nurse 1 - General Ulcer Assessment Start: 12/05/22 10:56 Freq: Status: Active Protocol: XIMENA Activity Type Activity Date Activity User E-sign Co-sign Detail Recorded Client Recorded Date Recorded By Document 12/05/22 11:02 FL [id number] 12/05/22 11:04 AK Document 12/26/22 10:33 KW Desktop 12/26/22 10:39 KW 12/05/22 12/26/22 11:02 10:33 - Today's Visit Information Type of service Follow-up Visit Follow-up Visit (Physician/LIVE IN CAREGIVER (Physician/LIVE IN CAREGIVER ) ) Arrival Mode Ambulatory Ambulatory Patient Identification Verified (Name & Yes ) Patient Requires Transmission-Based No Precautions Safety Precautions NA Height and Weight Body Mass Index (BMI) 44.6 44.6 BMI Classification Obese Obese Vital Signs Temperature (97.8 F-99.1 F) 96.5 F L 96.8 F L Temperature Source Temporal Temporal Pulse Rate (60-100) 78 76 Pulse Location Monitor Monitor Respiratory Rate (12-18) 16 Respiratory rate source Observation Oxygen Delivery Method Room Air Blood Pressure (90/60-120/80) 138/81 H 136/85 H Blood Pressure Mean (mm Hg) 100 102 Source Monitor Monitor Position Semi-Fowlers Blood Pressure Location Left Forearm History Since Last Visit- (Skip if this is Patient's initial visit) Have you changed medications since your No No last visit? Any new allergies or adverse reactions No No Had a fall/change in ADL's that may No No increase risk of falls Signs or symptoms of abuse and/or No No neglect since last visit Have you been in the hospital since your No Yes last visit? Has dressing in place as prescribed Yes No Has compression in place as prescribed Yes No Has offloadiing in place as prescribed N/A No Experienced any changes in pain level or No No management Left Footwear Regular Shoe Regular Shoe Right Footwear Regular Shoe Regular Shoe Pain Scale: 0-10 Numeric Is Patient Pain Free? Yes Yes WC - Nurse 1 - General Ulcer Measurement Start: 12/05/22 10:56 Freq: Status: Active Protocol: Activity Type Activity Date Activity User E-sign Co-sign Detail Recorded Client Recorded Date Recorded By Document 12/05/22 11:02 FL [id number] 12/05/22 11:04 AK Document 12/26/22 10:33 KW Desktop 12/26/22 10:39 KW 12/05/22 12/26/22 11:02 10:33 Wound Center Nurse 1 #1 L salmeron -Combined with other wound No -Current Size (cm) - Length 6 0.1 -Current Size (cm) - Width 8 0.1 -Current Size (cm) - Depth 1 0.1 -Total Square Cm 48 0.01 -Date of Last Picture (Recall this 12/05/22 field) -Photo Taken Yes No -Tunneling No No -Undermining/Tunneling No No -Circular Undermining No No -Change in Wound Grade/Stage No -Exudate Amt Large Small -Exudate Type Serosanguineous Serous -Wound Margin Distinct, Distinct, Outline Outline Attached Attached -Granulation Amt Medium (34-66%) -Granulation Quality [place] -Slough/Fibrin Yes -Necrosis Amt Medium (34-66%) -Necrotic Tissue Type Adherent Slough -Structure Exposed N/A -Texture (Myriam-wound Skin Appearance) No Abnormality, Assessed Assessed, Friable -Moisture (Myriam-wound Skin Appearance) Assessed, Assessed Maceration -Color (Myriam-wound Skin Appearance) No Abnormality, Assessed Assessed, Erythema,Palor -Temperature (Myriam-wound Skin No Abnormality No Abnormality Appearance) (Pt Warm) (Pt Warm) -Tenderness on Palpation (Myriam-wound No Skin Appearance) -Ulcer Cleansing Soap and Water Rinsed/ Irrigated with Saline -Foul Odor after Cleansing No No -Anesthetic Used 5% Lidocaine 5% Lidocaine Gel Gel Left Calf (cm) 42 48.7 Left Ankle (cm) 30 38.5 WC - Nurse 2 - General Ulcer CM Notes Start: 12/05/22 10:56 Freq: Status: Active Protocol: Activity Type Activity Date Activity User E-sign Co-sign Detail Recorded Client Recorded Date Recorded By Document 12/05/22 12:12 GERMAINE [id number] 12/05/22 12:13 PL 12/05/22 12:12 Wound Center Nurse 2 #1 L salmeron -Time 11:36 -Correct Patient Yes -Correct Side, Site, Position Yes -Correct Procedure Yes -Procedure Performed Yes -Type of Procedure Debridement -Clinical Debridement Subcutaneous -Tissue Removed Subcutaneous -Post Debridement (cm) - Length 3.0 -Post Debridement (cm) - Width 1.5 -Post Debridement (cm) - Depth 0.1 -Total Square (Post) (cm) 4.50 -Area of Debridement (cm) - Length 3.0 -Area of Debridement (cm) - Width 1.5 -Total Square (Area) (cm) 4.50 -Tunneling No -Undermining/Tunneling No -Circular Undermining No -Wound/Ulcer Outcome Not Healed -Ulcer Cleansing Rinsed/ Irrigated with Saline -Foul Odor after Cleansing No -Bioengineered Tissue No -Bleeding Controlled with Pressure -Treatment Response Procedure Tolerated Well -Debridement - Subq, 1st 20sq cm Yes Pain Scale: 0-10 Numeric Is Patient Pain Free? Yes - Nurse 3 - General Ulcer D/C NN Start: 12/05/22 10:56 Freq: Status: Active Protocol: Activity Type Activity Date Activity User E-sign Co-sign Detail Recorded Client Recorded Date Recorded By Document 12/05/22 11:47 MILTON [id number] 12/05/22 11:48 MILTON 12/05/22 11:47 Wound Care Center Nurse 3 #1 L salmeron -Ulcer Cleansing Rinsed/ Irrigated with Saline -Primary Dressing Applied Aquacel Extra -Primary Dressing Covered/Secured with Dry Gauze & Roll Gauze, Secured with Tape -Aquacel Extra 1 LLE -Tubular Bandage Double Layer -Size of Tubigrip Used Size E -Size E ($) 2 Pain Scale: 0-10 Numeric Is Patient Pain Free? Yes WC - Visit Discharge Discharge Condition Stable Ambulatory Status Ambulatory Transportation Private Auto Medication Reconcilliation completed & No provided to patient/care provider Clinical Summary of Care Provided Yes Assessment/Plan Assessment/Plan (1) Bilateral edema of lower extremity: CODE(S): R60.0 - Localized edema (2) Non-pressure chronic ulcer of left calf with fat layer exposed: CODE(S): L97.222 - Non-pressure chronic ulcer of left calf with fat layer exposed (3) Venous insufficiency (chronic) (peripheral): CODE(S): I87.2 - Venous insufficiency (chronic) (peripheral) (4) BMI 40.0-44.9, adult: CODE(S): Z68.41 - Body mass index [BMI] 40.0-44.9, adult (5) Dyspnea: CODE(S): R06.00 - Dyspnea, unspecified (6) Tobacco abuse: CODE(S): Z72.0 - Tobacco use (7) Stage 3 severe COPD by GOLD classification: CODE(S): J44.9 - Chronic obstructive pulmonary disease, unspecified PLAN: Plan Patient seen and evaluated Discussed the swelling in the bilateral lower extremities with his ulcerations secondary to aggressive scratching with a back scratching device.? Discouraged continued use of this device as this has likely led to his ulcerations.? Per our discussion he has stopped utilizing this device to aid in scratching.? Encouraged continued elevation of lower extremities for control of edema.? Patient is noted to be on Lasix to assist in fluid control.? Instructed him to continue use of Lasix.? Discussed compression stocking for continued assistance in his control of edema.? He voices understanding that he does need to wear the compression stockings. He has stopped smoking.? I did discuss the risks and detriment smoking has on wound healing and overall health, again smoking was discouraged.? Encouraged his continued smoking cessation. Ordered LEAS and venous studies of bilateral lower extremities, performed 08/30/2022.? Venous studies: No evidence of acute DVT.? 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 Accessory saphenous vein in the left proximal thigh and proximal calf are incompetent. LEAS: Triphasic Doppler waveforms noted at the ankle level bilaterally.? PVRs appear normal at all levels bilaterally.? Indices: Right: QUETA by DP 1.3, QUETA by PT 1.36, digital brachial index 0.99.? Left: QUETA by DP 1.26, QUETA by PT 1.39, digital brachial index 0.72.? No evidence of significant arterial occlusive disease in the lower extremity bilaterally. Ulceration to the left lower extremity remains healed. ?No signs of infection.? Discussed dressing with dry gauze to the site daily for next 7 to 10 days and Tubigrip compression. Encouraged to continue clean up his diet of fast food and lower sodium intake to aid in edema control. Recommended continued use of compression stockings. The following work up and care recommendations were made: Dressing: None Wash: Soap and water Tissue growth optimization: None Offload: Double Tubigrip and elevation of legs Vascular: DP and PT pulses palpable with adequate capillary fill bilateral. Edema: Double Tubigrip and elevation of legs Infection: No signs of infection.? Pain: May take [id number] Tylenol for discomfort Host factors: Suspected venous insufficiency, pruritus and self excoriation. Due to healed status he is being discharged from the wound care center today. ? I answered all the patient's questions.? To return to the wound healing center as needed or call sooner if the patient has any questions or concerns. 12/26/22 1114 <Electronically signed by Felipe Whitt DPM> Cosigner Signature (if applicable): CC: ~ Signed [facility] [place] Work Phone: [phone] 537-757807-06-2023 Progress note Author Felipe Whitt [facility] December 05, 2022 1:20pm Note Date/Time December 05, 2022 1:20p [facility] [place] [address] Progress Note - Wound Care 12/05/22 1314 MR#: [id number] Acct: [id number] Name: YAQUELIN HENSON Rep #:[id number] : 1965 57 From: Felipe jessica DPM PCP: NEDRA Johnston Status:REG RCR Location: History of Present Illness Date of Service: 12/05/22 Chief Complaint: Left lower extremity wound x3 History of Wound: Patient is a 57-year-old male with history of COPD, chronic tobacco abuse, obesity, swelling of bilateral lower extremities with recent opening of 3 ulcerations to the left lower extremity. Patient states that when sitting at the computer he sometimes uses a back j2ee application developer to aggressively scratch his legs and believes this led to opening of the 3 wounds on the left lower extremity. He states that he does not elevate his legs and does not wear compression stockings. Also states that he recently quit smoking. Reports seeing his PCP who prescribed Lasix to aid in fluid reduction of the lower extremities. He also reports being prescribed oral antibiotic, Bactrim DS and is currently taking this. States he was referred to the wound care center for continued care of his left lower extremity ulcerations. Subjective Subjective Patient is a 57-year-old male who presents to the wound care center today for follow-up of left lower extremity ulceration.? He is continuing to wear his Tubigrip compression. He has been changing dressings daily with collagen powder and bandaid.?He denies any constitutional symptoms today.? Denies any further complaints today. Objective Data Objective Data Vital Signs: Vital Signs Temp Pulse Resp BP 96.5 F L 78 20 H 138/81 H 12/05/22 11:02 12/05/22 11:02 11/30/22 01:22 12/05/22 11:02 Weight: 129.274 kg Body Mass Index (BMI) 44.6 Physical Exam Const alert, oriented x3, no apparent distress and well nourished General Appearance: cooperative HEENT normocephalic Eyes General Eye: normal appearance of both eyes Neck General: normal visual inspection Lymph Lymphatic: no lymphadenopathy noted and no lymphedema noted Resp normal respiratory effort Cardio regular rate and regular rhythm Extremity normal capillary refill, no joint enlargement, no calf tenderness and no pedal edema Extremity Narrative: DP and PT pulses palpable bilateral.? Capillary fill time is brisk to the digits.? Normal temperature gradient.? Hair growth to the digits is diminished.?There is some mild nonpitting lower extremity edema bilateral from mid calf to the distal forefoot. Musculoskeletal: Muscle strength 5 out of 5 and age-appropriate.? Negative Homans' sign.? Negative Lester sign. Skin no rashes or lesions noted, skin turgor normal and no jaundice Wound Narrative: Left lower extremity: ulceration noted to the left lower extremity.? #1 anteriorleg proximal; #2 Superior lateral leg -healed; #3 distal lateral leg -healed; #4& #5 anterior leg distal-healed.? Ulcerative sites demonstrate moist fibrotic tissue in the wound bed with scant serous drainage.? No purulent drainage, no erythema, no malodor, no palpable fluctuance/bogginess, no visible abscess, no lymphangitic streaking. Neuro moves all extremities Debridement Note Debridement Note Wound debrided: Left anterior lower extremity Laterality: Left Wound Grade/Stage: Sheth stage I Type of Debridement: Excisional debridement Anesthesia Used: 5% Lidocaine Gel Depth: Down to and including healthy tissue and in the subcutaneous layer Percentage of wound debrided: 100 Instrument Used: 3mm curette Tissue Removed: Fibrous, devitalized subcutaneous, biofilm, slough Severity: Fat Layer Exposed Amount of bleeding with debridement: Mild Bleeding Controlled with: Compression and gauze Patient tolerated procedure: Patient tolerated procedure well Post-Debridement Measurements and Additional Note: Post-Debridement Measurements/Treatment - Nurse 1 - General Ulcer Assessment Start: 12/05/22 10:56 Freq: Status: Active Protocol: LEONIDES.LOWEXIdalmis Activity Type Activity Date Activity User E-sign Co-sign Detail Recorded Client Recorded Date Recorded By Document 12/05/22 11:02 TORREY [id number] 12/05/22 11:04 TORREY 12/05/22 11:02 - Today's Visit Information Type of service Follow-up Visit (Physician/LIVE IN CAREGIVER ) Arrival Mode Ambulatory Patient Identification Verified (Name & Yes ) Patient Requires Transmission-Based No Precautions Height and Weight Body Mass Index (BMI) 44.6 BMI Classification Obese Vital Signs Temperature (97.8 F-99.1 F) 96.5 F L Temperature Source Temporal Pulse Rate (60-100) 78 Pulse Location Monitor Blood Pressure (90/60-120/80) 138/81 H Blood Pressure Mean (mm Hg) 100 Source Monitor History Since Last Visit- (Skip if this is Patient's initial visit) Have you changed medications since your No last visit? Any new allergies or adverse reactions No Had a fall/change in ADL's that may No increase risk of falls Signs or symptoms of abuse and/or No neglect since last visit Have you been in the hospital since your No last visit? Has dressing in place as prescribed Yes Has compression in place as prescribed Yes Has offloadiing in place as prescribed N/A Experienced any changes in pain level or No management Left Footwear Regular Shoe Right Footwear Regular Shoe Pain Scale: 0-10 Numeric Is Patient Pain Free? Yes WC - Nurse 1 - General Ulcer Measurement Start: 12/05/22 10:56 Freq: Status: Active Protocol: Activity Type Activity Date Activity User E-sign Co-sign Detail Recorded Client Recorded Date Recorded By Document 12/05/22 11:02 TORREY [id number] 12/05/22 11:04 TORREY 12/05/22 11:02 Wound Center Nurse 1 #1 L salmeron -Combined with other wound No -Current Size (cm) - Length 6 -Current Size (cm) - Width 8 -Current Size (cm) - Depth 1 -Total Square Cm 48 -Date of Last Picture (Recall this 12/05/22 field) -Photo Taken Yes -Tunneling No -Undermining/Tunneling No -Circular Undermining No -Change in Wound Grade/Stage No -Exudate Amt Large -Exudate Type Serosanguineous -Wound Margin Distinct, Outline Attached -Granulation Amt Medium (34-66%) -Granulation Quality [place] -Slough/Fibrin Yes -Necrosis Amt Medium (34-66%) -Necrotic Tissue Type Adherent Slough -Structure Exposed N/A -Texture (Myriam-wound Skin Appearance) No Abnormality, Assessed, Friable -Moisture (Myriam-wound Skin Appearance) Assessed, Maceration -Color (Myriam-wound Skin Appearance) No Abnormality, Assessed, Erythema,Palor -Temperature (Myriam-wound Skin No Abnormality Appearance) (Pt Warm) -Tenderness on Palpation (Myriam-wound No Skin Appearance) -Ulcer Cleansing Soap and Water -Foul Odor after Cleansing No -Anesthetic Used 5% Lidocaine Gel Left Calf (cm) 42 Left Ankle (cm) 30 - Nurse 2 - General Ulcer CM Notes Start: 12/05/22 10:56 Freq: Status: Active Protocol: Activity Type Activity Date Activity User E-sign Co-sign Detail Recorded Client Recorded Date Recorded By Document 12/05/22 12:12 PL [id number] 12/05/22 12:13 PL 12/05/22 12:12 Wound Center Nurse 2 #1 L salmeron -Time 11:36 -Correct Patient Yes -Correct Side, Site, Position Yes -Correct Procedure Yes -Procedure Performed Yes -Type of Procedure Debridement -Clinical Debridement Subcutaneous -Tissue Removed Subcutaneous -Post Debridement (cm) - Length 3.0 -Post Debridement (cm) - Width 1.5 -Post Debridement (cm) - Depth 0.1 -Total Square (Post) (cm) 4.50 -Area of Debridement (cm) - Length 3.0 -Area of Debridement (cm) - Width 1.5 -Total Square (Area) (cm) 4.50 -Tunneling No -Undermining/Tunneling No -Circular Undermining No -Wound/Ulcer Outcome Not Healed -Ulcer Cleansing Rinsed/ Irrigated with Saline -Foul Odor after Cleansing No -Bioengineered Tissue No -Bleeding Controlled with Pressure -Treatment Response Procedure Tolerated Well -Debridement - Subq, 1st 20sq cm Yes Pain Scale: 0-10 Numeric Is Patient Pain Free? Yes - Nurse 3 - General Ulcer D/C NN Start: 12/05/22 10:56 Freq: Status: Active Protocol: Activity Type Activity Date Activity User E-sign Co-sign Detail Recorded Client Recorded Date Recorded By Document 12/05/22 11:47 [id number] 12/05/22 11:48 12/05/22 11:47 Wound Care Center Nurse 3 #1 L salmeron -Ulcer Cleansing Rinsed/ Irrigated with Saline -Primary Dressing Applied Aquacel Extra -Primary Dressing Covered/Secured with Dry Gauze & Roll Gauze, Secured with Tape -Aquacel Extra 1 LLE -Tubular Bandage Double Layer -Size of Tubigrip Used Size E -Size E ($) 2 Pain Scale: 0-10 Numeric Is Patient Pain Free? Yes - Visit Discharge Discharge Condition Stable Ambulatory Status Ambulatory Transportation Private Auto Medication Reconcilliation completed & No provided to patient/care provider Clinical Summary of Care Provided Yes Assessment/Plan Assessment/Plan (1) Bilateral edema of lower extremity: CODE(S): R60.0 - Localized edema (2) Non-pressure chronic ulcer of left calf with fat layer exposed: CODE(S): L97.222 - Non-pressure chronic ulcer of left calf with fat layer exposed (3) Venous insufficiency (chronic) (peripheral): CODE(S): I87.2 - Venous insufficiency (chronic) (peripheral) (4) BMI 40.0-44.9, adult: CODE(S): Z68.41 - Body mass index [BMI] 40.0-44.9, adult (5) Dyspnea: CODE(S): R06.00 - Dyspnea, unspecified (6) Tobacco abuse: CODE(S): Z72.0 - Tobacco use (7) Stage 3 severe COPD by GOLD classification: CODE(S): J44.9 - Chronic obstructive pulmonary disease, unspecified PLAN: Plan Patient seen and evaluated Discussed the swelling in the bilateral lower extremities with his ulcerations secondary to aggressive scratching with a back scratching device.? Discouraged continued use of this device as this has likely led to his ulcerations.? Per our discussion he has stopped utilizing this device to aid in scratching.? Encouraged continued elevation of lower extremities for control of edema.? Patient is noted to be on Lasix to assist in fluid control.? Instructed him to continue use of Lasix.? Discussed compression stocking for continued assistance in his control of edema.? He voices understanding that he does need to wear the compression stockings. He has stopped smoking.? I did discuss the risks and detriment smoking has on wound healing and overall health, again smoking was discouraged.? Encouraged his continued smoking cessation. Ordered LEAS and venous studies of bilateral lower extremities, performed 08/30/2022.? Venous studies: No evidence of acute DVT.? 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 Accessory saphenous vein in the left proximal thigh and proximal calf are incompetent. LEAS: Triphasic Doppler waveforms noted at the ankle level bilaterally.? PVRs appear normal at all levels bilaterally.? Indices: Right: QUETA by DP 1.3, QUETA by PT 1.36, digital brachial index 0.99.? Left: QUETA by DP 1.26, QUETA by PT 1.39, digital brachial index 0.72.? No evidence of significant arterial occlusive disease in the lower extremity bilaterally. Ulceration to the left lower extremity were debrided as noted in the clinical panel above.? He is healed four of these wounds as of 10/17/22.? Left anterior leg ulceration has healed today.?No signs of infection.? He does demonstrate irritation secondary to Band-Aid adhesive. Discussed dressing with dry gauze to the site daily and Tubigrip compression. Discussed returning for a final check in the next few weeks. His insurance has denied advanced wound care product. Encouraged adequate protein intake to continue to aid in wound healing.? Encouraged to continue clean up his diet of fast food and lower sodium intake. The following work up and care recommendations were made: Dressing: Dry gauze for the next 10 to 12 days Wash: Soap and water Tissue growth optimization: None Offload: Double Tubigrip and elevation of legs Vascular: DP and PT pulses palpable with adequate capillary fill bilateral. Edema: Double Tubigrip and elevation of legs Infection: No signs of infection.? Pain: May take [id number] Tylenol for discomfort Host factors: Suspected venous insufficiency, pruritus and self excoriation. ? I answered all the patient's questions.? To return to the wound healing center in 3 weeks or call sooner if the patient has any questions or concerns. 12/05/22 1320 <Electronically signed by Felipe Whitt DPM> Cosigner Signature (if applicable): CC: ~ Signed [facility] [place] Work Phone: 1(192) 771-981806-29-2023 Progress note Author Felipe Whitt [facility] [place] November 28, 2022 11:58am Note Date/Time November 28, 2022 11:5 8am [facility] [address] [place] [address] Progress Note - Wound Care 11/28/22 1155 MR#: [id number] Acct: [id number] Name: YAQUELIN HENSON Rep #:[id number] : 1965 57 From: Felipe jessica DPM PCP: NEDRA Johnston Status:REG RCR Location: History of Present Illness Date of Service: 11/28/22 Chief Complaint: Left lower extremity wound x3 History of Wound: Patient is a 57-year-old male with history of COPD, chronic tobacco abuse, obesity, swelling of bilateral lower extremities with recent opening of 3 ulcerations to the left lower extremity. Patient states that when sitting at the computer he sometimes uses a back j2ee application developer to aggressively scratch his legs and believes this led to opening of the 3 wounds on the left lower extremity. He states that he does not elevate his legs and does not wear compression stockings. Also states that he recently quit smoking. Reports seeing his PCP who prescribed Lasix to aid in fluid reduction of the lower extremities. He also reports being prescribed oral antibiotic, Bactrim DS and is currently taking this. States he was referred to the wound care center for continued care of his left lower extremity ulcerations. Subjective Subjective Patient is a 57-year-old male who presents to the wound care center today for follow-up of left lower extremity ulceration.? He is continuing to wear his Tubigrip compression. He has been changing dressings daily with collagen powder.?He states the site is a bit raw today. He denies any constitutional symptoms today.? Denies any further complaints today. Objective Data Objective Data Vital Signs: Vital Signs Temp Pulse Resp BP O2 Del Method 97.3 F L 87 20 H 149/88 H Room Air 11/28/22 10:36 11/28/22 10:36 11/28/22 10:36 11/28/22 10:36 11/14/22 10:32 Oxygen Delivery Method Room Air Weight: 129.274 kg Body Mass Index (BMI) 44.6 Physical Exam Const alert, oriented x3 and no apparent distress General Appearance: cooperative HEENT normocephalic Eyes General Eye: normal appearance of both eyes Neck General: normal visual inspection Lymph Lymphatic: no lymphadenopathy noted and no lymphedema noted Resp normal respiratory effort Cardio regular rate and regular rhythm Extremity normal capillary refill, no joint enlargement, no calf tenderness and no pedal edema Extremity Narrative: DP and PT pulses palpable bilateral.? Capillary fill time is brisk to the digits.? Normal temperature gradient.? Hair growth to the digits is diminished.?There is some mild nonpitting lower extremity edema bilateral from mid calf to the distal forefoot. Musculoskeletal: Muscle strength 5 out of 5 and age-appropriate.? Negative Homans' sign.? Negative Lester sign. Skin no rashes or lesions noted, skin turgor normal and no jaundice Wound Narrative: Left lower extremity: 3 ulcerations noted to the left lower extremity.? #1 anterior leg proximal; #2 Superior lateral leg -healed; #3 distal lateral leg -healed; #4 & #5 anterior leg distal-healed.? Ulcerative sites demonstrate moistfibrotic tissue in the wound bed with scant serous drainage.? No purulent drainage, no erythema, no malodor, no palpable fluctuance/bogginess, no visible abscess, no lymphangitic streaking. Neuro moves all extremities Debridement Note Debridement Note Wound debrided: Left lower extremity Laterality: Left Wound Grade/Stage: Sheth stage I Type of Debridement: Excisional debridement Anesthesia Used: 5% Lidocaine Gel Depth: Down to and including healthy tissue and in the subcutaneous layer Percentage of wound debrided: 100 Instrument Used: 3mm curette Tissue Removed: Fibrous, devitalized subcutaneous, biofilm, slough Severity: Fat Layer Exposed Amount of bleeding with debridement: Mild Bleeding Controlled with: Compression and gauze Patient tolerated procedure: Patient tolerated procedure well Post-Debridement Measurements and Additional Note: Post-Debridement Measurements/Treatment - Nurse 1 - General Ulcer Assessment Start: 10/31/22 10:26 Freq: Status: Active Protocol: XIMENA Activity Type Activity Date Activity User E-sign Co-sign Detail Recorded Client Recorded Date Recorded By Document 10/31/22 10:27 [id number] 10/31/22 10:33 Document 11/07/22 11:21 JF [id number] 11/07/22 11:25 Document 11/14/22 10:32 KW [id number] 11/14/22 10:41 KW Document 11/28/22 10:36 DL [id number] 11/28/22 10:41 DL 10/31/22 11/07/22 11/14/22 10:27 11:21 10:32 - Today's Visit Information Type of service Follow-up Visit Follow-up Visit Follow-up Visit (Physician/LIVE IN CAREGIVER (Physician/LIVE IN CAREGIVER (Physician/LIVE IN CAREGIVER ) ) ) Arrival Mode Ambulatory Ambulatory Ambulatory Transfer Assistance Patient Identification Verified (Name & Yes Yes Yes ) Patient Requires Transmission-Based No No Precautions Height and Weight Body Mass Index (BMI) 44.6 44.6 44.6 BMI Classification Obese Obese Obese Vital Signs Temperature (97.8 F-99.1 F) 96.6 F L 97.3 F L 96.9 F L Temperature Source Temporal Temporal Temporal Pulse Rate (60-100) 80 78 Pulse Location Monitor Monitor Respiratory Rate (12-18) 16 16 Respiratory rate source Observation Observation Oxygen Delivery Method Room Air Blood Pressure (90/60-120/80) 149/79 H 156/95 H 127/67 H Blood Pressure Mean (mm Hg) 102 115 87 Source Monitor Monitor Monitor Position Sitting Semi-Fowlers Blood Pressure Location Left Arm Right Arm History Since Last Visit- (Skip if this is Patient's initial visit) Have you changed medications since your No No No last visit? Any new allergies or adverse reactions No No No Had a fall/change in ADL's that may No No No increase risk of falls Signs or symptoms of abuse and/or No No No neglect since last visit Have you been in the hospital since your No No No last visit? Has dressing in place as prescribed Yes Yes Has compression in place as prescribed No Yes Has offloadiing in place as prescribed N/A N/A Experienced any changes in pain level or No management Left Footwear Regular Shoe Regular Shoe Regular Shoe Right Footwear Regular Shoe Regular Shoe Regular Shoe Pain Scale: 0-10 Numeric Is Patient Pain Free? Yes Yes Yes 11/28/22 10:36 WC - Today's Visit Information Type of service Follow-up Visit (Physician/LIVE IN CAREGIVER ) Arrival Mode Ambulatory Transfer Assistance None Patient Identification Verified (Name & Yes ) Patient Requires Transmission-Based No Precautions Height and Weight Body Mass Index (BMI) 44.6 BMI Classification Obese Vital Signs Temperature (97.8 F-99.1 F) 97.3 F L Temperature Source Temporal Pulse Rate (60-100) 87 Pulse Location Monitor Respiratory Rate (12-18) 20 H Respiratory rate source Observation Oxygen Delivery Method Blood Pressure (90/60-120/80) 149/88 H Blood Pressure Mean (mm Hg) 108 Source Monitor Position Blood Pressure Location History Since Last Visit- (Skip if this is Patient's initial visit) Have you changed medications since your No last visit? Any new allergies or adverse reactions No Had a fall/change in ADL's that may No increase risk of falls Signs or symptoms of abuse and/or No neglect since last visit Have you been in the hospital since your No last visit? Has dressing in place as prescribed No Has compression in place as prescribed No Has offloadiing in place as prescribed N/A Experienced any changes in pain level or No management Left Footwear Right Footwear Pain Scale: 0-10 Numeric Is Patient Pain Free? Yes WC - Nurse 1 - General Ulcer Measurement Start: 10/31/22 10:26 Freq: Status: Active Protocol: Activity Type Activity Date Activity User E-sign Co-sign Detail Recorded Client Recorded Date Recorded By Document 10/31/22 10:27 JF [id number] 10/31/22 10:33 JF Document 11/07/22 11:21 JF [id number] 11/07/22 11:25 JF Document 11/14/22 10:32 KW [id number] 11/14/22 10:41 KW Document 11/28/22 10:36 DL [id number] 11/28/22 10:41 DL 10/31/22 11/07/22 11/14/22 10:27 11:21 10:32 Wound Center Nurse 1 #1 L salmeron -Combined with other wound No No -Current Size (cm) - Length 5.5 2.1 -Current Size (cm) - Width 1.4 1.2 -Current Size (cm) - Depth 0.1 0.1 -Total Square Cm 7.70 2.52 -Photo Taken Yes Yes No -Epithelialization Small 1-33% None Present Small 1-33% -Tunneling No No -Undermining/Tunneling No No -Circular Undermining No No -Change in Wound Grade/Stage No -Exudate Amt Small Medium -Exudate Type Serosanguineous Serosanguineous -Wound Margin Flat & Intact Distinct, Distinct, Outline Outline Attached Attached -Granulation Amt Large (67-100%) Large (67-100%) Large (67-100%) -Granulation Quality [place] Red -Slough/Fibrin Yes Yes -Necrosis Amt Small (1-33%) Small (1-33%) Small (1-33%) -Necrotic Tissue Type Adherent Slough Adherent Slough Adherent Slough -Structure Exposed N/A N/A -Texture (Myriam-wound Skin Appearance) Assessed, Assessed, Not Assessed, Localized Edema Scarring Localized Edema -Moisture (Myriam-wound Skin Appearance) Assessed,Dry/ No Abnormality, Assessed Scaly Assessed -Color (Myriam-wound Skin Appearance) Assessed No Abnormality, Assessed, Assessed Erythema -Temperature (Myriam-wound Skin No Abnormality No Abnormality No Abnormality Appearance) (Pt Warm) (Pt Warm) (Pt Warm) -Tenderness on Palpation (Myriam-wound No No No Skin Appearance) -Ulcer Cleansing Wound Cleanser Rinsed/ Rinsed/ Irrigated with Irrigated with Saline Saline -Foul Odor after Cleansing No No No -Anesthetic Used 5% Lidocaine 5% Lidocaine 5% Lidocaine Gel Gel Gel Lower Limb Edema Present Yes Left Calf (cm) 45.6 47 Left Ankle (cm) 30.0 28.8 11/28/22 10:36 Wound Center Nurse 1 #1 L salmeron -Combined with other wound -Current Size (cm) - Length 3 -Current Size (cm) - Width 0.6 -Current Size (cm) - Depth 0.1 -Total Square Cm 1.8 -Photo Taken -Epithelialization -Tunneling -Undermining/Tunneling -Circular Undermining -Change in Wound Grade/Stage -Exudate Amt None Present -Exudate Type -Wound Margin Indistinct, Non -Visible -Granulation Amt Large (67-100%) -Granulation Quality [place] -Slough/Fibrin -Necrosis Amt None Present (0 %) -Necrotic Tissue Type -Structure Exposed N/A -Texture (Myriam-wound Skin Appearance) Scarring -Moisture (Myriam-wound Skin Appearance) Weeping -Color (Myriam-wound Skin Appearance) Hemosiderin Staining -Temperature (Myriam-wound Skin No Abnormality Appearance) (Pt Warm) -Tenderness on Palpation (Myriam-wound No Skin Appearance) -Ulcer Cleansing Rinsed/ Irrigated with Saline -Foul Odor after Cleansing No -Anesthetic Used 5% Lidocaine Gel Lower Limb Edema Present Left Calf (cm) 49 Left Ankle (cm) 31 WC - Nurse 2 - General Ulcer CM Notes Start: 10/31/22 10:26 Freq: Status: Active Protocol: Activity Type Activity Date Activity User E-sign Co-sign Detail Recorded Client Recorded Date Recorded By Document 10/31/22 12:24 PL [id number] 10/31/22 12:25 PL Document 11/07/22 12:47 PL [id number] 11/07/22 12:48 PL Document 06/15/23 12:20 PL [id number] 11/14/22 12:22 PL 10/31/22 11/07/22 11/14/22 12:24 12:47 12:20 Wound Center Nurse 2 #1 L salmeron -Time 10:38 11:36 11:05 -Correct Patient Yes Yes Yes -Correct Side, Site, Position Yes Yes Yes -Correct Procedure Yes Yes Yes -Procedure Performed Yes Yes Yes -Type of Procedure Debridement Debridement Debridement -Clinical Debridement Subcutaneous Subcutaneous Subcutaneous -Tissue Removed Subcutaneous Subcutaneous Subcutaneous -Post Debridement (cm) - Length 3.3 1.0 0.6 -Post Debridement (cm) - Width 1.1 1.0 0.3 -Post Debridement (cm) - Depth 0.1 0.1 0.1 -Total Square (Post) (cm) 3.63 1.00 0.18 -Area of Debridement (cm) - Length 3.3 1.0 0.6 -Area of Debridement (cm) - Width 1.1 1.0 0.3 -Total Square (Area) (cm) 3.63 1.00 0.18 -Tunneling No No No -Undermining/Tunneling No No No -Circular Undermining No No No -Wound/Ulcer Outcome Not Healed Not Healed Not Healed -Ulcer Cleansing Rinsed/ Rinsed/ Rinsed/ Irrigated with Irrigated with Irrigated with Saline Saline Saline -Foul Odor after Cleansing No No No -Bioengineered Tissue No No No -Bleeding Controlled with Pressure Pressure Pressure -Treatment Response Procedure Procedure Procedure Tolerated Well Tolerated Well Tolerated Well -Debridement - Subq, 1st 20sq cm Yes Yes Yes Pain Scale: 0-10 Numeric Is Patient Pain Free? Yes Yes Yes - Nurse 3 - General Ulcer D/C NN Start: 10/31/22 10:26 Freq: Status: Active Protocol: Activity Type Activity Date Activity User E-sign Co-sign Detail Recorded Client Recorded Date Recorded By Document 10/31/22 11:18 JF [id number] 10/31/22 11:18 JF Document 11/07/22 12:00 AK [id number] 11/07/22 12:01 AK Document 11/14/22 11:40 KW [id number] 11/14/22 11:41 KW 10/31/22 11/07/22 11/14/22 11:18 12:00 11:40 Wound Care Center Nurse 3 #1 L salmeron -Ulcer Cleansing Rinsed/ Rinsed/ Rinsed/ Irrigated with Irrigated with Irrigated with Saline Saline Saline -Foul Odor after Cleansing No No -Negative Pressure Wound Therapy N/A -Primary Dressing Applied Promogran C Hydrogel ($), Collagen Powder Taya Matter Collagen Powder ($) ($) -Primary Dressing Covered/Secured with Dry Gauze Dry Gauze & Dry Gauze & Roll Gauze, Roll Gauze, Secured with Secured with Tape Tape -Promogran Taya Matter 1 Left -Lotion applied to leg before No compression wrap -Compression Wrap Keyon Wrap -Other own Pain Scale: 0-10 Numeric Is Patient Pain Free? Yes Yes Yes WC - Visit Discharge Discharge Condition Stable Stable Stable Ambulatory Status Ambulatory Ambulatory Ambulatory Transportation Private Auto Private Auto Private Auto Medication Reconcilliation completed & Yes Yes No provided to patient/care provider Clinical Summary of Care Provided Yes Yes No Assessment/Plan Assessment/Plan (1) Bilateral edema of lower extremity: CODE(S): R60.0 - Localized edema (2) Non-pressure chronic ulcer of left calf with fat layer exposed: CODE(S): L97.222 - Non-pressure chronic ulcer of left calf with fat layer exposed (3) Venous insufficiency (chronic) (peripheral): CODE(S): I87.2 - Venous insufficiency (chronic) (peripheral) (4) BMI 40.0-44.9, adult: CODE(S): Z68.41 - Body mass index [BMI] 40.0-44.9, adult (5) Stage 3 severe COPD by GOLD classification: CODE(S): J44.9 - Chronic obstructive pulmonary disease, unspecified (6) Tobacco abuse: CODE(S): Z72.0 - Tobacco use PLAN: Plan Patient seen and evaluated Discussed the swelling in the bilateral lower extremities with his ulcerations secondary to aggressive scratching with a back scratching device.? Discouraged continued use of this device as this has likely led to his ulcerations.? Per our discussion he has stopped utilizing this device to aid in scratching.? Encouraged continued elevation of lower extremities for control of edema.? Patient is noted to be on Lasix to assist in fluid control.? Instructed him to continue use of Lasix.? Discussed compression stocking for continued assistance in his control of edema.? He voices understanding that he does need to wear the compression stockings. He has stopped smoking.? I did discuss the risks and detriment smoking has on wound healing and overall health, again smoking was discouraged.? Encouraged his continued smoking cessation. Ordered LEAS and venous studies of bilateral lower extremities, performed 08/30/2022.? Venous studies: No evidence of acute DVT.? 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 Accessory saphenous vein in the left proximal thigh and proximal calf are incompetent. LEAS: Triphasic Doppler waveforms noted at the ankle level bilaterally.? PVRs appear normal at all levels bilaterally.? Indices: Right: QUETA by DP 1.3, QUETA by PT 1.36, digital brachial index 0.99.? Left: QUETA by DP 1.26, QUETA by PT 1.39, digital brachial index 0.72.? No evidence of significant arterial occlusive disease in the lower extremity bilaterally. Ulceration to the left lower extremity were debrided as noted in the clinical panel above.? He is healed four of these wounds as of 10/17/22.? Left anterior leg ulceration measures 0.3 cm x 0.4 cm x 0.1 cm and left distal anterior ulceration is healed.?No signs of infection.? Following debridement ulcerative sites dressed with collagen powder, dry sterile dressing, and double Tubigrip applied to bilateral lower extremity.? He was instructed to change dressings daily. Ulcer site demonstrates continued decrease in size from previous visit. His insurance has denied advanced wound care product. Encouraged adequate protein intake to continue to aid in wound healing.? Encouraged to continue clean up his diet of fast food and lower sodium intake. The following work up and care recommendations were made: Dressing: Collagen powder, DSD, and double Tubigrip to bilateral lower extremity Wash: Keep dressings clean, dry, and intact Tissue growth optimization: Collagen powder Offload: Double Tubigrip and elevation of legs Vascular: DP and PT pulses palpable with adequate capillary fill bilateral. Edema: Double Tubigrip and elevation of legs Infection: No signs of infection.? Pain: May take [id number] Tylenol for discomfort Host factors: Suspected venous insufficiency, pruritus and self excoriation. ? I answered all the patient's questions.? To return to the wound healing center in 3 weeks or call sooner if the patient has any questions or concerns. 11/28/22 1158 <Electronically signed by Felipe Whitt DPM> Cosigner Signature (if applicable): CC: ~ Signed [facility] [place] Work Phone: 1([phone] 593-178806-15-2023 Progress note Author Felipe Whitt [facility] [place] November 14, 2022 11:39am Note Date/Time November 14, 2022 10:3 4am [facility] [address] [place] [address] Progress Note - Wound Care 11/14/22 1033 MR#: [id number] Acct: [id number] Name: YAQUELIN HENSON Rep #:[id number] : 1965 57 From: Felipe jessica DPM PCP: NEDRA Johnston Status:REG RCR Location: History of Present Illness Date of Service: 11/14/22 Chief Complaint: Left lower extremity wound x3 History of Wound: Patient is a 57-year-old male with history of COPD, chronic tobacco abuse, obesity, swelling of bilateral lower extremities with recent opening of 3 ulcerations to the left lower extremity. Patient states that when sitting at the computer he sometimes uses a back j2ee application developer to aggressively scratch his legs and believes this led to opening of the 3 wounds on the left lower extremity. He states that he does not elevate his legs and does not wear compression stockings. Also states that he recently quit smoking. Reports seeing his PCP who prescribed Lasix to aid in fluid reduction of the lower extremities. He also reports being prescribed oral antibiotic, Bactrim DS and is currently taking this. States he was referred to the wound care center for continued care of his left lower extremity ulcerations. Subjective Subjective Patient is a 57-year-old male who presents to the wound care center today for follow-up of left lower extremity ulceration.? He is continuing to wear his Tubigrip compression. He has been changing dressings daily with collagen powder.?He states he feels he is making more progress with the wound closing up.He denies any constitutional symptoms today.? Denies any further complaints today. Objective Data Objective Data Vital Signs: Vital Signs Temp Pulse Resp BP 97.3 F L 80 16 156/95 H 11/07/22 11:21 10/31/22 10:27 10/31/22 10:27 11/07/22 11:21 Weight: 129.274 kg Body Mass Index (BMI) 44.6 Physical Exam Const alert, oriented x3 and no apparent distress General Appearance: cooperative HEENT normocephalic Eyes General Eye: normal appearance of both eyes Neck General: normal visual inspection Lymph Lymphatic: no lymphadenopathy noted and no lymphedema noted Resp normal respiratory effort Cardio regular rate and regular rhythm Extremity normal capillary refill, no joint enlargement, no calf tenderness and no pedal edema Extremity Narrative: DP and PT pulses palpable bilateral.? Capillary fill time is brisk to the digits.? Normal temperature gradient.? Hair growth to the digits is diminished.?There is some mild nonpitting lower extremity edema bilateral from mid calf to the distal forefoot. Musculoskeletal: Muscle strength 5 out of 5 and age-appropriate.? Negative Homans' sign.? Negative Lester sign. Skin no rashes or lesions noted, skin turgor normal and no jaundice Wound Narrative: Left lower extremity: 3 ulcerations noted to the left lower extremity.? #1 anterior leg proximal; #2 Superior lateral leg -healed; #3 distal lateral leg -healed; #4 & #5 anterior leg distal-healed.? Ulcerative sites demonstrate moist fibrotic tissue in the wound bed with scant serous drainage.? No purulent drainage, no erythema, no malodor, no palpable fluctuance/bogginess, no visible abscess, no lymphangitic streaking. Neuro moves all extremities Debridement Note Debridement Note Wound debrided: Left anterior lower extremity Laterality: Left Wound Grade/Stage: Sheth stage I Type of Debridement: Excisional debridement Anesthesia Used: 5% Lidocaine Gel Depth: Down to and including healthy tissue and in the subcutaneous layer Percentage of wound debrided: 100 Instrument Used: 3mm curette Tissue Removed: Fibrous, devitalized subcutaneous, biofilm, slough Severity: Fat Layer Exposed Amount of bleeding with debridement: Mild Bleeding Controlled with: Compression and gauze Patient tolerated procedure: Patient tolerated procedure well Post-Debridement Measurements and Additional Note: Post-Debridement Measurements/Treatment LEONIDES - Nurse 1 - General Ulcer Assessment Start: 10/31/22 10:26 Freq: Status: Active Protocol: XIMENA Activity Type Activity Date Activity User E-sign Co-sign Detail Recorded Client Recorded Date Recorded By Document 10/31/22 10:27 MARK [id number] 10/31/22 10:33 Document 11/07/22 11:21 [id number] 11/07/22 11:25 10/31/22 11/07/22 10:27 11:21 - Today's Visit Information Type of service Follow-up Visit Follow-up Visit (Physician/LIVE IN CAREGIVER (Physician/LIVE IN CAREGIVER ) ) Arrival Mode Ambulatory Ambulatory Patient Identification Verified (Name & Yes Yes ) Patient Requires Transmission-Based No No Precautions Height and Weight Body Mass Index (BMI) 44.6 44.6 BMI Classification Obese Obese Vital Signs Temperature (97.8 F-99.1 F) 96.6 F L 97.3 F L Temperature Source Temporal Temporal Pulse Rate (60-100) 80 Pulse Location Monitor Respiratory Rate (12-18) 16 Respiratory rate source Observation Blood Pressure (90/60-120/80) 149/79 H 156/95 H Blood Pressure Mean (mm Hg) 102 115 Source Monitor Monitor Position Sitting Blood Pressure Location Left Arm History Since Last Visit- (Skip if this is Patient's initial visit) Have you changed medications since your No No last visit? Any new allergies or adverse reactions No No Had a fall/change in ADL's that may No No increase risk of falls Signs or symptoms of abuse and/or No No neglect since last visit Have you been in the hospital since your No No last visit? Has dressing in place as prescribed Yes Yes Has compression in place as prescribed No Yes Has offloadiing in place as prescribed N/A N/A Experienced any changes in pain level or No management Left Footwear Regular Shoe Regular Shoe Right Footwear Regular Shoe Regular Shoe Pain Scale: 0-10 Numeric Is Patient Pain Free? Yes Yes - Nurse 1 - General Ulcer Measurement Start: 10/31/22 10:26 Freq: Status: Active Protocol: Activity Type Activity Date Activity User E-sign Co-sign Detail Recorded Client Recorded Date Recorded By Document 10/31/22 10:27 [id number] 10/31/22 10:33 Document 11/07/22 11:21 [id number] 11/07/22 11:25 10/31/22 11/07/22 10:27 11:21 Wound Center Nurse 1 #1 L salmeron -Combined with other wound No No -Current Size (cm) - Length 5.5 2.1 -Current Size (cm) - Width 1.4 1.2 -Current Size (cm) - Depth 0.1 0.1 -Total Square Cm 7.70 2.52 -Photo Taken Yes Yes -Epithelialization Small 1-33% None Present -Tunneling No No -Undermining/Tunneling No No -Circular Undermining No No -Change in Wound Grade/Stage No -Exudate Amt Small Medium -Exudate Type Serosanguineous Serosanguineous -Wound Margin Flat & Intact Distinct, Outline Attached -Granulation Amt Large (67-100%) Large (67-100%) -Granulation Quality [place] -Slough/Fibrin Yes -Necrosis Amt Small (1-33%) Small (1-33%) -Necrotic Tissue Type Adherent Slough Adherent Slough -Structure Exposed N/A N/A -Texture (Myriam-wound Skin Appearance) Assessed, Assessed, Localized Edema Scarring -Moisture (Myriam-wound Skin Appearance) Assessed,Dry/ No Abnormality, Scaly Assessed -Color (Myriam-wound Skin Appearance) Assessed No Abnormality, Assessed -Temperature (Myriam-wound Skin No Abnormality No Abnormality Appearance) (Pt Warm) (Pt Warm) -Tenderness on Palpation (Myriam-wound No No Skin Appearance) -Ulcer Cleansing Wound Cleanser Rinsed/ Irrigated with Saline -Foul Odor after Cleansing No No -Anesthetic Used 5% Lidocaine 5% Lidocaine Gel Gel Lower Limb Edema Present Yes Left Calf (cm) 45.6 47 Left Ankle (cm) 30.0 28.8 WC - Nurse 2 - General Ulcer CM Notes Start: 10/31/22 10:26 Freq: Status: Active Protocol: Activity Type Activity Date Activity User E-sign Co-sign Detail Recorded Client Recorded Date Recorded By Document 10/31/22 12:24 PL [id number] 10/31/22 12:25 PL Document 11/07/22 12:47 PL [id number] 11/07/22 12:48 PL 10/31/22 11/07/22 12:24 12:47 Wound Center Nurse 2 #1 L salmeron -Time 10:38 11:36 -Correct Patient Yes Yes -Correct Side, Site, Position Yes Yes -Correct Procedure Yes Yes -Procedure Performed Yes Yes -Type of Procedure Debridement Debridement -Clinical Debridement Subcutaneous Subcutaneous -Tissue Removed Subcutaneous Subcutaneous -Post Debridement (cm) - Length 3.3 1.0 -Post Debridement (cm) - Width 1.1 1.0 -Post Debridement (cm) - Depth 0.1 0.1 -Total Square (Post) (cm) 3.63 1.00 -Area of Debridement (cm) - Length 3.3 1.0 -Area of Debridement (cm) - Width 1.1 1.0 -Total Square (Area) (cm) 3.63 1.00 -Tunneling No No -Undermining/Tunneling No No -Circular Undermining No No -Wound/Ulcer Outcome Not Healed Not Healed -Ulcer Cleansing Rinsed/ Rinsed/ Irrigated with Irrigated with Saline Saline -Foul Odor after Cleansing No No -Bioengineered Tissue No No -Bleeding Controlled with Pressure Pressure -Treatment Response Procedure Procedure Tolerated Well Tolerated Well -Debridement - Subq, 1st 20sq cm Yes Yes Pain Scale: 0-10 Numeric Is Patient Pain Free? Yes Yes - Nurse 3 - General Ulcer D/C NN Start: 10/31/22 10:26 Freq: Status: Active Protocol: Activity Type Activity Date Activity User E-sign Co-sign Detail Recorded Client Recorded Date Recorded By Document 10/31/22 11:18 [id number] 10/31/22 11:18 Document 11/07/22 12:00 FL [id number] 11/07/22 12:01 FL 10/31/22 11/07/22 11:18 12:00 Wound Care Center Nurse 3 #1 L salmeron -Ulcer Cleansing Rinsed/ Rinsed/ Irrigated with Irrigated with Saline Saline -Foul Odor after Cleansing No No -Negative Pressure Wound Therapy N/A -Primary Dressing Applied Promogran C Hydrogel ($), Taya Matter Collagen Powder ($) -Primary Dressing Covered/Secured with Dry Gauze Dry Gauze & Roll Gauze, Secured with Tape -Promogran Taya Matter 1 Left -Lotion applied to leg before No compression wrap -Compression Wrap Keyon Wrap -Other own Pain Scale: 0-10 Numeric Is Patient Pain Free? Yes Yes - Visit Discharge Discharge Condition Stable Stable Ambulatory Status Ambulatory Ambulatory Transportation Private Auto Private Auto Medication Reconcilliation completed & Yes Yes provided to patient/care provider Clinical Summary of Care Provided Yes Yes Assessment/Plan Assessment/Plan (1) Bilateral edema of lower extremity: CODE(S): R60.0 - Localized edema (2) Non-pressure chronic ulcer of left calf with fat layer exposed: CODE(S): L97.222 - Non-pressure chronic ulcer of left calf with fat layer exposed (3) Venous insufficiency (chronic) (peripheral): CODE(S): I87.2 - Venous insufficiency (chronic) (peripheral) (4) BMI 40.0-44.9, adult: CODE(S): Z68.41 - Body mass index [BMI] 40.0-44.9, adult (5) Stage 3 severe COPD by GOLD classification: CODE(S): J44.9 - Chronic obstructive pulmonary disease, unspecified (6) Tobacco abuse: CODE(S): Z72.0 - Tobacco use PLAN: Plan Patient seen and evaluated Discussed the swelling in the bilateral lower extremities with his ulcerations secondary to aggressive scratching with a back scratching device.? Discouraged continued use of this device as this has likely led to his ulcerations.? Per our discussion he has stopped utilizing this device to aid in scratching.? Encouraged continued elevation of lower extremities for control of edema.? Patient is noted to be on Lasix to assist in fluid control.? Instructed him to continue use of Lasix.? Discussed compression stocking for continued assistance in his control of edema.? He voices understanding that he does need to wear the compression stockings. He has stopped smoking.? I did discuss the risks and detriment smoking has on wound healing and overall health, again smoking was discouraged.? Encouraged his continued smoking cessation. Ordered LEAS and venous studies of bilateral lower extremities, performed 08/30/2022.? Venous studies: No evidence of acute DVT.? 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 Accessory saphenous vein in the left proximal thigh and proximal calf are incompetent. LEAS: Triphasic Doppler waveforms noted at the ankle level bilaterally.? PVRs appear normal at all levels bilaterally.? Indices: Right: QUETA by DP 1.3, QUETA by PT 1.36, digital brachial index 0.99.? Left: QUETA by DP 1.26, QUETA by PT 1.39, digital brachial index 0.72.? No evidence of significant arterial occlusive disease in the lower extremity bilaterally. Ulceration to the left lower extremity were debrided as noted in the clinical panel above.? He is healed four of these wounds as of 10/17/22.? Left anterior leg ulceration measures 0.6 cm x 0.3 cm x 0.1 cm and left distal anterior ulceration is healed.?No signs of infection.? Following debridement ulcerative sites dressed with collagen powder, dry sterile dressing, and double Tubigrip applied to bilateral lower extremity.? He was instructed to change dressings daily. Ulcer site demonstrates continued decrease in size from previous visit. His insurance has denied advanced wound care product. Encouraged adequate protein intake to continue to aid in wound healing.? Encouraged to continue clean up his diet of fast food and lower sodium intake. The following work up and care recommendations were made: Dressing: Collagen powder, DSD, and double Tubigrip to bilateral lower extremity Wash: Keep dressings clean, dry, and intact Tissue growth optimization: Collagen powder Offload: Double Tubigrip and elevation of legs Vascular: DP and PT pulses palpable with adequate capillary fill bilateral. Edema: Double Tubigrip and elevation of legs Infection: No signs of infection.? Pain: May take [id number] Tylenol for discomfort Host factors: Suspected venous insufficiency, pruritus and self excoriation. ? I answered all the patient's questions.? To return to the wound healing center in 2 weeks or call sooner if the patient has any questions or concerns. 11/14/22 1139 <Electronically signed by Felipe Whitt DPM> Cosigner Signature (if applicable): CC: ~ Signed [facility] [place] Work Phone: [phone] 500-448906-08-2023 Progress note Author Felipe Whitt [facility] [place] November 07, 2022 11:50am Note Date/Time November 07, 2022 11:29 am [facility] [place] [facility] [address] [place] [address] Progress Note - Wound Care 11/07/22 1128 MR#: [id number] Acct: [id number] Name: YAQUELIN HENSON Rep #:[id number] : 1965 57 From: Felipe jessica DPM PCP: NEDRA Johnston Status:REG RCR Location: History of Present Illness Date of Service: 11/07/22 Chief Complaint: Left lower extremity wound x3 History of Wound: Patient is a 57-year-old male with history of COPD, chronic tobacco abuse, obesity, swelling of bilateral lower extremities with recent opening of 3 ulcerations to the left lower extremity. Patient states that when sitting at the computer he sometimes uses a back j2ee application developer to aggressively scratch his legs and believes this led to opening of the 3 wounds on the left lower extremity. He states that he does not elevate his legs and does not wear compression stockings. Also states that he recently quit smoking. Reports seeing his PCP who prescribed Lasix to aid in fluid reduction of the lower extremities. He also reports being prescribed oral antibiotic, Bactrim DS and is currently taking this. States he was referred to the wound care center for continued care of his left lower extremity ulcerations. Subjective Subjective Patient is a 57-year-old male who presents to the wound care center today for follow-up of left lower extremity ulceration.? He is continuing to wear his Tubigrip compression. He has been changing dressings daily with collagen powder.?He denies any constitutional symptoms today.? Denies any further complaints today. Objective Data Objective Data Vital Signs: Vital Signs Temp Pulse Resp BP 97.3 F L 80 16 156/95 H 11/07/22 11:21 10/31/22 10:27 10/31/22 10:27 11/07/22 11:21 Weight: 129.274 kg Body Mass Index (BMI) 44.6 Physical Exam Const alert, oriented x3 and no apparent distress General Appearance: cooperative HEENT normocephalic Eyes General Eye: normal appearance of both eyes Neck General: normal visual inspection Lymph Lymphatic: no lymphadenopathy noted and no lymphedema noted Resp normal respiratory effort Cardio regular rate and regular rhythm Extremity normal capillary refill, no joint enlargement, no calf tenderness and no pedal edema Extremity Narrative: DP and PT pulses palpable bilateral.? Capillary fill time is brisk to the digits.? Normal temperature gradient.? Hair growth to the digits is diminished.?There is some mild nonpitting lower extremity edema bilateral from mid calf to the distal forefoot. Musculoskeletal: Muscle strength 5 out of 5 and age-appropriate.? Negative Homans' sign.? Negative Lester sign. Skin no rashes or lesions noted, skin turgor normal and no jaundice Wound Narrative: Left lower extremity: 3 ulcerations noted to the left lower extremity.? #1 anterior leg proximal; #2 Superior lateral leg -healed; #3 distal lateral leg -healed; #4 & #5 anterior leg distal-healed.? Ulcerative sites demonstrate moist fibrotic tissue in the wound bed with scant serous drainage.? No purulent drainage, no erythema, no malodor, no palpable fluctuance/bogginess, no visible abscess, no lymphangitic streaking. Neuro moves all extremities Debridement Note Debridement Note Wound debrided: Left lower extremity Laterality: Left Wound Grade/Stage: Sheth stage I Type of Debridement: Excisional debridement Anesthesia Used: 5% Lidocaine Gel Depth: Down to and including healthy tissue and in the subcutaneous layer Percentage of wound debrided: 100 Instrument Used: 3mm curette Tissue Removed: Fibrous, devitalized subcutaneous, biofilm, slough Severity: Fat Layer Exposed Amount of bleeding with debridement: Mild Bleeding Controlled with: Compression and gauze Patient tolerated procedure: Patient tolerated procedure well Post-Debridement Measurements and Additional Note: Post-Debridement Measurements/Treatment - Nurse 1 - General Ulcer Assessment Start: 10/31/22 10:26 Freq: Status: Active Protocol: XIMENA Activity Type Activity Date Activity User E-sign Co-sign Detail Recorded Client Recorded Date Recorded By Document 10/31/22 10:27 [id number] 10/31/22 10:33 Document 11/07/22 11:21 [id number] 11/07/22 11:25 10/31/22 11/07/22 10:27 11:21 - Today's Visit Information Type of service Follow-up Visit Follow-up Visit (Physician/LIVE IN CAREGIVER (Physician/LIVE IN CAREGIVER ) ) Arrival Mode Ambulatory Ambulatory Patient Identification Verified (Name & Yes Yes ) Patient Requires Transmission-Based No No Precautions Height and Weight Body Mass Index (BMI) 44.6 44.6 BMI Classification Obese Obese Vital Signs Temperature (97.8 F-99.1 F) 96.6 F L 97.3 F L Temperature Source Temporal Temporal Pulse Rate (60-100) 80 Pulse Location Monitor Respiratory Rate (12-18) 16 Respiratory rate source Observation Blood Pressure (90/60-120/80) 149/79 H 156/95 H Blood Pressure Mean (mm Hg) 102 115 Source Monitor Monitor Position Sitting Blood Pressure Location Left Arm History Since Last Visit- (Skip if this is Patient's initial visit) Have you changed medications since your No No last visit? Any new allergies or adverse reactions No No Had a fall/change in ADL's that may No No increase risk of falls Signs or symptoms of abuse and/or No No neglect since last visit Have you been in the hospital since your No No last visit? Has dressing in place as prescribed Yes Yes Has compression in place as prescribed No Yes Has offloadiing in place as prescribed N/A N/A Experienced any changes in pain level or No management Left Footwear Regular Shoe Regular Shoe Right Footwear Regular Shoe Regular Shoe Pain Scale: 0-10 Numeric Is Patient Pain Free? Yes Yes - Nurse 1 - General Ulcer Measurement Start: 10/31/22 10:26 Freq: Status: Active Protocol: Activity Type Activity Date Activity User E-sign Co-sign Detail Recorded Client Recorded Date Recorded By Document 10/31/22 10:27 [id number] 10/31/22 10:33 Document 11/07/22 11:21 [id number] 11/07/22 11:25 10/31/22 11/07/22 10:27 11:21 Wound Center Nurse 1 #1 L salmeron -Combined with other wound No No -Current Size (cm) - Length 5.5 2.1 -Current Size (cm) - Width 1.4 1.2 -Current Size (cm) - Depth 0.1 0.1 -Total Square Cm 7.70 2.52 -Photo Taken Yes Yes -Epithelialization Small 1-33% None Present -Tunneling No No -Undermining/Tunneling No No -Circular Undermining No No -Change in Wound Grade/Stage No -Exudate Amt Small Medium -Exudate Type Serosanguineous Serosanguineous -Wound Margin Flat & Intact Distinct, Outline Attached -Granulation Amt Large (67-100%) Large (67-100%) -Granulation Quality [place] -Slough/Fibrin Yes -Necrosis Amt Small (1-33%) Small (1-33%) -Necrotic Tissue Type Adherent Slough Adherent Slough -Structure Exposed N/A N/A -Texture (Myriam-wound Skin Appearance) Assessed, Assessed, Localized Edema Scarring -Moisture (Myriam-wound Skin Appearance) Assessed,Dry/ No Abnormality, Scaly Assessed -Color (Myriam-wound Skin Appearance) Assessed No Abnormality, Assessed -Temperature (Myriam-wound Skin No Abnormality No Abnormality Appearance) (Pt Warm) (Pt Warm) -Tenderness on Palpation (Myriam-wound No No Skin Appearance) -Ulcer Cleansing Wound Cleanser Rinsed/ Irrigated with Saline -Foul Odor after Cleansing No No -Anesthetic Used 5% Lidocaine 5% Lidocaine Gel Gel Lower Limb Edema Present Yes Left Calf (cm) 45.6 47 Left Ankle (cm) 30.0 28.8 WC - Nurse 2 - General Ulcer CM Notes Start: 10/31/22 10:26 Freq: Status: Active Protocol: Activity Type Activity Date Activity User E-sign Co-sign Detail Recorded Client Recorded Date Recorded By Document 10/31/22 12:24 PL [id number] 10/31/22 12:25 PL 10/31/22 12:24 Wound Center Nurse 2 #1 L salmeron -Time 10:38 -Correct Patient Yes -Correct Side, Site, Position Yes -Correct Procedure Yes -Procedure Performed Yes -Type of Procedure Debridement -Clinical Debridement Subcutaneous -Tissue Removed Subcutaneous -Post Debridement (cm) - Length 3.3 -Post Debridement (cm) - Width 1.1 -Post Debridement (cm) - Depth 0.1 -Total Square (Post) (cm) 3.63 -Area of Debridement (cm) - Length 3.3 -Area of Debridement (cm) - Width 1.1 -Total Square (Area) (cm) 3.63 -Tunneling No -Undermining/Tunneling No -Circular Undermining No -Wound/Ulcer Outcome Not Healed -Ulcer Cleansing Rinsed/ Irrigated with Saline -Foul Odor after Cleansing No -Bioengineered Tissue No -Bleeding Controlled with Pressure -Treatment Response Procedure Tolerated Well -Debridement - Subq, 1st 20sq cm Yes Pain Scale: 0-10 Numeric Is Patient Pain Free? Yes - Nurse 3 - General Ulcer D/C NN Start: 10/31/22 10:26 Freq: Status: Active Protocol: Activity Type Activity Date Activity User E-sign Co-sign Detail Recorded Client Recorded Date Recorded By Document 10/31/22 11:18 MARK [id number] 10/31/22 11:18 MARK 10/31/22 11:18 Wound Care Center Nurse 3 #1 L salmeron -Ulcer Cleansing Rinsed/ Irrigated with Saline -Foul Odor after Cleansing No -Primary Dressing Applied Promogran Taya Matter -Primary Dressing Covered/Secured with Dry Gauze -Promogran Taya Matter 1 Left -Compression Wrap [place] Wrap Pain Scale: 0-10 Numeric Is Patient Pain Free? Yes WC - Visit Discharge Discharge Condition Stable Ambulatory Status Ambulatory Transportation Private Auto Medication Reconcilliation completed & Yes provided to patient/care provider Clinical Summary of Care Provided Yes Assessment/Plan Assessment/Plan (1) Bilateral edema of lower extremity: CODE(S): R60.0 - Localized edema (2) Non-pressure chronic ulcer of left calf with fat layer exposed: CODE(S): L97.222 - Non-pressure chronic ulcer of left calf with fat layer exposed (3) Venous insufficiency (chronic) (peripheral): CODE(S): I87.2 - Venous insufficiency (chronic) (peripheral) (4) BMI 40.0-44.9, adult: CODE(S): Z68.41 - Body mass index [BMI] 40.0-44.9, adult (5) Stage 3 severe COPD by GOLD classification: CODE(S): J44.9 - Chronic obstructive pulmonary disease, unspecified (6) Tobacco abuse: CODE(S): Z72.0 - Tobacco use PLAN: Plan Patient seen and evaluated Discussed the swelling in the bilateral lower extremities with his ulcerations secondary to aggressive scratching with a back scratching device.? Discouraged continued use of this device as this has likely led to his ulcerations.? Per our discussion he has stopped utilizing this device to aid in scratching.? Encouraged continued elevation of lower extremities for control of edema.? Patient is noted to be on Lasix to assist in fluid control.? Instructed him to continue use of Lasix.? Discussed compression stocking for continued assistance in his control of edema.? He voices understanding that he does need to wear the compression stockings. He has stopped smoking.? I did discuss the risks and detriment smoking has on wound healing and overall health, again smoking was discouraged.? Encouraged his continued smoking cessation. Ordered LEAS and venous studies of bilateral lower extremities, performed 08/30/2022.? Venous studies: No evidence of acute DVT.? 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 Accessory saphenous vein in the left proximal thigh and proximal calf are incompetent. LEAS: Triphasic Doppler waveforms noted at the ankle level bilaterally.? PVRs appear normal at all levels bilaterally.? Indices: Right: QUETA by DP 1.3, QUETA by PT 1.36, digital brachial index 0.99.? Left: QUETA by DP 1.26, QUETA by PT 1.39, digital brachial index 0.72.? No evidence of significant arterial occlusive disease in the lower extremity bilaterally. Ulceration to the left lower extremity were debrided as noted in the clinical panel above.? He is healed four of these wounds as of 10/17/22.? Left anterior leg ulceration measures 1.0 cm x 1.0 cm x 0.1 cm and left distal anterior ulceration is healed.?No signs of infection.? Following debridement ulcerative sites dressed with collagen powder, dry sterile dressing, and double Tubigrip applied to bilateral lower extremity.? He was instructed to change dressings daily. Ulcer site demonstrates decrease in size from previous visit. His insurance has denied advanced wound care product. Encouraged adequate protein intake to continue to aid in wound healing.? Encouraged to continue clean up his diet of fast food and lower sodium intake. The following work up and care recommendations were made: Dressing: Collagen powder, DSD, and double Tubigrip to bilateral lower extremity Wash: Keep dressings clean, dry, and intact Tissue growth optimization: Collagen powder Offload: Double Tubigrip and elevation of legs Vascular: DP and PT pulses palpable with adequate capillary fill bilateral. Edema: Double Tubigrip and elevation of legs Infection: No signs of infection.? Pain: May take [id number] Tylenol for discomfort Host factors: Suspected venous insufficiency, pruritus and self excoriation. ? I answered all the patient's questions.? To return to the wound healing center in 2 weeks or call sooner if the patient has any questions or concerns. 11/07/22 1150 <Electronically signed by Felipe Whitt DPM> Cosigner Signature (if applicable): CC: ~ Signed [facility] [place] Work Phone: 1(545) 956-264506-01-2023 Progress note Author Felipe Whitt [facility] [place] October 31, 2022 1:06pm Note Date/Time October 31, 2022 10:57 am [facility] [address] [place] [address] Progress Note - Wound Care 10/31/22 1054 MR#: [id number] Acct: [id number] Name: YAQUELIN HENSON Rep #:[id number] : 1965 57 From: Felipe jessica DPM PCP: NEDRA Johnston Status:REG RCR Location: History of Present Illness Date of Service: 10/31/22 Chief Complaint: Left lower extremity wound x3 History of Wound: Patient is a 57-year-old male with history of COPD, chronic tobacco abuse, obesity, swelling of bilateral lower extremities with recent opening of 3 ulcerations to the left lower extremity. Patient states that when sitting at the computer he sometimes uses a back j2ee application developer to aggressively scratch his legs and believes this led to opening of the 3 wounds on the left lower extremity. He states that he does not elevate his legs and does not wear compression stockings. Also states that he recently quit smoking. Reports seeing his PCP who prescribed Lasix to aid in fluid reduction of the lower extremities. He also reports being prescribed oral antibiotic, Bactrim DS and is currently taking this. States he was referred to the wound care center for continued care of his left lower extremity ulcerations. Subjective Subjective Patient is a 57-year-old male who presents to the wound care center today for follow-up of left lower extremity ulceration x3.? He is continuing to wear his Tubigrip compression. ?He denies any constitutional symptoms today.? Denies any further complaints today. Objective Data Objective Data Vital Signs: Vital Signs Temp Pulse Resp BP 96.6 F L 80 16 149/79 H 10/31/22 10:27 10/31/22 10:27 10/31/22 10:27 10/31/22 10:27 Weight: 129.274 kg Body Mass Index (BMI) 44.6 Physical Exam Const alert, oriented x3 and no apparent distress General Appearance: cooperative HEENT normocephalic Eyes General Eye: normal appearance of both eyes Neck General: normal visual inspection Lymph Lymphatic: no lymphadenopathy noted and no lymphedema noted Resp normal respiratory effort Cardio regular rate and regular rhythm Extremity normal capillary refill, no joint enlargement, no calf tenderness and no pedal edema Extremity Narrative: DP and PT pulses palpable bilateral.? Capillary fill time is brisk to the digits.? Normal temperature gradient.? Hair growth to the digits is diminished.?There is some mild nonpitting lower extremity edema bilateral from mid calf to the distal forefoot. Musculoskeletal: Muscle strength 5 out of 5 and age-appropriate.? Negative Homans' sign.? Negative Lester sign. Skin no rashes or lesions noted, skin turgor normal and no jaundice Wound Narrative: Left lower extremity: 3 ulcerations noted to the left lower extremity.? #1 anterior leg proximal; #2 Superior lateral leg -healed; #3 distal lateral leg -healed; #4 & #5 anterior leg distal-healed.? Ulcerative sites demonstrate moist fibrotic tissue in the wound bed with scant serous drainage.? No purulent drainage, no erythema, no malodor, no palpable fluctuance/bogginess, no visible abscess, no lymphangitic streaking. Neuro moves all extremities Debridement Note Debridement Note Wound debrided: Left lower extremity x2 Laterality: Left Wound Grade/Stage: Sheth stage I Type of Debridement: Excisional debridement Anesthesia Used: 5% Lidocaine Gel Depth: Down to and including healthy tissue and in the subcutaneous layer Percentage of wound debrided: 100 Instrument Used: 5mm curette Tissue Removed: Fibrous, devitalized subcutaneous, biofilm, slough Severity: Fat Layer Exposed Amount of bleeding with debridement: Mild Bleeding Controlled with: Compression and gauze Patient tolerated procedure: Patient tolerated procedure well Post-Debridement Measurements and Additional Note: Post-Debridement Measurements/Treatment - Nurse 1 - General Ulcer Assessment Start: 10/31/22 10:26 Freq: Status: Active Protocol: XIMENA Activity Type Activity Date Activity User E-sign Co-sign Detail Recorded Client Recorded Date Recorded By Document 10/31/22 10:27 [id number] 10/31/22 10:33 10/31/22 10:27 - Today's Visit Information Type of service Follow-up Visit (Physician/LIVE IN CAREGIVER ) Arrival Mode Ambulatory Patient Identification Verified (Name & Yes ) Patient Requires Transmission-Based No Precautions Height and Weight Body Mass Index (BMI) 44.6 BMI Classification Obese Vital Signs Temperature (97.8 F-99.1 F) 96.6 F L Temperature Source Temporal Pulse Rate (60-100) 80 Pulse Location Monitor Respiratory Rate (12-18) 16 Respiratory rate source Observation Blood Pressure (90/60-120/80) 149/79 H Blood Pressure Mean (mm Hg) 102 Source Monitor Position Sitting Blood Pressure Location Left Arm History Since Last Visit- (Skip if this is Patient's initial visit) Have you changed medications since your No last visit? Any new allergies or adverse reactions No Had a fall/change in ADL's that may No increase risk of falls Signs or symptoms of abuse and/or No neglect since last visit Have you been in the hospital since your No last visit? Has dressing in place as prescribed Yes Has compression in place as prescribed No Has offloadiing in place as prescribed N/A Left Footwear Regular Shoe Right Footwear Regular Shoe Pain Scale: 0-10 Numeric Is Patient Pain Free? Yes WC - Nurse 1 - General Ulcer Measurement Start: 10/31/22 10:26 Freq: Status: Active Protocol: Activity Type Activity Date Activity User E-sign Co-sign Detail Recorded Client Recorded Date Recorded By Document 10/31/22 10:27 MARK [id number] 10/31/22 10:33 MARK 10/31/22 10:27 Wound Center Nurse 1 #1 L salmeron -Combined with other wound No -Current Size (cm) - Length 5.5 -Current Size (cm) - Width 1.4 -Current Size (cm) - Depth 0.1 -Total Square Cm 7.70 -Photo Taken Yes -Epithelialization Small 1-33% -Tunneling No -Undermining/Tunneling No -Circular Undermining No -Exudate Amt Small -Exudate Type Serosanguineous -Wound Margin Flat & Intact -Granulation Amt Large (67-100%) -Granulation Quality Red -Slough/Fibrin Yes -Necrosis Amt Small (1-33%) -Necrotic Tissue Type Adherent Slough -Structure Exposed N/A -Texture (Myriam-wound Skin Appearance) Assessed, Localized Edema -Moisture (Myriam-wound Skin Appearance) Assessed,Dry/ Scaly -Color (Myriam-wound Skin Appearance) Assessed -Temperature (Myriam-wound Skin No Abnormality Appearance) (Pt Warm) -Tenderness on Palpation (Myriam-wound No Skin Appearance) -Ulcer Cleansing Wound Cleanser -Foul Odor after Cleansing No -Anesthetic Used 5% Lidocaine Gel Lower Limb Edema Present Yes Left Calf (cm) 45.6 Left Ankle (cm) 30.0 Assessment/Plan Assessment/Plan (1) Bilateral edema of lower extremity: CODE(S): R60.0 - Localized edema (2) Non-pressure chronic ulcer of left calf with fat layer exposed: CODE(S): L97.222 - Non-pressure chronic ulcer of left calf with fat layer exposed (3) Venous insufficiency (chronic) (peripheral): CODE(S): I87.2 - Venous insufficiency (chronic) (peripheral) (4) BMI 40.0-44.9, adult: CODE(S): Z68.41 - Body mass index [BMI] 40.0-44.9, adult (5) Stage 3 severe COPD by GOLD classification: CODE(S): J44.9 - Chronic obstructive pulmonary disease, unspecified (6) Tobacco abuse: CODE(S): Z72.0 - Tobacco use PLAN: Plan Patient seen and evaluated Discussed the swelling in the bilateral lower extremities with his ulcerations secondary to aggressive scratching with a back scratching device.? Discouraged continued use of this device as this has likely led to his ulcerations.? Per our discussion he has stopped utilizing this device to aid in scratching.? Encouraged continued elevation of lower extremities for control of edema.? Patient is noted to be on Lasix to assist in fluid control.? Instructed him to continue use of Lasix.? Discussed compression stocking for continued assistance in his control of edema.? He voices understanding that he does need to wear the compression stockings. He has stopped smoking.? I did discuss the risks and detriment smoking has on wound healing and overall health, again smoking was discouraged.? Encouraged his continued smoking cessation. Ordered LEAS and venous studies of bilateral lower extremities, performed 08/30/2022.? Venous studies: No evidence of acute DVT.? 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 Accessory saphenous vein in the left proximal thigh and proximal calf are incompetent. LEAS: Triphasic Doppler waveforms noted at the ankle level bilaterally.? PVRs appear normal at all levels bilaterally.? Indices: Right: QUETA by DP 1.3, QUETA by PT 1.36, digital brachial index 0.99.? Left: QUETA by DP 1.26, QUETA by PT 1.39, digital brachial index 0.72.? No evidence of significant arterial occlusive disease in the lower extremity bilaterally. Ulceration to the left lower extremity were debrided as noted in the clinical panel above.? He is healed four of these wounds as of 10/17/22.? Left anterior leg ulceration measures 3.3 cm x 1.1 cm x 0.1 cm and left distal anterior ulceration measures 0.7cm x 0.5cm x 0.1cm.?No signs of infection.? Following debridement ulcerative sites dressed with Adaptic, Taya and double Tubigrip applied to bilateral lower extremity.? He was instructed to change dressings daily. We will look to apply for advanced wound care product for application at next visit. Encouraged adequate protein intake to continue to aid in wound healing.? Encouraged to continue clean up his diet of fast food and lower sodium intake. The following work up and care recommendations were made: Dressing: Adaptic, Taya and double Tubigrip to bilateral lower extremity Wash: Keep dressings clean, dry, and intact Tissue growth optimization: Taya Offload: Double Tubigrip and elevation of legs Vascular: DP and PT pulses palpable with adequate capillary fill bilateral. Edema: Double Tubigrip and elevation of legs Infection: No signs of infection.? Pain: May take [id number] Tylenol for discomfort Host factors: Suspected venous insufficiency, pruritus and self excoriation. ? I answered all the patient's questions.? To return to the wound healing center in 2 weeks or call sooner if the patient has any questions or concerns. 10/31/22 1306 <Electronically signed by Felipe Whitt DPM> Cosigner Signature (if applicable): CC: ~ Signed [facility] [place] Work Phone: 1(830) 356-748905-18-2023 Progress note Author Felipe Whitt [facility] [place] October 17, 2022 11:05am Note Date/Time October 17, 2022 10:31 am [facility] [address] [place] [address] Progress Note - Wound Care 10/17/22 1030 MR#: [id number] Acct: [id number] Name: YAQUELIN HENSON Rep #:[id number] : 1965 57 From: Felipe jessica DPM PCP: NEDRA Johnston Status:REG RCR Location: History of Present Illness Date of Service: 10/17/22 Chief Complaint: Left lower extremity wound x3 History of Wound: Patient is a 57-year-old male with history of COPD, chronic tobacco abuse, obesity, swelling of bilateral lower extremities with recent opening of 3 ulcerations to the left lower extremity. Patient states that when sitting at the computer he sometimes uses a back j2ee application developer to aggressively scratch his legs and believes this led to opening of the 3 wounds on the left lower extremity. He states that he does not elevate his legs and does not wear compression stockings. Also states that he recently quit smoking. Reports seeing his PCP who prescribed Lasix to aid in fluid reduction of the lower extremities. He also reports being prescribed oral antibiotic, Bactrim DS and is currently taking this. States he was referred to the wound care center for continued care of his left lower extremity ulcerations. Subjective Subjective Patient is a 57-year-old male who presents to the wound care center today for follow-up of left lower extremity ulceration x3.? He is continuing to wear his Tubigrip compression. ?He denies any constitutional symptoms today.? Denies any further complaints today. Objective Data Objective Data Vital Signs: Vital Signs Temp Pulse Resp BP 96.2 F L 87 16 151/84 H 10/03/22 11:28 10/03/22 11:28 10/03/22 11:28 10/03/22 11:28 Weight: 129.274 kg Body Mass Index (BMI) 44.6 Physical Exam Const alert, oriented x3, no apparent distress and well nourished General Appearance: cooperative HEENT normocephalic Eyes General Eye: normal appearance of both eyes Neck General: normal visual inspection Lymph Lymphatic: no lymphadenopathy noted and no lymphedema noted Resp normal respiratory effort Cardio regular rate and regular rhythm Extremity normal capillary refill, no joint enlargement, no calf tenderness and no pedal edema Extremity Narrative: DP and PT pulses palpable bilateral.? Capillary fill time is brisk to the digits.? Normal temperature gradient.? Hair growth to the digits is diminished.?There is some mild nonpitting lower extremity edema bilateral from mid calf to the distal forefoot. Musculoskeletal: Muscle strength 5 out of 5 and age-appropriate.? Negative Homans' sign.? Negative Lester sign. Skin no rashes or lesions noted, skin turgor normal and no jaundice Wound Narrative: Left lower extremity: 3 ulcerations noted to the left lower extremity.? #1 anterior leg proximal; #2 Superior lateral leg -healed; #3 distal lateral leg -healed; #4 & #5 anterior leg distal-healed.? Ulcerative sites demonstrate moist fibrotic tissue in the wound bed with scant serous drainage.? No purulent drainage, no erythema, no malodor, no palpable fluctuance/bogginess, no visible abscess, no lymphangitic streaking. Neuro moves all extremities Debridement Note Debridement Note Wound debrided: Left anterior leg Laterality: Left Wound Grade/Stage: Sheth stage I Type of Debridement: Excisional debridement Anesthesia Used: 5% Lidocaine Gel Depth: Down to and including healthy tissue and in the subcutaneous layer Percentage of wound debrided: 100 Instrument Used: 3mm curette Tissue Removed: Fibrous, devitalized subcutaneous, biofilm, slough Severity: Fat Layer Exposed Amount of bleeding with debridement: Mild Bleeding Controlled with: Compression and gauze Patient tolerated procedure: Patient tolerated procedure well Post-Debridement Measurements and Additional Note: Post-Debridement Measurements/Treatment - Nurse 1 - General Ulcer Assessment Start: 10/03/22 11:28 Freq: Status: Active Protocol: LEONIDES.MANDY Activity Type Activity Date Activity User E-sign Co-sign Detail Recorded Client Recorded Date Recorded By Document 10/03/22 11:28 [id number] 10/03/22 11:30 10/03/22 11:28 - Today's Visit Information Type of service Follow-up Visit (Physician/LIVE IN CAREGIVER ) Arrival Mode Ambulatory Height and Weight Body Mass Index (BMI) 44.6 BMI Classification Obese Vital Signs Temperature (97.8 F-99.1 F) 96.2 F L Temperature Source Temporal Pulse Rate (60-100) 87 Pulse Location Monitor Respiratory Rate (12-18) 16 Respiratory rate source Observation Blood Pressure (90/60-120/80) 151/84 H Blood Pressure Mean (mm Hg) 106 Source Monitor Position Semi-Fowlers Blood Pressure Location Left Forearm History Since Last Visit- (Skip if this is Patient's initial visit) Have you changed medications since your No last visit? Any new allergies or adverse reactions No Had a fall/change in ADL's that may No increase risk of falls Signs or symptoms of abuse and/or No neglect since last visit Have you been in the hospital since your No last visit? Has dressing in place as prescribed Yes Has compression in place as prescribed Yes Has offloadiing in place as prescribed N/A Experienced any changes in pain level or No management Left Footwear Regular Shoe Right Footwear Regular Shoe Pain Scale: 0-10 Numeric Is Patient Pain Free? Yes - Nurse 1 - General Ulcer Measurement Start: 10/03/22 11:28 Freq: Status: Active Protocol: Activity Type Activity Date Activity User E-sign Co-sign Detail Recorded Client Recorded Date Recorded By Document 10/03/22 11:28 [id number] 10/03/22 11:30 10/03/22 11:28 Wound Center Nurse 1 #1 L salmerno -Combined with other wound No -Current Size (cm) - Length 6.0 -Current Size (cm) - Width 4.8 -Current Size (cm) - Depth 0.1 -Total Square Cm 28.80 -Photo Taken No -Epithelialization Medium 34-66% -Tunneling No -Undermining/Tunneling No -Circular Undermining No -Exudate Amt Small -Exudate Type Serosanguineous -Wound Margin Flat & Intact -Granulation Amt Large (67-100%) -Granulation Quality Red -Slough/Fibrin Yes -Necrosis Amt Small (1-33%) -Necrotic Tissue Type Adherent Slough -Structure Exposed N/A -Texture (Myriam-wound Skin Appearance) Assessed, Localized Edema -Moisture (Myriam-wound Skin Appearance) Assessed,Dry/ Scaly -Color (Myriam-wound Skin Appearance) Assessed -Temperature (Myriam-wound Skin No Abnormality Appearance) (Pt Warm) -Tenderness on Palpation (Myriam-wound No Skin Appearance) -Ulcer Cleansing Rinsed/ Irrigated with Saline -Foul Odor after Cleansing No -Anesthetic Used 5% Lidocaine Gel Lower Limb Edema Present Yes Left Calf (cm) 47.3 Left Ankle (cm) 29.2 - Nurse 2 - General Ulcer CM Notes Start: 10/03/22 11:28 Freq: Status: Active Protocol: Activity Type Activity Date Activity User E-sign Co-sign Detail Recorded Client Recorded Date Recorded By Document 10/03/22 11:42 MARK [id number] 10/03/22 11:44 Document 10/03/22 11:44 MARK [id number] 10/04/22 08:46 10/03/22 10/03/22 11:42 11:44 Wound Center Nurse 2 #3 L lateral superior -Time 08:44 -Correct Patient No No -Correct Side, Site, Position No No -Correct Procedure No No -Procedure Performed No No -Wound/Ulcer Outcome Not Healed Converted # 2 L lateral -Correct Patient No No -Correct Side, Site, Position No No -Correct Procedure No No -Procedure Performed No No -Wound/Ulcer Outcome Not Healed Converted #1 L salmeron -Time 08:45 -Correct Patient No Yes -Correct Side, Site, Position No Yes -Correct Procedure No Yes -Procedure Performed No Yes -Type of Procedure Debridement -Clinical Debridement Subcutaneous -Tissue Removed Subcutaneous -Post Debridement (cm) - Length 6.0 -Post Debridement (cm) - Width 4.9 -Post Debridement (cm) - Depth 0.1 -Total Square (Post) (cm) 29.40 -Area of Debridement (cm) - Length 6.0 -Area of Debridement (cm) - Width 4.9 -Total Square (Area) (cm) 29.40 -Tunneling No -Undermining/Tunneling No -Circular Undermining No -Wound/Ulcer Outcome Not Healed Not Healed -Ulcer Cleansing Rinsed/ Irrigated with Saline -Foul Odor after Cleansing No -Bioengineered Tissue No -Bleeding Controlled with Pressure -Treatment Response Procedure Tolerated Well -Offloading No -Debridement - Subq, 1st 20sq cm Yes -Debridement, SubQ, ea addt'l 20sq cm 1 or part thereof Pain Scale: 0-10 Numeric Is Patient Pain Free? Yes Yes - Nurse 3 - General Ulcer D/C NN Start: 10/03/22 11:28 Freq: Status: Active Protocol: Activity Type Activity Date Activity User E-sign Co-sign Detail Recorded Client Recorded Date Recorded By Document 10/03/22 06:47 GERMAINE [id number] 10/04/22 06:49 PL 10/03/22 06:47 Wound Care Center Nurse 3 #3 L lateral superior -Ulcer Cleansing Rinsed/ Irrigated with Saline -Primary Dressing Applied Collagen Powder ($) -Primary Dressing Covered/Secured with Dry Gauze & Roll Gauze, Secured with Tape # 2 L lateral -Other Dressing Collagen powder -Primary Dressing Covered/Secured with Dry Gauze & Roll Gauze, Secured with Tape #1 L salmeron -Other Dressing collagen powder -Primary Dressing Covered/Secured with Dry Gauze & Roll Gauze, Secured with Tape Bilateral -Tubular Bandage Double Layer -Size of Tubigrip Used Size E -Size E ($) 8 Pain Scale: 0-10 Numeric Is Patient Pain Free? Yes - Visit Discharge Discharge Condition Stable Ambulatory Status Ambulatory Assessment/Plan Assessment/Plan (1) Bilateral edema of lower extremity: CODE(S): R60.0 - Localized edema (2) Non-pressure chronic ulcer of left calf with fat layer exposed: CODE(S): L97.222 - Non-pressure chronic ulcer of left calf with fat layer exposed (3) Venous insufficiency (chronic) (peripheral): CODE(S): I87.2 - Venous insufficiency (chronic) (peripheral) (4) BMI 40.0-44.9, adult: CODE(S): Z68.41 - Body mass index [BMI] 40.0-44.9, adult (5) Stage 3 severe COPD by GOLD classification: CODE(S): J44.9 - Chronic obstructive pulmonary disease, unspecified (6) Dyspnea: CODE(S): R06.00 - Dyspnea, unspecified (7) Tobacco abuse: CODE(S): Z72.0 - Tobacco use PLAN: Plan Patient seen and evaluated Discussed the swelling in the bilateral lower extremities with his ulcerations secondary to aggressive scratching with a back scratching device.? Discouraged continued use of this device as this has likely led to his ulcerations.? Per ourdiscussion he has stopped utilizing this device to aid in scratching.? Encouraged continued elevation of lower extremities for control of edema.? Patient is noted to be on Lasix to assist in fluid control.? Instructed him to continue use of Lasix.? Discussed compression stocking for continued assistance in his control of edema.? He voices understanding that he does need to wear the compression stockings. He has stopped smoking.? I did discuss the risks and detriment smoking has on wound healing and overall health, again smoking was discouraged.? Encouraged hiscontinued smoking cessation. Ordered LEAS and venous studies of bilateral lower extremities, performed 08/30/2022.? Venous studies: No evidence of acute DVT.? 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 Accessory saphenous vein in the left proximal thigh and proximal calf are incompetent. LEAS: Triphasic Doppler waveforms noted at the ankle level bilaterally.? PVRs appear normal at all levels bilaterally.? Indices: Right: QUETA by DP 1.3, QUETA by PT 1.36, digital brachial index 0.99.? Left: QUETA by DP 1.26, QUETA by PT 1.39, digital brachial index 0.72.? No evidence of significant arterial occlusive disease in the lower extremity bilaterally. Ulceration to the left lower extremity were debrided as noted in the clinical panel above.? He is healed for of these wounds today. Left anterior leg ulceration remains measuring 1.1 cm x 0.7 cm x 0.2 cm. No signs of infection.? Following debridement ulcerative sites dressed with Adaptic, Taya and double Tubigrip applied to bilateral lower extremity. He was instructed to change dressings daily. Encouraged adequate protein intake to continue to aid in wound healing.? Encouraged to continue clean up his diet of fast food and lower sodium intake. The following work up and care recommendations were made: Dressing: Adaptic, Taya and double Tubigrip to bilateral lower extremity Wash: Keep dressings clean, dry, and intact Tissue growth optimization: Taya Offload: Double Tubigrip and elevation of legs Vascular: DP and PT pulses palpable with adequate capillary fill bilateral. Edema: Double Tubigrip and elevation of legs Infection: No signs of infection.? Pain: May take [id number] Tylenol for discomfort Host factors: Suspected venous insufficiency, pruritus and self excoriation. ? I answered all the patient's questions.? To return to the wound healing center in 2 weeks or call sooner if the patient has any questions or concerns. 10/17/22 1105 <Electronically signed by Felipe Whitt DPM> Cosigner Signature (if applicable): CC: ~ Signed [facility] [place] Work Phone: 1(513) 494-884805-04-2023 Progress note Author Felipe Whitt [facility] [place] October 03, 2022 12:20pm Note Date/Time October 03, 2022 12:15p [facility] [address] [place] [address] Progress Note - Wound Care 10/03/22 1205 MR#: [id number] Acct: [id number] Name: YAQUELIN HENSON Rep #:[id number] : 1965 57 From: Felipe jessica DPM PCP: NEDRA Johnston Status:REG RCR Location: History of Present Illness Date of Service: 10/03/22 Chief Complaint: Left lower extremity wound x3 History of Wound: Patient is a 57-year-old male with history of COPD, chronic tobacco abuse, obesity, swelling of bilateral lower extremities with recent opening of 3 ulcerations to the left lower extremity. Patient states that when sitting at the computer he sometimes uses a back j2ee application developer to aggressively scratch his legs and believes this led to opening of the 3 wounds on the left lower extremity. He states that he does not elevate his legs and does not wear compression stockings. Also states that he recently quit smoking. Reports seeing his PCP who prescribed Lasix to aid in fluid reduction of the lower extremities. He also reports being prescribed oral antibiotic, Bactrim DS and is currently taking this. States he was referred to the wound care center for continued care of his left lower extremity ulcerations. Subjective Subjective Patient is a 57-year-old male who presents to the wound care center today for follow-up of left lower extremity ulceration x3.? He kept his 3M compression dressing clean, dry, and intact.? He was stated to come back in 2 weeks however during last dressing change was concerned over his compression and wanted to be seen today.? He denies any constitutional symptoms today.? Denies any further complaints today. Objective Data Objective Data Vital Signs: Vital Signs Temp Pulse Resp BP 96.2 F L 87 16 151/84 H 10/03/22 11:28 10/03/22 11:28 10/03/22 11:28 10/03/22 11:28 Weight: 129.274 kg Body Mass Index (BMI) 44.6 Physical Exam Const alert, oriented x3, no apparent distress and well nourished General Appearance: cooperative HEENT normocephalic Eyes General Eye: normal appearance of both eyes Neck General: normal visual inspection Lymph Lymphatic: no lymphadenopathy noted and no lymphedema noted Resp normal respiratory effort Cardio regular rate and regular rhythm Extremity normal capillary refill, no joint enlargement, no calf tenderness and no pedal edema Extremity Narrative: DP and PT pulses palpable bilateral.? Capillary fill time is brisk to the digits.? Normal temperature gradient.? Hair growth to the digits is diminished.?There is some mild nonpitting lower extremity edema bilateral from mid calf to the distal forefoot. Musculoskeletal: Muscle strength 5 out of 5 and age-appropriate.? Negative Homans' sign.? Negative Lester sign. Skin no rashes or lesions noted, skin turgor normal and no jaundice Wound Narrative: Left lower extremity: 3 ulcerations noted to the left lower extremity.? #1 anterior leg proximal; #2 Superior lateral leg; #3 distal lateral leg; #4 & #5 anterior leg distal.? Ulcerative sites demonstrate moist fibrotic tissue in the wound bed with scant serous drainage.? No purulent drainage, no erythema, no malodor, no palpable fluctuance/bogginess, no visible abscess, no lymphangitic streaking. Neuro moves all extremities Debridement Note Debridement Note Wound debrided: Left lower extremity x5 Laterality: Left Wound Grade/Stage: Sheth stage I Type of Debridement: Excisional debridement Anesthesia Used: 5% Lidocaine Gel Depth: Down to and including healthy tissue and in the subcutaneous layer Percentage of wound debrided: 100 Instrument Used: 3mm curette Tissue Removed: Fibrous, devitalized subcutaneous, biofilm, slough Severity: Fat Layer Exposed Amount of bleeding with debridement: Mild Bleeding Controlled with: Compression and gauze Patient tolerated procedure: Patient tolerated procedure well Post-Debridement Measurements and Additional Note: Post-Debridement Measurements/Treatment - Nurse 1 - General Ulcer Assessment Start: 10/03/22 11:28 Freq: Status: Active Protocol: LEONIDES.MANDY Activity Type Activity Date Activity User E-sign Co-sign Detail Recorded Client Recorded Date Recorded By Document 10/03/22 11:28 MARK [id number] 10/03/22 11:30 MARK 10/03/22 11:28 - Today's Visit Information Type of service Follow-up Visit (Physician/LIVE IN CAREGIVER ) Arrival Mode Ambulatory Height and Weight Body Mass Index (BMI) 44.6 BMI Classification Obese Vital Signs Temperature (97.8 F-99.1 F) 96.2 F L Temperature Source Temporal Pulse Rate (60-100) 87 Pulse Location Monitor Respiratory Rate (12-18) 16 Respiratory rate source Observation Blood Pressure (90/60-120/80) 151/84 H Blood Pressure Mean (mm Hg) 106 Source Monitor Position Semi-Fowlers Blood Pressure Location Left Forearm History Since Last Visit- (Skip if this is Patient's initial visit) Have you changed medications since your No last visit? Any new allergies or adverse reactions No Had a fall/change in ADL's that may No increase risk of falls Signs or symptoms of abuse and/or No neglect since last visit Have you been in the hospital since your No last visit? Has dressing in place as prescribed Yes Has compression in place as prescribed Yes Has offloadiing in place as prescribed N/A Experienced any changes in pain level or No management Left Footwear Regular Shoe Right Footwear Regular Shoe Pain Scale: 0-10 Numeric Is Patient Pain Free? Yes - Nurse 1 - General Ulcer Measurement Start: 10/03/22 11:28 Freq: Status: Active Protocol: Activity Type Activity Date Activity User E-sign Co-sign Detail Recorded Client Recorded Date Recorded By Document 10/03/22 11:28 [id number] 10/03/22 11:30 10/03/22 11:28 Wound Center Nurse 1 #1 L salmeron -Combined with other wound No -Current Size (cm) - Length 6.0 -Current Size (cm) - Width 4.8 -Current Size (cm) - Depth 0.1 -Total Square Cm 28.80 -Photo Taken No -Epithelialization Medium 34-66% -Tunneling No -Undermining/Tunneling No -Circular Undermining No -Exudate Amt Small -Exudate Type Serosanguineous -Wound Margin Flat & Intact -Granulation Amt Large (67-100%) -Granulation Quality Red -Slough/Fibrin Yes -Necrosis Amt Small (1-33%) -Necrotic Tissue Type Adherent Slough -Structure Exposed N/A -Texture (Myriam-wound Skin Appearance) Assessed, Localized Edema -Moisture (Myriam-wound Skin Appearance) Assessed,Dry/ Scaly -Color (Myriam-wound Skin Appearance) Assessed -Temperature (Myriam-wound Skin No Abnormality Appearance) (Pt Warm) -Tenderness on Palpation (Myriam-wound No Skin Appearance) -Ulcer Cleansing Rinsed/ Irrigated with Saline -Foul Odor after Cleansing No -Anesthetic Used 5% Lidocaine Gel Lower Limb Edema Present Yes Left Calf (cm) 47.3 Left Ankle (cm) 29.2 - Nurse 2 - General Ulcer CM Notes Start: 10/03/22 11:28 Freq: Status: Active Protocol: Activity Type Activity Date Activity User E-sign Co-sign Detail Recorded Client Recorded Date Recorded By Document 10/03/22 11:42 [id number] 10/03/22 11:44 10/03/22 11:42 Wound Center Nurse 2 #3 L lateral superior -Correct Patient No -Correct Side, Site, Position No -Correct Procedure No -Procedure Performed No -Wound/Ulcer Outcome Not Healed # 2 L lateral -Correct Patient No -Correct Side, Site, Position No -Correct Procedure No -Procedure Performed No -Wound/Ulcer Outcome Not Healed #1 L salmeron -Correct Patient No -Correct Side, Site, Position No -Correct Procedure No -Procedure Performed No -Wound/Ulcer Outcome Not Healed Pain Scale: 0-10 Numeric Is Patient Pain Free? Yes Assessment/Plan Assessment/Plan (1) Bilateral edema of lower extremity: CODE(S): R60.0 - Localized edema (2) Non-pressure chronic ulcer of left calf with fat layer exposed: CODE(S): L97.222 - Non-pressure chronic ulcer of left calf with fat layer exposed (3) Venous insufficiency (chronic) (peripheral): CODE(S): I87.2 - Venous insufficiency (chronic) (peripheral) (4) BMI 40.0-44.9, adult: CODE(S): Z68.41 - Body mass index [BMI] 40.0-44.9, adult (5) Stage 3 severe COPD by GOLD classification: CODE(S): J44.9 - Chronic obstructive pulmonary disease, unspecified (6) Dyspnea: CODE(S): R06.00 - Dyspnea, unspecified (7) Tobacco abuse: CODE(S): Z72.0 - Tobacco use PLAN: Plan Patient seen and evaluated Discussed the swelling in the bilateral lower extremities with his ulcerations secondary to aggressive scratching with a back scratching device.? Discouraged continued use of this device as this has likely led to his ulcerations.? Per our discussion he has stopped utilizing this device to aid in scratching.? Encouraged continued elevation of lower extremities for control of edema.? Patient is noted to be on Lasix to assist in fluid control.? Instructed him to continue use of Lasix.? Discussed compression stocking for continued assistance in his control of edema.? He voices understanding that he does need to wear the compression stockings. He has stopped smoking.? I did discuss the risks and detriment smoking has on wound healing and overall health, again smoking was discouraged.? Encouraged his continued smoking cessation. Ordered LEAS and venous studies of bilateral lower extremities, performed 08/30/2022.? Venous studies: No evidence of acute DVT.? 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 Accessory saphenous vein in the left proximal thigh and proximal calf are incompetent. LEAS: Triphasic Doppler waveforms noted at the ankle level bilaterally.? PVRs appear normal at all levels bilaterally.? Indices: Right: QUETA by DP 1.3, QUETA by PT 1.36, digital brachial index 0.99.? Left: QUETA by DP 1.26, QUETA by PT 1.39, digital brachial index 0.72.? No evidence of significant arterial occlusive disease in the lower extremity bilaterally. Ulcerations to the left lower extremity x5 were debrided as noted in the clinical panel above.? Wounds are related in close proximity and cluster measures 6.0 cm by 4.8 cm x 0.1 cm. No signs of infection.? Following debridement ulcerative sites dressed with Adaptic, Taya and double Tubigrip applied to bilateral lower extremity. He was instructed to change dressings daily. Encouraged adequate protein intake to continue to aid in wound healing.? Encouraged to clean up his diet of fast food and lower sodium intake. The following work up and care recommendations were made: Dressing: Adaptic, Taya and double Tubigrip to bilateral lower extremity Wash: Keep dressings clean, dry, and intact Tissue growth optimization: Taya Offload: Double Tubigrip and elevation of legs Vascular: DP and PT pulses palpable with adequate capillary fill bilateral. Edema: Double Tubigrip and elevation of legs Infection: No signs of infection.? Pain: May take [id number] Tylenol for discomfort Host factors: Suspected venous insufficiency, pruritus and self excoriation. ? I answered all the patient's questions.? To return to the wound healing center in 2 weeks or call sooner if the patient has any questions or concerns. 10/03/22 1220 <Electronically signed by Felipe Whitt DPM> Cosigner Signature (if applicable): CC: ~ Signed [facility] [place] Work Phone: 1(197) 916-125804-20-2023 Progress note Author Felipe Whitt [facility] [place] September 19, 2022 2:15pm Note Date/Time September 19, 2022 10: 53am [facility] [address] [place] [id number] Progress Note - Wound Care 09/19/22 1052 MR#: [id number] Acct: [id number] Name: YAQUELIN HENSON Rep #:[id number] : 1965 57 From: Felipe jessica DPM PCP: LINDA JohnstonC Status:REG RCR Location: History of Present Illness Date of Service: 09/19/22 Chief Complaint: Left lower extremity wound x3 History of Wound: Patient is a 57-year-old male with history of COPD, chronic tobacco abuse, obesity, swelling of bilateral lower extremities with recent opening of 3 ulcerations to the left lower extremity. Patient states that when sitting at the computer he sometimes uses a back j2ee application developer to aggressively scratch his legs and believes this led to opening of the 3 wounds on the left lower extremity. He states that he does not elevate his legs and does not wear compression stockings. Also states that he recently quit smoking. Reports seeing his PCP who prescribed Lasix to aid in fluid reduction of the lower extremities. He also reports being prescribed oral antibiotic, Bactrim DS and is currently taking this. States he was referred to the wound care center for continued care of his left lower extremity ulcerations. Subjective Subjective Patient is a 57-year-old male who presents to the wound care center today for follow-up of left lower extremity ulceration x3.? He kept his 3M compression dressing clean, dry, and intact.? He was stated to come back in 2 weeks however during last dressing change was concerned over his compression and wanted to be seen today. He denies any constitutional symptoms today.? Denies any further complaints today. Objective Data Objective Data Vital Signs: Vital Signs Temp Pulse Resp BP O2 Del Method 97.4 F L 91 18 128/83 H Room Air 09/17/22 11:28 09/17/22 11:28 09/19/22 10:27 09/17/22 11:28 09/17/22 11:28 Oxygen Delivery Method Room Air Weight: 129.274 kg Body Mass Index (BMI) 44.6 Physical Exam Const alert, oriented x3, no apparent distress and well nourished General Appearance: cooperative HEENT normocephalic Eyes General Eye: normal appearance of both eyes Neck General: normal visual inspection Lymph Lymphatic: no lymphadenopathy noted and no lymphedema noted Resp normal respiratory effort Cardio regular rate and regular rhythm Extremity normal capillary refill, no joint enlargement, no calf tenderness and no pedal edema Extremity Narrative: DP and PT pulses palpable bilateral.? Capillary fill time is brisk to the digits.? Normal temperature gradient.? Hair growth to the digits is diminished.?There is some mild nonpitting lower extremity edema bilateral from mid calf to the distal forefoot. Musculoskeletal: Muscle strength 5 out of 5 and age-appropriate.? Negative Homans' sign.? Negative Lester sign. Skin no rashes or lesions noted, skin turgor normal and no jaundice Wound Narrative: Left lower extremity: 3 ulcerations noted to the left lower extremity.? #1 anterior leg; #2 Superior lateral leg; #3 distal lateral leg.? Ulcerative sites demonstrate moist fibrotic tissue in the wound bed with scant serous drainage.? No purulent drainage, no erythema, no malodor, no palpable fluctuance/bogginess,no visible abscess, no lymphangitic streaking. Neuro moves all extremities Debridement Note Debridement Note Wound debrided: Left lower extremity x3 Laterality: Left Wound Grade/Stage: Sheth stage I Type of Debridement: Excisional debridement Anesthesia Used: 5% Lidocaine Gel Depth: Down to and including healthy tissue and in the subcutaneous layer Percentage of wound debrided: 100 Instrument Used: 5mm curette Tissue Removed: Fibrous, devitalized subcutaneous, biofilm, slough Severity: Fat Layer Exposed Amount of bleeding with debridement: Mild Bleeding Controlled with: Compression and gauze Patient tolerated procedure: Patient tolerated procedure well Post-Debridement Measurements and Additional Note: Post-Debridement Measurements/Treatment WC - Nurse 1 - General Ulcer Assessment Start: 09/03/22 13:16 Freq: Status: Active Protocol: XIMENA Activity Type Activity Date Activity User E-sign Co-sign Detail Recorded Client Recorded Date Recorded By Document 09/03/22 13:16 DL [id number] 09/03/22 13:37 DL Document 09/05/22 10:33 JF [id number] 09/05/22 10:36 Document 09/10/22 13:52 DL [id number] 09/10/22 13:59 DL Document 09/12/22 11:03 RB [id number] 09/12/22 11:13 RB Document 09/17/22 11:28 DL [id number] 09/17/22 11:34 DL Document 09/19/22 10:27 RB Desktop 09/19/22 10:44 RB 09/03/22 09/05/22 09/10/22 13:16 10:33 13:52 - Today's Visit Information Type of service Follow-up Visit Follow-up Visit Nurse-only (Physician/LIVE IN CAREGIVER (Physician/LIVE IN CAREGIVER Visit ) ) Arrival Mode Ambulatory Ambulatory Ambulatory Transfer Assistance None Accompanied by Patient Identification Verified (Name & Yes Yes ) Patient Requires Transmission-Based No No No Precautions Safety Precautions NA Height and Weight Body Mass Index (BMI) 44.6 44.6 44.6 BMI Classification Obese Obese Obese Vital Signs Temperature (97.8 F-99.1 F) 97.1 F L 96.8 F L 95.5 F L Temperature Source Temporal Temporal Temporal Pulse Rate (60-100) 85 66 85 Pulse Location Monitor Monitor Monitor Respiratory Rate (12-18) 20 H 18 20 H Respiratory rate source Observation Observation Observation Oxygen Delivery Method Blood Pressure (90/60-120/80) 175/91 H 150/87 H 132/73 H Blood Pressure Mean (mm Hg) 119 108 92 Source Monitor Monitor Monitor Position Semi-Fowlers Blood Pressure Location Right Forearm History Since Last Visit- (Skip if this is Patient's initial visit) Have you changed medications since your No No No last visit? Any new allergies or adverse reactions No No No Had a fall/change in ADL's that may No No No increase risk of falls Signs or symptoms of abuse and/or No No No neglect since last visit Have you been in the hospital since your No No No last visit? Has dressing in place as prescribed Yes Yes Yes Has compression in place as prescribed Yes Yes Yes Has offloadiing in place as prescribed N/A N/A N/A Experienced any changes in pain level or No No No management Left Footwear Regular Shoe Right Footwear Regular Shoe Pain Scale: 0-10 Numeric Is Patient Pain Free? Yes Yes Yes 09/12/22 09/17/22 09/19/22 11:03 11:28 10:27 - Today's Visit Information Type of service Follow-up Visit Nurse-only Follow-up Visit (Physician/LIVE IN CAREGIVER Visit (Physician/LIVE IN CAREGIVER ) ) Arrival Mode Ambulatory Ambulatory Ambulatory Transfer Assistance None None None Accompanied by self Patient Identification Verified (Name & Yes Yes Yes ) Patient Requires Transmission-Based No No No Precautions Safety Precautions NA Height and Weight Body Mass Index (BMI) 44.6 44.6 44.6 BMI Classification Obese Obese Obese Vital Signs Temperature (97.8 F-99.1 F) 97 F L 97.4 F L Temperature Source Temporal Temporal Temporal Pulse Rate (60-100) 81 91 Pulse Location Monitor Monitor Monitor Respiratory Rate (12-18) 18 16 18 Respiratory rate source Observation Observation Observation Oxygen Delivery Method Room Air Blood Pressure (90/60-120/80) 163/80 H 128/83 H Blood Pressure Mean (mm Hg) 107 98 Source Monitor Monitor Monitor Position Semi-Fowlers Sitting Semi-Fowlers Blood Pressure Location Left Arm Left Arm Left Arm History Since Last Visit- (Skip if this is Patient's initial visit) Have you changed medications since your No No No last visit? Any new allergies or adverse reactions No No No Had a fall/change in ADL's that may No No No increase risk of falls Signs or symptoms of abuse and/or No No No neglect since last visit Have you been in the hospital since your No No No last visit? Has dressing in place as prescribed Yes No Yes Has compression in place as prescribed Yes No Yes Has offloadiing in place as prescribed No N/A No Experienced any changes in pain level or No No No management Left Footwear Regular Shoe Right Footwear Regular Shoe Pain Scale: 0-10 Numeric Is Patient Pain Free? Yes Yes Yes WC - Nurse 1 - General Ulcer Measurement Start: 09/03/22 13:16 Freq: Status: Active Protocol: Activity Type Activity Date Activity User E-sign Co-sign Detail Recorded Client Recorded Date Recorded By Document 09/03/22 13:16 DL [id number] 09/03/22 13:37 DL Document 09/05/22 10:33 JF [id number] 09/05/22 10:36 JF Document 09/10/22 13:52 DL [id number] 09/10/22 13:59 DL Document 09/12/22 11:03 RB [id number] 09/12/22 11:13 RB Document 09/17/22 11:28 DL [id number] 09/17/22 11:34 DL Document 09/19/22 10:27 RB Desktop 09/19/22 10:44 RB 09/03/22 09/05/22 09/10/22 13:16 10:33 13:52 Wound Center Nurse 1 #3 L lateral superior -Combined with other wound No -Current Size (cm) - Length 0.5 -Current Size (cm) - Width 1.2 -Current Size (cm) - Depth 0.2 -Total Square Cm 0.60 -Photo Taken Yes -Epithelialization Small 1-33% -Tunneling No -Undermining/Tunneling No -Circular Undermining No -Exudate Amt Small Small -Exudate Type Serosanguineous -Wound Margin Distinct, Flat & Intact Outline Attached -Granulation Amt Medium (34-66%) Large (67-100%) -Granulation Quality Red -Slough/Fibrin Yes -Necrosis Amt Medium (34-66%) Small (1-33%) -Necrotic Tissue Type Adherent Slough Adherent Slough -Structure Exposed N/A N/A -Texture (Myriam-wound Skin Appearance) Scarring Assessed, Localized Edema -Moisture (Myriam-wound Skin Appearance) No Abnormality Assessed,Dry/ Scaly -Color (Myriam-wound Skin Appearance) Hemosiderin Staining -Temperature (Myriam-wound Skin No Abnormality No Abnormality Appearance) (Pt Warm) (Pt Warm) -Tenderness on Palpation (Myriam-wound No No Skin Appearance) -Ulcer Cleansing Soap and Water Wound Cleanser -Foul Odor after Cleansing No No -Anesthetic Used 5% Lidocaine Gel # 2 L lateral -Combined with other wound No -Current Size (cm) - Length 0.3 -Current Size (cm) - Width 0.3 -Current Size (cm) - Depth 0.1 -Total Square Cm 0.09 -Photo Taken Yes -Epithelialization Small 1-33% -Tunneling No -Undermining/Tunneling No -Circular Undermining No -Exudate Amt Small Small -Exudate Type Serosanguineous -Wound Margin Distinct, Flat & Intact Outline Attached -Granulation Amt Medium (34-66%) Medium (34-66%) -Granulation Quality [place] Red -Slough/Fibrin Yes -Necrosis Amt Medium (34-66%) Small (1-33%) -Necrotic Tissue Type Adherent Slough Adherent Slough -Structure Exposed N/A N/A -Texture (Myriam-wound Skin Appearance) Localized Edema Assessed, Localized Edema -Moisture (Myriam-wound Skin Appearance) No Abnormality Assessed,Dry/ No Abnormality Scaly -Color (Myriam-wound Skin Appearance) Hemosiderin Assessed No Abnormality Staining -Temperature (Myriam-wound Skin No Abnormality No Abnormality No Abnormality Appearance) (Pt Warm) (Pt Warm) (Pt Warm) -Tenderness on Palpation (Myriam-wound No No Skin Appearance) -Ulcer Cleansing Soap and Water Wound Cleanser Soap and Water -Foul Odor after Cleansing No No No -Anesthetic Used 5% Lidocaine Gel #1 L salmeron -Combined with other wound No -Current Size (cm) - Length 1.0 -Current Size (cm) - Width 1.0 -Current Size (cm) - Depth 0.1 -Total Square Cm 1.00 -Photo Taken Yes -Epithelialization Large 67-100% -Tunneling No -Undermining/Tunneling No -Circular Undermining No -Exudate Amt Small Medium -Exudate Type Serosanguineous Serosanguineous -Wound Margin Distinct, Flat & Intact Outline Attached -Granulation Amt Medium (34-66%) Large (67-100%) -Granulation Quality Red Red -Slough/Fibrin Yes -Necrosis Amt Medium (34-66%) Small (1-33%) -Necrotic Tissue Type Adherent Slough Adherent Slough -Structure Exposed N/A N/A -Texture (Myriam-wound Skin Appearance) Scarring Assessed, No Abnormality Localized Edema -Moisture (Myriam-wound Skin Appearance) No Abnormality Assessed,Dry/ No Abnormality Scaly -Color (Myriam-wound Skin Appearance) Hemosiderin Assessed No Abnormality Staining -Temperature (Myriam-wound Skin No Abnormality No Abnormality No Abnormality Appearance) (Pt Warm) (Pt Warm) (Pt Warm) -Tenderness on Palpation (Myriam-wound No No Skin Appearance) -Ulcer Cleansing Soap and Water Wound Cleanser Soap and Water -Foul Odor after Cleansing No No No -Anesthetic Used 5% Lidocaine Gel Lower Limb Edema Present Yes Right Calf (cm) 50.4 48 47 Right Ankle (cm) 29.3 28.5 27.4 Left Calf (cm) 48.5 48 48.5 Left Ankle (cm) 31.2 29.4 28.5 09/12/22 09/17/22 09/19/22 11:03 11:28 10:27 Wound Center Nurse 1 #3 L lateral superior -Combined with other wound No No -Current Size (cm) - Length 0.6 0.6 -Current Size (cm) - Width 0.9 1.2 -Current Size (cm) - Depth 0.1 0.1 -Total Square Cm 0.54 0.72 -Photo Taken Yes Yes -Epithelialization -Tunneling No No -Undermining/Tunneling No No -Circular Undermining No No -Exudate Amt Medium -Exudate Type Serosanguineous -Wound Margin Distinct, Outline Attached -Granulation Amt Medium (34-66%) Medium (34-66%) -Granulation Quality [place] -Slough/Fibrin Yes Yes -Necrosis Amt Medium (34-66%) Medium (34-66%) -Necrotic Tissue Type Adherent Slough Adherent Slough -Structure Exposed N/A N/A -Texture (Myriam-wound Skin Appearance) Assessed Assessed -Moisture (Myriam-wound Skin Appearance) Assessed Assessed -Color (Myriam-wound Skin Appearance) Hemosiderin Assessed, Staining Hemosiderin Staining -Temperature (Myriam-wound Skin No Abnormality No Abnormality Appearance) (Pt Warm) (Pt Warm) -Tenderness on Palpation (Myriam-wound No No Skin Appearance) -Ulcer Cleansing Rinsed/ Wound Cleanser Irrigated with Saline -Foul Odor after Cleansing No No -Anesthetic Used 5% Lidocaine 5% Lidocaine Gel Gel # 2 L lateral -Combined with other wound No No -Current Size (cm) - Length 0.6 1 -Current Size (cm) - Width 0.6 0.6 -Current Size (cm) - Depth 0.1 0.2 -Total Square Cm 0.36 0.6 -Photo Taken Yes Yes -Epithelialization -Tunneling No No -Undermining/Tunneling No No -Circular Undermining No No -Exudate Amt Medium Medium -Exudate Type Serosanguineous Serosanguineous -Wound Margin Distinct, Distinct, Outline Outline Attached Attached -Granulation Amt Medium (34-66%) Medium (34-66%) -Granulation Quality [place] -Slough/Fibrin Yes Yes -Necrosis Amt Medium (34-66%) Medium (34-66%) -Necrotic Tissue Type Adherent Slough Adherent Slough -Structure Exposed N/A N/A -Texture (Myriam-wound Skin Appearance) Assessed Assessed -Moisture (Myriam-wound Skin Appearance) Assessed -Color (Myriam-wound Skin Appearance) Hemosiderin Hemosiderin Staining Staining -Temperature (Myriam-wound Skin No Abnormality No Abnormality Appearance) (Pt Warm) (Pt Warm) -Tenderness on Palpation (Myriam-wound No No Skin Appearance) -Ulcer Cleansing Wound Cleanser Wound Cleanser -Foul Odor after Cleansing No No -Anesthetic Used 5% Lidocaine 5% Lidocaine Gel Gel #1 L salmeron -Combined with other wound No No -Current Size (cm) - Length 1.2 1.4 -Current Size (cm) - Width 0.7 0.6 -Current Size (cm) - Depth 0.1 0.1 -Total Square Cm 0.84 0.84 -Photo Taken Yes Yes -Epithelialization -Tunneling No No -Undermining/Tunneling No No -Circular Undermining No No -Exudate Amt Medium Medium -Exudate Type Serosanguineous Serosanguineous -Wound Margin Distinct, Distinct, Outline Outline Attached Attached -Granulation Amt Medium (34-66%) Medium (34-66%) -Granulation Quality [place] -Slough/Fibrin Yes Yes -Necrosis Amt Medium (34-66%) Medium (34-66%) -Necrotic Tissue Type Adherent Slough Adherent Slough -Structure Exposed N/A N/A -Texture (Myriam-wound Skin Appearance) Assessed Assessed -Moisture (Myriam-wound Skin Appearance) Assessed Assessed -Color (Myriam-wound Skin Appearance) Assessed, Hemosiderin Hemosiderin Staining Staining -Temperature (Myriam-wound Skin No Abnormality No Abnormality Appearance) (Pt Warm) (Pt Warm) -Tenderness on Palpation (Myriam-wound No No Skin Appearance) -Ulcer Cleansing Wound Cleanser Wound Cleanser -Foul Odor after Cleansing No No -Anesthetic Used 5% Lidocaine 5% Lidocaine Gel Gel Lower Limb Edema Present Yes Yes Right Calf (cm) 46 46.5 45.5 Right Ankle (cm) 27 27.0 27 Left Calf (cm) 45 48.0 45.5 Left Ankle (cm) 29.7 26.4 29.5 WC - Nurse 2 - General Ulcer CM Notes Start: 09/03/22 13:16 Freq: Status: Active Protocol: Activity Type Activity Date Activity User E-sign Co-sign Detail Recorded Client Recorded Date Recorded By Document 09/05/22 10:53 PL [id number] 09/05/22 10:59 PL Document 09/12/22 13:40 PL [id number] 09/12/22 13:42 PL 09/05/22 09/12/22 10:53 13:40 Wound Center Nurse 2 #3 L lateral superior -Time 10:50 11:15 -Correct Patient Yes Yes -Correct Side, Site, Position Yes Yes -Correct Procedure Yes Yes -Procedure Performed Yes Yes -Type of Procedure Debridement Debridement -Clinical Debridement Subcutaneous Subcutaneous -Tissue Removed Subcutaneous Subcutaneous -Post Debridement (cm) - Length 0.3 0.3 -Post Debridement (cm) - Width 0.9 0.8 -Post Debridement (cm) - Depth 0.1 0.1 -Total Square (Post) (cm) 0.27 0.24 -Area of Debridement (cm) - Length 0.3 0.3 -Area of Debridement (cm) - Width 0.9 0.8 -Total Square (Area) (cm) 0.27 0.24 -Tunneling No No -Undermining/Tunneling No No -Circular Undermining No No -Wound/Ulcer Outcome Not Healed Not Healed -Ulcer Cleansing Rinsed/ Rinsed/ Irrigated with Irrigated with Saline Saline -Foul Odor after Cleansing No No -Bioengineered Tissue No No -Bleeding Controlled with Pressure Pressure -Treatment Response Procedure Procedure Tolerated Well Tolerated Well -Debridement - Subq, 1st 20sq cm No No # 2 L lateral -Time 10:50 11:15 -Correct Patient Yes Yes -Correct Side, Site, Position Yes Yes -Correct Procedure Yes Yes -Procedure Performed Yes Yes -Type of Procedure Debridement Debridement -Clinical Debridement Subcutaneous Subcutaneous -Tissue Removed Subcutaneous Subcutaneous -Post Debridement (cm) - Length 0.4 0.4 -Post Debridement (cm) - Width 0.3 0.5 -Post Debridement (cm) - Depth 0.1 0.1 -Total Square (Post) (cm) 0.12 0.20 -Area of Debridement (cm) - Length 0.4 0.4 -Area of Debridement (cm) - Width 0.3 0.5 -Total Square (Area) (cm) 0.12 0.20 -Tunneling No No -Undermining/Tunneling No No -Circular Undermining No No -Wound/Ulcer Outcome Not Healed Not Healed -Ulcer Cleansing Rinsed/ Irrigated with Saline -Foul Odor after Cleansing No -Bioengineered Tissue No -Bleeding Controlled with Pressure -Treatment Response Procedure Tolerated Well -Debridement - Subq, 1st 20sq cm No No #1 L salmeron -Time 10:50 11:15 -Correct Patient Yes Yes -Correct Side, Site, Position Yes Yes -Correct Procedure Yes Yes -Procedure Performed Yes Yes -Type of Procedure Debridement Debridement -Clinical Debridement Subcutaneous Subcutaneous -Tissue Removed Subcutaneous Subcutaneous -Post Debridement (cm) - Length 1.0 1.3 -Post Debridement (cm) - Width 0.8 0.7 -Post Debridement (cm) - Depth 0.1 0.1 -Total Square (Post) (cm) 0.80 0.91 -Area of Debridement (cm) - Length 1.0 1.3 -Area of Debridement (cm) - Width 0.8 0.7 -Total Square (Area) (cm) 0.80 0.91 -Tunneling No No -Undermining/Tunneling No No -Circular Undermining No No -Wound/Ulcer Outcome Not Healed Not Healed -Ulcer Cleansing Rinsed/ Rinsed/ Irrigated with Irrigated with Saline Saline -Foul Odor after Cleansing No No -Bioengineered Tissue No No -Bleeding Controlled with Pressure NA -Treatment Response Procedure Procedure Tolerated Well Tolerated Well -Debridement - Subq, 1st 20sq cm Yes Yes Pain Scale: 0-10 Numeric Is Patient Pain Free? Yes Yes WC - Nurse 3 - General Ulcer D/C NN Start: 09/03/22 13:16 Freq: Status: Active Protocol: Activity Type Activity Date Activity User E-sign Co-sign Detail Recorded Client Recorded Date Recorded By Document 09/03/22 13:37 DL [id number] 09/03/22 13:39 DL Edit Result 09/03/22 13:37 DL (1) [id number] 09/04/22 07:17 PL Document 09/05/22 11:55 JF [id number] 09/05/22 11:56 JF Document 09/10/22 13:52 DL [id number] 09/10/22 13:59 DL Document 09/12/22 11:33 JF [id number] 09/12/22 11:34 JF Document 09/17/22 11:28 DL [id number] 09/17/22 11:34 DL (1) Bilateral - Multi-Layered Wrap Application => Unna Boot - => Bilateral ($) - Unna Boots (Bilat) ($) => 2 09/03/22 09/05/2223 13:37 11:55 13:52 Wound Care Center Nurse 3 #3 L lateral superior -Ulcer Cleansing Soap and Water Rinsed/ Soap and Water Irrigated with Saline -Foul Odor after Cleansing No No No -Primary Dressing Applied Promogran Promogran Promogran Taya Matter Taya Matter Taya Matter -Other Dressing -Primary Dressing Covered/Secured with Dry Gauze Dry Gauze -Other Covering -Promogran Taya Matter 1 1 1 # 2 L lateral -Ulcer Cleansing Soap and Water Rinsed/ Rinsed/ Irrigated with Irrigated with Saline Saline -Foul Odor after Cleansing No No No -Primary Dressing Applied Promogran Taya Matter -Other Dressing taya taya -Primary Dressing Covered/Secured with Dry Gauze -Promogran Taya Matter 0 #1 L salmeron -Ulcer Cleansing Soap and Water Rinsed/ Rinsed/ Irrigated with Irrigated with Saline Saline -Foul Odor after Cleansing No No No -Primary Dressing Applied Promogran Taya Matter -Other Dressing taya taya -Primary Dressing Covered/Secured with Dry Gauze -Promogran Taya Matter 0 Bilateral -Lotion applied to leg before Yes compression wrap -Multi-Layered Wrap Application Unna Boot - Multi-Layer Multi-Layer Bilateral ($) Comp - Bilat ($ Comp - Bilat ($ ) ) -Unna Boots (Bilat) ($) 2 Treatment Response Procedure Procedure Tolerated Well Tolerated Well Vital Signs Temperature (97.8 F-99.1 F) 95.5 F L Temperature Source Temporal Pulse Rate (60-100) 85 Pulse Location Monitor Respiratory Rate (12-18) 20 H Respiratory rate source Observation Oxygen Delivery Method Blood Pressure (90/60-120/80) 132/73 H Blood Pressure Mean (mm Hg) 92 Source Monitor Position Blood Pressure Location Pain Scale: 0-10 Numeric Is Patient Pain Free? Yes Yes Yes WC - Visit Discharge Discharge Condition Stable Stable Stable Ambulatory Status Ambulatory Ambulatory Ambulatory Transportation Private Auto Private Auto Private Auto Accompanied by Medication Reconcilliation completed & Yes provided to patient/care provider Clinical Summary of Care Provided Yes 09/12/22 09/17/22 11:33 11:28 Wound Care Center Nurse 3 #3 L lateral superior -Ulcer Cleansing Rinsed/ Soap and Water Irrigated with Saline -Foul Odor after Cleansing No No -Primary Dressing Applied C Hydrogel ($), Collagen Powder Collagen Powder ($) ($) -Other Dressing foam c.hydrogel -Primary Dressing Covered/Secured with Dry Gauze -Other Covering powder and gel and AMD foam applied to all 3 ulcers -Promogran Taya Matter # 2 L lateral -Ulcer Cleansing Rinsed/ Soap and Water Irrigated with Saline -Foul Odor after Cleansing No -Primary Dressing Applied -Other Dressing amd foam collagen powder , c.hydrogel -Primary Dressing Covered/Secured with Dry Gauze -Promogran Taya Matter #1 L salmeron -Ulcer Cleansing Rinsed/ Soap and Water Irrigated with Saline -Foul Odor after Cleansing No -Primary Dressing Applied -Other Dressing amd foam collagen powder , c.hydrogel -Primary Dressing Covered/Secured with Dry Gauze -Promogran Taya Matter Bilateral -Lotion applied to leg before No compression wrap -Multi-Layered Wrap Application Multi-Layer Multi-Layer Comp - Bilat ($ Comp - Bilat ($ ) ) -Unna Boots (Bilat) ($) Treatment Response Procedure Tolerated Well Vital Signs Temperature (97.8 F-99.1 F) 97.4 F L Temperature Source Temporal Pulse Rate (60-100) 91 Pulse Location Monitor Respiratory Rate (12-18) 16 Respiratory rate source Observation Oxygen Delivery Method Room Air Blood Pressure (90/60-120/80) 128/83 H Blood Pressure Mean (mm Hg) 98 Source Monitor Position Sitting Blood Pressure Location Left Arm Pain Scale: 0-10 Numeric Is Patient Pain Free? Yes Yes WC - Visit Discharge Discharge Condition Stable Stable Ambulatory Status Ambulatory Ambulatory Transportation Private Auto Private Auto Accompanied by self Medication Reconcilliation completed & Yes No provided to patient/care provider Clinical Summary of Care Provided Yes Yes Assessment/Plan Assessment/Plan (1) Bilateral edema of lower extremity: CODE(S): R60.0 - Localized edema (2) Non-pressure chronic ulcer of left calf with fat layer exposed: CODE(S): L97.222 - Non-pressure chronic ulcer of left calf with fat layer exposed (3) Venous insufficiency (chronic) (peripheral): CODE(S): I87.2 - Venous insufficiency (chronic) (peripheral) (4) BMI 40.0-44.9, adult: CODE(S): Z68.41 - Body mass index [BMI] 40.0-44.9, adult (5) Stage 3 severe COPD by GOLD classification: CODE(S): J44.9 - Chronic obstructive pulmonary disease, unspecified (6) Dyspnea: CODE(S): R06.00 - Dyspnea, unspecified (7) Tobacco abuse: CODE(S): Z72.0 - Tobacco use PLAN: Plan Patient seen and evaluated Discussed the swelling in the bilateral lower extremities with his ulcerations secondary to aggressive scratching with a back scratching device.? Discouraged continued use of this device as this has likely led to his ulcerations. Per our discussion he has stopped utilizing this device to aid in scratching. Encouraged continued elevation of lower extremities for control of edema.? Patient is noted to be on Lasix to assist in fluid control.? Instructed him to continue use of Lasix.? Discussed compression stocking for continued assistance in his control of edema.? He voices understanding that he does need to wear the compression stockings. He has stopped smoking.? I did discuss the risks and detriment smoking has on wound healing and overall health, again smoking was discouraged.? Encouraged his continued smoking cessation. Ordered LEAS and venous studies of bilateral lower extremities, performed 08/30/2022. Venous studies: No evidence of acute DVT. 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 Accessory saphenous vein in the left proximal thigh and proximal calf are incompetent. LEAS: Triphasic Doppler waveforms noted at the ankle level bilaterally. PVRs appear normal at all levels bilaterally. Indices: Right: QUETA by DP 1.3, QUETA by PT 1.36, digital brachial index 0.99. Left: QUETA by DP 1.26, QUETA by PT 1.39, digital brachial index 0.72. No evidence of significant arterial occlusive disease in the lower extremity bilaterally. Ulcerations to the left lower extremity x3 were debrided as noted in the clinical panel above.? Left anterior leg lower extremity measures 1.3 cm x 0.7 cm x 0.1 cm; left superior lateral measures 0.3 cm x 0.3 cm x 0.1 cm; left distal lateral measures 0.4 cm x 0.7 cm x 0.1 cm.? No signs of infection.? Following debridement ulcerative sites dressed with Taya and 3M compression dressing applied to bilateral lower extremity.? He was instructed to keep the 3M compression dressing clean, dry, and intact. Ulcerations demonstrate no change in size versus previous visit. We will consider collagen powder and hydrogel application at next visit. Encouraged adequate protein intake to continue to aid in wound healing. Encouraged to clean up his diet of fast food and lower sodium intake. The following work up and care recommendations were made: Dressing: Taya and Unna boot to bilateral lower extremity Wash: Keep dressings clean, dry, and intact Tissue growth optimization: Taya Offload: Unna boot compression and elevation of legs Vascular: DP and PT pulses palpable with adequate capillary fill bilateral. Edema: Unna boot compression and elevation of legs Infection: No signs of infection.? Patient currently on Bactrim DS, encouraged to finish to completion. Pain: May take [id number] Tylenol for discomfort Host factors: Suspected venous insufficiency, pruritus and self excoriation. ? I answered all the patient's questions.? To return to the wound healing center in 2 weeks or call sooner if the patient has any questions or concerns. 09/19/22 1415 <Electronically signed by Felipe Whitt DPM> Cosigner Signature (if applicable): CC: ~ Signed [facility] [place] Work Phone: [phone] Progress note Author Felipe Whitt [facility] [place] September 12, 2022 1:28pm Note Date/Time September 12, 2022 11: 11am [facility] [address] [place] [address] Progress Note - Wound Care 09/12/22 1110 MR#: [id number] Acct: [id number] Name: YAQUELIN HESNON Rep #:[id number] : 1965 57 From: Felipe jessica DPM PCP: LINDA JohnstonC Status:REG RCR Location: History of Present Illness Date of Service: 09/12/22 Chief Complaint: Left lower extremity wound x3 History of Wound: Patient is a 57-year-old male with history of COPD, chronic tobacco abuse, obesity, swelling of bilateral lower extremities with recent opening of 3 ulcerations to the left lower extremity. Patient states that when sitting at the computer he sometimes uses a back j2ee application developer to aggressively scratch his legs and believes this led to opening of the 3 wounds on the left lower extremity. He states that he does not elevate his legs and does not wear compression stockings. Also states that he recently quit smoking. Reports seeing his PCP who prescribed Lasix to aid in fluid reduction of the lower extremities. He also reports being prescribed oral antibiotic, Bactrim DS and is currently taking this. States he was referred to the wound care center for continued care of his left lower extremity ulcerations. Subjective Subjective Patient is a 57-year-old male who presents to the wound care center today for follow-up of left lower extremity ulceration x3.? He kept his 3M compression dressing clean, dry, and intact.?He denies any constitutional symptoms today.? Denies any further complaints today. Objective Data Objective Data Vital Signs: Vital Signs Temp Pulse Resp BP 95.5 F L 85 20 H 132/73 H 09/10/22 13:52 09/10/22 13:52 09/10/22 13:52 09/10/22 13:52 Weight: 129.274 kg Body Mass Index (BMI) 44.6 Physical Exam Const alert, oriented x3, no apparent distress and well nourished General Appearance: cooperative HEENT normocephalic Eyes General Eye: normal appearance of both eyes Neck General: normal visual inspection Lymph Lymphatic: no lymphadenopathy noted and no lymphedema noted Resp normal respiratory effort Cardio regular rate and regular rhythm Extremity normal capillary refill, no joint enlargement, no calf tenderness and no pedal edema Extremity Narrative: DP and PT pulses palpable bilateral.? Capillary fill time is brisk to the digits.? Normal temperature gradient.? Hair growth to the digits is diminished.?There is some mild nonpitting lower extremity edema bilateral from mid calf to the distal forefoot. Musculoskeletal: Muscle strength 5 out of 5 and age-appropriate.? Negative Homans' sign.? Negative Lester sign. Skin no rashes or lesions noted, skin turgor normal and no jaundice Wound Narrative: Left lower extremity: 3 ulcerations noted to the left lower extremity.? #1 anterior leg; #2 Superior lateral leg; #3 distal lateral leg.? Ulcerative sites demonstrate moist fibrotic tissue in the wound bed with scant serous drainage.? No purulent drainage, no erythema, no malodor, no palpable fluctuance/bogginess,no visible abscess, no lymphangitic streaking. Neuro moves all extremities Debridement Note Debridement Note Wound debrided: Left lower extremity x3 Laterality: Left Wound Grade/Stage: Sheth stage I Type of Debridement: Excisional debridement Anesthesia Used: 5% Lidocaine Gel Depth: Down to and including healthy tissue and in the subcutaneous layer Percentage of wound debrided: 100 Instrument Used: 3mm curette Tissue Removed: Fibrous, devitalized subcutaneous, biofilm, slough Severity: Fat Layer Exposed Amount of bleeding with debridement: Mild Bleeding Controlled with: Compression and gauze Patient tolerated procedure: Patient tolerated procedure well Post-Debridement Measurements and Additional Note: Post-Debridement Measurements/Treatment - Nurse 1 - General Ulcer Assessment Start: 09/03/22 13:16 Freq: Status: Active Protocol: XIMENA Activity Type Activity Date Activity User E-sign Co-sign Detail Recorded Client Recorded Date Recorded By Document 09/03/22 13:16 DL [id number] 09/03/22 13:37 DL Document 09/05/22 10:33 JF [id number] 09/05/22 10:36 JF Document 09/10/22 13:52 DL [id number] 09/10/22 13:59 DL 09/03/22 09/05/22 09/10/22 13:16 10:33 13:52 - Today's Visit Information Type of service Follow-up Visit Follow-up Visit Nurse-only (Physician/LIVE IN CAREGIVER (Physician/LIVE IN CAREGIVER Visit ) ) Arrival Mode Ambulatory Ambulatory Ambulatory Transfer Assistance None Patient Identification Verified (Name & Yes Yes ) Patient Requires Transmission-Based No No No Precautions Safety Precautions NA Height and Weight Body Mass Index (BMI) 44.6 44.6 44.6 BMI Classification Obese Obese Obese Vital Signs Temperature (97.8 F-99.1 F) 97.1 F L 96.8 F L 95.5 F L Temperature Source Temporal Temporal Temporal Pulse Rate (60-100) 85 66 85 Pulse Location Monitor Monitor Monitor Respiratory Rate (12-18) 20 H 18 20 H Respiratory rate source Observation Observation Observation Blood Pressure (90/60-120/80) 175/91 H 150/87 H 132/73 H Blood Pressure Mean (mm Hg) 119 108 92 Source Monitor Monitor Monitor Position Semi-Fowlers Blood Pressure Location Right Forearm History Since Last Visit- (Skip if this is Patient's initial visit) Have you changed medications since your No No No last visit? Any new allergies or adverse reactions No No No Had a fall/change in ADL's that may No No No increase risk of falls Signs or symptoms of abuse and/or No No No neglect since last visit Have you been in the hospital since your No No No last visit? Has dressing in place as prescribed Yes Yes Yes Has compression in place as prescribed Yes Yes Yes Has offloadiing in place as prescribed N/A N/A N/A Experienced any changes in pain level or No No No management Left Footwear Regular Shoe Right Footwear Regular Shoe Pain Scale: 0-10 Numeric Is Patient Pain Free? Yes Yes Yes WC - Nurse 1 - General Ulcer Measurement Start: 09/03/22 13:16 Freq: Status: Active Protocol: Activity Type Activity Date Activity User E-sign Co-sign Detail Recorded Client Recorded Date Recorded By Document 09/03/22 13:16 DL [id number] 09/03/22 13:37 DL Document 09/05/22 10:33 JF [id number] 09/05/22 10:36 JF Document 09/10/22 13:52 DL [id number] 09/10/22 13:59 DL 09/03/22 09/05/22 09/10/22 13:16 10:33 13:52 Wound Center Nurse 1 #3 L lateral superior -Combined with other wound No -Current Size (cm) - Length 0.5 -Current Size (cm) - Width 1.2 -Current Size (cm) - Depth 0.2 -Total Square Cm 0.60 -Photo Taken Yes -Epithelialization Small 1-33% -Tunneling No -Undermining/Tunneling No -Circular Undermining No -Exudate Amt Small Small -Exudate Type Serosanguineous -Wound Margin Distinct, Flat & Intact Outline Attached -Granulation Amt Medium (34-66%) Large (67-100%) -Granulation Quality Red -Slough/Fibrin Yes -Necrosis Amt Medium (34-66%) Small (1-33%) -Necrotic Tissue Type Adherent Slough Adherent Slough -Structure Exposed N/A N/A -Texture (Myriam-wound Skin Appearance) Scarring Assessed, Localized Edema -Moisture (Myriam-wound Skin Appearance) No Abnormality Assessed,Dry/ Scaly -Color (Myriam-wound Skin Appearance) Hemosiderin Staining -Temperature (Myriam-wound Skin No Abnormality No Abnormality Appearance) (Pt Warm) (Pt Warm) -Tenderness on Palpation (Myriam-wound No No Skin Appearance) -Ulcer Cleansing Soap and Water Wound Cleanser -Foul Odor after Cleansing No No -Anesthetic Used 5% Lidocaine Gel # 2 L lateral -Combined with other wound No -Current Size (cm) - Length 0.3 -Current Size (cm) - Width 0.3 -Current Size (cm) - Depth 0.1 -Total Square Cm 0.09 -Photo Taken Yes -Epithelialization Small 1-33% -Tunneling No -Undermining/Tunneling No -Circular Undermining No -Exudate Amt Small Small -Exudate Type Serosanguineous -Wound Margin Distinct, Flat & Intact Outline Attached -Granulation Amt Medium (34-66%) Medium (34-66%) -Granulation Quality [place] Red -Slough/Fibrin Yes -Necrosis Amt Medium (34-66%) Small (1-33%) -Necrotic Tissue Type Adherent Slough Adherent Slough -Structure Exposed N/A N/A -Texture (Myriam-wound Skin Appearance) Localized Edema Assessed, Localized Edema -Moisture (Myriam-wound Skin Appearance) No Abnormality Assessed,Dry/ No Abnormality Scaly -Color (Myriam-wound Skin Appearance) Hemosiderin Assessed No Abnormality Staining -Temperature (Myriam-wound Skin No Abnormality No Abnormality No Abnormality Appearance) (Pt Warm) (Pt Warm) (Pt Warm) -Tenderness on Palpation (Myriam-wound No No Skin Appearance) -Ulcer Cleansing Soap and Water Wound Cleanser Soap and Water -Foul Odor after Cleansing No No No -Anesthetic Used 5% Lidocaine Gel #1 L salmeron -Combined with other wound No -Current Size (cm) - Length 1.0 -Current Size (cm) - Width 1.0 -Current Size (cm) - Depth 0.1 -Total Square Cm 1.00 -Photo Taken Yes -Epithelialization Large 67-100% -Tunneling No -Undermining/Tunneling No -Circular Undermining No -Exudate Amt Small Medium -Exudate Type Serosanguineous Serosanguineous -Wound Margin Distinct, Flat & Intact Outline Attached -Granulation Amt Medium (34-66%) Large (67-100%) -Granulation Quality Red Red -Slough/Fibrin Yes -Necrosis Amt Medium (34-66%) Small (1-33%) -Necrotic Tissue Type Adherent Slough Adherent Slough -Structure Exposed N/A N/A -Texture (Myriam-wound Skin Appearance) Scarring Assessed, No Abnormality Localized Edema -Moisture (Myriam-wound Skin Appearance) No Abnormality Assessed,Dry/ No Abnormality Scaly -Color (Myriam-wound Skin Appearance) Hemosiderin Assessed No Abnormality Staining -Temperature (Myriam-wound Skin No Abnormality No Abnormality No Abnormality Appearance) (Pt Warm) (Pt Warm) (Pt Warm) -Tenderness on Palpation (Myriam-wound No No Skin Appearance) -Ulcer Cleansing Soap and Water Wound Cleanser Soap and Water -Foul Odor after Cleansing No No No -Anesthetic Used 5% Lidocaine Gel Lower Limb Edema Present Yes Right Calf (cm) 50.4 48 47 Right Ankle (cm) 29.3 28.5 27.4 Left Calf (cm) 48.5 48 48.5 Left Ankle (cm) 31.2 29.4 28.5 WC - Nurse 2 - General Ulcer CM Notes Start: 09/03/22 13:16 Freq: Status: Active Protocol: Activity Type Activity Date Activity User E-sign Co-sign Detail Recorded Client Recorded Date Recorded By Document 09/05/22 10:53 GERMAINE [id number] 09/05/22 10:59 PL 09/05/22 10:53 Wound Center Nurse 2 #3 L lateral superior -Time 10:50 -Correct Patient Yes -Correct Side, Site, Position Yes -Correct Procedure Yes -Procedure Performed Yes -Type of Procedure Debridement -Clinical Debridement Subcutaneous -Tissue Removed Subcutaneous -Post Debridement (cm) - Length 0.3 -Post Debridement (cm) - Width 0.9 -Post Debridement (cm) - Depth 0.1 -Total Square (Post) (cm) 0.27 -Area of Debridement (cm) - Length 0.3 -Area of Debridement (cm) - Width 0.9 -Total Square (Area) (cm) 0.27 -Tunneling No -Undermining/Tunneling No -Circular Undermining No -Wound/Ulcer Outcome Not Healed -Ulcer Cleansing Rinsed/ Irrigated with Saline -Foul Odor after Cleansing No -Bioengineered Tissue No -Bleeding Controlled with Pressure -Treatment Response Procedure Tolerated Well -Debridement - Subq, 1st 20sq cm No # 2 L lateral -Time 10:50 -Correct Patient Yes -Correct Side, Site, Position Yes -Correct Procedure Yes -Procedure Performed Yes -Type of Procedure Debridement -Clinical Debridement Subcutaneous -Tissue Removed Subcutaneous -Post Debridement (cm) - Length 0.4 -Post Debridement (cm) - Width 0.3 -Post Debridement (cm) - Depth 0.1 -Total Square (Post) (cm) 0.12 -Area of Debridement (cm) - Length 0.4 -Area of Debridement (cm) - Width 0.3 -Total Square (Area) (cm) 0.12 -Tunneling No -Undermining/Tunneling No -Circular Undermining No -Wound/Ulcer Outcome Not Healed -Debridement - Subq, 1st 20sq cm No #1 L salmeron -Time 10:50 -Correct Patient Yes -Correct Side, Site, Position Yes -Correct Procedure Yes -Procedure Performed Yes -Type of Procedure Debridement -Clinical Debridement Subcutaneous -Tissue Removed Subcutaneous -Post Debridement (cm) - Length 1.0 -Post Debridement (cm) - Width 0.8 -Post Debridement (cm) - Depth 0.1 -Total Square (Post) (cm) 0.80 -Area of Debridement (cm) - Length 1.0 -Area of Debridement (cm) - Width 0.8 -Total Square (Area) (cm) 0.80 -Tunneling No -Undermining/Tunneling No -Circular Undermining No -Wound/Ulcer Outcome Not Healed -Ulcer Cleansing Rinsed/ Irrigated with Saline -Foul Odor after Cleansing No -Bioengineered Tissue No -Bleeding Controlled with Pressure -Treatment Response Procedure Tolerated Well -Debridement - Subq, 1st 20sq cm Yes Pain Scale: 0-10 Numeric Is Patient Pain Free? Yes WC - Nurse 3 - General Ulcer D/C NN Start: 09/03/22 13:16 Freq: Status: Active Protocol: Activity Type Activity Date Activity User E-sign Co-sign Detail Recorded Client Recorded Date Recorded By Document 09/03/22 13:37 DL [id number] 09/03/22 13:39 DL Edit Result 09/03/22 13:37 DL (1) [id number] 09/04/22 07:17 PL Document 09/05/22 11:55 JF [id number] 09/05/22 11:56 JF Document 09/10/22 13:52 DL [id number] 09/10/22 13:59 DL (1) Bilateral - Multi-Layered Wrap Application => Unna Boot - => Bilateral ($) - Unna Boots (Bilat) ($) => 2 09/03/22 09/05/22 09/10/22 13:37 11:55 13:52 Wound Care Center Nurse 3 #3 L lateral superior -Ulcer Cleansing Soap and Water Rinsed/ Soap and Water Irrigated with Saline -Foul Odor after Cleansing No No No -Primary Dressing Applied Promogran Promogran Promogran Taya Matter Taya Matter Taya Matter -Primary Dressing Covered/Secured with Dry Gauze Dry Gauze -Promogran Taya Matter 1 1 1 # 2 L lateral -Ulcer Cleansing Soap and Water Rinsed/ Rinsed/ Irrigated with Irrigated with Saline Saline -Foul Odor after Cleansing No No No -Primary Dressing Applied Promogran Taya Matter -Other Dressing taya taya -Primary Dressing Covered/Secured with Dry Gauze -Promogran Taya Matter 0 #1 L salmeron -Ulcer Cleansing Soap and Water Rinsed/ Rinsed/ Irrigated with Irrigated with Saline Saline -Foul Odor after Cleansing No No No -Primary Dressing Applied Promogran Taya Matter -Other Dressing taya taya -Primary Dressing Covered/Secured with Dry Gauze -Promogran Taya Matter 0 Bilateral -Lotion applied to leg before Yes compression wrap -Multi-Layered Wrap Application Unna Boot - Multi-Layer Multi-Layer Bilateral ($) Comp - Bilat ($ Comp - Bilat ($ ) ) -Unna Boots (Bilat) ($) 2 Treatment Response Procedure Procedure Tolerated Well Tolerated Well Vital Signs Temperature (97.8 F-99.1 F) 95.5 F L Temperature Source Temporal Pulse Rate (60-100) 85 Pulse Location Monitor Respiratory Rate (12-18) 20 H Respiratory rate source Observation Blood Pressure (90/60-120/80) 132/73 H Blood Pressure Mean (mm Hg) 92 Source Monitor Pain Scale: 0-10 Numeric Is Patient Pain Free? Yes Yes Yes WC - Visit Discharge Discharge Condition Stable Stable Stable Ambulatory Status Ambulatory Ambulatory Ambulatory Transportation Private Auto Private Auto Private Auto Medication Reconcilliation completed & Yes provided to patient/care provider Clinical Summary of Care Provided Yes Assessment/Plan Assessment/Plan (1) Bilateral edema of lower extremity: CODE(S): R60.0 - Localized edema (2) Non-pressure chronic ulcer of left calf with fat layer exposed: CODE(S): L97.222 - Non-pressure chronic ulcer of left calf with fat layer exposed (3) Venous insufficiency (chronic) (peripheral): CODE(S): I87.2 - Venous insufficiency (chronic) (peripheral) (4) BMI 40.0-44.9, adult: CODE(S): Z68.41 - Body mass index [BMI] 40.0-44.9, adult (5) Stage 3 severe COPD by GOLD classification: CODE(S): J44.9 - Chronic obstructive pulmonary disease, unspecified (6) Dyspnea: CODE(S): R06.00 - Dyspnea, unspecified (7) Tobacco abuse: CODE(S): Z72.0 - Tobacco use PLAN: Plan Patient seen and evaluated Discussed the swelling in the bilateral lower extremities with his ulcerations secondary to aggressive scratching with a back scratching device.? Discouraged continued use of this device as this has likely led to his ulcerations.? Encouraged continued elevation of lower extremities for control of edema.? Patient is noted to be on Lasix to assist in fluid control.? Instructed him to continue use of Lasix.? Discussed compression stocking for continued assistance in his control of edema.? He voices understanding that he does need to wear the compression stockings. He has stopped smoking.? I did discuss the risks and detriment smoking has on wound healing and overall health, again smoking was discouraged.? Encouraged his continued smoking cessation. Ordered LEAS and venous studies of bilateral lower extremities, performed 08/30/2022. Venous studies: No evidence of acute DVT. 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 Accessory saphenous vein in the left proximal thigh and proximal calf are incompetent. LEAS: Triphasic Doppler waveforms noted at the ankle level bilaterally. PVRs appear normal at all levels bilaterally. Indices: Right: QUETA by DP 1.3, QUETA by PT 1.36, digital brachial index 0.99. Left: QUETA by DP 1.26, QUETA by PT 1.39, digital brachial index 0.72. No evidence of significant arterial occlusive disease in the lower extremity bilaterally. Ulcerations to the left lower extremity x3 were debrided as noted in the clinical panel above.? Left anterior leg lower extremity measures 1.3 cm x 0.7 cm x 0.1 cm; left superior lateral measures 0.3 cm x 0.3 cm x 0.1 cm; left distal lateral measures 0.4 cm x 0.7 cm x 0.1 cm.? No signs of infection.? Following debridement ulcerative sites dressed with Taya and 3M compression dressing applied to bilateral lower extremity.? He was instructed to keep the 3M compression dressing clean, dry, and intact.? He will return on Friday for change of the 3M compression dressing. Ulcerations are decreasing in size versus previous visit. Encouraged adequate protein intake to continue to aid in wound healing. Encouraged to clean up his diet of fast food and lower sodium intake. The following work up and care recommendations were made: Dressing: Taya and Unna boot to bilateral lower extremity Wash: Keep dressings clean, dry, and intact Tissue growth optimization: Taya Offload: Unna boot compression and elevation of legs Vascular: DP and PT pulses palpable with adequate capillary fill bilateral. Edema: Unna boot compression and elevation of legs Infection: No signs of infection.? Patient currently on Bactrim DS, encouraged to finish to completion. Pain: May take [id number] Tylenol for discomfort Host factors: Suspected venous insufficiency, pruritus and self excoriation. ? I answered all the patient's questions.? To return to the wound healing center in 2 weeks or call sooner if the patient has any questions or concerns. 09/12/22 1328 <Electronically signed by Felipe Whitt DPM> Cosigner Signature (if applicable): CC: ~ Signed [facility] [place] Work Phone: [phone] 636-386904-06-2023 Progress note Author Felipe Whitt [facility] [place] September 05, 2022 1:37pm Note Date/Time September 05, 2022 10:3 6am [facility] [address] [place] [address] Progress Note - Wound Care 09/05/22 1033 MR#: [id number] Acct: [id number] Name: YAQUELIN HENSON Rep #:[id number] : 1965 57 From: Felipe jessica DPM PCP: NEDRA Johnston Status:REG RCR Location: History of Present Illness Date of Service: 09/05/22 Chief Complaint: Left lower extremity wound x3 History of Wound: Patient is a 57-year-old male with history of COPD, chronic tobacco abuse, obesity, swelling of bilateral lower extremities with recent opening of 3 ulcerations to the left lower extremity. Patient states that when sitting at the computer he sometimes uses a back j2ee application developer to aggressively scratch his legs and believes this led to opening of the 3 wounds on the left lower extremity. He states that he does not elevate his legs and does not wear compression stockings. Also states that he recently quit smoking. Reports seeing his PCP who prescribed Lasix to aid in fluid reduction of the lower extremities. He also reports being prescribed oral antibiotic, Bactrim DS and is currently taking this. States he was referred to the wound care center for continued care of his left lower extremity ulcerations. Subjective Subjective Patient is a 57-year-old male who presents to the wound care center today for follow-up of left lower extremity ulceration x3.? He kept his Unna boot compression dressing clean, dry, and intact and did return to the wound center for change of the dressing earlier this week.? He states he did get his vascularstudies done. He denies any constitutional symptoms today.? Denies any further complaints today. Objective Data Objective Data Vital Signs: Vital Signs Temp Pulse Resp BP 97.1 F L 85 20 H 175/91 H 09/03/22 13:16 09/03/22 13:16 09/03/22 13:16 09/03/22 13:16 Weight: 129.274 kg Body Mass Index (BMI) 44.6 Physical Exam Const alert, oriented x3, no apparent distress and well nourished General Appearance: cooperative HEENT normocephalic Eyes General Eye: normal appearance of both eyes Neck General: normal visual inspection Lymph Lymphatic: no lymphadenopathy noted and no lymphedema noted Resp normal respiratory effort Cardio regular rate and regular rhythm Extremity normal capillary refill, no joint enlargement, no calf tenderness and no pedal edema Extremity Narrative: DP and PT pulses palpable bilateral.? Capillary fill time is brisk to the digits.? Normal temperature gradient.? Hair growth to the digits is diminished.?There is some mild nonpitting lower extremity edema bilateral from mid calf to the distal forefoot. Musculoskeletal: Muscle strength 5 out of 5 and age-appropriate.? Negative Homans' sign.? Negative Lester sign. Skin no rashes or lesions noted, skin turgor normal and no jaundice Wound Narrative: Left lower extremity: 3 ulcerations noted to the left lower extremity.? #1 anterior leg; #2 Superior lateral leg; #3 distal lateral leg.? Ulcerative sites demonstrate moist fibrotic tissue in the wound bed with scant serous drainage.? No purulent drainage, no erythema, no malodor, no palpable fluctuance/bogginess,no visible abscess, no lymphangitic streaking. Neuro moves all extremities Debridement Note Debridement Note Wound debrided: Left lower extremity x3 Laterality: Left Wound Grade/Stage: Sheth stage I Type of Debridement: Excisional debridement Anesthesia Used: 5% Lidocaine Gel Depth: Down to and including healthy tissue and in the subcutaneous layer Percentage of wound debrided: 100 Instrument Used: 3mm curette Tissue Removed: Fibrous, devitalized subcutaneous, biofilm, slough Severity: Fat Layer Exposed Amount of bleeding with debridement: Mild Bleeding Controlled with: Compression and gauze Patient tolerated procedure: Patient tolerated procedure well Post-Debridement Measurements and Additional Note: Post-Debridement Measurements/Treatment WC - Nurse 1 - General Ulcer Assessment Start: 09/03/22 13:16 Freq: Status: Active Protocol: XIMENA Activity Type Activity Date Activity User E-sign Co-sign Detail Recorded Client Recorded Date Recorded By Document 09/03/22 13:16 DL [id number] 09/03/22 13:37 DL 09/03/22 13:16 WC - Today's Visit Information Type of service Follow-up Visit (Physician/LIVE IN CAREGIVER ) Arrival Mode Ambulatory Transfer Assistance None Patient Identification Verified (Name & Yes ) Patient Requires Transmission-Based No Precautions Safety Precautions NA Height and Weight Body Mass Index (BMI) 44.6 BMI Classification Obese Vital Signs Temperature (97.8 F-99.1 F) 97.1 F L Temperature Source Temporal Pulse Rate (60-100) 85 Pulse Location Monitor Respiratory Rate (12-18) 20 H Respiratory rate source Observation Blood Pressure (90/60-120/80) 175/91 H Blood Pressure Mean (mm Hg) 119 Source Monitor History Since Last Visit- (Skip if this is Patient's initial visit) Have you changed medications since your No last visit? Any new allergies or adverse reactions No Had a fall/change in ADL's that may No increase risk of falls Signs or symptoms of abuse and/or No neglect since last visit Have you been in the hospital since your No last visit? Has dressing in place as prescribed Yes Has compression in place as prescribed Yes Has offloadiing in place as prescribed N/A Experienced any changes in pain level or No management Pain Scale: 0-10 Numeric Is Patient Pain Free? Yes WC - Nurse 1 - General Ulcer Measurement Start: 09/03/22 13:16 Freq: Status: Active Protocol: Activity Type Activity Date Activity User E-sign Co-sign Detail Recorded Client Recorded Date Recorded By Document 09/03/22 13:16 DL [id number] 09/03/22 13:37 DL 09/03/22 13:16 Wound Center Nurse 1 #3 L lateral superior -Exudate Amt Small -Wound Margin Distinct, Outline Attached -Granulation Amt Medium (34-66%) -Necrosis Amt Medium (34-66%) -Necrotic Tissue Type Adherent Slough -Structure Exposed N/A -Texture (Myriam-wound Skin Appearance) Scarring -Moisture (Myriam-wound Skin Appearance) No Abnormality -Color (Myriam-wound Skin Appearance) Hemosiderin Staining -Temperature (Myriam-wound Skin No Abnormality Appearance) (Pt Warm) -Tenderness on Palpation (Myriam-wound No Skin Appearance) -Ulcer Cleansing Soap and Water -Foul Odor after Cleansing No # 2 L lateral -Exudate Amt Small -Wound Margin Distinct, Outline Attached -Granulation Amt Medium (34-66%) -Granulation Quality [place] -Necrosis Amt Medium (34-66%) -Necrotic Tissue Type Adherent Slough -Structure Exposed N/A -Texture (Myriam-wound Skin Appearance) Localized Edema -Moisture (Myriam-wound Skin Appearance) No Abnormality -Color (Myriam-wound Skin Appearance) Hemosiderin Staining -Temperature (Myriam-wound Skin No Abnormality Appearance) (Pt Warm) -Tenderness on Palpation (Myriam-wound No Skin Appearance) -Ulcer Cleansing Soap and Water -Foul Odor after Cleansing No #1 L salmeron -Exudate Amt Small -Exudate Type Serosanguineous -Wound Margin Distinct, Outline Attached -Granulation Amt Medium (34-66%) -Granulation Quality Red -Necrosis Amt Medium (34-66%) -Necrotic Tissue Type Adherent Slough -Structure Exposed N/A -Texture (Myriam-wound Skin Appearance) Scarring -Moisture (Myriam-wound Skin Appearance) No Abnormality -Color (Myriam-wound Skin Appearance) Hemosiderin Staining -Temperature (Myriam-wound Skin No Abnormality Appearance) (Pt Warm) -Ulcer Cleansing Soap and Water -Foul Odor after Cleansing No Right Calf (cm) 50.4 Right Ankle (cm) 29.3 Left Calf (cm) 48.5 Left Ankle (cm) 31.2 WC - Nurse 3 - General Ulcer D/C NN Start: 09/03/22 13:16 Freq: Status: Active Protocol: Activity Type Activity Date Activity User E-sign Co-sign Detail Recorded Client Recorded Date Recorded By Document 09/03/22 13:37 DL [id number] 09/03/22 13:39 DL Edit Result 09/03/22 13:37 DL (1) [id number] 09/04/22 07:17 PL (1) Bilateral - Multi-Layered Wrap Application => Unna Boot - => Bilateral ($) - Unna Boots (Bilat) ($) => 2 09/03/22 13:37 Wound Care Center Nurse 3 #3 L lateral superior -Ulcer Cleansing Soap and Water -Foul Odor after Cleansing No -Primary Dressing Applied Promogran Taya Matter -Promogran Taya Matter 1 # 2 L lateral -Ulcer Cleansing Soap and Water -Foul Odor after Cleansing No -Other Dressing taya #1 L salmeron -Ulcer Cleansing Soap and Water -Foul Odor after Cleansing No -Other Dressing taya Bilateral -Multi-Layered Wrap Application Unna Boot - Bilateral ($) -Unna Boots (Bilat) ($) 2 Treatment Response Procedure Tolerated Well Pain Scale: 0-10 Numeric Is Patient Pain Free? Yes WC - Visit Discharge Discharge Condition Stable Ambulatory Status Ambulatory Transportation Private Auto Assessment/Plan Assessment/Plan (1) Bilateral edema of lower extremity: CODE(S): R60.0 - Localized edema (2) Non-pressure chronic ulcer of left calf with fat layer exposed: CODE(S): L97.222 - Non-pressure chronic ulcer of left calf with fat layer exposed (3) Venous insufficiency (chronic) (peripheral): CODE(S): I87.2 - Venous insufficiency (chronic) (peripheral) (4) BMI 40.0-44.9, adult: CODE(S): Z68.41 - Body mass index [BMI] 40.0-44.9, adult (5) Stage 3 severe COPD by GOLD classification: CODE(S): J44.9 - Chronic obstructive pulmonary disease, unspecified (6) Dyspnea: CODE(S): R06.00 - Dyspnea, unspecified (7) Tobacco abuse: CODE(S): Z72.0 - Tobacco use PLAN: Plan Patient seen and evaluated Discussed the swelling in the bilateral lower extremities with his ulcerations secondary to aggressive scratching with a back scratching device.? Discouraged continued use of this device as this has likely led to his ulcerations.? Encouraged continued elevation of lower extremities for control of edema.? Patient is noted to be on Lasix to assist in fluid control.? Instructed him to continue use of Lasix.? Discussed compression stocking for continued assistance in his control of edema.? He voices understanding that he does need to wear the compression stockings. He has stopped smoking recently.? I did discuss the risks and detriment smoking has on wound healing and overall health, again smoking was discouraged.? Encouraged his continued smoking cessation. Ordered LEAS and venous studies of bilateral lower extremities, performed 08/30/2022. Venous studies: No evidence of acute DVT. 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 Accessory saphenous vein in the left proximal thigh and proximal calf are incompetent. LEAS: Triphasic Doppler waveforms noted at the ankle level bilaterally. PVRs appear normal at all levels bilaterally. Indices: Right: QUETA by DP 1.3, QUETA by PT 1.36, digital brachial index 0.99. Left: QUETA by DP 1.26, QUETA by PT 1.39, digital brachial index 0.72. No evidence of significant arterial occlusive disease in the lower extremity bilaterally. Ulcerations to the left lower extremity x3 were debrided as noted in the clinical panel above.? Left anterior leg lower extremity measures 1.0 cm x 0.8 cm x 0.1 cm; left superior lateral measures 0.3 cm x 0.9 cm x 0.1 cm; left distal lateral measures 0.4 cm x 0.3 cm x 0.1 cm.? No signs of infection.? Following debridement ulcerative sites dressed with Taya and Unna boot applied to bilateral lower extremity.? He was instructed to keep the Unna boots clean, dry, and intact.? He will return on Friday for change of the Unna boot. Ulcerations are decreasing in size versus previous visit. Encouraged adequate protein intake to continue to aid in wound healing. Encouraged to clean up his diet of fast food and lower sodium intake. The following work up and care recommendations were made: Dressing: Taya and Unna boot to bilateral lower extremity Wash: Keep dressings clean, dry, and intact Tissue growth optimization: Taya Offload: Unna boot compression and elevation of legs Vascular: DP and PT pulses palpable with adequate capillary fill bilateral. Edema: Unna boot compression and elevation of legs Infection: No signs of infection.? Patient currently on Bactrim DS, encouraged to finish to completion. Pain: May take [id number] Tylenol for discomfort Host factors: Suspected venous insufficiency, pruritus and self excoriation. ? I answered all the patient's questions.? To return to the wound healing center in 1 week or call sooner if the patient has any questions or concerns. 09/05/22 1337 <Electronically signed by Felipe Whitt DPM> Cosigner Signature (if applicable): CC: ~ Signed [facility] [place] Work Phone: 1(255) 223-149303-30-2023 Progress note Author Felipe Whitt [facility] [place] August 29, 2022 7:25pm Note Date/Time August 29, 2022 11: 00am [facility] [address] [place] [address] Progress Note - Wound Care 08/29/22 1100 MR#: [id number] Acct: [id number] Name: YAQUELIN HENSON Rep #:[id number] : 1965 57 From: Felipe jessica DPM PCP: LINDA JohnstonC Status:REG RCR Location: History of Present Illness Date of Service: 08/29/22 Chief Complaint: Left lower extremity wound x3 History of Wound: Patient is a 57-year-old male with history of COPD, chronic tobacco abuse, obesity, swelling of bilateral lower extremities with recent opening of 3 ulcerations to the left lower extremity. Patient states that when sitting at the computer he sometimes uses a back j2ee application developer to aggressively scratch his legs and believes this led to opening of the 3 wounds on the left lower extremity. He states that he does not elevate his legs and does not wear compression stockings. Also states that he recently quit smoking. Reports seeing his PCP who prescribed Lasix to aid in fluid reduction of the lower extremities. He also reports being prescribed oral antibiotic, Bactrim DS and is currently taking this. States he was referred to the wound care center for continued care of his left lower extremity ulcerations. Subjective Subjective Patient is a 57-year-old male who presents to the wound care center today for follow-up of left lower extremity ulceration x3. He kept his Unna boot compression dressing clean, dry, and intact and did return to the wound center for change of the dressing earlier this week. He denies any constitutional symptoms today. Denies any further complaints today. Objective Data Objective Data Vital Signs: Vital Signs Temp Pulse BP 97.1 F L 74 142/84 H 08/22/22 10:13 08/27/22 08:16 08/27/22 08:16 Weight: 129.274 kg Body Mass Index (BMI) 44.6 Physical Exam Const alert, oriented x3, no apparent distress and well nourished General Appearance: cooperative HEENT normocephalic Eyes General Eye: normal appearance of both eyes Neck General: normal visual inspection Lymph Lymphatic: no lymphadenopathy noted and no lymphedema noted Resp normal respiratory effort Cardio regular rate and regular rhythm Extremity normal capillary refill, no joint enlargement and no calf tenderness Extremity Narrative: DP and PT pulses palpable bilateral. Capillary fill time is brisk to the digits. Normal temperature gradient. Hair growth to the digits is diminished. There is some mild nonpitting lower extremity edema bilateral from mid calf to the distal forefoot. Musculoskeletal: Muscle strength 5 out of 5 and age-appropriate. Negative Homans' sign. Negative Lester sign. Skin no rashes or lesions noted, skin turgor normal and no jaundice Wound Narrative: Left lower extremity: 3 ulcerations noted to the left lower extremity. #1 anterior leg; #2 Superior lateral leg; #3 distal lateral leg. Ulcerative sites demonstrate moist fibrotic tissue in the wound bed with scant serous drainage. No purulent drainage, no erythema, no malodor, no palpable fluctuance/bogginess,no visible abscess, no lymphangitic streaking. Neuro moves all extremities Debridement Note Debridement Note Wound debrided: Left lower extremity x3 Laterality: Left Wound Grade/Stage: Sheth stage I Type of Debridement: Excisional debridement Anesthesia Used: 5% Lidocaine Gel Depth: Down to and including healthy tissue and in the subcutaneous layer Percentage of wound debrided: 100 Instrument Used: 3mm curette and - (1 mm curette) Tissue Removed: Fibrous, devitalized subcutaneous, biofilm, slough Severity: Fat Layer Exposed Amount of bleeding with debridement: Mild Bleeding Controlled with: Compression and gauze Patient tolerated procedure: Patient tolerated procedure well Post-Debridement Measurements and Additional Note: Post-Debridement Measurements/Treatment LEONIDES - Nurse 1 - General Ulcer Assessment Start: 08/22/22 10:03 Freq: Status: Active Protocol: XIMENA Activity Type Activity Date Activity User E-sign Co-sign Detail Recorded Client Recorded Date Recorded By Document 08/22/22 10:13 AK [id number] 08/22/22 10:20 AK Document 08/27/22 08:16 DL [id number] 08/27/22 08:31 DL 08/22/22 08/27/22 10:13 08:16 WC - Today's Visit Information Type of service Initial Visit Nurse-only Visit Arrival Mode Ambulatory Ambulatory Patient Identification Verified (Name & Yes Yes ) Patient Requires Transmission-Based No No Precautions Safety Precautions NA NA Height and Weight Height 5 ft 7 in Weight 129.274 kg Weight in Pounds 285.0 lbs Body Mass Index (BMI) 44.6 44.6 BMI Classification Obese Obese BSA - Belinda 2.35 Vital Signs Temperature (97.8 F-99.1 F) 97.1 F L Temperature Source Temporal Pulse Rate (60-100) 86 74 Pulse Location Monitor Monitor Blood Pressure (90/60-120/80) 145/73 H 142/84 H Blood Pressure Mean (mm Hg) 97 103 Source Monitor Monitor History Since Last Visit- (Skip if this is Patient's initial visit) Have you changed medications since your No No last visit? Any new allergies or adverse reactions No No Had a fall/change in ADL's that may No No increase risk of falls Signs or symptoms of abuse and/or No No neglect since last visit Have you been in the hospital since your No No last visit? Has dressing in place as prescribed No Yes Has compression in place as prescribed N/A Yes Has offloadiing in place as prescribed N/A N/A Experienced any changes in pain level or No No management Left Footwear Regular Shoe Regular Shoe Right Footwear Regular Shoe Regular Shoe Pain Scale: 0-10 Numeric Is Patient Pain Free? Yes Yes WC - Nurse 1 - General Ulcer Measurement Start: 08/22/22 10:03 Freq: Status: Active Protocol: Activity Type Activity Date Activity User E-sign Co-sign Detail Recorded Client Recorded Date Recorded By Document 08/22/22 10:13 AK [id number] 08/22/22 10:20 AK Document 08/27/22 08:16 DL [id number] 08/27/22 08:31 DL 08/22/22 08/27/22 10:13 08:16 Wound Center Nurse 1 #3 L lateral superior -Combined with other wound No No -Current Size (cm) - Length 0.4 -Current Size (cm) - Width 1 -Current Size (cm) - Depth 0.1 -Total Square Cm 0.4 -Photo Taken Yes -Tunneling No -Undermining/Tunneling No -Circular Undermining No -Change in Wound Grade/Stage No -Exudate Amt Large -Exudate Type Serosanguineous -Wound Margin Distinct, Outline Attached -Granulation Amt None Present (0 %) -Slough/Fibrin Yes -Necrosis Amt Large (67-100%) -Necrotic Tissue Type Adherent Slough -Structure Exposed N/A -Texture (Myriam-wound Skin Appearance) No Abnormality, Assessed -Moisture (Myriam-wound Skin Appearance) No Abnormality, Assessed -Color (Myriam-wound Skin Appearance) No Abnormality, Assessed -Temperature (Myriam-wound Skin No Abnormality Appearance) (Pt Warm) -Tenderness on Palpation (Myriam-wound No Skin Appearance) -Ulcer Cleansing Soap and Water -Foul Odor after Cleansing No -Anesthetic Used 5% Lidocaine Gel # 2 L lateral -Combined with other wound No -Current Size (cm) - Length 0.5 -Current Size (cm) - Width 0.5 -Current Size (cm) - Depth 0.1 -Total Square Cm 0.25 -Photo Taken Yes -Tunneling No -Undermining/Tunneling No -Circular Undermining No -Change in Wound Grade/Stage No -Exudate Amt Medium -Exudate Type Serosanguineous -Wound Margin Distinct, Outline Attached -Granulation Amt None Present (0 %) -Granulation Quality N/A -Slough/Fibrin Yes -Necrosis Amt Large (67-100%) -Necrotic Tissue Type Adherent Slough -Structure Exposed N/A -Texture (Myriam-wound Skin Appearance) No Abnormality, Assessed -Moisture (Myriam-wound Skin Appearance) No Abnormality, Assessed -Color (Myriam-wound Skin Appearance) No Abnormality, Assessed -Temperature (Myriam-wound Skin No Abnormality Appearance) (Pt Warm) -Tenderness on Palpation (Myriam-wound No Skin Appearance) -Ulcer Cleansing Soap and Water -Foul Odor after Cleansing No -Anesthetic Used 5% Lidocaine Gel #1 L salmeron -Combined with other wound No -Current Size (cm) - Length 1.2 -Current Size (cm) - Width 0.7 -Current Size (cm) - Depth 0.1 -Total Square Cm 0.84 -Photo Taken Yes -Tunneling No -Undermining/Tunneling No -Circular Undermining No -Change in Wound Grade/Stage No -Exudate Amt None Present -Exudate Type Serosanguineous -Wound Margin Distinct, Outline Attached -Granulation Amt None Present (0 %) -Granulation Quality N/A -Slough/Fibrin Yes -Necrosis Amt Large (67-100%) -Necrotic Tissue Type Adherent Slough -Structure Exposed N/A -Texture (Myriam-wound Skin Appearance) No Abnormality, Assessed -Moisture (Myriam-wound Skin Appearance) No Abnormality, Assessed -Color (Myriam-wound Skin Appearance) No Abnormality, Assessed -Temperature (Myriam-wound Skin No Abnormality Appearance) (Pt Warm) -Tenderness on Palpation (Myriam-wound No Skin Appearance) -Ulcer Cleansing Soap and Water -Foul Odor after Cleansing No -Anesthetic Used 5% Lidocaine Gel Lower Limb Edema Present No Right Calf (cm) 48 50 Right Ankle (cm) 29 27.5 Left Calf (cm) 49 47.5 Left Ankle (cm) 31 30.2 - Nurse 2 - General Ulcer CM Notes Start: 08/22/22 10:03 Freq: Status: Active Protocol: Activity Type Activity Date Activity User E-sign Co-sign Detail Recorded Client Recorded Date Recorded By Document 08/22/22 10:35 MARK [id number] 08/22/22 10:46 MARK 08/22/22 10:35 Wound Center Nurse 2 #3 L lateral superior -Correct Patient Yes -Correct Side, Site, Position Yes -Correct Procedure Yes -Procedure Performed Yes -Type of Procedure Debridement -Clinical Debridement Subcutaneous -Tissue Removed Subcutaneous -Post Debridement (cm) - Length 0.3 -Post Debridement (cm) - Width 1.0 -Post Debridement (cm) - Depth 0.1 -Total Square (Post) (cm) 0.30 -Area of Debridement (cm) - Length 0.3 -Area of Debridement (cm) - Width 1.0 -Total Square (Area) (cm) 0.30 -Tunneling No -Undermining/Tunneling No -Circular Undermining No -Wound/Ulcer Outcome Not Healed -Ulcer Cleansing Rinsed/ Irrigated with Saline -Foul Odor after Cleansing No -Bioengineered Tissue No -Bleeding Controlled with Pressure -Treatment Response Procedure Tolerated Well -Offloading No -Debridement - Subq, 1st 20sq cm Yes # 2 L lateral -Time 10:40 -Correct Patient Yes -Correct Side, Site, Position Yes -Correct Procedure Yes -Procedure Performed Yes -Type of Procedure Debridement -Clinical Debridement Subcutaneous -Tissue Removed Subcutaneous -Post Debridement (cm) - Length 0.5 -Post Debridement (cm) - Width 0.6 -Post Debridement (cm) - Depth 0.1 -Total Square (Post) (cm) 0.30 -Area of Debridement (cm) - Length 0.5 -Area of Debridement (cm) - Width 0.6 -Total Square (Area) (cm) 0.30 -Tunneling No -Undermining/Tunneling No -Circular Undermining No -Wound/Ulcer Outcome Not Healed -Ulcer Cleansing Rinsed/ Irrigated with Saline -Foul Odor after Cleansing No -Bioengineered Tissue No -Bleeding Controlled with Pressure -Treatment Response Procedure Tolerated Well -Offloading No -Debridement - Subq, 1st 20sq cm No #1 L salmeron -Time 10:45 -Correct Patient Yes -Correct Side, Site, Position Yes -Correct Procedure Yes -Procedure Performed No -Type of Procedure Debridement -Clinical Debridement Subcutaneous -Tissue Removed Subcutaneous -Post Debridement (cm) - Length 0.5 -Post Debridement (cm) - Width 0.6 -Post Debridement (cm) - Depth 0.1 -Total Square (Post) (cm) 0.30 -Area of Debridement (cm) - Length 0.5 -Area of Debridement (cm) - Width 0.6 -Total Square (Area) (cm) 0.30 -Tunneling No -Undermining/Tunneling No -Circular Undermining No -Wound/Ulcer Outcome Not Healed -Ulcer Cleansing Rinsed/ Irrigated with Saline -Foul Odor after Cleansing No -Bioengineered Tissue No -Bleeding Controlled with Pressure -Treatment Response Procedure Tolerated Well -Offloading No -Debridement - Subq, 1st 20sq cm No Pain Scale: 0-10 Numeric Is Patient Pain Free? Yes - Nurse 3 - General Ulcer D/C NN Start: 08/22/22 10:03 Freq: Status: Active Protocol: Activity Type Activity Date Activity User E-sign Co-sign Detail Recorded Client Recorded Date Recorded By Document 08/22/22 11:50 AK [id number] 08/22/22 11:51 AK Document 08/27/22 08:16 DL [id number] 08/27/22 08:31 DL Edit Result 08/27/22 08:16 DL (1) [id number] 08/28/22 07:04 PL (1) [place] - Multi-Layered Wrap Application => Unna Boot - => Bilateral ($) - Unna Boots (Bilat) ($) => 2 08/22/22 08/27/22 11:50 08:16 Wound Care Center Nurse 3 #3 L lateral superior -Ulcer Cleansing Rinsed/ Irrigated with Saline -Foul Odor after Cleansing No -Negative Pressure Wound Therapy N/A -Primary Dressing Applied Promogran Taya Matter -Promogran Taya Matter 1 # 2 L lateral -Ulcer Cleansing Rinsed/ Irrigated with Saline -Foul Odor after Cleansing No -Negative Pressure Wound Therapy N/A -Other Dressing taya #1 L salmeron -Ulcer Cleansing Rinsed/ Irrigated with Saline -Foul Odor after Cleansing No -Negative Pressure Wound Therapy N/A -Other Dressing taya [place] -Multi-Layered Wrap Application Unna Boot - Unna Boot - Bilateral ($) Bilateral ($) -Unna Boots (Bilat) ($) 2 2 Vital Signs Pulse Rate (60-100) 74 Pulse Location Monitor Blood Pressure (90/60-120/80) 142/84 H Blood Pressure Mean (mm Hg) 103 Source Monitor Pain Scale: 0-10 Numeric Is Patient Pain Free? Yes Yes WC - Visit Discharge Discharge Condition Stable Stable Ambulatory Status Ambulatory Ambulatory Transportation Private Auto Private Auto Medication Reconcilliation completed & Yes Yes provided to patient/care provider Clinical Summary of Care Provided Yes Yes Assessment/Plan Assessment/Plan (1) BMI 40.0-44.9, adult: CODE(S): Z68.41 - Body mass index [BMI] 40.0-44.9, adult (2) Stage 3 severe COPD by GOLD classification: CODE(S): J44.9 - Chronic obstructive pulmonary disease, unspecified (3) Tobacco abuse: CODE(S): Z72.0 - Tobacco use (4) Venous insufficiency (chronic) (peripheral): CODE(S): I87.2 - Venous insufficiency (chronic) (peripheral) (5) Non-pressure chronic ulcer of left calf with fat layer exposed: CODE(S): L97.222 - Non-pressure chronic ulcer of left calf with fat layer exposed (6) Bilateral edema of lower extremity: CODE(S): R60.0 - Localized edema PLAN: Plan Patient seen and evaluated Discussed the swelling in the bilateral lower extremities with his ulcerations secondary to aggressive scratching with a back scratching device. Discouraged continued use of this device as this has likely led to his ulcerations. Encouraged continued elevation of lower extremities for control of edema. Patient is noted to be on Lasix to assist in fluid control. Instructed him to continue use of Lasix. Discussed compression stocking for continued assistance in his control of edema. He voices understanding that he does need to wear the compression stockings. He has stopped smoking recently. I did discuss the risks and detriment smoking has on wound healing and overall health, again smoking was discouraged. Encouraged his continued smoking cessation. Ordered LEAS and venous studies of bilateral lower extremities, awaiting results. Encouraged him to finish out his oral antibiotic, Bactrim DS. Ulcerations to the left lower extremity x3 were debrided as noted in the clinical panel above. Left anterior leg lower extremity measures 0.9 cm x 0.7 cm x 0.1 cm; left superior lateral measures 0.3 cm x 0.8 cm x 0.1 cm; left distal lateral measures 0.4 cm x 0.4 cm x 0.1 cm. No signs of infection. Following debridement ulcerative sites dressed with Taya and Unna boot applied to bilateral lower extremity. He was instructed to keep the Unna boots clean, dry, and intact. He will return on Friday for change of the Unna boot. Ulcerations are decreasing in size versus previous visit. Encouraged adequate protein intake to continue to aid in wound healing. The following work up and care recommendations were made: Dressing: Taya and Unna boot to bilateral lower extremity Wash: Keep dressings clean, dry, and intact Tissue growth optimization: Taya Offload: Unna boot compression and elevation of legs Vascular: DP and PT pulses palpable with adequate capillary fill bilateral. Edema: Unna boot compression and elevation of legs Infection: No signs of infection. Patient currently on Bactrim DS, encouraged to finish to completion. Pain: May take [id number]-vzsstpe Tylenol for discomfort Host factors: Suspected venous insufficiency, pruritus and self excoriation. I answered all the patient's questions. To return to the wound healing center in 1 week or call sooner if the patient has any questions or concerns. 08/29/221924 <Electronically signed by Felipe Whitt DPM> Cosigner Signature (if applicable): CC: ~ Signed [facility] [place] Work Phone: 1(384) 229-298003-23-2023 History and physical note Author Felipe Whitt [facility] [place] August 22, 2022 1:19pm Note Date/Time August 22, 2022 11: 10am [facility] [address] [place] [address] H&P Exam - Wound Care 08/22/22 1110 MR#: [id number] Acct: [id number] Name: YAQUELIN HENSON Rep #:[id number] : 1965 57 From: Felipe jessica DPM PCP: LINDA JohnstonC Status:REG RCR Location: History of Present Illness Date of Service: 08/22/22 Chief Complaint: Left lower extremity wound x3 History of Wound: Patient is a 57-year-old male with history of COPD, chronic tobacco abuse, obesity, swelling of bilateral lower extremities with recent opening of 3 ulcerations to the left lower extremity. Patient states that when sitting at the computer he sometimes uses a back j2ee application developer to aggressively scratch his legs and believes this led to opening of the 3 wounds on the left lower extremity. He states that he does not elevate his legs and does not wear compression stockings. Also states that he recently quit smoking. Reports seeing his PCP who prescribed Lasix to aid in fluid reduction of the lower extremities. He also reports being prescribed oral antibiotic, Bactrim DS and is currently taking this. States he was referred to the wound care center for continued care of his left lower extremity ulcerations. [facility] Medical History Bronchitis Environmental allergies Hyperlipidemia Hypoxemia Home Medications albuterol sulfate 90 mcg/actuation aerosol inhaler (ProAir HFA) 2 puff inhalation Q6H PRN 03/27/22 [History Last Taken Unknown] atorvastatin 10 mg tablet 10 mg PO DAILY 03/27/22 [History Last Taken Unknown] losartan 100 mg-hydrochlorothiazide 25 mg tablet 1 tab PO DAILY 03/27/22 [History Last Taken Unknown] fluticasone fur. 200 mcg-umeclid 62.5 mcg-vilant 25 mcg inhalat.powder (Trelegy Ellipta) 1 inh inhalation DAILY #60 ea 05/07/22 [Rx Last Taken Unknown] Allergy/AdvReac Type Severity Reaction Status Date / Time No Known Allergies Allergy Verified 05/07/22 08:55 Surgical History History of repair of rotator cuff Social History Smoking Status: Current some day smoker tobacco type: cigarettes ROS Constitutional Constitutional: Denies chills, fatigue or fever(s) Eyes Eyes: Denies blurry vision, change in vision or double vision ENT HEENT: Denies dysphagia, nasal congestion or sore throat Cardiovascular Cardiovascular: Denies chest pain, claudication or palpitations Respiratory/Chest Respiratory/Chest: Denies cough, productive cough or shortness of breath at rest Gastrointestinal Gastrointestinal: Denies abdominal pain, constipation, diarrhea, hematochezia, nausea or vomiting Genitourinary Genitourinary: Denies dysuria, hematuria, urinary frequency, urinary hesitancy, urinary incontinence or urinary urgency Musculoskeletal Musculoskeletal: Denies joint pain, joint stiffness or joint swelling Integumentary Integumentary: Denies lesions, pruritus or rash Neurologic Neurologic: Denies dizziness, numbness or seizures Endocrine Endocrinology: Denies cold intolerance or heat intolerance Hematologic/Lymphatic Hematologic/Lymphatic: Denies easy bleeding or easy bruising Vital Signs Vital Signs Vital Signs: 08/22/22 10:13 Temperature 97.1 F L Temperature Source Temporal Pulse Rate 86 Blood Pressure 145/73 H Blood Pressure Mean 97 Blood Pressure Source Monitor Weight Weight: 129.274 kg Body Mass Index (BMI) 44.6 Physical Exam Const alert, oriented x3, no apparent distress and well nourished General Appearance: cooperative HEENT normocephalic Eyes General Eye: normal appearance of both eyes Neck General: normal visual inspection Lymph Lymphatic: no lymphadenopathy noted and no lymphedema noted Resp normal respiratory effort Cardio regular rate and regular rhythm Extremity normal capillary refill, no joint enlargement and no calf tenderness Extremity Narrative: DP and PT pulses palpable bilateral. Capillary fill time is brisk to the digits. Normal temperature gradient. Hair growth to the digits is diminished. There is some mild nonpitting lower extremity edema bilateral from mid calf to the distal forefoot. Musculoskeletal: Muscle strength 5 out of 5 and age-appropriate. Negative Homans' sign. Negative Lester sign. Skin no rashes or lesions noted, skin turgor normal and no jaundice Wound Narrative: Left lower extremity: 3 ulcerations noted to the left lower extremity. #1 anterior leg; #2 Superior lateral leg; #3 distal lateral leg. Ulcerative sites demonstrate moist fibrotic tissue in the wound bed with scant serous drainage. No purulent drainage, no erythema, no malodor, no palpable fluctuance/bogginess,no visible abscess, no lymphangitic streaking. Neuro moves all extremities Debridement Note Debridement Note Wound debrided: Left lower extremity x3 Laterality: Left Wound Grade/Stage: Sheth stage I Type of Debridement: Excisional debridement Anesthesia Used: 5% Lidocaine Gel Depth: Down to and including healthy tissue and in the subcutaneous layer Percentage of wound debrided: 100 Instrument Used: 3mm curette Tissue Removed: Fibrous, devitalized subcutaneous, biofilm, slough Severity: Fat Layer Exposed Amount of bleeding with debridement: Mild Bleeding Controlled with: Compression and gauze Patient tolerated procedure: Patient tolerated procedure well Post-Debridement Measurements and Additional Note: Post-Debridement Measurements/Treatment WC - Nurse 1 - General Ulcer Assessment Start: 08/22/22 10:03 Freq: Status: Active Protocol: LEONIDES.LOWEXT Activity Type Activity Date Activity User E-sign Co-sign Detail Recorded Client Recorded Date Recorded By Document 08/22/22 10:13 TORREY [id number] 08/22/22 10:20 TORREY 08/22/22 10:13 - Today's Visit Information Type of service Initial Visit Arrival Mode Ambulatory Patient Identification Verified (Name & Yes ) Patient Requires Transmission-Based No Precautions Safety Precautions NA Height and Weight Height 5 ft 7 in Weight 129.274 kg Weight in Pounds 285.0 lbs Body Mass Index (BMI) 44.6 BMI Classification Obese BSA - Belinda 2.35 Vital Signs Temperature (97.8 F-99.1 F) 97.1 F L Temperature Source Temporal Pulse Rate (60-100) 86 Pulse Location Monitor Blood Pressure (90/60-120/80) 145/73 H Blood Pressure Mean 97 Source Monitor History Since Last Visit- (Skip if this is Patient's initial visit) Have you changed medications since your No last visit? Any new allergies or adverse reactions No Had a fall/change in ADL's that may No increase risk of falls Signs or symptoms of abuse and/or No neglect since last visit Have you been in the hospital since your No last visit? Has dressing in place as prescribed No Has compression in place as prescribed N/A Has offloadiing in place as prescribed N/A Experienced any changes in pain level or No management Left Footwear Regular Shoe Right Footwear Regular Shoe Pain Scale: 0-10 Numeric Is Patient Pain Free? Yes - Nurse 1 - General Ulcer Measurement Start: 08/22/22 10:03 Freq: Status: Active Protocol: Activity Type Activity Date Activity User E-sign Co-sign Detail Recorded Client Recorded Date Recorded By Document 08/22/22 10:13 FL [id number] 08/22/22 10:20 FL 08/22/22 10:13 Wound Center Nurse 1 #3 L lateral superior -Combined with other wound No -Current Size (cm) - Length 0.4 -Current Size (cm) - Width 1 -Current Size (cm) - Depth 0.1 -Total Square Cm 0.4 -Photo Taken Yes -Tunneling No -Undermining/Tunneling No -Circular Undermining No -Change in Wound Grade/Stage No -Exudate Amt Large -Exudate Type Serosanguineous -Wound Margin Distinct, Outline Attached -Granulation Amt None Present (0 %) -Slough/Fibrin Yes -Necrosis Amt Large (67-100%) -Necrotic Tissue Type Adherent Slough -Structure Exposed N/A -Texture (Myriam-wound Skin Appearance) No Abnormality, Assessed -Moisture (Myriam-wound Skin Appearance) No Abnormality, Assessed -Color (Myriam-wound Skin Appearance) No Abnormality, Assessed -Temperature (Myriam-wound Skin No Abnormality Appearance) (Pt Warm) -Tenderness on Palpation (Myriam-wound No Skin Appearance) -Ulcer Cleansing Soap and Water -Foul Odor after Cleansing No -Anesthetic Used 5% Lidocaine Gel # 2 L lateral -Combined with other wound No -Current Size (cm) - Length 0.5 -Current Size (cm) - Width 0.5 -Current Size (cm) - Depth 0.1 -Total Square Cm 0.25 -Photo Taken Yes -Tunneling No -Undermining/Tunneling No -Circular Undermining No -Change in Wound Grade/Stage No -Exudate Amt Medium -Exudate Type Serosanguineous -Wound Margin Distinct, Outline Attached -Granulation Amt None Present (0 %) -Granulation Quality N/A -Slough/Fibrin Yes -Necrosis Amt Large (67-100%) -Necrotic Tissue Type Adherent Slough -Structure Exposed N/A -Texture (Myriam-wound Skin Appearance) No Abnormality, Assessed -Moisture (Myriam-wound Skin Appearance) No Abnormality, Assessed -Color (Myriam-wound Skin Appearance) No Abnormality, Assessed -Temperature (Myriam-wound Skin No Abnormality Appearance) (Pt Warm) -Tenderness on Palpation (Myriam-wound No Skin Appearance) -Ulcer Cleansing Soap and Water -Foul Odor after Cleansing No -Anesthetic Used 5% Lidocaine Gel #1 L salmeron -Combined with other wound No -Current Size (cm) - Length 1.2 -Current Size (cm) - Width 0.7 -Current Size (cm) - Depth 0.1 -Total Square Cm 0.84 -Photo Taken Yes -Tunneling No -Undermining/Tunneling No -Circular Undermining No -Change in Wound Grade/Stage No -Exudate Amt None Present -Exudate Type Serosanguineous -Wound Margin Distinct, Outline Attached -Granulation Amt None Present (0 %) -Granulation Quality N/A -Slough/Fibrin Yes -Necrosis Amt Large (67-100%) -Necrotic Tissue Type Adherent Slough -Structure Exposed N/A -Texture (Myriam-wound Skin Appearance) No Abnormality, Assessed -Moisture (Myriam-wound Skin Appearance) No Abnormality, Assessed -Color (Myriam-wound Skin Appearance) No Abnormality, Assessed -Temperature (Myriam-wound Skin No Abnormality Appearance) (Pt Warm) -Tenderness on Palpation (Myriam-wound No Skin Appearance) -Ulcer Cleansing Soap and Water -Foul Odor after Cleansing No -Anesthetic Used 5% Lidocaine Gel Lower Limb Edema Present No Right Calf (cm) 48 Right Ankle (cm) 29 Left Calf (cm) 49 Left Ankle (cm) 31 WC - Nurse 2 - General Ulcer CM Notes Start: 08/22/22 10:03 Freq: Status: Active Protocol: Activity Type Activity Date Activity User E-sign Co-sign Detail Recorded Client Recorded Date Recorded By Document 08/22/22 10:35 MARK [id number] 08/22/22 10:46 MARK 08/22/22 10:35 Wound Center Nurse 2 #3 L lateral superior -Correct Patient Yes -Correct Side, Site, Position Yes -Correct Procedure Yes -Procedure Performed Yes -Type of Procedure Debridement -Clinical Debridement Subcutaneous -Tissue Removed Subcutaneous -Post Debridement (cm) - Length 0.3 -Post Debridement (cm) - Width 1.0 -Post Debridement (cm) - Depth 0.1 -Total Square (Post) (cm) 0.30 -Area of Debridement (cm) - Length 0.3 -Area of Debridement (cm) - Width 1.0 -Total Square (Area) (cm) 0.30 -Tunneling No -Undermining/Tunneling No -Circular Undermining No -Wound/Ulcer Outcome Not Healed -Ulcer Cleansing Rinsed/ Irrigated with Saline -Foul Odor after Cleansing No -Bioengineered Tissue No -Bleeding Controlled with Pressure -Treatment Response Procedure Tolerated Well -Offloading No -Debridement - Subq, 1st 20sq cm Yes # 2 L lateral -Time 10:40 -Correct Patient Yes -Correct Side, Site, Position Yes -Correct Procedure Yes -Procedure Performed Yes -Type of Procedure Debridement -Clinical Debridement Subcutaneous -Tissue Removed Subcutaneous -Post Debridement (cm) - Length 0.5 -Post Debridement (cm) - Width 0.6 -Post Debridement (cm) - Depth 0.1 -Total Square (Post) (cm) 0.30 -Area of Debridement (cm) - Length 0.5 -Area of Debridement (cm) - Width 0.6 -Total Square (Area) (cm) 0.30 -Tunneling No -Undermining/Tunneling No -Circular Undermining No -Wound/Ulcer Outcome Not Healed -Ulcer Cleansing Rinsed/ Irrigated with Saline -Foul Odor after Cleansing No -Bioengineered Tissue No -Bleeding Controlled with Pressure -Treatment Response Procedure Tolerated Well -Offloading No -Debridement - Subq, 1st 20sq cm No #1 L salmeron -Time 10:45 -Correct Patient Yes -Correct Side, Site, Position Yes -Correct Procedure Yes -Procedure Performed No -Type of Procedure Debridement -Clinical Debridement Subcutaneous -Tissue Removed Subcutaneous -Post Debridement (cm) - Length 0.5 -Post Debridement (cm) - Width 0.6 -Post Debridement (cm) - Depth 0.1 -Total Square (Post) (cm) 0.30 -Area of Debridement (cm) - Length 0.5 -Area of Debridement (cm) - Width 0.6 -Total Square (Area) (cm) 0.30 -Tunneling No -Undermining/Tunneling No -Circular Undermining No -Wound/Ulcer Outcome Not Healed -Ulcer Cleansing Rinsed/ Irrigated with Saline -Foul Odor after Cleansing No -Bioengineered Tissue No -Bleeding Controlled with Pressure -Treatment Response Procedure Tolerated Well -Offloading No -Debridement - Subq, 1st 20sq cm No Pain Scale: 0-10 Numeric Is Patient Pain Free? Yes Assessment/Plan Assessment/Plan (1) BMI 40.0-44.9, adult: CODE(S): Z68.41 - Body mass index [BMI] 40.0-44.9, adult (2) Stage 3 severe COPD by GOLD classification: CODE(S): J44.9 - Chronic obstructive pulmonary disease, unspecified (3) Tobacco abuse: CODE(S): Z72.0 - Tobacco use (4) Venous insufficiency (chronic) (peripheral): CODE(S): I87.2 - Venous insufficiency (chronic) (peripheral) (5) Non-pressure chronic ulcer of left calf with fat layer exposed: CODE(S): L97.222 - Non-pressure chronic ulcer of left calf with fat layer exposed (6) Bilateral edema of lower extremity: CODE(S): R60.0 - Localized edema PLAN: Plan Patient seen and evaluated Discussed the swelling in the bilateral lower extremities with his ulcerations secondary to aggressive scratching with a back scratching device. Discouraged continued use of this device as this has likely led to his ulcerations. Encouraged continued elevation of lower extremities for control of edema. Patient is noted to be on Lasix to assist in fluid control. Instructed him to continue use of Lasix. Discussed compression stocking for continued assistance in his control of edema. He voices understanding that he does need to wear the compression stockings. He has stopped smoking recently. I did discuss the risks and detriment smoking has on wound healing and overall health, again smoking was discouraged. Encouraged his continued smoking cessation. Ordered LEAS and venous studies of bilateral lower extremities, awaiting results. Encouraged him to finish out his oral antibiotic, Bactrim DS. Ulcerations to the left lower extremity x3 were debrided as noted in the clinical panel above. Left anterior leg lower extremity measures 1.2 cm x 0.9 cm x 0.1 cm; left superior lateral measures 0.3 cm x 1 cm x 0.1 cm; left distal lateral measures 0.5 cm x 0.6 cm x 0.1 cm. No signs of infection. Following debridement ulcerative sites dressed with Taya and Unna boot applied to bilateral lower extremity. He was instructed to keep the Unna boots clean, dry, and intact. He will return on Friday for change of the Unna boot. Encouraged adequate protein intake to continue to aid in wound healing. The following work up and care recommendations were made: Dressing: Tyaa and Unna boot to bilateral lower extremity Wash: Keep dressings clean, dry, and intact Tissue growth optimization: Taya Offload: Unna boot compression and elevation of legs Vascular: DP and PT pulses palpable with adequate capillary fill bilateral. Edema: Unna boot compression and elevation of legs Infection: No signs of infection. Patient currently on Bactrim DS, encouraged to finish to completion. Pain: May take [id number] Tylenol for discomfort Host factors: Suspected venous insufficiency, pruritus and self excoriation. I answered all the patient's questions. To return to the wound healing center in 1 week or call sooner if the patient has any questions or concerns. 08/22/22 [id number] <Electronically signed by Felipe Whitt DPM> Cosigner Signature (if applicable): CC: ~ Signed [facility] [place] Work Phone: Evaluation noteNo assessment information available [facility] [place] Work Phone: evaluation note* Diagnosis Onset Date Resolution Status Dyspnea acute Tobacco abuse acute [facility] [place] Work Phone: evaluation note* Diagnosis Onset Date Resolution Status BMI 40.0-44.9, adult acute Stage 3 severe COPD by GOLD classification acute Tobacco abuse acute Bilateral edema of lower extremity acute BMI 40.0-44.9, adult acute Stage 3 severe COPD by GOLD classification acute Tobacco abuse acute 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 Venous insufficiency (chronic) (peripheral) chronic [facility] [place] Work Phone: evaluation note* Diagnosis Onset Date Resolution Status Bilateral edema of lower extremity acute BMI 40.0-44.9, adult acute Stage 3 severe COPD by GOLD classification acute Tobacco abuse acute 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 Venous insufficiency (chronic) (peripheral) chronic Bilateral edema of lower extremity acute BMI 40.0-44.9, adult acute Dyspnea acute Stage 3 severe COPD by GOLD classification acute Tobacco abuse acute 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 Venous insufficiency (chronic) (peripheral) chronic [facility] [place] Work Phone: evaluation note* Diagnosis Onset Date Resolution Status Bilateral edema of lower extremity acute BMI 40.0-44.9, adult acute Stage 3 severe COPD by GOLD classification acute Tobacco abuse acute 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 Venous insufficiency (chronic) (peripheral) chronic BMI 40.0-44.9, adult acute Stage 3 severe COPD by GOLD classification acute Tobacco abuse acute Bilateral edema of lower extremity acute BMI 40.0-44.9, adult acute Dyspnea acute Stage 3 severe COPD by GOLD classification acute Tobacco abuse acute 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 Venous insufficiency (chronic) (peripheral) chronic [facility] [place] Work Phone: evaluation note* Diagnosis Onset Date Resolution Status Bilateral edema of lower extremity acute BMI 40.0-44.9, adult acute Stage 3 severe COPD by GOLD classification acute Tobacco abuse acute 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 Venous insufficiency (chronic) (peripheral) chronic BMI 40.0-44.9, adult acute Stage 3 severe COPD by GOLD classification acute Tobacco abuse acute Bilateral edema of lower extremity acute BMI 40.0-44.9, adult acute Dyspnea acute Stage 3 severe COPD by GOLD classification acute Tobacco abuse acute 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 Venous insufficiency (chronic) (peripheral) chronic Bilateral edema of lower extremity acute BMI 40.0-44.9, adult acute Dyspnea acute Stage 3 severe COPD by GOLD classification acute Tobacco abuse acute 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 Venous insufficiency (chronic) (peripheral) chronic [facility] [place] Work Phone: Evaluation note* Diagnosis Onset Date Resolution Status Bilateral edema of lower extremity acute BMI 40.0-44.9, adult acute Stage 3 severe COPD by GOLD classification acute Tobacco abuse acute 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 Venous insufficiency (chronic) (peripheral) chronic BMI 40.0-44.9, adult acute Stage 3 severe COPD by GOLD classification acute Tobacco abuse acute Bilateral edema of lower extremity acute BMI 40.0-44.9, adult acute Dyspnea acute Stage 3 severe COPD by GOLD classification acute Tobacco abuse acute 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 Venous insufficiency (chronic) (peripheral) chronic Bilateral edema of lower extremity acute BMI 40.0-44.9, adult acute Dyspnea acute Stage 3 severe COPD by GOLD classification acute Tobacco abuse acute 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 Venous insufficiency (chronic) (peripheral) chronic Bilateral edema of lower extremity acute BMI 40.0-44.9, adult acute Stage 3 severe COPD by GOLD classification acute Tobacco abuse acute 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 Venous insufficiency (chronic) (peripheral) chronic [facility] [place] Work Phone: Evaluation note* Diagnosis Onset Date Resolution Status BMI 40.0-44.9, adult acute Stage 3 severe COPD by GOLD classification acute Tobacco abuse acute Bilateral edema of lower extremity acute BMI 40.0-44.9, adult acute Dyspnea acute Stage 3 severe COPD by GOLD classification acute Tobacco abuse acute 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 Venous insufficiency (chronic) (peripheral) chronic Bilateral edema of lower extremity acute BMI 40.0-44.9, adult acute Dyspnea acute Stage 3 severe COPD by GOLD classification acute Tobacco abuse acute 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 Venous insufficiency (chronic) (peripheral) chronic Bilateral edema of lower extremity acute BMI 40.0-44.9, adult acute Stage 3 severe COPD by GOLD classification acute Tobacco abuse acute 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 Venous insufficiency (chronic) (peripheral) chronic Bilateral edema of lower extremity acute BMI 40.0-44.9, adult acute Dyspnea acute Stage 3 severe COPD by GOLD classification acute Tobacco abuse acute 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 Venous insufficiency (chronic) (peripheral) chronic [facility] [place] Work Phone: Evaluation note* Diagnosis Onset Date Resolution Status Tobacco abuse acute BMI 40.0-44.9, adult chronic Stage 3 severe COPD by GOLD classification chronic Bilateral edema of lower extremity acute Dyspnea acute Tobacco abuse acute BMI 40.0-44.9, adult chronic 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 Stage 3 severe COPD by GOLD classification chronic Venous insufficiency (chronic) (peripheral) chronic Bilateral edema of lower extremity acute Dyspnea acute Tobacco abuse acute BMI 40.0-44.9, adult chronic 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 Stage 3 severe COPD by GOLD classification chronic Venous insufficiency (chronic) (peripheral) chronic Bilateral edema of lower extremity acute Tobacco abuse acute BMI 40.0-44.9, adult chronic 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 Stage 3 severe COPD by GOLD classification chronic Venous insufficiency (chronic) (peripheral) chronic Bilateral edema of lower extremity acute Dyspnea acute Tobacco abuse acute BMI 40.0-44.9, adult chronic 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 Stage 3 severe COPD by GOLD classification chronic Venous insufficiency (chronic) (peripheral) chronic BMI 40.0-44.9, adult chronic Smoking greater than 40 pack years chronic Stage 3 severe COPD by GOLD classification chronic [facility] [place] Work Phone: Evaluation note* Diagnosis COPD with acute exacerbation- Primary Obstructive chronic bronchitis with exacerbation [facility] Diagnosis Onset Date Resolution Status Bilateral edema of lower extremity acute Dyspnea acute Tobacco abuse acute BMI 40.0-44.9, adult chronic 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 Stage 3 severe COPD by GOLD classification chronic Venous insufficiency (chronic) (peripheral) chronic BMI 40.0-44.9, adult chronic Smoking greater than 40 pack years chronic Stage 3 severe COPD by GOLD classification [facility] Work Phone: Evaluation note* Diagnosis Onset Date Resolution Status Admit Date Smoking greater than 40 pack years chronic February 16, 2025 2:34pm Stage 3 severe COPD by GOLD classification chronic February 16, 2025 2:34pm [facility] Work Phone: Hospital Discharge instructions* Attachments The following attachments cannot be sent through Care Everywhere. * Chronic Obstructive Pulmonary Disease (COPD) ([facility]) [facility]No reason for referral information availableWSelect [facility] Work [facility]: Summary Purpose Family History No Family History Records FoundNo Family History Records FoundNo Family History Records FoundNo Family History Records Found Advance Directives No Advanced Directives Records Found Advance Directive Response Recorded Date/ Time Living Will No June 23 12:48am Power of Medical Technologist Blood Bank No June 23, 2017 12:48am Advance Directive Response Recorded Date/ Time Living Will No June 22 11:48pm Power of Medical Technologist Blood Bank No June 22, 2017 11:48pm Advance Directive Response Recorded Date/ Time Living Will No April 05 5:26pm Power of Medical Technologist Blood Bank No April 05, 2023 5:26pm Advance Directive Response Recorded Date/ Time Living Will No April 05 4:26pm Power of Medical Technologist Blood Bank No April 05, 2023 4:26pm Advance Directive Response Recorded Date/ Time Living Will No April 05 5:26pm Do you have a Healthcare Power of Medical Technologist Blood Bank? No April 05, 2023 5:26pm Chief Complaint and Reason for Visit Chief Complaint MORBID OBESITY, SOB Chief Complaint MORBID OBESITY, SOB Shortness of breath Dyspnea, unspecified Dyspnea, unspecified Dyspnea, unspecified Reason for Visit Dyspnea Tobacco abuse Chief Complaint MORBID OBESITY, SOB Shortness of breath Dyspnea, unspecified Dyspnea, unspecified Dyspnea, unspecified Dyspnea, unspecified Reason for Visit Dyspnea Tobacco abuse Chief Complaint 6 wk FU LEFT LEG ULCERS wound- lower leg Reason for Visit BMI 40.0-44.9, adult Stage 3 severe COPD by GOLD classification Tobacco abuse Bilateral edema of lower extremity BMI 40.0-44.9, adult Stage 3 severe COPD by GOLD classification Tobacco abuse Non-pressure chronic ulcer of left calf with fat layer exposed Venous insufficiency (chronic) (peripheral) Chief Complaint LEFT LEG ULCERS wound- lower leg wound- lower leg Reason for Visit Bilateral edema of l ower extremity BMI 40.0-44.9, adult Stage 3 severe COPD by GOLD classification Tobacco abuse Non-pressure chronic ulcer of left calf with fat layer exposed Venous insufficiency (chronic) (peripheral) Bilateral edema of lower extremity BMI 40.0-44.9, adult Dyspnea Stage 3 severe COPD by GOLD classification Tobacco abuse Non-pressure chronic ulcer of left calf with fat layer exposed Venous insufficiency (chronic) (peripheral) Chief Complaint LEFT LEG ULCERS wound- lower leg 3 M FU wound- lower leg Reason for Visit Bilateral edema of l ower extremity BMI 40.0-44.9, adult Stage 3 severe COPD by GOLD classification Tobacco abuse Non-pressure chronic ulcer of left calf with fat layer exposed Venous insufficiency (chronic) (peripheral) BMI 40.0-44.9, adult Stage 3 severe COPD by GOLD classification Tobacco abuse Bilateral edema of lower extremity BMI 40.0-44.9, adult Dyspnea Stage 3 severe COPD by GOLD classification Tobacco abuse Non-pressure chronic ulcer of left calf with fat layer exposed Venous insufficiency (chronic) (peripheral) Chief Complaint LEFT LEG ULCERS wound- lower leg 3 M FU wound- lower leg wound- lower leg Reason for Visit Bilateral edema of l ower extremity BMI 40.0-44.9, adult Stage 3 severe COPD by GOLD classification Tobacco abuse Non-pressure chronic ulcer of left calf with fat layer exposed Venous insufficiency (chronic) (peripheral) BMI 40.0-44.9, adult Stage 3 severe COPD by GOLD classification Tobacco abuse Bilateral edema of lower extremity BMI 40.0-44.9, adult Dyspnea Stage 3 severe COPD by GOLD classification Tobacco abuse Non-pressure chronic ulcer of left calf with fat layer exposed Venous insufficiency (chronic) (peripheral) Bilateral edema of lower extremity BMI 40.0-44.9, adult Dyspnea Stage 3 severe COPD by GOLD classification Tobacco abuse Non-pressure chronic ulcer of left calf with fat layer exposed Venous insufficiency (chronic) (peripheral) Chief Complaint LEFT LEG ULCERS wound- lower leg 3 M FU wound- lower leg wound- lower leg wound- lower leg Reason for Visit Bilateral edema of l ower extremity BMI 40.0-44.9, adult Stage 3 severe COPD by GOLD classification Tobacco abuse Non-pressure chronic ulcer of left calf with fat layer exposed Venous insufficiency (chronic) (peripheral) BMI 40.0-44.9, adult Stage 3 severe COPD by GOLD classification Tobacco abuse Bilateral edema of lower extremity BMI 40.0-44.9, adult Dyspnea Stage 3 severe COPD by GOLD classification Tobacco abuse Non-pressure chronic ulcer of left calf with fat layer exposed Venous insufficiency (chronic) (peripheral) Bilateral edema of lower extremity BMI 40.0-44.9, adult Dyspnea Stage 3 severe COPD by GOLD classification Tobacco abuse Non-pressure chronic ulcer of left calf with fat layer exposed Venous insufficiency (chronic) (peripheral) Bilateral edema of lower extremity BMI 40.0-44.9, adult Stage 3 severe COPD by GOLD classification Tobacco abuse Non-pressure chronic ulcer of left calf with fat layer exposed Venous insufficiency (chronic) (peripheral) Chief Complaint 3 M FU wound- lower leg wound- lower leg wound- lower leg wound- lower leg J44.9 J44.9 Reason for Visit BMI 40.0-44.9, adult Stage 3 severe COPD by GOLD classification Tobacco abuse Bilateral edema of lower extremity BMI 40.0-44.9, adult Dyspnea Stage 3 severe COPD by GOLD classification Tobacco abuse Non-pressure chronic ulcer of left calf with fat layer exposed Venous insufficiency (chronic) (peripheral) Bilateral edema of lower extremity BMI 40.0-44.9, adult Dyspnea Stage 3 severe COPD by GOLD classification Tobacco abuse Non-pressure chronic ulcer of left calf with fat layer exposed Venous insufficiency (chronic) (peripheral) Bilateral edema of lower extremity BMI 40.0-44.9, adult Stage 3 severe COPD by GOLD classification Tobacco abuse Non-pressure chronic ulcer of left calf with fat layer exposed Venous insufficiency (chronic) (peripheral) Bilateral edema of lower extremity BMI 40.0-44.9, adult Dyspnea Stage 3 severe COPD by GOLD classification Tobacco abuse Non-pressure chronic ulcer of left calf with fat layer exposed Venous insufficiency (chronic) (peripheral) Chief Complaint 3 M FU wound- lower leg wound- lower leg wound- lower leg wound- lower leg J44.9 J44.9 4 M FU NICOTINE DEPENDENCE Reason for Visit Tobacco abuse BMI 40.0-44.9, adult Stage 3 severe COPD by GOLD classification Bilateral edema of lower extremity Dyspnea Tobacco abuse BMI 40.0-44.9, adult Non-pressure chronic ulcer of left calf with fat layer exposed Stage 3 severe COPD by GOLD classification Venous insufficiency (chronic) (peripheral) Bilateral edema of lower extremity Dyspnea Tobacco abuse BMI 40.0-44.9, adult Non-pressure chronic ulcer of left calf with fat layer exposed Stage 3 severe COPD by GOLD classification Venous insufficiency (chronic) (peripheral) Bilateral edema of lower extremity Tobacco abuse BMI 40.0-44.9, adult Non-pressure chronic ulcer of left calf with fat layer exposed Stage 3 severe COPD by GOLD classification Venous insufficiency (chronic) (peripheral) Bilateral edema of lower extremity Dyspnea Tobacco abuse BMI 40.0-44.9, adult Non-pressure chronic ulcer of left calf with fat layer exposed Stage 3 severe COPD by GOLD classification Venous insufficiency (chronic) (peripheral) BMI 40.0-44.9, adult Smoking greater than 40 pack years Stage 3 severe COPD by GOLD classification Chief Complaint wound- lower leg J44.9 J44.9 4 M FU NICOTINE DEPENDENCE vision change Reason for Visit Bilateral edema of l ower extremity Dyspnea Tobacco abuse BMI 40.0-44.9, adult Non-pressure chronic ulcer of left calf with fat layer exposed Stage 3 severe COPD by GOLD classification Venous insufficiency (chronic) (peripheral) BMI 40.0-44.9, adult Smoking greater than 40 pack years Stage 3 severe COPD by GOLD classification Chief Complaint wound- lower leg J44.9 J44.9 4 M FU NICOTINE DEPENDENCE vision change AMAUROSIS FUGAX Reason for Visit Bilateral edema of l ower extremity Dyspnea Tobacco abuse BMI 40.0-44.9, adult Non-pressure chronic ulcer of left calf with fat layer exposed Stage 3 severe COPD by GOLD classification Venous insufficiency (chronic) (peripheral) BMI 40.0-44.9, adult Smoking greater than 40 pack years Stage 3 severe COPD by GOLD classification Chief Complaint Admit Date SMOKER January 14, 2025 4: 02pm Chief Complaint Admit Date SMOKER January 14, 2025 4: 02pm 14 m fu February 16, 2025 2:34pm Reason for Visit Admit Date Smoking greater than 40 pack years Baldo cowart 2024 2:34pm Stage 3 severe COPD by GOLD classificati on February 16, 2025 2:34pm Reason for Referral Specialty Diagnoses / Procedures Referred By Leah haley Referred To Contact Procedures ECG Kai Ha DO [address] [place] [address] Referral ID Status Reason Start Date Expiration Date V isits Requested Visits Authorized [id number] New Request 02/08/2023 03/04/2024 1 1 Additional Source Comments (unrecognized sect ion and content) No Status Records FoundNo Status Records FoundNo Status Records FoundNo Status Records Found INFORMATION SOURCE (unrecogn ized section and content) DATE CREATED AUTHOR 11/19/2017 [facility] DATE CREATED AUTHOR AUTHOR'S ORGANIZ ATION 02/11/2023 [facility] [place] DATE CREATED AUTHOR AUTHOR'S ORGANIZ ATION 10/08/2024 [facility] DATE CREATED AUTHOR AUTHOR'S ORGANIZ ATION 02/21/2025 [facility] Goals (unrecognized section and content) Goals may be documented in a n alternate sectionGoals may be documented in an alternate sectionGoals may be documented in an alternate sectionGoals may be documented in an alternate sectionGoals may be documented in an alternate sectionGoals may be documented in an alternate sectionGoals may be documented in an alternate sectionGoals may be documented in an alternate sectionGoals may be documented in an alternate sectionGoals may be documented in an alternate sectionGoals may be documented in an alternate sectionGoals may be documented in an alternate sectionGoals may be documented in an alternate sectionGoals may be documented in an alternate sectionGoals may be documented in an alternate section Care Teams (unrecognized sec tion and content) Team Status: Active Member Role Status Dates Dr. Nicky Thomas MD Family Provider Active Yogesh Mai DISTRIBUTION ESTIMATOR, DISTRIBUTION ESTIMATOR-C Primary Care Provider Active Team Status: Inactive Member Role Status Dates Yogesh Mai DISTRIBUTION ESTIMATOR, DISTRIBUTION ESTIMATOR-C Primary Care Provider, Referring Provider Active Fela Sterling DISTRIBUTION ESTIMATOR, DISTRIBUTION ESTIMATOR-C Attending Provider Active Team Status: Inactive Member Role Status Dates Yogesh Mai NP, DISTRIBUTION ESTIMATOR-C Primary Care Provider, Referring Provider Active Dr. Felipe Whitt DPM Attending Provider Active Team Status: Active Member Role Status Dates Yogesh Mai NP, DISTRIBUTION ESTIMATOR-C Primary Care Provider Active Dr. Felipe Whitt DPM Attending Provider, Referri ng Provider Active Team Status: Inactive Member Role Status Dates Yogesh Mai NP, DISTRIBUTION ESTIMATOR-C Primary Care Provider Active Dr. Felipe Whitt DPM Attending Provider, Referri ng Provider Active Team Status: Active Member Role Status Dates Yogesh Kendall DISTRIBUTION ESTIMATOR, DISTRIBUTION ESTIMATOR-C Primary Care Provider, Referring Provider Active ADOLFO HamptonM Attending Provider Active Team Status: Inactive Member Role Status Radha Mai DISTRIBUTION ESTIMATOR, DISTRIBUTION ESTIMATOR-C Primary Care Provider, Referring Provider Active Dr. Kervin Pa MD Attending Provider Active Team Status: Active Member Role Status Radha Mai DISTRIBUTION ESTIMATOR, DISTRIBUTION ESTIMATOR-C Primary Care Provider Active Dr. Kervin Pa MD Referring Provider, Other Provid er Active Dr. Boyd Hall DO Attending Provider Active Team Status: Active Member Role Status Radha Mai NP, DISTRIBUTION ESTIMATOR-C Primary Care Provider Active Dr. Kervin Pa MD Attending Provider, Referring Pr ovider Active Team Status: Inactive Member Role Status Radha Mai NP, DISTRIBUTION ESTIMATOR-C Primary Care Provider Active Dr. Kervin Pa MD Attending Provider, Referring Pr ovider Active Team Status: Inactive Member Role Status Radha Mai DISTRIBUTION ESTIMATOR, DISTRIBUTION ESTIMATOR-C Primary Care Provider Active Fela Sterling DISTRIBUTION ESTIMATOR, DISTRIBUTION ESTIMATOR-C Attending Provider, Referrin g Provider Active [employer] Relationship Specialty Start Date End Date Yogesh Mai FNP [address] [place], [place] [id number] PCP - General Nurse Practitioner - Family 02/08/23 Team Status: Inactive Member Role Status Radha Mai DISTRIBUTION ESTIMATOR, DISTRIBUTION ESTIMATOR-C Primary Care Provider Active Hardik Sharif MD Emergency Provider Active Team Status: Active Member Role Status Radha Mai DISTRIBUTION ESTIMATOR, DISTRIBUTION ESTIMATOR-C Primary Care Provider Active Dr. Sumit Nation MD Attending Provider Active Team Status: Inactive Member Role Status Radha Mai NP, DISTRIBUTION ESTIMATOR-C Primary Care Provider Active Hardik Sharif MD Attending Provider, Emergency Provid er Active Team Status: Inactive Member Role Status Radha Mai DISTRIBUTION ESTIMATOR, DISTRIBUTION ESTIMATOR-C Primary Care Provider Active Dr. Josue Hurt MD Attending Provider, Referring Pr ovider Active Team Status: Active Member Role/Relationship Status Radha Mai DISTRIBUTION ESTIMATOR, DISTRIBUTION ESTIMATOR-C Primary Care Provider Active Team Status: Inactive Member Role/Relationship Status Dates Yogesh Mai DISTRIBUTION ESTIMATOR, DISTRIBUTION ESTIMATOR-C Primary Care Provider Active Start: January 14, 2025 End: January 14, 2025 Fela Sterling DISTRIBUTION ESTIMATOR, DISTRIBUTION ESTIMATOR-C Attending Provider Active Start: January 14, 2025 End: January 14, 2025 Fela Sterling DISTRIBUTION ESTIMATOR, DISTRIBUTION ESTIMATOR-C Referring Provider Active Start: January 14, 2025 End: January 14, 2025 Team Status: Active Member Role/Relationship Status Dates Yogesh Mai DISTRIBUTION ESTIMATOR, DISTRIBUTION ESTIMATOR-C Primary care physician Active Team Status: Inactive Member Role/Relationship Status Dates Yogesh Mai NP, DISTRIBUTION ESTIMATOR-C Primary care physician Active Start: January 14, 2025 End: January 14, 2025 Fela Sterling DISTRIBUTION ESTIMATOR, DISTRIBUTION ESTIMATOR-C Attending physician Active Start: January 14, 2025 End: January 14, 2025 Fela Sterling DISTRIBUTION ESTIMATOR, DISTRIBUTION ESTIMATOR-C Referring Provider Active Start: January 14, 2025 End: January 14, 2025 Team Status: Inactive Member Role/Relationship Status Dates Yogesh Mai NP, DISTRIBUTION ESTIMATOR-C Primary care physician Active Start: February 16, 2025 End: February 16, 2025 Yogesh Mai NP, DISTRIBUTION ESTIMATOR-C Referring Provider Active S tart: February 16, 2025 End: February 16, 2025 Fela Sterling DISTRIBUTION ESTIMATOR, DISTRIBUTION ESTIMATOR-C Attending physician Active Start: February 16, 2025 End: February 16, 2025 Reason for Visit (unrecogniz ed section and content) Reason Comments Cough Reason Comments Sudden Vision Loss Right Eye Scheduled Active and Recently Administ ered Medications (unrecognized section and content) Medication Order 02/06/2023 02/07/2023 02/08/2023 Azithromycin (ZITHROMAX) tablet 500 mg (COMPLETED) 500 mg, Oral, ONCE, 1 dose, On 02/08/23 at 0615 0603 (Given - Provid er: Falguni Pearson RN) predniSONE (DELTASONE) tablet 60 mg (COMPLETED) 60 mg, Oral, ONCE, 1 dose, On 02/08/23 at 0630 0600 (Given - Provid er: Falguni Pearson RN) PRN Medication Order 02/06/2023 02/07/2023 02/08/2023 Albuterol sulfate (PROVENTIL) inhalation solution 2.5 mg 2.5 mg, Nebulization, EVERY 30 MINUTES NEEDED, 3 doses, Starting on 02/08/23 at 0357, Until 02/08/23 at 0819, Shortness of Breath, Wheezing 0410 (Given - Provid er: Tiffany Browne RCP) Ipratropium (ATROVENT) 0.02 % inhalation solution 0.5 mg 0.5 mg, Nebulization, EVERY 30 MINUTES NEEDED, 3 doses, Starting on 02/08/23 at 0357, Until 02/08/23 at 0819, Wheezing, Shortness of Breath 0410 (Given - Provid er: Tiffany Browne RCP) Source Comments (unrecognize d section and content) In the event this informatio n is protected by the Federal Confidentiality of Alcohol and Drug Abuse Patient Records regulations: The Federal rules restrict any use of the information to criminally investigate or prosecute any alcohol or drug abuse patient.[facility] FOR RECORDS PERTAINING TO PATIENTS WHO ARE OR HAVE BEEN ENROLLED IN A CHEMICAL DEPENDENCY/SUBSTANCEABUSE PROGRAM, SOME INFORMATION MAY BE OMITTED. This clinical summary was aggregated from multiple sources. Caution should be exercised in using it in the provision of clinical care. This summary normalizes information from multiple sources, and as a consequence, information in this document may materially change the coding, format and clinical context of patient data. In addition, data may be omitted in some cases. CLINICAL DECISIONS SHOULD BE BASED ON THE PRIMARY CLINICAL RECORDS. [employer] [facility]. provides no warranty or guarantee of the accuracy or completeness of information in this document.
--- OUTSIDE RECORDS SUMMARY | 2025-02-25 12:32 | XMS RPT_ITS | CCD ---
Author Organization [facility] Care Team Providers Care Artist Scientific Name Role Phone Kendall TOWER SWITCH OPERATOR, TOWER SWITCH OPERATOR-C Yogesh Primary Care Provider [phone] Dr. Berhane Le Attending Provider Kendall TOWER SWITCH OPERATOR, TOWER SWITCH OPERATOR-C Yogesh Referring Provider Dr. Kervin Pa Attending Provider Kendall TOWER SWITCH OPERATOR, TOWER SWITCH OPERATOR-C Yogesh Other Provider [phone] Kervin Pa Referring Provider Dr. Kervin Pa Other Provider Dr. Boyd Hall Attending Provider Kendall TOWER SWITCH OPERATOR, TOWER SWITCH OPERATOR-C Yogesh Primary Care Provider Kendall TOWER SWITCH OPERATOR, TOWER SWITCH OPERATOR-C Yogesh Referring Provider Asher ALMARAZ, TOWER SWITCH OPERATOR-C Fela Attending Provider [phone] Kendall TOWER SWITCH OPERATOR, TOWER SWITCH OPERATOR-C Yogesh Primary Care Provider Kendall ALMARAZ, TOWER SWITCH OPERATOR-C Yogesh Referring Provider Dr. Kervin Pa Attending Provider Dr. Kervin Pa Referring Provider Dr. Kervin Pa Other Provider Dr. Boyd Hall Attending Provider Asher ALMARAZ, TOWER SWITCH OPERATOR-C Fela Attending Provider [phone] Kendall [facility] LEAD PSYCHOLOGIST, Yogesh K Primary Care Provider [phone] KENDALL, YOGESH K Primary Care [facility] ANGELICA, [id number] KAI Attending Unav ailable Kendall TOWER SWITCH OPERATOR, TOWER SWITCH OPERATOR-C Yogesh Primary Care Provider Kendall TOWER SWITCH OPERATOR, TOWER SWITCH OPERATOR-C Yogesh Referring Provider Unavailable Primary Care Provider Unavailsergey e Kendall TOWER SWITCH OPERATOR, TOWER SWITCH OPERATOR-C Yogesh Primary Care Provider Dr. Kervin Pa Referring Provider Dr. Kervin Pa Other Provider Dr. Boyd Hall Attending Provider Kendall TOWER SWITCH OPERATOR, TOWER SWITCH OPERATOR-C Yogesh Referring Provider Sterling TOWER SWITCH OPERATOR, TOWER SWITCH OPERATOR-C Fela Attending Provider Dr. Sumit Nation Attending Provider KENDALL, YOGESH Consulting Unavailable [...] Consulting Unavailable PROVIDER, UNKNOWN Consulting Unavailable Kendall TOWER SWITCH OPERATOR-C, Yogesh Primary Care Provider Sterling TOWER SWITCH OPERATOR-C, Fela Attending Provider Sterling TOWER SWITCH OPERATOR-C, Fela Referring Provider Kendall TOWER SWITCH OPERATOR-C, Yogesh Primary Care Physician [phone] Sterling TOWER SWITCH OPERATOR-C, Fela Attending Physician Kendall TOWER SWITCH OPERATOR-C, Yogesh Referring Provider Kendall TOWER SWITCH OPERATOR, Yogesh Primary Care Unavailable Isaiah Wiseman Attending Unavailabl e Asher TOWER SWITCH OPERATOR, Fela Attending Unavailable Kendall TOWER SWITCH OPERATOR, Ygoesh Primary Care Unavailable Sterling TOWER SWITCH OPERATOR, Fela Referring Unavailable Sterling TOWER SWITCH OPERATOR, Fela Attending Unavailable Kendall TOWER SWITCH OPERATOR, Yogesh Primary Care Unavailable Sterling TOWER SWITCH OPERATOR, Fela Referring Unavailable Kendall TOWER SWITCH OPERATOR, Yogesh Referring Unavailable Kendall TOWER SWITCH OPERATOR, Yogesh Primary Care Unavailable Sterling TOWER SWITCH OPERATOR, Fela Attending Unavailable Kendall TOWER SWITCH OPERATOR, Yogesh Primary Care Unavailable Sterling TOWER SWITCH OPERATOR, Fela Referring Unavailable Sterling TOWER SWITCH OPERATOR, Fela Attending Unavailable Medications Current Medications Medication Drug Class(es) Dates Sig (Normalized) Sig (Original) [id number] 200 actuat albuterol 0.09 mg/actuat metered dose [...] 02-08-2023 Azithromycin (ZITHROMAX) tab let 500 mg Fvryhjxehha-Sljjlitnc-Iatxff er (20 sources) Start: 02-16-2025 Lhyslvnokhp-Knxjbmbwb-Ndrplt er (Trelegy Ellipta) 200-62.5-25 mcg blister with device Active 1 NMA INHALATION DAILY 3 3 February 16, 2025 2:50pm Cough Cough, unspecified Complies with drug therapy Start: 12-17-2023 End: 02-16-2025 Mzagzkddmcb-Vtufoxsrv-Nniryp er (Trelegy Ellipta) 200-62.5-25 mcg blister with device Discontinued 1 NMA INHALATION DAILY 3 December 17, 2023 3:13pm February 16, 2025 2:51pm Cough Cough, unspecified Start: 12-17-2023 Fluticasone-Um eclidin-Vilanter (Trelegy Ellipta) 200-62.5-25 mcg blister with device Active 1 NMA INHALATION DAILY 3 December 17, 2023 3:13pm Cough Cough, unspecified Start: 01-06-2023 End: 12-17-2023 Emjgsyicokv-Llgndanzq-Kfsgof er (Trelegy Ellipta) 200-62.5-25 mcg blister with [...] 06, 2023 2:18pm Start: 05-07-2022 End: 01-06-2023 Kpwaqkloouw-Yhgrhhxng-Jerevx er (Trelegy Ellipta) 200-62.5-25 mcg blister with device Discontinued 1 NMA INHALATION DAILY 60 May 07, 2022 1:00am January 06, 2023 2:18pm Start: 05-07-2022 End: 01-06-2023 Arnatjvlohq-Untzfvuvo-Fgwlcq er (Trelegy Ellipta) 200-62.5-25 mcg blister with device Discontinued 1 INH INHALATION DAILY May 07, 2022 12:00am January 06, 2023 1:18pm Start: 05-07-2022 End: 01-06-2023 Mlnvkripseu-Jocrzadgs-Zfuuan er (Trelegy Ellipta) 200-62.5-25 mcg blister with [...] Facility Pulmonary Visit Reporton Pulmonary Visit Report [facility] [address] [place] [address] OFFICE VISIT Date of Service: 02/16/25 MR#: [id number] Acct: [id number] Name: YAQUELIN HENSON Rep #: [id number] : 1965 Provider: NEDRA Sterling Age/Sex: 59/M Location: [facility] Status: Signed Assessment and [...] Chronic obstructive pulmonary disease, unspecified Medications: Refilled jsurlbrmzpa-izlsowcnx-xc lanter 200-62.5-25 mcg (Trelegy Ellipta) 1 inh inhalation DAILY 3 ea 3RF R05.9 - Cough, unspecified Plan Details Additional Comments: This note was generated with [employer] dictation software. 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 Normal [facility] Low Dose CT Lung Screeningon 01-14-[address] Lung Screening [facility] Imaging Services [address] [place] [address] Lung Screening MR#: [id number] Acct: [id number] Name: YAQUELIN HENSON Rep #: [id number] : 1965 M 59 From: Cachorro loera MD PCP: Yogesh Mai NP-C Status: [facility] Study: Low Dose CT Lung Screening Date of Exam: 01/14 Exam# [id number] Ordering Dr: Fela Sterling NP TOWER SWITCH OPERATOR-C PROCEDURE: LOW DOSE CT LUNG SCREENING 01/14/2025 REASON FOR EXAM: SMOKING Long-time smoker. TECHNIQUE: LOW DOSE CT LUNG SCREENING Coronal and Sagittal reconstruction series were provided. One or more dose reduction techniques were used (e.g., Automated exposure control, adjustment of the mA and/or kV according to patient size, use of iterative reconstruction technique). REFERENCE LINK: [facility] Lung-RADS RADIATION DOSE SUMMARY: CTDlvol: 4.02 mGy [...] SCREENING LDCT. Other Significant Findings: Reading Location: [id number] CC: NEDRA Sterling; NEDRA Mai Wool Scourer: Signed Normal [facility] POTASSIUMon 09-25-2024 Potassium [Moles/Vol] 3.5 mmol/L Normal 3.5 - 5.1 [facility] Comment on above: Performed By: #### 2 63714 #### [facility],[address] [place], [place] [id number] BMP with eGFRon 08-28-2024 AGE 59 years Normal [facility] Comment on above: Performed By: #### 2 58152 #### [facility],[address] [place] [address] 23214 Anion gap [Moles/Vol] 9 mmol/L Low 10 - 20 [facility] Comment on above: Performed By: #### 2 12075 #### [facility],[address] [place] [address] 22786 BMP with eGFR Normal [facility] Comment on above: Result Comment: BASI C METABOLIC PANEL Performed By: #### 2 55015 #### [facility],[address] [place] [address] 62002 Calcium [Mass/Vol] 9.2 mg/dL Normal 8.5 - 10.1 [facility] Comment on above: Performed By: #### 2 54917 #### [facility],[address] [place] [address] 65818 Chloride [Moles/Vol] 106 mmol/L Normal 98 - 107 [facility] Comment on above: Performed By: #### 2 48730 #### [facility],[address] [place] [address] 14761 CO2 [Moles/Vol] 30.5 mmol/L Normal 21.0 - 32.0 [facility] Comment on above: Performed By: #### 2 12732 #### [facility],[address] [place] [address] 33715 Creatinine [Mass/Vol] 1.09 mg/dL Normal 0.70 - 1.30 [facility] Comment on above: Performed By: #### 2 52500 #### [facility],[address] [place] [address] 55896 GFR/1.73 sq M.predicted among non-blacks MDRD (S/P/Bld) [Vol rate/Area] mL/min/{1.73_m2} Normal 60 - 999 [facility] Comment on above: Performed By: #### 2 06974 #### [facility],[address] [place] [address] 90329 Result Comment: ACCO RDING TO THE NATIONAL KIDNEY DISEASE EDUCATION PROGRAM(NKDE), A NORMAL eGFR IS A VALUE GREATER THAN OR EQUAL TO 60 ML/MIN/1.73 SQ METERS. CHRONIC KIDNEY DISEASE: <60mL/MIN/1.73 SQ METERS KIDNEY FAILURE: <15mL/MIN/1.73 SQ METERS THIS TEST SHOULD ONLY BE USED FOR PATIENTS 18 YEARS OF AGE AND OLDER. Glucose [Mass/Vol] 109 mg/dL High 74 - 106 [facility] Comment on above: Performed By: #### 2 30915 #### [facility],[address] [place] [address] 73715 Potassium [Moles/Vol] 3.6 mmol/L Normal 3.5 - 5.1 [facility] Comment on above: Performed By: #### 2 12363 #### [facility],[address] [place] [address] 37536 Sodium [Moles/Vol] 142 mmol/L Normal 136 - 145 [facility] Comment on above: Performed By: #### 2 66493 #### [facility],[address] [place] [address] 54823 Urea nitrogen [Mass/Vol] 16 mg/dL Normal 7 - 18 [facility] Comment on above: Performed By: #### 2 34357 #### [facility],[address] [place], [place] [id number] 12 Lead EKGon 07-28-2024 12 Lead EKG [facility] Cardiovascular Services [address] [place] [address]862 12 Lead EKG 07/28/24 2134 MR#: [id number] Acct: [id number] Name: YAQUELIN HENSON Rep #: [id number] : 1965 58 From: Felipe Ratliff MD [...] Normal ECG Confirmed by Felipe Ratliff ([id number]), assignment editor LOUISA LUIS ([id number]) on 07/29/2024 9:33:13 AM Referred By: Confirmed By: Felipe Ratliff 07/29/24 0933 Date Felipe Ratliff MD CC: NEDRA Mai; Dr. Isaiah Wiseman DO Signed Normal [facility] Basic Metabolic Profile (BMP )on 07-28-2024 Anion gap [Moles/Vol] 9 mmol/L Normal 5-15 [facility] Comment on above: Performed By: #### L 100.0100, L500.2500 #### [facility] [address] [place], [address] BUN/CRE 8.8 RATIO Low 10-20 [facility] Comment on above: Performed By: #### L 100.0100, L500.2500 #### [facility] [address] [place], [address] Calcium [Mass/Vol] 9.3 mg/dL Normal 7.6-11.0 [facility] Comment on above: Performed By: #### L 100.0100, L500.2500 #### [facility] [address] [place], [address] Chloride [Moles/Vol] 100 mmol/L Normal 96-108 [facility] Comment on above: Performed By: #### L 100.0100, L500.2500 #### [facility] [address] [place], [address] CO2 [Moles/Vol] 28.4 mmol/L Normal 22.0-29.0 [facility] Comment on above: Performed By: #### L 100.0100, L500.2500 #### [facility] [address] [place], [address] Creatinine [Mass/Vol] 1.1 mg/dL Normal 0.8-1.3 [facility] Comment on above: Performed By: #### L 100.0100, L500.2500 #### [facility] [address] [place], [address] ECRCL 96.64 ml/min Normal [facility] Comment on above: Performed By: #### L 100.0100, L500.2500 #### [facility] [address] [place], [address] GFR/1.73 sq M.predicted among non-blacks MDRD (S/P/Bld) [Vol rate/Area] 78 mL/min/{1.73_m2} Normal >60 [facility] Comment on above: Result Comment: mL/m in/1.73m2 CKD-EPI Creatinine Equation (2020) Performed By: #### L 100.0100, L500.2500 #### [facility] [address] [place], [address] Glucose [Mass/Vol] 112 mg/dL High 70-99 [facility] Comment on above: Performed By: #### L 100.0100, L500.2500 #### [facility] [address] [place], [address] Urea nitrogen [Mass/Vol] 10 mg/dL Normal 4-19 [facility] Comment on above: Performed By: #### L 100.0100, L500.2500 #### [facility] [address] [place], [address] Potassium [Moles/Vol] 3.9 mmol/L Normal 3.3-5.1 [facility] Comment on above: Result Comment: Hemo lysis present, Results??could be affected. ?? Performed By: #### L 100.0100, L500.2500 #### [facility] [address] [place], [address] Sodium [Moles/Vol] 137 mmol/L Normal 133-145 [facility] Comment on above: Performed By: #### L 100.0100, L500.2500 #### [facility] [address] [place], [address] CBC W/Diff, Automatedon 07-04 Absolute Lymph 0.86 X10 3/uL Normal 0.83-4.51 [facility] Comment on above: Performed By: #### L 100.0100, L500.2500 #### [facility] [address] [place], [address] Absolute Neut 5.6 X10 3/uL Normal 2.0-7.7 [facility] Comment on above: Performed By: #### L 100.0100, L500.2500 #### [facility] [address] [place], [address] Basophils/100 WBC (Bld) 0.7 % Normal 0-1 [facility] Comment on above: Performed By: #### L 100.0100, L500.2500 #### [facility] [address] [place], [address] Eosinophils/100 WBC (Bld) 1.1 % Normal 0-5 [facility] Comment on above: Performed By: #### L 100.0100, L500.2500 #### [facility] [address] [place], [address] Erythrocyte distribution width (RBC) [Ratio] 13.4 % Normal 11.6-14.6 [facility] Comment on above: Performed By: #### L 100.0100, L500.2500 #### [facility] [address] [place], [address] Hematocrit (Bld) [Volume fraction] 46.1 % Normal 40-54 [facility] Comment on above: Performed By: #### L 100.0100, L500.2500 #### [facility] [address] [place], [address] Hemoglobin (Bld) [Mass/Vol] 15.5 g/dL Normal 13.0-16.5 [facility] Comment on above: Performed By: #### L 100.0100, L500.2500 #### [facility] [address] [place], [address] IG% 0.300 Normal 0.0-0.9 [facility] Comment on above: Result Comment: IG% - Immature Granulocytes (promyelocytes, myelocytes and metamyelocytes) > 1% indicates that a LEFT SHIFT is Present. Performed By: #### L 100.0100, L500.2500 #### [facility] [address] [place], [address] Lymphocytes/100 WBC (Bld) 11.3 % Low 19-41 [facility] Comment on above: Performed By: #### L 100.0100, L500.2500 #### [facility] [address] [place], [address] MCH (RBC) [Entitic mass] 33.3 pg High 27.0-32.0 [facility] Comment on above: Performed By: #### L 100.0100, L500.2500 #### [facility] [address] [place], [address] MCHC (RBC) [Mass/Vol] 33.6 g/dL Normal 32-36 [facility] Comment on above: Performed By: #### L 100.0100, L500.2500 #### [facility] [address] [place], [address] MCV (RBC) [Entitic vol] 98.9 fL High 80-94 [facility] Comment on above: Performed By: #### L 100.0100, L500.2500 #### [facility] [address] [place], [address] Monocytes/100 WBC (Bld) 13.5 % High 0-10 [facility] Comment on above: Performed By: #### L 100.0100, L500.2500 #### [facility] [address] [place], [address] Neutrophils/100 WBC (Bld) 73.1 % High 47-70 [facility] Comment on above: Performed By: #### L 100.0100, L500.2500 #### [facility] [address] [place], [address] Nucleated RBC (Bld) [#/Vol] 0 10*3/uL Normal 0-5 [facility] Comment on above: Performed By: #### L 100.0100, L500.2500 #### [facility] [address] [place], [address] Platelet mean volume (Bld) [Entitic vol] 9.4 fL Normal 6.2-12.0 [facility] Comment on above: Performed By: #### L 100.0100, L500.2500 #### [facility] [address] [place], [address] Platelets (Bld) [#/Vol] 284 10*3/uL Normal 150-450 [facility] Comment on above: Performed By: #### L 100.0100, L500.2500 #### [facility] [address] [place], [address] RBC (Bld) [#/Vol] 4.66 10*6/uL Normal 4.6-6.2 [facility] Comment on above: Performed By: #### L 100.0100, L500.2500 #### [facility] [address] [place], [address] RDW SD 49.1 fl High 35.1-43.9 [facility] Comment on above: Performed By: #### L 100.0100, L500.2500 #### [facility] [address] [place], [address] WBC (Bld) [#/Vol] 7.6 10*3/uL Normal 4.4-11.0 [facility] Comment on above: Performed By: #### L 100.0100, L500.2500 #### [facility] [address] [place], [address] Chest PA and Lateralon 07-28 Chest PA and Lateral [facility] Imaging Services [address] [place] [address] Chest PA and Lateral MR#: [id number] Acct: [id number] Name: YAQUELIN HENSON Rep #: [id number] : 1965 M 58 From: Jordon Zhou MD PCP: NEDRA Johnston Status: [facility] ER Study: Chest PA and Lateral Date of Exam: 07/28/24 Exam# [id number] Ordering Dr: Isaiah Wiseman DO PROCEDURE: CHEST PA AND LATERAL REASON FOR EXAM: Shortness of breath TECHNIQUE: Frontal and lateral views of the chest. COMPARISON: 04/01/2022. FINDINGS: The heart size is normal. The mediastinal contour is unremarkable. The lungs are clear. The bones are unremarkable. RAD/Chest PA and Lateral IMPRESSION: No radiographic evidence of acute cardiopulmonary disease Reading Location: [facility] CC: TOWER SWITCH OPERATOR-C Yogesh Mai; Dr. Isaiah Wiseman DO Wool Scourer: Signed Normal [facility] Emergency Department Summary on 07-28-2024 Emergency Department Summary [facility] Medical Records Department [address] [place] [address] Emergency Department Summary 07/28/24 MR#: [id number] Acct: [id number] Name: YAQUELIN HENSON Rep #: [id number] : 1965 58 From: Isaiah Wiseman DO [...] intact Psych: Cooperative, appropriate mood and affect [facility] Medical History Hypoxemia Hyperlipidemia Bronchitis Environmental allergies Home Medications [...] Allergies Allergy Verified 07/28/24 19:22 Surgical History History of repair of rotator [...] effusion, card (more content not included)... Normal [facility] M100.678on 07-28-2024 M100.678 SARS-CoV-2 (COVID 19 ) A Positive A INFLUENZA A Negative INFLUENZA B Negative RSV PCR Negative SARS-CoV-2 (COVID 19 PCR) Normal [facility] Comment on above: Performed By: #### M 100.678 #### [facility] [address] [place], [address] Venous Blood Gason 5 Blood Gas Type DORIE Normal [facility] Comment on above: Performed By: #### L 9000.0810 #### [facility] [address] [place], [address] CO2 [Moles/Vol] 33 mmol/L Normal 23-33 [facility] Comment on above: Performed By: #### L 9000.0810 #### [facility] [address] [place], [address] HCO3 (Bld) [Moles/Vol] 32 mmol/L High 22-26 [facility] Comment on above: Performed By: #### L 9000.0810 #### [facility] [address] [place], [address] O2 Delivery Dev Room Air Normal [facility] Comment on above: Performed By: #### L 9000.0810 #### [facility] [address] [place], [address] SITE Not entered Normal [facility] Comment on above: Performed By: #### L 9000.0810 #### [facility] [address] [place], [address] VBG BE 9 mmol/L High -1.0-3.5 [facility] Comment on above: Performed By: #### L 9000.0810 #### [facility] [address] [place], [address] VBG pCO2 41.7 mmHg Normal 41-51 [facility] Comment on above: Performed By: #### L 9000.0810 #### [facility] [address] [place], [place], [address] VBG pH 7.49 High 7.32-7.42 [facility] Comment on above: Performed By: #### L 9000.0810 #### [facility] [address] [place], [address] VBG PO2 33 mmHg Normal 25-40 [facility] Comment on above: Performed By: #### L 9000.0810 #### [facility] [address] [place], [address] VBG SO2 69 Normal 50-70 [facility] Comment on above: Performed By: #### L 9000.0810 #### [facility] [address] [place], [place], [address] CBC + DIFFon 02-28-2024 Baso # 0.03 x10EE3/UL Normal 0.00 - 0.10 [facility] Comment on above: Performed By: #### 2 97416 #### [facility],[address] [place] [address] 29034 Basophils/100 WBC (Bld) 0.4 % Normal 0.0 - 2.0 [facility] Comment on above: Performed By: #### 2 03605 #### [facility],[address] [place] [address] 15964 CBC + DIFF Normal [facility] Comment on above: Result Comment: CBC- COMPLETE BLOOD COUNT Performed By: #### 2 27016 #### [facility],[address] [place] [address] 99777 EO # 0.12 x10EE3/UL Normal 0.00 - 0.50 [facility] Comment on above: Performed By: #### 2 54042 #### [facility],[address] [place] [address] 82625 Eosinophils/100 WBC (Bld) 1.7 % Normal 0.0 - 7.0 [facility] Comment on above: Performed By: #### 2 52398 #### [facility],[address] [place] [address] 05216 Erythrocyte distribution width (RBC) [Ratio] 13.2 % Normal 12.0 - 15.6 [facility] Comment on above: Performed By: #### 2 09721 #### [facility],[address] [place], [place] [address] Hematocrit (Bld) [Volume fraction] 48.6 % Normal 40.0 - 52.0 [facility] Comment on above: Performed By: #### 2 35870 #### [facility],[address] [place] [address] Hemoglobin (Bld) [Mass/Vol] 16.3 g/dL Normal 13.0 - 17.5 [facility] Comment on above: Performed By: #### 2 51585 #### [place] [address] Lymph # 2.40 x10EE3/UL Normal 0.80 - 2.80 [facility] Comment on above: Performed By: #### 2 71664 #### [facility],[address] [place], [place] [address] Lymphocytes/100 WBC (Bld) 33.2 % Normal 20.0 - 45.0 [facility] Comment on above: Performed By: #### 2 45645 #### [facility],[address] [place] [address] 24769 MANUAL DIFF N/A Normal [facility] [facility] Comment on above: Performed By: #### 2 66941 #### [facility],[address] [place] [address] 75014 MCH (RBC) [Entitic mass] 34 pg High 27 - 33 [facility] Comment on above: Performed By: #### 2 52594 #### [facility],[address] [place] [address] 66242 MCHC 34 X10 3 Normal 32 - 36 [facility] Comment on above: Performed By: #### 2 21971 #### [facility],[address] [place] [address] 91942 MCV (RBC) [Entitic vol] 101 fL High 81 - 98 [facility] Comment on above: Performed By: #### 2 53879 #### [facility],[address] [place] [address] 98129 [place] # 0.56 x10EE3/UL Normal 0.20 - 1.00 [facility] Comment on above: Performed By: #### 2 02878 #### [facility],[address] [place] [address] 88170 MONOS % 7.8 % Normal 0.0 - 10.0 [facility] Comment on above: Performed By: #### 2 76962 #### [facility],[address] [place] [address] 31140 Morphology Leopoldo (Bld) [Interp] N/A Normal [facility] Comment on above: Performed By: #### 2 26727 #### [facility],[address] [place] [address] 09223 Neut # 4.13 x10EE3/UL Normal 1.50 - 7.10 [facility] Comment on above: Performed By: #### 2 95026 #### [facility],[address] [place] [address] 79976 Neutrophils/100 WBC (Bld) 57.0 % Normal 46.0 - 76.0 [facility] Comment on above: Performed By: #### 2 17994 #### [facility],[address] [place] [address] 07990 PLATELET 312 x10EE3/UL Normal 150 - 450 [facility] Comment on above: Performed By: #### 2 91887 #### [facility],[address] [place] [address] 17392 Platelet mean volume (Bld) [Entitic vol] 7.5 fL Normal 6.4 - 10.5 [facility] Comment on above: Result Comment: AUTO MATED DIFFERENTIAL Performed By: #### 2 70720 #### [facility],[address] [place] [address] 55569 RBC 4.82 x 10EE6/UL Normal 4.50 - 6.00 [facility] Comment on above: Performed By: #### 2 87475 #### [facility],[address] [place] [address] 01913 WBC 7.3 x 10EE3/UL Normal 4.5 - 10.8 [facility] Comment on above: Performed By: #### 2 37018 #### [facility],[address] [place] [address] 43966 CMP with eGFRon 02-28-2024 AGE 58 years Normal [facility] Comment on above: Performed By: #### 2 34113 #### [facility],[address] [place] [address] 04557 Albumin [Mass/Vol] 3.5 g/dL Normal 3.4 - 5.0 [facility] Comment on above: Performed By: #### 2 37964 #### [facility],[address] [place] [address] 91154 Albumin/Globulin [Mass ratio] 1.0 {ratio} Normal 0.9 - 1.6 [facility] Comment on above: Performed By: #### 2 10524 #### [facility],[address] [place] [address] 95798 ALK PHOS 80 U/L Normal 46 - 116 [facility] Comment on above: Performed By: #### 2 42803 #### [facility],[address] [place] [address] 00691 ALT [Catalytic activity/Vol] 38 U/L Normal 16 - 63 [facility] Comment on above: Performed By: #### 2 92175 #### [facility],[address] [place] [address] 34922 Anion gap [Moles/Vol] 10 mmol/L Normal 10 - 20 [facility] Comment on above: Performed By: #### 2 17277 #### [facility],[address] [place] [address] 92974 AST [Catalytic activity/Vol] 23 U/L Normal 15 - 37 [facility] Comment on above: Performed By: #### 2 58824 #### [facility],[address] [place] [address] 23878 B/C RATIO 11 ratio Normal 0 - 30 [facility] Comment on above: Performed By: #### 2 74677 #### [facility],[address] [place] [address] 14172 Bilirubin [Mass/Vol] 0.4 mg/dL Normal 0.2 - 1.0 [facility] Comment on above: Performed By: #### 2 45799 #### [facility],[address] [place] [address] 07152 Calcium [Mass/Vol] 8.9 mg/dL Normal 8.5 - 10.1 [facility] Comment on above: Performed By: #### 2 08136 #### [facility],[address] [place] [address] 32945 Chloride [Moles/Vol] 104 mmol/L Normal 98 - 107 [facility] Comment on above: Performed By: #### 2 58680 #### [facility],[address] [place] [address] 66639 CMP with eGFR Normal [facility] Comment on above: Result Comment: COMP REHENSIVE METABOLIC PANEL Performed By: #### 2 32429 #### [facility],[address] [place] [address] 43924 CO2 [Moles/Vol] 31.1 mmol/L Normal 21.0 - 32.0 [facility] Comment on above: Performed By: #### 2 21969 #### [facility],[address] [place] [address] 95352 Creatinine [Mass/Vol] 1.29 mg/dL Normal 0.70 - 1.30 [facility] Comment on above: Performed By: #### 2 23166 #### [facility],[address] [place] [address] 03638 eGFR 57 ML/MINUTE Low 60 - 999 [facility] Comment on above: Performed By: #### 2 67221 #### [facility],[address] [place] [address] 56150 GFR/1.73 sq M.predicted among non-blacks MDRD (S/P/Bld) [Vol rate/Area] mL/min/{1.73_m2} Normal 60 - 999 [facility] Comment on above: Result Comment: ACCO RDING TO THE NATIONAL KIDNEY DISEASE EDUCATION PROGRAM(NKDE), A NORMAL eGFR IS A VALUE GREATER THAN OR EQUAL TO 60 ML/MIN/1.73 SQ METERS. CHRONIC KIDNEY DISEASE: <60mL/MIN/1.73 SQ METERS KIDNEY FAILURE: <15mL/MIN/1.73 SQ METERS THIS TEST SHOULD ONLY BE USED FOR PATIENTS 18 YEARS OF AGE AND OLDER. Performed By: #### 2 00624 #### [address] [address] Globulin (S) [Mass/Vol] 3.4 g/dL Normal 1.5 - 3.8 [facility] Comment on above: Performed By: #### 2 41081 #### [address] [address] Glucose [Mass/Vol] 92 mg/dL Normal 74 - 106 [facility] Comment on above: Performed By: #### 2 30655 #### [address] [address] Potassium [Moles/Vol] 3.6 mmol/L Normal 3.5 - 5.1 [facility] Comment on above: Performed By: #### 2 53745 #### [address] [address]897 Protein [Mass/Vol] 6.9 g/dL Normal 6.4 - 8.2 [facility] Comment on above: Performed By: #### 2 71688 #### [facility],[address] [place] [address] 56930 Sodium [Moles/Vol] 141 mmol/L Normal 136 - 145 [facility] Comment on above: Performed By: #### 2 86886 #### [facility],[address] [place] [address] 88394 Urea nitrogen [Mass/Vol] 14 mg/dL Normal 7 - 18 [facility] Comment on above: Performed By: #### 2 78704 #### [facility],[address] [place] [address] 02821 LIPID PROFILEon 02-28-2024 Cholesterol [Mass/Vol] 115 mg/dL Normal 0 - 240 [facility] Comment on above: Performed By: #### 2 10596 #### [facility],[address] [place] [address] 23880 Cholesterol in HDL [Mass/Vol] 40 mg/dL Normal 40 - 60 [facility] Comment on above: Performed By: #### 2 40858 #### [facility],[address] [place] [address] 55568 Cholesterol in LDL [Mass/Vol] 53 mg/dL Normal 0 - 129 [facility] Comment on above: Performed By: #### 2 22776 #### [facility],[address] [place] [address] 75705 Cholesterol.total/Chol esterol in HDL [Mass ratio] 2.9 {ratio} Normal 0.0 - 5.0 [facility] Comment on above: Performed By: #### 2 90679 #### [facility],[address] [place] [address] 72697 Lipid 1996 panel Normal [facility] Comment on above: Result Comment: LIPI D PROFILE Performed By: #### 2 77552 #### [facility],[address] [place] [address] Triglyceride [Mass/Vol] 110 mg/dL Normal 0 - 150 [facility] Comment on above: Performed By: #### 2 49597 #### [facility],[address] [place] [address] Absolute lymphocyte countOrd ered By: Jordon Bui on 04-05-2023 Lymphocytes Auto (Unsp spec) [#/Vol] 2.14 10*3/uL 0.83-4.51 [facility] Basophil percentageOrdered B y: Jordon Bui on 04-05-2023 Basophils/100 WBC (Bld) 0.6 % 0-1 [facility] Chloride [Moles/Vol] 104 mmol/L 98-107 [facility] Eosinophils/100 WBC (Bld) 2.5 % 0-5 [facility] Glucose [Mass/Vol] 150 mg/dL 74-106 [facility] Comment on above: Fasting Glucose resu lt greater than or equal to 126 mg/dL suggests DIABETES MELLITUS per A.D.A. criteria. Neutrophils (Bld) [#/Vol] 3.8 10*3/uL 2.0-7.7 [facility] Neutrophils/100 WBC (Bld) 55.9 % 47-70 [facility] Potassium [Moles/Vol] 3.3 mmol/L 3.5-5.1 [facility] Sodium [Moles/Vol] 142 mmol/L 136-145 [facility] WBC (Bld) [#/Vol] 6.8 10*3/uL 4.4-11.0 [facility] Blood erythrocytes count (nu mber/volume)Ordered By: Jordon Bui on 04-05-2023 RBC (Bld) [#/Vol] 4.32 10*6/uL 4.6-6.2 [facility] Blood hemoglobin measurement (mass/volume)Ordered By: Jordon Bui on 04-05-2023 Hemoglobin (Bld) [Mass/Vol] 14.2 g/dL 13.0-16.5 [facility] Blood lymphocytes/100 leukoc ytesOrdered By: Jordon Bui on 04-05-2023 Lymphocytes/100 WBC (Bld) 31.7 % 19-41 [facility] Blood monocytes/100 leukocyt esOrdered By: Jordon Bui on 04-05-2023 Monocytes/100 WBC (Bld) 9.0 % 0-10 [facility] Blood platelet mean volumeOr dered By: Jordon Bui on 04-05-2023 Platelet mean volume (Bld) [Entitic vol] 9.6 fL 6.2-12.0 [facility] Determination of erythrocyte mean corpuscular volume (MCV)Ordered By: Jordon Bui on 04-05-2023 MCV (RBC) [Entitic vol] 100.9 fL 80-94 [facility] Hematocrit Auto (Bld) [Volum e fraction]Ordered By: Jordon Bui on 04-05-2023 Hematocrit (Bld) [Volume fraction] 43.6 % 40-54 [facility] Laboratory - Chemistry and C hemistry - challengeOrdered By: Jordon Bui on 04-05-2023 CO2 [Moles/Vol] 34.0 mmol/L 21.0-32.0 [facility] Urea nitrogen/Creatinine [Mass ratio] 10.2 mg/mg 10-20 [facility] Laboratory - Hematology and Cell countsOrdered By: Jordon Bui on 04-05-2023 Erythrocyte distribution width (RBC) [Entitic vol] 52.4 fL 35.1-43.9 [facility] Erythrocyte distribution width (RBC) [Ratio] 14.0 % 11.6-14.6 [facility] Immature granulocytes/100 WBC (Bld) 0.300 % 0.0-0.9 [facility] Comment on above: IG% - Immature Granu locytes (promyelocytes, myelocytes and metamyelocytes) > 1% indicates that a LEFT SHIFT is Present. MCH (RBC) [Entitic mass] 32.9 pg 27.0-32.0 [facility] Nucleated RBC/100 WBC (Bld) [Ratio] 0 % 0-5 [facility] MCHC Auto (RBC) [Mass/Vol]Or dered By: Jordon Bui on 04-05-2023 MCHC (RBC) [Mass/Vol] 32.6 g/dL 32-36 [facility] No Panel InformationOrdered By: Jordon Bui on 04-05-2023 Estimated Creatinine Clearance Calc 60.25 ml/min [facility] Estimated GFR (MDRD) Amer 75 mL/min >60 [facility] Comment on above: GFR Calc Estimated GFR (MDRD) Non-Af Amer 62 mL/min >60 [facility] Comment on above: Non- GFR Calc Platelets bldOrdered By: Marivel Bui on 04-05-2023 Platelets (Bld) [#/Vol] 269 10*3/uL 150-450 [facility] Serum or plasma calcium phill urement (mass/volume)Ordered By: Jordon Bui on 04-05-2023 Calcium [Mass/Vol] 9.2 mg/dL 8.5-10.1 [facility] Serum or plasma creatinine m easurement (mass/volume)Ordered By: Jordon Bui on 04-05-2023 Creatinine [Mass/Vol] 1.28 mg/dL 0.70-1.30 [facility] Comment on above: The validity of the calculated GFR & GFRAA in patients over 70 years has not been determined. Clinical correlation is essential. Serum or plasma urea nitroge n measurement (mass/volume)Ordered By: Jordon Bui on 04-05-2023 Urea nitrogen [Mass/Vol] 13 mg/dL 7-18 [facility] Thin prep Papanicolaou smear with manual screeningOrdered By: Jordon Bui on 04-05-2023 Thin prep Papanicolaou smear with manual screening 4 5-15 [facility] FLUAV and FLUBV Ag IA.rapid Nom (Unsp spec)on 02-08-2023 Influenza A, molecular Negative Negative [facility] Influenza B, molecular Negative Negative [facility] [place] Influenza A AND B Molecularo n 02-08-2023 Influenza A Negative Normal Negative [facility] ([place]) Comment on above: Performed By: #### M FLUAB #### [facility] [address] [place], [place] [address] Noe Yu MD, PhD [phone] Influenza B Negative Normal Negative [facility] ([place]) Comment on above: Performed By: #### M FLUAB #### [facility] [address] [place] [address] Noe Yu MD, PhD [phone] SARS CoV 2 Molecular, Rapido n 02-08-2023 SARS-CoV-2 (COVID-19) RNA EDWIN+probe Ql (Unsp spec) Negative Normal Negative [facility] ([place]) Comment on above: Result Comment: Your COVID test is NEGATIVE/NOT DETECTED. Contact your physician/provider if you have further concerns about symptoms that you may be having. Refer to updated CDC guidelines for quarantine/ isolation recommendations Contact your employer/school regarding return to work/school instructions if necessary https://clarenceSummizewyandot memorial hospitalNexaweb Technologies/vfzjn-24-peysozlouai-information https://www.cdc.govCorrelation study-DO NOT report this isolate. -ncov/dv-pls-cmn-sick/quarantine.html?fbclid=IwAR3 [id number] Negative results should be treated as presumptive [...] the authorization is terminated or revoked sooner. https://www.fda.gov/media/154518/download Providers https://www.fda.gov/media/613973/download Patients Testing performed at [facility], [address] [place] [address] Performed By: #### S ARSCOV2 #### [facility] [address] [place] [address] Noe Yu MD, PhD [phone] SARS-COV-2 RAPIDon 3 SARS-CoV-2 (COVID-19) RdRp gene EDWIN+probe Ql (Resp) Negative Negative [facility] Comment on above: Your COVID test is N EGATIVE/NOT DETECTED. Contact your physician/provider if you have further concerns about symptoms that you may be having. Refer to updated CDC guidelines for quarantine/ isolation recommendations Contact your employer/school regarding return to work/school instructions if necessary [email or web address]/[email or web address]-72-nbpvprtroin-information https://www.cdc.govCorrelation study-DO NOT report this isolate. -ncov/fh-fee-dpt-sick/quarantine.html?fbclid=IwAR3 [id number] Negative results should be treated as presumptive [...] the authorization is terminated or revoked sooner. https://www.fda.gov/media/320312/download Providers https://www.fda.gov/media/750345/download Patients Testing performed at [address] [address] [facility] XR CHEST PA AND LATERALon XR [...] COPD though no acute focal infiltrate. Normal [facility] ([place]) XR Chest PA and Lateralon IMPRESSION: COPD [...] IMPRESSION: COPD though no acute focal infiltrate. [facility] Radiology Study observation (narrative) [facility] XR Chest PA and LateralOrder ed By: Sebastián Jeter on 02-08-2023 [facility] CNCOon 06-19-2017 CNCO Letter TextWoosterDepartment of Urgent CareLouie Naik CNP[address] [place], [place] [address]: [phone] WHOM IT MAY CONCERN:This is to confirm that [facility] an [facility] Louie Naik CNP on 06/19/2017 and may return to school on 06/20/2017.Sincerely yours,Louie Naik CNP Normal [facility] CNOVon 06-19-2017 CNOV Office Visit (UCWSTR) [facility] ([id number]) 1965 MDate Time Provider Department06/19/17 7:30 PM [...] 111.6kg (246 lb) SpO2 94% BMI 38.53 kg/l2Omrbpecz ExamConstitutional: He is oriented to person, place, [...] or if symptoms worsen sooner, to contact theirprnovant healthry care physician. Potential red flag symptoms discussed [...] Status:Closed by MICHAEL PALMA CNP on 06/20/17 [facility] PROGRESSon 06-19-2017 PROGRESS HNO ID: [id number]: Michael (Eli) Jorge LutService: (none)Author Type: Nurse [...] kg (246 lb) SpO2 94% BMI 38.53 kg/r7Ecyvnnya ExamConstitutional: He is oriented to person, place, [...] agreeable to treatment plan.Michael Palma CNP Normal [facility] Vital Signs Date Time Vital Sign Value Performing Clinician Debbi lees 02-16-2025 08:43-0400 Body mass index (BMI) [Ratio] 46.2 kg/m2 Yogesh Mai TOWER SWITCH OPERATOR-C Work Phone: [facility] 02-16-2025 08:43-0400 Body temperature 97.3 [degF] Yogesh Mai TOWER SWITCH OPERATOR-C Work Phone: [facility] 02-16-2025 08:43-0400 Body weight 133.8 kg Yogesh Mai TOWER SWITCH OPERATOR-C Work Phone: [facility] 02-16-2025 08:43-0400 Diastolic blood pressure 78 mm[Hg] Yogesh Mai TOWER SWITCH OPERATOR-C Work Phone: [facility] 02-16-2025 08:43-0400 Heart rate 83 /min Yogesh Mai TOWER SWITCH OPERATOR-C Work Phone: [facility] 02-16-2025 08:43-0400 Respiratory rate 18 /min Yogesh Mai TOWER SWITCH OPERATOR-C Work Phone: [facility] 02-16-2025 08:43-0400 SaO2% (BldA) [Mass fraction] 92 % Yogesh Mai TOWER SWITCH OPERATOR-C Work Phone: [facility] 02-16-2025 08:43-0400 Systolic blood pressure 128 mm[Hg] Yogesh Mai TOWER SWITCH OPERATOR-C Work Phone: [facility] 04-05-2023 19:48-0400 Diastolic blood pressure 74 mm[Hg] TOWER SWITCH OPERATOR-C Yogesh Mai TOWER SWITCH OPERATOR Work Phone: [facility] 04-05-2023 19:48-0400 Heart rate 79 /min TOWER SWITCH OPERATOR-C Yogesh Mai TOWER SWITCH OPERATOR Work Phone: [facility] 04-05-2023 19:48-0400 Respiratory rate 18 /min TOWER SWITCH OPERATOR-C Yogesh Mai TOWER SWITCH OPERATOR Work Phone: [facility] 04-05-2023 19:48-0400 SaO2% (BldA) [Mass fraction] 99 % TOWER SWITCH OPERATOR-C Yogesh Mai TOWER SWITCH OPERATOR Work Phone: [facility] 04-05-2023 19:48-0400 Systolic blood pressure 148 mm[Hg] TOWER SWITCH OPERATOR-C Yogesh Mai TOWER SWITCH OPERATOR Work Phone: [facility] 04-05-2023 17:23-0400 Body height 170.18 cm TOWER SWITCH OPERATOR-C Yogesh Mai TOWER SWITCH OPERATOR Work Phone: [facility] 04-05-2023 17:23-0400 Body mass index (BMI) [Ratio] 46.3 kg/m2 TOWER SWITCH OPERATOR-C Yogesh Mai TOWER SWITCH OPERATOR Work Phone: [facility] 04-05-2023 17:23-0400 Body temperature 97.1 [degF] TOWER SWITCH OPERATOR-C Yogesh Mai TOWER SWITCH OPERATOR Work Phone: [facility] 04-05-2023 17:23-0400 Body weight 134.08 kg TOWER SWITCH OPERATOR-C Yogesh Mai TOWER SWITCH OPERATOR Work Phone: [facility] 02-08-2023 06:17-0400 Diastolic blood pressure 70 mm[Hg] Kai Ha DO Work Phone: [facility] 02-08-2023 06:17-0400 Heart rate 70 /min Kai Taverason DO Work Phone: [facility] 02-08-2023 06:17-0400 Respiratory rate 16 /min Kai Ha DO Work Phone: [facility] 02-08-2023 06:17-0400 Systolic blood pressure 133 mm[Hg] Kai Ha DO Work Phone: [facility] 09-09-2023 05:37-0400 SaO2% (BldA) [Mass fraction] 95 % Kai Ha DO Work Phone: [facility] 02-08-2023 03:41-0400 Body height 172.7 cm Kai Ha DO Work Phone: [facility] 02-08-2023 03:41-0400 Body mass index (BMI) [Ratio] 42.57 kg/m2 Kai Ha DO Work Phone: [facility] 02-08-2023 03:41-0400 Body temperature 98.2 [degF] Kai Ha DO Work Phone: [facility] 02-08-2023 03:41-0400 Body weight 127.01 kg Kai Ha DO Work Phone: [facility] 01-06-2023 07:59-0400 Body height 170.18 cm TOWER SWITCH OPERATOR-C Yogesh Mai TOWER SWITCH OPERATOR Work Phone: [facility] 01-06-2023 07:59-0400 Body mass index (BMI) [Ratio] 46.5 kg/m2 TOWER SWITCH OPERATOR-C Yogesh Mai TOWER SWITCH OPERATOR Work Phone: [facility] 01-06-2023 07:59-0400 Body temperature 97.2 [degF] TOWER SWITCH OPERATOR-C Yogesh Mai TOWER SWITCH OPERATOR Work Phone: [facility] 01-06-2023 07:59-0400 Body weight 134.71 kg TOWER SWITCH OPERATOR-C Yogesh Mai TOWER SWITCH OPERATOR Work Phone: [facility] 01-06-2023 07:59-0400 Diastolic blood pressure 73 mm[Hg] TOWER SWITCH OPERATOR-C Yogesh Mai TOWER SWITCH OPERATOR Work Phone: [facility] 01-06-2023 07:59-0400 Heart rate 84 /min TOWER SWITCH OPERATOR-C Yogesh Mai TOWER SWITCH OPERATOR Work Phone: [facility] 01-06-2023 07:59-0400 Respiratory rate 20 /min TOWER SWITCH OPERATOR-C Yogesh Mai TOWER SWITCH OPERATOR Work Phone: [facility] 01-06-2023 07:59-0400 SaO2% (BldA) [Mass fraction] 95 % TOWER SWITCH OPERATOR-C Yogesh Mai TOWER SWITCH OPERATOR Work Phone: [facility] 01-06-2023 07:59-0400 Systolic blood pressure 130 mm[Hg] TOWER SWITCH OPERATOR-C Yogesh Mai TOWER SWITCH OPERATOR Work Phone: [facility] 12-26-2022 10:33-0400 Body mass index (BMI) [Ratio] 44.6 kg/m2 TOWER SWITCH OPERATOR-C Yogesh Mai TOWER SWITCH OPERATOR Work Phone: [facility] 12-26-2022 10:33-0400 Body temperature 96.8 [degF] TOWER SWITCH OPERATOR-C Yogesh Mai TOWER SWITCH OPERATOR Work Phone: [facility] 12-26-2022 10:33-0400 Diastolic blood pressure 85 mm[Hg] TOWER SWITCH OPERATOR-C Yogesh Mai TOWER SWITCH OPERATOR Work Phone: [facility] 12-26-2022 10:33-0400 Heart rate 76 /min TOWER SWITCH OPERATOR-C Yogesh Mai TOWER SWITCH OPERATOR Work Phone: [facility] 12-26-2022 10:33-0400 Respiratory rate 16 /min TOWER SWITCH OPERATOR-C Yogesh Mai TOWER SWITCH OPERATOR Work Phone: [facility] 12-26-2022 10:33-0400 Systolic blood pressure 136 mm[Hg] TOWER SWITCH OPERATOR-C Yogesh Mai TOWER SWITCH OPERATOR Work Phone: [facility] 11-30-2022 01:22-0400 Body weight 129.27 kg TOWER SWITCH OPERATOR-C Yogesh Mai TOWER SWITCH OPERATOR Work Phone: [facility] 11-28-2022 10:36-0400 Body mass index (BMI) [Ratio] 44.6 kg/m2 TOWER SWITCH OPERATOR-C Yogesh Mai TOWER SWITCH OPERATOR Work Phone: [facility] 11-28-2022 10:36-0400 Body temperature 97.3 [degF] TOWER SWITCH OPERATOR-C Yogesh Mai TOWER SWITCH OPERATOR Work Phone: [facility] 11-28-2022 10:36-0400 Diastolic blood pressure 88 mm[Hg] TOWER SWITCH OPERATOR-C Yogesh Kendall TOWER SWITCH OPERATOR Work Phone: [facility] 11-28-2022 10:36-0400 Heart rate 87 /min TOWER SWITCH OPERATOR-C Yogesh Kendall TOWER SWITCH OPERATOR Work Phone: [facility] 11-28-2022 10:36-0400 Respiratory rate 20 /min TOWER SWITCH OPERATOR-C Yogesh Kendall TOWER SWITCH OPERATOR Work Phone: [facility] 11-28-2022 10:36-0400 Systolic blood pressure 149 mm[Hg] TOWER SWITCH OPERATOR-C Yogesh Kendall TOWER SWITCH OPERATOR Work Phone: [facility] [facility] 10-31-2022 00:37-0400 Body weight 129.27 kg TOWER SWITCH OPERATOR-C Yogesh Kendall TOWER SWITCH OPERATOR Work Phone: [facility] 10-17-2022 10:35-0400 Body mass index (BMI) [Ratio] 44.6 kg/m2 TOWER SWITCH OPERATOR-C Yogesh Mai TOWER SWITCH OPERATOR Work Phone: [facility] 10-17-2022 10:35-0400 Body temperature 96.5 [degF] TOWER SWITCH OPERATOR-C Yogesh Kendall TOWER SWITCH OPERATOR Work Phone: [facility] 10-17-2022 10:35-0400 Diastolic blood pressure 63 mm[Hg] TOWER SWITCH OPERATOR-C Yogesh Kendall TOWER SWITCH OPERATOR Work Phone: [facility] 10-17-2022 10:35-0400 Heart rate 78 /min TOWER SWITCH OPERATOR-C Yogesh Kendall TOWER SWITCH OPERATOR Work Phone: [facility] 10-17-2022 10:35-0400 Respiratory rate 20 /min TOWER SWITCH OPERATOR-C Yogesh Kendall TOWER SWITCH OPERATOR Work Phone: [facility] 10-17-2022 10:35-0400 Systolic blood pressure 140 mm[Hg] TOWER SWITCH OPERATOR-C Yogesh Kendall TOWER SWITCH OPERATOR Work Phone: [facility] 09-30-2022 00:45-0400 Body weight 129.27 kg TOWER SWITCH OPERATOR-C Yogesh Kendall TOWER SWITCH OPERATOR Work Phone: [facility] 09-19-2022 10:27-0400 Body mass index (BMI) [Ratio] 44.6 kg/m2 TOWER SWITCH OPERATOR-C Yogesh Mai TOWER SWITCH OPERATOR Work Phone: [facility] 09-19-2022 10:27-0400 Respiratory rate 18 /min TOWER SWITCH OPERATOR-C Yogesh Mai TOWER SWITCH OPERATOR Work Phone: [facility] 09-18-2022 10:39-0400 Body height 170.18 cm TOWER SWITCH OPERATOR-C Yogesh Mai TOWER SWITCH OPERATOR Work Phone: [facility] 09-18-2022 10:31-0400 Body mass index (BMI) [Ratio] 45.4 kg/m2 TOWER SWITCH OPERATOR-C Yogesh Mai TOWER SWITCH OPERATOR Work Phone: [facility] 09-18-2022 10:31-0400 Body temperature 97.6 [degF] TOWER SWITCH OPERATOR-C Yogesh Mai TOWER SWITCH OPERATOR Work Phone: [facility] 09-18-2022 10:31-0400 Body weight 131.54 kg TOWER SWITCH OPERATOR-C Yogesh Mai TOWER SWITCH OPERATOR Work Phone: [facility] 09-18-2022 10:31-0400 Diastolic blood pressure 80 mm[Hg] TOWER SWITCH OPERATOR-C Yogesh Mai TOWER SWITCH OPERATOR Work Phone: [facility] 09-18-2022 10:31-0400 Heart rate 88 /min TOWER SWITCH OPERATOR-C Yogesh Mai TOWER SWITCH OPERATOR Work Phone: [facility] 09-18-2022 10:31-0400 Respiratory rate 18 /min TOWER SWITCH OPERATOR-C Yogesh Mai TOWER SWITCH OPERATOR Work Phone: [facility] 09-18-2022 10:31-0400 SaO2% (BldA) [Mass fraction] 95 % TOWER SWITCH OPERATOR-C Yogesh Mai TOWER SWITCH OPERATOR Work Phone: [facility] 09-18-2022 10:31-0400 Systolic blood pressure 123 mm[Hg] TOWER SWITCH OPERATOR-C Yogesh Mai TOWER SWITCH OPERATOR Work Phone: [facility] 09-17-2022 11:28-0400 Body temperature 97.4 [degF] TOWER SWITCH OPERATOR-C Yogesh Mai TOWER SWITCH OPERATOR Work Phone: [facility] 09-17-2022 11:28-0400 Diastolic blood pressure 83 mm[Hg] TOWER SWITCH OPERATOR-C Yogesh Mai TOWER SWITCH OPERATOR Work Phone: [facility] 09-17-2022 11:28-0400 Heart rate 91 /min TOWER SWITCH OPERATOR-C Yogesh Mai TOWER SWITCH OPERATOR Work Phone: [facility] 09-17-2022 11:28-0400 Systolic blood pressure 128 mm[Hg] TOWER SWITCH OPERATOR-C Yogesh Mai TOWER SWITCH OPERATOR Work Phone: [facility] 09-05-2022 10:33-0400 Body mass index (BMI) [Ratio] 44.6 kg/m2 [facility] 09-05-2022 10:33-0400 Body temperature 96.8 [degF] [facility] 09-05-2022 10:33-0400 Diastolic blood pressure 87 mm[Hg] [facility] 09-05-2022 10:33-0400 Heart rate 66 /min [facility] 09-05-2022 10:33-0400 Respiratory rate 18 /min [facility] 09-05-2022 10:33-0400 Systolic blood pressure 150 mm[Hg] [facility] 08-31-2022 02:21-0400 Body weight 129.27 kg [facility] 08-30-2022 15:04-0400 Body mass index (BMI) [Ratio] 44.6 kg/m2 TOWER SWITCH OPERATOR-C Yogesh Mai TOWER SWITCH OPERATOR Work Phone: [facility] 08-30-2022 15:04-0400 Body temperature 96.3 [degF] TOWER SWITCH OPERATOR-C Yogesh Mai TOWER SWITCH OPERATOR Work Phone: [facility] 08-30-2022 15:04-0400 Diastolic blood pressure 76 mm[Hg] TOWER SWITCH OPERATOR-C Yogesh Mai TOWER SWITCH OPERATOR Work Phone: [facility] 08-30-2022 15:04-0400 Heart rate 70 /min TOWER SWITCH OPERATOR-C Yogesh Mai TOWER SWITCH OPERATOR Work Phone: [facility] 08-30-2022 15:04-0400 Respiratory rate 18 /min TOWER SWITCH OPERATOR-C Yogesh Mai TOWER SWITCH OPERATOR Work Phone: [facility] 08-30-2022 15:04-0400 Systolic blood pressure 139 mm[Hg] TOWER SWITCH OPERATOR-C Yogesh aMi TOWER SWITCH OPERATOR Work Phone: [facility] 08-22-2022 10:13-0400 Body height 170.18 cm TOWER SWITCH OPERATOR-C Yogesh Mai TOWER SWITCH OPERATOR Work Phone: [facility] 08-22-2022 10:13-0400 Body weight 129.27 kg TOWER SWITCH OPERATOR-C Yogesh Mai TOWER SWITCH OPERATOR Work Phone: [facility] 05-07-2022 08:51-0500 Body mass index (BMI) [Ratio] 44.3 kg/m2 TOWER SWITCH OPERATOR-C Yogesh Mai TOWER SWITCH OPERATOR Work Phone: [facility] 05-07-2022 08:51-0500 Body temperature 97.3 [degF] TOWER SWITCH OPERATOR-C Yogesh Mai TOWER SWITCH OPERATOR Work Phone: [facility] 05-07-2022 08:51-0500 Body weight 128.36 kg TOWER SWITCH OPERATOR-C Yogesh Mai TOWER SWITCH OPERATOR Work Phone: [facility] 05-07-2022 08:51-0500 Diastolic blood pressure 80 mm[Hg] TOWER SWITCH OPERATOR-C Yogesh Mai TOWER SWITCH OPERATOR Work Phone: [facility] 05-07-2022 08:51-0500 Heart rate 67 /min TOWER SWITCH OPERATOR-C Yogesh Mai TOWER SWITCH OPERATOR Work Phone: [facility] 05-07-2022 08:51-0500 Respiratory rate 18 /min TOWER SWITCH OPERATOR-C Yogesh Mai TOWER SWITCH OPERATOR Work Phone: [facility] 05-07-2022 08:51-0500 SaO2% (BldA) [Mass fraction] 94 % TOWER SWITCH OPERATOR-C Yogesh Mai TOWER SWITCH OPERATOR Work Phone: [facility] 05-07-2022 08:51-0500 Systolic blood pressure 122 mm[Hg] TOWER SWITCH OPERATOR-C Yogesh Mai TOWER SWITCH OPERATOR Work Phone: [facility] 04-02-2022 11:55-0400 Body height 170.18 cm TOWER SWITCH OPERATOR-C Yogesh Mai TOWER SWITCH OPERATOR Work Phone: [facility] Work Phone: 04-02-2022 11:55-0400 Body weight 124.73 kg TOWER SWITCH OPERATOR-C Yogesh Mai TOWER SWITCH OPERATOR Work Phone: [facility] Work Phone: 04-02-2022 11:55-0400 Heart rate 75 /min TOWER SWITCH OPERATOR-C Yogesh Mai TOWER SWITCH OPERATOR Work Phone: [facility] Work Phone: 04-02-2022 11:55-0400 SaO2% (BldA) [Mass fraction] 95 % TOWER SWITCH OPERATOR-C Yogesh Mai TOWER SWITCH OPERATOR Work Phone: [facility] Work Phone: 03-27-2022 10:35-0400 Body mass index (BMI) [Ratio] 43.5 kg/m2 TOWER SWITCH OPERATOR-C Yogesh Mai TOWER SWITCH OPERATOR Work Phone: [facility] Work Phone: 03-27-2022 10:35-0400 Body temperature 98.6 [degF] TOWER SWITCH OPERATOR-C Yogesh Mai TOWER SWITCH OPERATOR Work Phone: [facility] Work Phone: 03-27-2022 10:35-0400 Body weight 126.09 kg TOWER SWITCH OPERATOR-C Yogesh Mai TOWER SWITCH OPERATOR Work Phone: [facility] Work Phone: 03-27-2022 10:35-0400 Diastolic blood pressure 81 mm[Hg] TOWER SWITCH OPERATOR-C Yogesh Mai TOWER SWITCH OPERATOR Work Phone: [facility] Work Phone: 03-27-2022 10:35-0400 Heart rate 93 /min TOWER SWITCH OPERATOR-C Yogesh Mai TOWER SWITCH OPERATOR Work Phone: [facility] Work Phone: 03-27-2022 10:35-0400 Respiratory rate 16 /min TOWER SWITCH OPERATOR-C Yogesh Mai TOWER SWITCH OPERATOR Work Phone: [facility] Work Phone: 03-27-2022 10:35-0400 SaO2% (BldA) [Mass fraction] 95 % TOWER SWITCH OPERATOR-C Yogesh Mai TOWER SWITCH OPERATOR Work Phone: [facility] Work Phone: 03-27-2022 10:35-0400 Systolic blood pressure 135 mm[Hg] TOWER SWITCH OPERATOR-C Yogesh Mai TOWER SWITCH OPERATOR Work Phone: [facility] Work Phone: Encounters Encounter Date Encounter Type Care Provider Facility Start: 03-03-2025 ambulatory Fela Sterling TOWER SWITCH OPERATOR Fac ility:[facility] Start: 02-25-2025 ambulatory Fela Sterling TOWER SWITCH OPERATOR Fac ility:[facility] Start: 02-16-2025 End: 02-16-2025 Patient encounter procedure Fela Sterling TOWER SWITCH OPERATOR-C -[facility] Work Phone: Start: 02-16-2025 End: 02-16-2025 ambulatory Yogesh Mai TOWER SWITCH OPERATOR-C Work Phone: -[facility] Start: 01-14-2025 End: 01-14-2025 ambulatory Yogesh Mai TOWER SWITCH OPERATOR-C Work Phone: -[facility] Start: 01-14-2025 End: 01-14-2025 Patient encounter procedure Fela Sterling TOWER SWITCH OPERATOR-C -[facility] Work Phone: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 patient has any questions or concerns. 11/07/22 1150 <Electronically signed by Felipe Whitt DPM> Cosigner Signature (if applicable): CC: ~ Signed [facility] Work Phone: 1(679) 173-963406-01-2023 Progress note Author Felipe Whitt [facility] October 31, 2022 1:06pm Note Date/Time October 31, 2022 10:57 am [facility] [address] [place] [address] Progress Note - Wound Care 10/31/22 1054 MR#: [id number] Acct: [id number] Name: YAQUELIN HENSON Rep #:[id number] : [...] the computer he sometimes uses a back healthcare interpreter to aggressively scratch his legs and believes [...] Recorded Date Recorded By Document 10/31/22 10:27 [id number] 10/31/22 10:33 10/31/22 10:27 - Today's Visit Information Type of service Follow-up Visit (Physician/METAL ROOFER ) Arrival Mode Ambulatory Patient Identification Verified [...] Date Recorded By Document 10/31/22 10:27 MARK [id number] 10/31/22 10:33 MARK 10/31/22 10:27 Wound Center [...] No signs of infection.? Pain: May take arri-ima-ckgdtjn Tylenol for discomfort Host factors: Suspected venous insufficiency, pruritus and self excoriation. ? I answered all the patient's questions.? To return to the wound healing center in 2 weeks or call sooner if the patient has any questions or concerns. 10/31/22 1306 <Electronically signed by Felipe Whitt DPM> Cosigner Signature (if applicable): CC: ~ Signed [facility] Work Phone: 1(334) 829-762905-18-2023 Progress note Author Felipe Whitt [facility] October 17, 2022 11:05am Note Date/Time October 17, 2022 10:31 am [facility] [address] [place] [address] Progress Note - Wound Care 10/17/22 1030 MR#: [id number] Acct: [id number] Name: YAQUELIN HENSON Rep #:[id number] : [...] the computer he sometimes uses a back healthcare interpreter to aggressively scratch his legs and believes [...] Recorded Date Recorded By Document 10/03/22 11:28 [id number] 10/03/22 11:30 10/03/22 11:28 - Today's Visit Information Type of service Follow-up Visit (Physician/METAL ROOFER ) Arrival Mode Ambulatory Height and Weight [...] Recorded Date Recorded By Document 10/03/22 11:28 [id number] 10/03/22 11:30 10/03/22 11:28 Wound Center Nurse [...] Date Recorded By Document 10/03/22 11:42 MARK [id number] 10/03/22 11:44 Document 10/03/22 11:44 MARK [id number] 10/04/22 08:46 10/03/22 10/03/22 11:42 11:44 Wound [...] Date Recorded By Document 10/03/22 06:47 GERMAINE [id number] 10/04/22 06:49 PL 10/03/22 06:47 Wound Care [...] normal at all levels bilaterally.? Indices: Right: UQETA by DP 1.3, QUETA by PT 1.36, [...] No signs of infection.? Pain: May take ixdt-rfo-fyucakx Tylenol for discomfort Host factors: Suspected venous insufficiency, pruritus and self excoriation. ? I answered all the patient's questions.? To return to the wound healing center in 2 weeks or call sooner if the patient has any questions or concerns. 10/17/22 1105 <Electronically signed by Felipe Whitt DPM> Cosigner Signature (if applicable): CC: ~ Signed [facility] Work Phone: 1(851) 421-213205-04-2023 Progress note Author Felipe Whitt [facility] October 03, 2022 12:20pm Note Date/Time October 03, 2022 12:15p [facility] [address] [place] [address] Progress Note - Wound Care 10/03/22 1205 MR#: [id number] Acct: [id number] Name: YAQUELIN HENSON Rep #:[id number] : [...] the computer he sometimes uses a back healthcare interpreter to aggressively scratch his legs and believes [...] Date Recorded By Document 10/03/22 11:28 MARK [id number] 10/03/22 11:30 MARK 10/03/22 11:28 - Today's Visit Information Type of service Follow-up Visit (Physician/METAL ROOFER ) Arrival Mode Ambulatory Height and Weight [...] Recorded Date Recorded By Document 10/03/22 11:28 [id number] 10/03/22 11:30 10/03/22 11:28 Wound Center Nurse [...] Recorded Date Recorded By Document 10/03/22 11:42 [id number] 10/03/22 11:44 10/03/22 11:42 Wound Center Nurse [...] No signs of infection.? Pain: May take tlxt-gax-ogjkhle Tylenol for discomfort Host factors: Suspected venous insufficiency, pruritus and self excoriation. ? I answered all the patient's questions.? To return to the wound healing center in 2 weeks or call sooner if the patient has any questions or concerns. 10/03/22 1220 <Electronically signed by Felipe Whitt DPM> Cosigner Signature (if applicable): CC: ~ Signed [facility] Work Phone: 1(428) 835-318304-20-2023 Progress note Author Felipe Whitt [facility] September 19, 2022 2:15pm Note Date/Time September 19, 2022 10: 53am [facility] [address] [place] [address] Progress Note - Wound Care 09/19/22 1052 MR#: [id number] Acct: [id number] Name: YAQUELIN HENSON Rep #:[id number] : [...] the computer he sometimes uses a back healthcare interpreter to aggressively scratch his legs and believes [...] Date Recorded By Document 09/03/22 13:16 DL [id number] 09/03/22 13:37 DL Document 09/05/22 10:33 JF [id number] 09/05/22 10:36 Document 09/10/22 13:52 DL [id number] 09/10/22 13:59 DL Document 09/12/22 11:03 RB [id number] 09/12/22 11:13 RB Document 09/17/22 11:28 DL [id number] 09/17/22 11:34 DL Document 09/19/22 10:27 RB Desktop 09/19/22 10:44 RB 09/03/22 09/05/22 09/10/22 13:16 10:33 13:52 - Today's Visit Information Type of service Follow-up Visit Follow-up Visit Nurse-only (Physician/METAL ROOFER (Physician/METAL ROOFER Visit ) ) Arrival Mode Ambulatory Ambulatory [...] of service Follow-up Visit Nurse-only Follow-up Visit (Physician/METAL ROOFER Visit (Physician/METAL ROOFER ) ) Arrival Mode Ambulatory Ambulatory Ambulatory [...] Date Recorded By Document 09/03/22 13:16 DL [id number] 09/03/22 13:37 DL Document 09/05/22 10:33 JF [id number] 09/05/22 10:36 JF Document 09/10/22 13:52 DL [id number] 09/10/22 13:59 DL Document 09/12/22 11:03 RB [id number] 09/12/22 11:13 RB Document 09/17/22 11:28 DL [id number] 09/17/22 11:34 DL Document 09/19/22 10:27 RB [...] Amt Medium (34-66%) Medium (34-66%) -Granulation Quality [place] Red -Slough/Fibrin Yes -Necrosis Amt Medium (34-66%) [...] Amt Medium (34-66%) Medium (34-66%) -Granulation Quality [place] -Slough/Fibrin Yes Yes -Necrosis Amt Medium (34-66%) Medium (34-66%) -Necrotic Tissue Type Adherent Slough Adherent Slough -Structure Exposed N/A N/A -Texture (Myriam-wound Skin Appearance) Assessed Assessed -Moisture (Myrima-wound Skin Appearance) Assessed Assessed -Color (Myriam-wound Skin [...] Amt Medium (34-66%) Medium (34-66%) -Granulation Quality [place] -Slough/Fibrin Yes Yes -Necrosis Amt Medium (34-66%) [...] Amt Medium (34-66%) Medium (34-66%) -Granulation Quality [place] -Slough/Fibrin Yes Yes -Necrosis Amt Medium (34-66%) [...] Date Recorded By Document 09/05/22 10:53 PL [id number] 09/05/22 10:59 PL Document 09/12/22 13:40 PL [id number] 09/12/22 13:42 PL 09/05/22 09/12/22 10:53 13:40 [...] Date Recorded By Document 09/03/22 13:37 DL [id number] 09/03/22 13:39 DL Edit Result 09/03/22 13:37 DL (1) [id number] 09/04/22 07:17 PL Document 09/05/22 11:55 JF [id number] 09/05/22 11:56 JF Document 09/10/22 13:52 DL [id number] 09/10/22 13:59 DL Document 09/12/22 11:33 JF [id number] 09/12/22 11:34 JF Document 09/17/22 11:28 DL [id number] 09/17/22 11:34 DL (1) Bilateral - Multi-Layered [...] Applied Promogran Taya Matter -Other Dressing taya tyaa -Primary Dressing Covered/Secured with Dry Gauze -Promogran [...] to finish to completion. Pain: May take ttwn-jkw-dkytdzl Tylenol for discomfort Host factors: Suspected venous insufficiency, pruritus and self excoriation. ? I answered all the patient's questions.? To return to the wound healing center in 2 weeks or call sooner if the patient has any questions or concerns. 09/19/22 1415 <Electronically signed by Felipe Whitt DPM> Cosigner Signature (if applicable): CC: ~ Signed [facility] Work Phone: 1(967) 251-199904-13-2023 Progress note Author Felipe Whitt [facility] September 12, 2022 1:28pm Note Date/Time September 12, 2022 11: 11am [facility] [address] [place] [address] Progress Note - Wound Care 09/12/22 1110 MR#: [id number] Acct: [id number] Name: YAQUELIN HENSON Rep #:[id number] : 1965 57 From: [...] the computer he sometimes uses a back healthcare interpreter to aggressively scratch his legs and believes [...] Date Recorded By Document 09/03/22 13:16 DL [id number] 09/03/22 13:37 DL Document 09/05/22 10:33 JF [id number] 09/05/22 10:36 JF Document 09/10/22 13:52 DL [id number] 09/10/22 13:59 DL 09/03/22 09/05/22 09/10/22 13:16 10:33 13:52 - Today's Visit Information Type of service Follow-up Visit Follow-up Visit Nurse-only (Physician/METAL ROOFER (Physician/METAL ROOFER Visit ) ) Arrival Mode Ambulatory Ambulatory [...] Date Recorded By Document 09/03/22 13:16 DL [id number] 09/03/22 13:37 DL Document 09/05/22 10:33 JF [id number] 09/05/22 10:36 JF Document 09/10/22 13:52 DL [id number] 09/10/22 13:59 DL 09/03/22 09/05/22 09/10/22 13:16 [...] Amt Medium (34-66%) Medium (34-66%) -Granulation Quality [place] Red -Slough/Fibrin Yes -Necrosis Amt Medium (34-66%) [...] Date Recorded By Document 09/05/22 10:53 GERMAINE [id number] 09/05/22 10:59 PL 09/05/22 10:53 Wound Center [...] Date Recorded By Document 09/03/22 13:37 DL [id number] 09/03/22 13:39 DL Edit Result 09/03/22 13:37 DL (1) [id number] 09/04/22 07:17 PL Document 09/05/22 11:55 JF [id number] 09/05/22 11:56 JF Document 09/10/22 13:52 DL [id number] 09/10/22 13:59 DL (1) Bilateral - Multi-Layered [...] PT 1.36, digital brachial index 0.99. Left: QUEAT by DP 1.26, QUETA by PT 1.39, [...] to finish to completion. Pain: May take keqy-ale-xjbyjzs Tylenol for discomfort Host factors: Suspected venous insufficiency, pruritus and self excoriation. ? I answered all the patient's questions.? To return to the wound healing center in 2 weeks or call sooner if the patient has any questions or concerns. 09/12/22 1328 <Electronically signed by Felipe Whitt DPM> Cosigner Signature (if applicable): CC: ~ Signed [facility] Work Phone: 1(358) 941-225904-06-2023 Progress note Author Felipe Whitt [facility] September 05, 2022 1:37pm Note Date/Time September 05, 2022 10:3 6am [facility] [address] [place] [address] Progress Note - Wound Care 09/05/22 1033 MR#: [id number] Acct: [id number] Name: YAQUELIN HENSON Rep #:[id number] : [...] the computer he sometimes uses a back healthcare interpreter to aggressively scratch his legs and believes [...] Date Recorded By Document 09/03/22 13:16 DL [id number] 09/03/22 13:37 DL 09/03/22 13:16 WC - Today's Visit Information Type of service Follow-up Visit (Physician/METAL ROOFER ) Arrival Mode Ambulatory Transfer Assistance None [...] Date Recorded By Document 09/03/22 13:16 DL [id number] 09/03/22 13:37 DL 09/03/22 13:16 Wound Center [...] Attached -Granulation Amt Medium (34-66%) -Granulation Quality [place] -Necrosis Amt Medium (34-66%) -Necrotic Tissue Type [...] Date Recorded By Document 09/03/22 13:37 DL [id number] 09/03/22 13:39 DL Edit Result 09/03/22 13:37 DL (1) [id number] 09/04/22 07:17 PL (1) Bilateral - Multi-Layered [...] to finish to completion. Pain: May take zdqf-oiq-fucyipa Tylenol for discomfort Host factors: Suspected venous insufficiency, pruritus and self excoriation. ? I answered all the patient's questions.? To return to the wound healing center in 1 week or call sooner if the patient has any questions or concerns. 09/05/22 1337 <Electronically signed by Felipe Whitt DPM> Cosigner Signature (if applicable): CC: ~ Signed [facility] Work Phone: 1(775) 947-157103-30-2023 Progress note Author Felipe Whitt [facility] August 29, 2022 7:25pm Note Date/Time August 29, 2022 11: 00am [facility] [address] [place] [address] Progress Note - Wound Care 08/29/22 1100 MR#: [id number] Acct: [id number] Name: YAQUELIN HENSON Rep #:[id number] : [...] the computer he sometimes uses a back healthcare interpreter to aggressively scratch his legs and believes [...] Date Recorded By Document 08/22/22 10:13 AK [id number] 08/22/22 10:20 AK Document 08/27/22 08:16 DL [id number] 08/27/22 08:31 DL 08/22/22 08/27/22 10:13 08:16 [...] Date Recorded By Document 08/22/22 10:13 AK [id number] 08/22/22 10:20 AK Document 08/27/22 08:16 DL [id number] 08/27/22 08:31 DL 08/22/22 08/27/22 10:13 08:16 [...] Date Recorded By Document 08/22/22 10:35 MARK [id number] 08/22/22 10:46 MARK 08/22/22 10:35 Wound Center [...] Date Recorded By Document 08/22/22 11:50 AK [id number] 08/22/22 11:51 AK Document 08/27/22 08:16 DL [id number] 08/27/22 08:31 DL Edit Result 08/27/22 08:16 DL (1) [id number] 08/28/22 07:04 PL (1) [place] - Multi-Layered [...] to finish to completion. Pain: May take ohoz-avj-nscmrru Tylenol for discomfort Host factors: Suspected venous insufficiency, pruritus and self excoriation. I answered all the patient's questions. To return to the wound healing center in 1 week or call sooner if the patient has any questions or concerns. 08/29/221924 <Electronically signed by Felipe Whitt DPM> Cosigner Signature (if applicable): CC: ~ Signed [facility] Work Phone: [phone] 704-431403-23-2023 History and physical note Author Felipe Whitt [facility] August 22, 2022 1:19pm Note Date/Time August 22, 2022 11: 10am [facility] [address] [place] [address] H&P Exam - Wound Care 08/22/22 1110 MR#: [id number] Acct: [id number] Name: YAQUELIN HENSON Rep #:[id number] : [...] the computer he sometimes uses a back healthcare interpreter to aggressively scratch his legs and believes [...] care of his left lower extremity ulcerations. [facility] Medical History Bronchitis Environmental allergies Hyperlipidemia [...] Date Recorded By Document 08/22/22 10:13 TORREY [id number] 08/22/22 10:20 TORREY 08/22/22 10:13 - Today's [...] Recorded Date Recorded By Document 08/22/22 10:13 NC [id number] 08/22/22 10:20 NC 08/22/22 10:13 Wound Center Nurse 1 #3 [...] Date Recorded By Document 08/22/22 10:35 MARK [id number] 08/22/22 10:46 MARK 08/22/22 10:35 Wound Center [...] to finish to completion. Pain: May take kkvl-pxv-cusgwty Tylenol for discomfort Host factors: Suspected venous insufficiency, pruritus and self excoriation. I answered all the patient's questions. To return to the wound healing center in 1 week or call sooner if the patient has any questions or concerns. 08/22/22 1883 <Electronically signed by Felipe Whitt DPM> Cosigner Signature (if applicable): CC: ~ Signed [facility] Work Phone: Evaluation noteNo assessment information available [facility] Work Phone: evaluation note* Diagnosis Onset Date Resolution Status Dyspnea acute Tobacco abuse acute [facility] Work Phone: evaluation note* Diagnosis Onset Date Resolution Status BMI 40.0-44.9, adult acute Stage 3 severe COPD by GOLD classification acute Tobacco abuse acute Bilateral edema of lower extremity acute BMI 40.0-44.9, adult acute Stage 3 severe COPD by GOLD classification acute Tobacco abuse acute 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 Venous insufficiency (chronic) (peripheral) chronic [facility] Work Phone: evaluation note* Diagnosis Onset Date [...] exposed chronic Venous insufficiency (chronic) (peripheral) chronic [facility] Work Phone: evaluation note* Diagnosis Onset Date [...] exposed chronic Venous insufficiency (chronic) (peripheral) chronic [facility] Work Phone: evaluation note* Diagnosis Onset Date [...] exposed chronic Venous insufficiency (chronic) (peripheral) chronic [facility] Work Phone: Evaluation note* Diagnosis Onset [...] exposed chronic Venous insufficiency (chronic) (peripheral) chronic [facility] Work Phone: Evaluation note* Diagnosis Onset [...] exposed chronic Venous insufficiency (chronic) (peripheral) chronic [facility] Work Phone: Evaluation note* Diagnosis Onset [...] 3 severe COPD by GOLD classification chronic [facility] Work Phone: Evaluation note* Diagnosis COPD with acute exacerbation- Primary Obstructive chronic bronchitis with exacerbation [facility] Diagnosis Onset Date Resolution Status [...] Stage 3 severe COPD by GOLD classification [facility] Work Phone: Evaluation note* Diagnosis Onset Date Resolution Status Admit Date Smoking greater than 40 pack years chronic February 16, 2025 2:34pm Stage 3 severe COPD by GOLD classification chronic February 16, 2025 2:34pm [facility] Work Phone: Hospital Discharge instructions* Attachments The following attachments cannot be sent through Care Everywhere. * Chronic Obstructive Pulmonary Disease (COPD) ([facility]) ([place]) [facility]No reason for referral information [facility]WK[facility] Work Phone: Summary Purpose Family History No Family History Records FoundNo Family History Records FoundNo Family History Records FoundNo Family History Records Found Advance Directives No Advanced Directives Records Found Advance Directive Response Recorded Date/ Time Living Will No June 23 12:48am Power of Pin Machine Operator No June 23, 2017 12:48am Advance Directive Response Recorded Date/ Time Living Will No June 22 11:48pm Power of Pin Machine Operator No June 22, 2017 11:48pm Advance Directive Response Recorded Date/ Time Living Will No April 05 5:26pm Power of Pin Machine Operator No April 05, 2023 5:26pm Advance Directive Response Recorded Date/ Time Living Will No April 05 4:26pm Power of Pin Machine Operator No April 05, 2023 4:26pm Advance Directive Response Recorded Date/ Time Living Will No April 05 5:26pm Do you have a Healthcare Power of Pin Machine Operator? No April 05, 2023 5:26pm Chief Complaint [...] Procedures ECG Kai Ha DO [address] [place] [address] Referral ID Status Reason Start Date Expiration Date V isits Requested Visits Authorized [id number] New Request 02/08/2023 03/04/2024 1 1 Additional Source Comments (unrecognized sect ion and content) No Status Records FoundNo Status Records FoundNo Status Records FoundNo Status Records Found INFORMATION SOURCE (unrecogn ized section and content) DATE CREATED AUTHOR 11/19/2017 [facility] DATE CREATED AUTHOR AUTHOR'S ORGANIZ ATION 02/11/2023 [facility] ([place]) DATE CREATED AUTHOR AUTHOR'S ORGANIZ ATION 10/08/2024 [facility] DATE CREATED AUTHOR AUTHOR'S ORGANIZ ATION 02/21/2025 [facility] Goals (unrecognized section and content) Goals [...] Thomas MD Family Provider Active Yogesh Mai TOWER SWITCH OPERATOR, TOWER SWITCH OPERATOR-C Primary Care Provider Active Team Status: Inactive Member Role Status Dates Yogesh Mai TOWER SWITCH OPERATOR, TOWER SWITCH OPERATOR-C Primary Care Provider, Referring Provider Active Fela Sterling TOWER SWITCH OPERATOR, TOWER SWITCH OPERATOR-C Attending Provider Active Team Status: Inactive Member Role Status Dates Yogesh Mai NP, TOWER SWITCH OPERATOR-C Primary Care Provider, Referring Provider Active Dr. Felipe Whitt DPM Attending Provider Active Team Status: Active Member Role Status Dates Yogesh Mai NP, TOWER SWITCH OPERATOR-C Primary Care Provider Active Dr. Felipe Whitt DPM Attending Provider, Referri ng Provider Active Team Status: Inactive Member Role Status Dates Yogesh Mai NP, TOWER SWITCH OPERATOR-C Primary Care Provider Active Dr. Felipe Whitt DPM Attending Provider, Referri ng Provider Active Team Status: Active Member Role Status Dates Yogesh Kendall TOWER SWITCH OPERATOR, TOWER SWITCH OPERATOR-C Primary Care Provider, Referring Provider Active ADOLFO HamptonM Attending Provider Active Team Status: Inactive Member Role Status Radha Mai TOWER SWITCH OPERATOR, TOWER SWITCH OPERATOR-C Primary Care Provider, Referring Provider Active Dr. Kervin Pa MD Attending Provider Active Team Status: Active Member Role Status Radha Mai TOWER SWITCH OPERATOR, TOWER SWITCH OPERATOR-C Primary Care Provider Active Dr. Kervin Pa MD Referring Provider, Other Provid er Active Dr. Boyd Hall DO Attending Provider Active Team Status: Active Member Role Status Radha Mai NP, TOWER SWITCH OPERATOR-C Primary Care Provider Active Dr. Kervin Pa MD Attending Provider, Referring Pr ovider Active Team Status: Inactive Member Role Status Radha Mai NP, TOWER SWITCH OPERATOR-C Primary Care Provider Active Dr. Kervin Pa MD Attending Provider, Referring Pr ovider Active Team Status: Inactive Member Role Status Radha Mai TOWER SWITCH OPERATOR, TOWER SWITCH OPERATOR-C Primary Care Provider Active Fela Sterling TOWER SWITCH OPERATOR, TOWER SWITCH OPERATOR-C Attending Provider, Referrin g Provider Active Artist Scientific Relationship Specialty Start Date End Date Yogesh Mai FNP [address] [place], [place] [id number] PCP - General Nurse Practitioner - Family 02/08/23 Team Status: Inactive Member Role Status Radha Mai TOWER SWITCH OPERATOR, TOWER SWITCH OPERATOR-C Primary Care Provider Active Hardik Sharif MD Emergency Provider Active Team Status: Active Member Role Status Radha Mai TOWER SWITCH OPERATOR, TOWER SWITCH OPERATOR-C Primary Care Provider Active Dr. Sumit Nation MD Attending Provider Active Team Status: Inactive Member Role Status Radha Mai NP, TOWER SWITCH OPERATOR-C Primary Care Provider Active Hardik Sharif MD Attending Provider, Emergency Provid er Active Team Status: Inactive Member Role Status Radha Mai TOWER SWITCH OPERATOR, TOWER SWITCH OPERATOR-C Primary Care Provider Active Dr. Josue Hurt MD Attending Provider, Referring Pr ovider Active Team Status: Active Member Role/Relationship Status Radha Mai TOWER SWITCH OPERATOR, TOWER SWITCH OPERATOR-C Primary Care Provider Active Team Status: Inactive Member Role/Relationship Status Dates Yogesh Mai TOWER SWITCH OPERATOR, TOWER SWITCH OPERATOR-C Primary Care Provider Active Start: January 14, 2025 End: January 14, 2025 Fela Sterling TOWER SWITCH OPERATOR, TOWER SWITCH OPERATOR-C Attending Provider Active Start: January 14, 2025 End: January 14, 2025 Fela Sterling TOWER SWITCH OPERATOR, TOWER SWITCH OPERATOR-C Referring Provider Active Start: January 14, 2025 End: January 14, 2025 Team Status: Active Member Role/Relationship Status Dates Yogesh Mai TOWER SWITCH OPERATOR, TOWER SWITCH OPERATOR-C Primary care physician Active Team Status: Inactive Member Role/Relationship Status Dates Yogesh Mai NP, TOWER SWITCH OPERATOR-C Primary care physician Active Start: January 14, 2025 End: January 14, 2025 Fela Sterling TOWER SWITCH OPERATOR, TOWER SWITCH OPERATOR-C Attending physician Active Start: January 14, 2025 End: January 14, 2025 Fela Sterling TOWER SWITCH OPERATOR, TOWER SWITCH OPERATOR-C Referring Provider Active Start: January 14, 2025 End: January 14, 2025 Team Status: Inactive Member Role/Relationship Status Dates Yogesh Mai NP, TOWER SWITCH OPERATOR-C Primary care physician Active Start: February 16, 2025 End: February 16, 2025 Yogesh Mai NP, TOWER SWITCH OPERATOR-C Referring Provider Active S tart: February 16, 2025 End: February 16, 2025 Fela Sterling TOWER SWITCH OPERATOR, TOWER SWITCH OPERATOR-C Attending physician Active Start: February 16, 2025 [...] or prosecute any alcohol or drug abuse patient.[facility] FOR RECORDS PERTAINING TO PATIENTS WHO [...] BE BASED ON THE PRIMARY CLINICAL RECORDS. [employer] [facility]. provides no warranty or guarantee of the accuracy or completeness of information in this document.
[2025-02-25 12:54] VITALS: PULSE 104; PULSE 109; PULSE 110; PULSE 111; PULSE 82; PULSE 84; PULSE 91; O2SAT 86; O2SAT 87; O2SAT 89; O2SAT 91; O2SAT 93; O2SAT 94
--- NOTE | 2025-02-25 12:57 | CPS ---
Patient's SpO2 dropped to 86% at the 4th minute. Patient refused oxygen and states he will not wear it at home. After testing, explained to patient the importance of having an SpO2 above 89%. Patient is pleasant and ensures understanding.
--- NOTE | 2025-02-28 10:40 | PCM.PSN.6M ---
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 Assistive device None used: Pre-test Oxygen Delivery Room Air Method Pulse Ox (%) 93 Pulse Rate (60-100 84 beats/min) Dyspnea Jannette Scale ( 0 0-10) Exertion Jannette Scale 6 (6-20) 1st minute Oxygen Delivery Room Air Method Pulse Ox (%) 91 Pulse Rate (60-100 91 beats/min) 2nd minute Oxygen Delivery Room Air Method Pulse Ox (%) 89 Pulse Rate (60-100 104 H beats/min) 3rd minute Oxygen Delivery Room Air Method Pulse Ox (%) 89 Pulse Rate (60-100 109 H beats/min) 4th minute Oxygen Delivery Room Air Method Pulse Ox (%) 86 Pulse Rate (60-100 109 H beats/min) 5th minute Oxygen Delivery Room Air Method Pulse Ox (%) 87 Pulse Rate (60-100 111 H beats/min) 6th minute Oxygen Delivery Room Air Method Pulse Ox (%) 89 Pulse Rate (60-100 110 H beats/min) Dyspnea Jannette Scale ( 1 0-10) Exertion Jannette Scale 11 (6-20) Post-test Oxygen Delivery Room Air Method Pulse Ox (%) 94 Pulse Rate (60-100 82 beats/min) Full Laps Walked 15 Partial Lap, Number 17 of Tiles Walked Total Distance 902 Walked (ft) 02/25/25 12:57 Cardiopulmonary Services by Mechelle Lozano Patient's SpO2 dropped to 86% at the 4th minute. Patient refused oxygen and states he will not wear it at home. After testing, explained to patient the importance of having an SpO2 above 89%. Patient is pleasant and ensures understanding. Initialized on 02/25/25 12:57 - END OF NOTE Interpretation Interpretation: The patient ambulated 902 feet over the course of 6 minutes beginning on room air without assistive devices. Pretesting oxygen saturation was noted to be 93% on room air. With ambulation, the caprice oxygen saturation was 86%. This represents a significant exertional oxygen desaturation, consistent with a pulmonary limitation to exercise tolerance. However, the patient refused supplemental oxygen that was offered. Recommendations Recommendations: Recommend using supplemental oxygen with exertion to maintain saturations at or above 88%. As noted above, the patient refused supplemental O2 during testing.
--- NOTE | 2025-02-28 10:40 | PCM.PSN.6M ---
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 Assistive device None used: Pre-test Oxygen Delivery Room Air Method Pulse Ox (%) 93 Pulse Rate (60-100 84 beats/min) Dyspnea Jannette Scale ( 0 0-10) Exertion Jannette Scale 6 (6-20) 1st minute Oxygen Delivery Room Air Method Pulse Ox (%) 91 Pulse Rate (60-100 91 beats/min) 2nd minute Oxygen Delivery Room Air Method Pulse Ox (%) 89 Pulse Rate (60-100 104 H beats/min) 3rd minute Oxygen Delivery Room Air Method Pulse Ox (%) 89 Pulse Rate (60-100 109 H beats/min) 4th minute Oxygen Delivery Room Air Method Pulse Ox (%) 86 Pulse Rate (60-100 109 H beats/min) 5th minute Oxygen Delivery Room Air Method Pulse Ox (%) 87 Pulse Rate (60-100 111 H beats/min) 6th minute Oxygen Delivery Room Air Method Pulse Ox (%) 89 Pulse Rate (60-100 110 H beats/min) Dyspnea Jannette Scale ( 1 0-10) Exertion Jannette Scale 11 (6-20) Post-test Oxygen Delivery Room Air Method Pulse Ox (%) 94 Pulse Rate (60-100 82 beats/min) Full Laps Walked 15 Partial Lap, Number 17 of Tiles Walked Total Distance 902 Walked (ft) 02/25/25 12:57 Cardiopulmonary Services by Mechelle Lozano Patient's SpO2 dropped to 86% at the 4th minute. Patient refused oxygen and states he will not wear it at home. After testing, explained to patient the importance of having an SpO2 above 89%. Patient is pleasant and ensures understanding. Initialized on 02/25/25 12:57 - END OF NOTE Interpretation Interpretation: The patient ambulated 902 feet over the course of 6 minutes beginning on room air without assistive devices. Pretesting oxygen saturation was noted to be 93% on room air. With ambulation, the caprice oxygen saturation was 86%. This represents a significant exertional oxygen desaturation, consistent with a pulmonary limitation to exercise tolerance. However, the patient refused supplemental oxygen that was offered. Recommendations Recommendations: Recommend using supplemental oxygen with exertion to maintain saturations at or above 88%. As noted above, the patient refused supplemental O2 during testing.
== END | disposition home or self-care (01) ==
LOC: PSN 12:13
PROVIDERS: PCP Nurse Practitioner Family; Referring Provider Nurse Practitioner Acute Care; Visit Provider Nurse Practitioner Acute Care
DX: J44.9 Chronic obstructive pulmonary disease, unspecified (principal)
CPT/HCPCS: 94618

== ENCOUNTER → 2025-03-03 | Outpatient (CLI) | payer OTHER, SELFPAY | END | disposition home or self-care (01) | LOC: PSN 12:23 | PROVIDERS: PCP Nurse Practitioner Family; Referring Provider Nurse Practitioner Acute Care; Visit Provider Nurse Practitioner Acute Care | DX: J44.9 Chronic obstructive pulmonary disease, unspecified (principal) | CPT/HCPCS: 94060; 94726; 94729 ==

== ENCOUNTER 2025-04-04 16:53 | Emergency (ER) | payer OTHER, SELFPAY ==
[2025-04-04] VITALS (11 sets, daily range): BP systolic 122–139; BP diastolic 68–89; PULSE 65–87; RESP 14–24; TEMP 36.6–36.9; O2SAT 92–97; BMI 45.2
--- NOTE | 2025-04-04 17:16 | EKG12_ITS ---
Test Reason : SOB
[2025-04-04 17:34] LABS: Hematocrit 49.8 % (40-54); Hemoglobin 17.1 g/dL (13.0-16.5); Immature Granulocytes Count 0.060 X10^3/uL (0.0-0.0); Mean Corp Hgb Conc 34.3 g/dL (32-36); Mean Corpuscular Volume 97.1 fL (80-94); Mean Platelet Vol. 9.4 fl (6.2-12.0); NRBC Flagged by Analyzer 0 % (0-5); Platelet Count 347 K/mm3 (150-450); RBC Distribution Width CV 13.1 % (11.6-14.6); RBC Distribution Width SD 47.5 fl (35.1-43.9); Red Blood Count 5.13 M/mm3 (4.6-6.2); White Blood Count 13.6 K/mm3 (4.4-11.0)
--- NOTE | 2025-04-04 17:35 | RAD_ITS ---
PROCEDURE: RAD/Chest PA and Lateral
[2025-04-04 18:07] LABS: Anion Gap 9 (5-15); BUN 21 mg/dL (4-19); BUN/Creat Ratio 17.8 RATIO (10-20); Calcium,Total 9.5 mg/dL (7.6-11.0); Carbon Dioxide 34.5 mmol/L (21.0-32.0); Chloride 100 mmol/L (98-108); Estimated Creatinine Clearance 91.21 ml/min (50-250); Glucose 87 mg/dL (70-99); Potassium 3.7 mmol/L (3.3-5.1)
--- NOTE | 2025-04-04 18:12 | ED.VIS.DYS ---
HPI History of Present Illness Chief Complaint: Shortness of Breath Informant: patient Onset/Context/Timing Onset: Weeks (1) Context: gradual Timing: Waxes and wanes Quality: Positive for Orthopnea and Wheezing Worsened by: Lying flat Relieved by: Albuterol Associated Symptoms cough, rhinorrhea, sweats and clear sputum; Negative for post nasal drip, ear pain, fever, sore throat, chills, white sputum, yellow sputum or green sputum Chest Pain: Positive for None Narrative Narrative: Patient presents with shortness of breath that has been getting worse over the past week. Patient states that is gradually getting worse. Patient states it waxes and wanes. Patient states he hears himself wheezing. Patient states his breathing is worse when he lays flat. Patient states he has been using albuterol at home with some relief. Patient admits to a cough with some clear sputum. Patient also admits to some rhinorrhea. Patient states he did break into a sweat but denies any fevers or chills. Patient denies any chest pain. PE Risk Factors: Negative for Cancer, OCP + Smoking + > 35, Prior DVT or PE, Recent immobilization or Recent surgery [facility] Medical History Acute bronchitis, unspecified Hypoxemia Hyperlipidemia Bronchitis Environmental allergies Home Medications ?Medication ?Instructions ?Recorded ?Last Taken ?Type atorvastatin 10 mg tablet 10 mg PO DAILY 03/27/22 Unknown History losartan 100 1 tab PO DAILY 03/27/22 Unknown History mg-hydrochlorothiazide 25 mg tablet albuterol sulfate 90 mcg/actuation 2 puff inhalation Q6H PRN 12/17/23 Unknown Rx aerosol inhaler shortness of breath or wheezing #8.5 grams aspirin 81 mg capsule 81 mg PO DAILY 07/28/24 Unknown History fluticasone fur. 200 mcg-umeclid 1 inh inhalation DAILY #3 ea 02/16/25 Unknown Rx 62.5 mcg-vilant 25 mcg inhalat.powder (Trelegy Ellipta) furosemide 20 mg tablet 20 mg PO QAM 02/16/25 Unknown History azithromycin 250 mg tablet See Rx Instructions PO .COMPLEX #6 03/30/25 Unknown Rx tabs ipratropium 0.5 mg-albuterol 3 mg 6 ml continuous nebulization ONCE 03/30/25 Unknown Clinic (2.5 mg base)/3 mL nebulization #1 mL soln potassium chloride 10 mEq 10 meq PO QDAY 03/30/25 Unknown History tablet,extended release prednisone 10 mg tablet 10 mg PO QDAY #30 tabs 03/30/25 Unknown Rx prednisone 10 mg tablet 30 mg (3 x 10 mg) PO DAILY 5 days 04/04/25 Unknown Rx #15 TABLETS Allergy/AdvReac Type Severity Reaction Status Date / Time Seasonal Allergies: Uncoded Allergy Shortness Verified 04/04/25 16:57 of breath Surgical History History of repair of rotator cuff Social History Smoking Status: Current some day smoker tobacco type: cigarettes second hand exposure: Yes ROS ROS ED Constitutional Constitutional ED: Reports sweats; Denies chills or fever(s) Eyes Eyes: Denies blurry vision or change in vision ENT ENT ED: Denies rhinorrhea or sore throat Cardiovascular Cardiovascular: Denies chest pain or palpitations Respiratory/Chest Respiratory/Chest: Reports cough and dyspnea Gastrointestinal Gastrointestinal: Denies nausea or vomiting Genitourinary Genitourinary ED: Denies dysuria or hematuria Musculoskeletal Musculoskeletal: Denies back pain or neck pain Integumentary Denies abscess or rash Neurologic Neurologic: Denies headache(s) or weakness Allergic/Immunologic Allergic/Immunologic ED: Denies mouth swelling or urticaria EXAM Physical Exam Const Vital Signs: 04/04/25 16:54 04/04/25 17:55 04/04/25 17:55 Temperature 98.2 F 98.1 F Temperature Source Oral Oral Pulse Rate 79 74 Respiratory Rate 16 16 Respiratory Effort Respiratory Depth Respiratory Pattern Blood Pressure 132/89 H 136/84 H Blood Pressure Mean 103 101 Pulse Ox 92 96 Oxygen Delivery Method Room Air Room Air Room Air Oxygen Flow Rate (L/min) 04/04/25 17:55 04/04/25 17:57 04/04/25 18:00 Temperature 98.0 F Temperature Source Oral Pulse Rate 76 Respiratory Rate 24 H 20 H Respiratory Effort Short of Breath Respiratory Depth Normal Respiratory Pattern Normal Blood Pressure 139/79 H Blood Pressure Mean 99 Pulse Ox 95 97 Oxygen Delivery Method Room Air Room Air Oxygen Flow Rate (L/min) 04/04/25 18:58 04/04/25 19:00 04/04/25 20:00 Temperature 98.4 F Temperature Source Oral Pulse Rate 82 74 87 Respiratory Rate 20 H 18 17 Respiratory Effort Respiratory Depth Respiratory Pattern Normal Blood Pressure 122/68 H 122/68 H Blood Pressure Mean 86 86 Pulse Ox 96 93 Oxygen Delivery Method Room Air Nasal Cannula Oxygen Flow Rate (L/min) 2 04/04/25 20:32 04/04/25 21:00 04/04/25 21:54 Temperature 98 F Temperature Source Pulse Rate 70 65 71 Respiratory Rate 19 H 14 15 Respiratory Effort Respiratory Depth Respiratory Pattern Normal Blood Pressure 136/74 H 132/78 H Blood Pressure Mean 94 96 Pulse Ox 95 95 Oxygen Delivery Method Nasal Cannula Oxygen Flow Rate (L/min) 2 Positive well nourished and well developed General Appearance ED: well developed and NAD HEENT Reports moist mucous membranes Neck supple, no meningeal signs and no JVD Resp normal respiratory effort Auscultation: wheezes expiratory wheezes and throughout Cardio regular rate and regular rhythm GI non-tender and non-distended Palpation: soft Neuro oriented x3, CN's II-XII intact bilaterally and no sensory deficits noted Melony Coma Scale: document GCS findings Spontaneous Obeys Commands Oriented 15 Sensorium / Orientation: alert Speech: speech normal Motor Exam: strength 5/5 throughout Psych mental status grossly normal MDM MDM MDM Narrative Medical decision making narrative: Differential diagnosis includes pneumonia, bronchitis, COPD exacerbation, cardiac dysrhythmia, cardiac ischemia. EKG will be obtained to assess for cardiac dysrhythmia and cardiac ischemia. Chest x-ray will be obtained to assess for pneumonia and bronchitis. CBC will be obtained to assess for leukocytosis and anemia. Basic metabolic profile will be obtained to assess for electrolyte abnormality renal function. High-sensitivity troponin will be obtained to assess for cardiac ischemia. Lab Data Attestation: I reviewed the patient's lab results. Lab results narrative: CBC was reviewed. There is a mild leukocytosis of 13.6. The remainder was within normal limits. Basic metabolic profile was reviewed and was essentially within normal limits. High-sensitivity troponin was reviewed and was normal at 8. Labs: Laboratory Results - last 24 hr 04/04/25 17:15 WBC 13.6 H RBC 5.13 Hgb 17.1 H Hct 49.8 MCV 97.1 H MCH 33.3 H MCHC 34.3 RDW Std Deviation 47.5 H RDW Coeff of [place] 13.1 Plt Count 347 MPV 9.4 Immature Gran % (Auto) 0.400 Neut % (Auto) 65.2 Lymph % (Auto) 25.8 [place] % (Auto) 8.2 Eos % (Auto) 0.1 Baso % (Auto) 0.3 Absolute Neuts (auto) 8.9 H Absolute Lymphs (auto) 3.51 Nucleated RBC % 0 Sodium 143 Potassium 3.7 Chloride 100 Carbon Dioxide 34.5 H Anion Gap 9 BUN 21 H Creatinine 1.15 Estim Creat Clear Calc 91.21 Est GFR (MDRD) Non-Af 74 BUN/Creatinine Ratio 17.8 Glucose 87 Calcium 9.5 Troponin T High Sens 8 Radiography Chest X-Ray - ED: 2 View, Read by ED Physician, Read by Radiologist and No Acute Disease Diagnostic Testing: Clinical Impression(s) from Imaging Studies Chest X-Ray 04/04/25 17:35 IMPRESSION: No acute cardiopulmonary disease. Reading Location: [id number] and lateral chest x-ray was obtained. There are 2 views. On my independent interpretation, lung hanna are clear. There is normal cardiac silhouette. Bony thorax is normal. There is no acute process noted. Radiologist also interpreted the x-ray and agrees. EKG Initial EKG: Attestation: I personally reviewed and interpreted this EKG as follows: Interpretation: Sinus Rhythm (67) and No Acute Injury Pattern Comments: EKG was obtained. On my independent interpretation, it showed a normal sinus rhythm with a rate of 67. NV interval, QRS interval, and QTc intervals were all normal. [place] was normal. There are no acute ST or T wave changes. Prior EKG tracings: available for review Prior: Unchanged (07/28/2024) Treatment and Re-Evaluation :: Patient is on prednisone at home. Patient was given an extra dose of prednisone here. Patient was advised of his findings. I offered admission to the patient. He states he needs to go home and go to work tonight. He does not want to be admitted to the hospital. Patient was given a short course of prednisone for the next 5 days. Patient was instructed to follow-up with his primary care physician in 5 to 7 days. Patient was instructed to return if worse in any way. Patient understood and was agreeable with the plan. All questions were answered. Discharge Plan Triage Chief Complaint: Shortness of Breath ED Provider: Sumit Pascal Dx/Rx/DC Orders Clinical Impression: COPD with acute exacerbation, Tobacco abuse, Dyspnea Instructions: ED COPD Flare Prescriptions: New prednisone 10 mg tablet 30 mg PO DAILY 5 Days Qty: 15 0RF No Action atorvastatin 10 mg tablet 10 mg PO DAILY losartan-hydrochlorothiazide 100-25 mg tablet 1 tab PO DAILY albuterol sulfate 90 mcg/actuation HFA aerosol inhaler 2 puff inhalation Q6H PRN (Reason: shortness of breath or wheezing) Qty: 8.5 1RF furosemide 20 mg tablet 20 mg PO QAM Trelegy Ellipta 200-62.5-25 mcg blister with device 1 inh inhalation DAILY Qty: 3 3RF ipratropium-albuterol 0.5 mg-3 mg(2.5 mg base)/3 mL solution for nebulization 6 ml continuous nebulization ONCE Qty: 1 0RF potassium chloride 10 mEq tablet extended release 10 meq PO QDAY prednisone 10 mg tablet 10 mg PO QDAY Qty: 30 0RF Rx Instructions: 4 tablets daily x3 days, then 3 tablets daily x3 days, then 2 tablets daily x3 days, then 1 tablet daily x3 days azithromycin 250 mg tablet See Rx Instructions PO .COMPLEX Qty: 6 0RF Rx Instructions: For 250 mg dose pack: take 500 mg today (day 1), then 250 mg for 4 days (days 2-5) PO aspirin 81 mg capsule 81 mg PO DAILY Primary Care Provider: Savana Argueta NP Referrals: Savana Argueta NP, NIGHT CLERK-C [Primary Care Provider, [facility]] - 3-5 Days Print Language: [place] Disposition Disposition: Home, Self Care Discharge Date/Time: 04/04/25 21:55
[2025-04-04 19:20] LABS: Troponin T High Sensitivity 8 ng/L (<=22)
[2025-04-04] MEDS: Albuterol 2.5 MG/3 ML VIAL.NEB. INHALATION (20:10)
== END 2025-04-04 21:55 | disposition home or self-care (01) ==
PROVIDERS: Emergency Provider Emergency Medicine; PCP Nurse Practitioner Family; Visit Provider Emergency Medicine
DX: J44.1 Chronic obstructive pulmonary disease with (acute) exacerbation (principal); E78.5 Hyperlipidemia, unspecified; D72.829 Elevated white blood cell count, unspecified; F17.210 Nicotine dependence, cigarettes, uncomplicated; Z79.82 Long term (current) use of aspirin; Z79.899 Other long term (current) drug therapy
CPT/HCPCS: 71045; 71046; 80048; 84484; 85025; 93005; 94640; 94760; 99283